=== PATIENT | female | born 1935 | race Caucasian/White ===

== ENCOUNTER 2017-05-23 10:43 | Inpatient (IN) | payer MEDICARE, OTHER ==
[2017-05-23] VITALS (33 sets, daily range): BP systolic 107–222; BP diastolic 52–109
[~2017-05-23] VITALS: Ht 157.5 cm; Wt 70.3 kg
[~2017-05-23 10:43] MED LIST: ASPIRIN; FENOFIBRATE67 MG PO; JANUVIA; METOPROLOL TART25 MG PO; NATEGLINIDE60 MG PO; PAROXETINE; PAXIL; SIMVASTATIN
[2017-05-23 12:25] LABS: BASOPHILS % 0.3 % (0.0-1.0); EOSINOPHILS % 0.3 % (0.0-6.0); HEMATOCRIT 29.3 % (34.2-44.1); HEMOGLOBIN 9.3 g/dL (12.0-16.0); LYMPHOCYTES # (AUTO) 1.1 (1.0-3.2); LYMPHOCYTES % 14.1 % (18.0-39.1); MEAN CORPUSCULAR HEMOGLOBIN 29.4 pg (28-32); MEAN CORPUSCULAR HGB CONC 31.7 g/dL (31-35); MEAN CORPUSCULAR VOLUME 92.7 fL (81-99); MONOCYTES # (AUTO) 0.6 (0.2-0.8); MONOCYTES % 7.6 % (4.4-11.3); NEUTROPHILS # (AUTO) 5.8 (2.1-6.9); PLATELET COUNT 190 x10e3/uL (140-360); RED BLOOD COUNT 3.16 x10e6/uL (3.6-5.1); RED CELL DISTRIBUTION WIDTH 15.7 % (11.7-14.4)
[2017-05-23 12:31] LABS: BILIRUBIN,URINE NEGATIVE (NEGATIVE); CLARITY,URINE CLOUDY (CLEAR); COLOR,URINE YELLOW (YELLOW); KETONES,URINE NEGATIVE (NEGATIVE); LEUKOCYTE ESTERASE ,URINE NEGATIVE (NEGATIVE); NITRITE,URINE NEGATIVE (NEGATIVE); PROTEIN,URINE DIPSTICK 3+ (NEGATIVE); URINE UROBILINOGEN 0.2 mg/dL (0.2 - 1)
[2017-05-23] MEDS ORDERED: ALBUTEROL SULF 0.083% NEB SOLN 3 ML NEB NEB STA (12:37)
[2017-05-23] MEDS ORDERED: IPRATROPIUM BROMIDE 0.02% 2.5 ML NEB NEB STA (12:37)
--- NOTE | 2017-05-23 12:43 | Diagnostic Imaging Report ---
Exam: Head CT without contrast History: Altered mental status Comparison studies: The previous head CTs of 08/08/2014 and are unavailable on the PACS for comparison at the time of dictation. Technique: Axial images were obtained from the skull base to the vertex. Coronal and sagittal images reconstructed from the axial data. Intravenous contrast: None Findings: Exam is somewhat limited by artifacts related to patient motion. In spite of these limitations: Scalp: No abnormalities. Bones: No fractures, blastic or lytic lesions. Brain sulci: Appropriate for age. Ventricles: Normal in size and configuration. No hydrocephalus. Extra-axial spaces: No masses, no fluid collection. Parenchyma: No mass, acute hemorrhage or acute cortical vascular insults. A few scattered ill-defined hypodensities in the supratentorial white matter are nonspecific but most compatible with chronic small vessel ischemic changes. Sellar/suprasellar region: No abnormalities. Craniocervical junction: Patent foramen magnum. No Chiari one malformation. Incidental findings: Atherosclerotic calcifications in the carotid siphons and intradural vertebral arteries. Bilateral lens replacements related to previous cataract surgery. IMPRESSION: Exam somewhat limited by artifacts. In spite of this limitation: 1. No acute intracranial abnormalities. 2. Mild supratentorial microvascular ischemic changes. Signed by: Dr. Harinder Lobo M.D. on 05/23/2017 12:39 PM
[2017-05-23 12:47] LABS: ALBUMIN 3.1 g/dL (3.5-5.0); ALBUMIN/GLOBULIN RATIO 0.9 (0.8-2.0); ANION GAP 15.7 mmol/L (8-16); CALCIUM 9.4 mg/dL (8.4-10.2); CREATININE, SERUM 4.19 mg/dL (0.57-1.11); POTASSIUM 4.7 mmol/L (3.5-5.1)
[2017-05-23 12:53] LABS: CREATINE KINASE MB 2.5 ng/mL (0.00-5.00); TROPONIN I 0.047 ng/mL (0-0.300)
[2017-05-23] MEDS ORDERED: FUROSEMIDE INJ 10 MG/ML 2 ML VIAL IV ONE (13:00)
--- NOTE | 2017-05-23 13:06 | Diagnostic Imaging Report ---
PROCEDURE: CHEST SINGLE (PORTABLE) COMPARISON: None. INDICATIONS: SHORTNESS OF BREATH FINDINGS: Lung volumes are low. No focal consolidation, pleural effusion, or pneumothorax. The cardiac silhouette is enlarged with prominence of the central pulmonary vasculature. No overt alveolar edema. No acute osseous abnormality. CONCLUSION: Cardiomegaly with pulmonary venous congestion, accentuated by low lung volumes. Dictated by: Harinder Irizarry M.D. on 05/23/2017 at 13:14 Electronically approved by: Harinder Irizarry M.D. on 05/23/2017 at 13:14
[2017-05-23] MEDS ORDERED: FUROSEMIDE INJ 10 MG/ML 4 ML VIAL IV ONE (13:15)
[2017-05-23] MEDS ORDERED: SODIUM CHLORIDE FLUSH 10 ML SYR INJ PRN (13:15)
[2017-05-23 13:27] LABS: ABG HCO3 25 mmol/L (23-28); ABG PCO2 60 mmHg (41-51); ABG PH 7.23 (7.31-7.41); ABG PO2 388 mmHg (80-105)
[2017-05-23 13:29] LABS: ABG HCO3 24 mmol/L (23-28); ABG PCO2 53 mmHg (41-51); ABG PH 7.26 (7.31-7.41); ABG PO2 155 mmHg (80-105)
[2017-05-23 13:38] LABS: EPITHELIAL CELLS,URINE FEW /LPF
[2017-05-23 13:40] LABS: RBC,URINE 0-5 /HPF (0-5); WBC,URINE (MAN) 0-5 /HPF (0-5)
[2017-05-23 13:41] LABS: AMORPHOUS SEDIMENT,URINE MODERATE (FEW)
[2017-05-23 13:52] LABS: INR 0.86; PROTHROMBIN TIME 12.2 seconds (11.9-14.5)
[2017-05-23 13:53] LABS: PARTIAL THROMBOPLASTIN TIME 27.2 seconds (23.8-35.5)
[2017-05-23] MEDS ORDERED: ROCURONIUM BROMIDE 1 ML ONE ×2 (14:32)
[2017-05-23] MEDS ORDERED: PROPOFOL IV EMULSION 10MG/ML 100 ML ONE (14:43)
[2017-05-23] MEDS: PROPOFOL IV EMULSION 10MG/ML 100 ML IV SCH ×2 (15:05→21:22)
--- NOTE | 2017-05-23 15:16 | Diagnostic Imaging Report ---
PROCEDURE: A single AP view of the chest. COMPARISON: Patients [facility], , CHEST SINGLE (PORTABLE), 05/23/2017, 12:41. INDICATIONS: INTUBATION FINDINGS: Lines/tubes: Endotracheal tube has been placed, with distal tip in satisfactory position approximately 3 cm proximal to the jennifer. Lungs: Mild bilateral pulmonary venous congestion. Pleura: Small left pleural effusion. There is no pneumothorax. Heart and mediastinum: The cardiac silhouette remains enlarged. Bones: No acute bony abnormality. IMPRESSION: 1. ET tube has been placed, in adequate position, otherwise no significant change. Deon Coleman M.D. Dictated by: Deon Coleman M.D. on 05/23/2017 at 15:24 Electronically approved by: Deon Coleman M.D. on 05/23/2017 at 15:24
[2017-05-23 15:40] LABS: AMPHETAMINES SCREEN,URINE NEGATIVE (NEGATIVE); BENZODIAZEPINES SCREEN,URINE NEGATIVE (NEGATIVE); PHENCYCLIDINE SCREEN,URINE NEGATIVE (NEGATIVE)
[2017-05-23 15:48] LABS: ACETAMINOPHEN < 3 ug/mL (10-30); SALICYLATE < 5.0 mg/dL (0-30)
[2017-05-23] MEDS ORDERED: ROCURONIUM BROMIDE 10 MG/ML 5ML VIAL IV ONE (16:15)
[2017-05-23] MEDS ORDERED: ETOMIDATE 2 MG/ML 10 ML INJ IV STA (16:15)
[2017-05-23 16:30] LABS: ABG HCO3 25 mmol/L (23-28); ABG PCO2 55 mmHg (41-51); ABG PH 7.26 (7.31-7.41); ABG PO2 127 mmHg (80-105)
[2017-05-23] MEDS ORDERED: PRANDIN1 MG (16:49)
[2017-05-23] MEDS ORDERED: ZOFRAN ODT4 MG (16:49)
[2017-05-23] MEDS ORDERED: FELODIPINE ER5 MG (16:49)
[2017-05-23] MEDS ORDERED: NORCO 5-325 TA1 EACH PO (16:49)
[2017-05-23] MEDS ORDERED: BUSPIRONE HCL5 MG PO (16:49)
[2017-05-23] MEDS ORDERED: GABAPENTIN100 MG (16:49)
[2017-05-23] MEDS ORDERED: METOPROLOL TART50 MG PO (16:49)
[2017-05-23] MEDS ORDERED: QUETIAPINE FUM100 MG PO (16:49)
[2017-05-23] MEDS ORDERED: PAROXETINE HCL20 MG PO (16:49)
[2017-05-23] MEDS ORDERED: CLONIDINE HCL0.1 MG PO (16:49)
[2017-05-23] MEDS ORDERED: FUROSEMIDE40 MG PO (16:49)
[2017-05-23] MEDS ORDERED: SIMVASTATIN20 MG PO (16:49)
[2017-05-23] MEDS ORDERED: HYDRALAZINE HCL10 MG PO (16:49)
[2017-05-23] MEDS ORDERED: VENLAFAXINE H37.5 M1 (16:49)
[2017-05-23] MEDS ORDERED: TIZANIDINE HCL4 M1 (16:49)
[2017-05-23] MEDS ORDERED: CALCITRIOL0.25 MCG PO (16:49)
[2017-05-23] MEDS ORDERED: PANTOPRAZOLE SO40 MG PO (16:49)
[2017-05-23] MEDS ORDERED: VITAMIN D1000 UNI1 PO (16:49)
[2017-05-23 17:22] LABS: ABG HCO3 20 mmol/L (23-28); ABG PCO2 28 mmHg (41-51); ABG PH 7.46 (7.31-7.41); ABG PO2 176 mmHg (80-105)
[2017-05-23] MEDS: HYDRALAZINE HCL 20 MG/ML VIAL IV PRN ×2 (17:56→22:54)
[2017-05-23] MEDS: CLONIDINE HCL 0.1 MG/24 HR 1 EA PATCH TOP SCH (18:15)
[2017-05-23] MEDS ORDERED: DEXTROSE 50% SYRINGE 50 ML IV PRN (18:30)
[2017-05-23] MEDS ORDERED: ETOMIDATE 2 MG/ML 10 ML INJ IV ONE (19:00)
[2017-05-23] MEDS ORDERED: INSULIN REGULAR, HUMAN 100 UNIT/1 ML 3ML VIAL SQ SCH (21:00)
[2017-05-23 21:01] LABS: CREATINE KINASE MB 1.6 ng/mL (0.00-5.00); TROPONIN I 0.062 ng/mL (0-0.300)
[2017-05-23] MEDS: FAMOTIDINE 20 MG/2 ML VIAL IV SCH (21:14)
[2017-05-23] MEDS: FUROSEMIDE INJ 10 MG/ML 4 ML VIAL IV SCH (21:15)
[2017-05-23] MEDS: HEPARIN SOD (PORCINE) 5,000 UNIT/ML VIAL SC SCH (21:22)
[2017-05-23] MEDS: INSULIN REGULAR, HUMAN 100 UNIT/1 ML 3ML VIAL SQ SCH (23:12)
[2017-05-24] VITALS (91 sets, daily range): BP systolic 87–181; BP diastolic 46–145
[2017-05-24] MEDS: PROPOFOL IV EMULSION 10MG/ML 100 ML IV SCH ×3 (02:08→20:00)
[2017-05-24] MEDS: INSULIN REGULAR, HUMAN 100 UNIT/1 ML 3ML VIAL SQ SCH (05:53)
[2017-05-24] MEDS: FUROSEMIDE INJ 10 MG/ML 4 ML VIAL IV SCH ×3 (05:53→21:01)
[2017-05-24 06:01] LABS: BASOPHILS % 0.3 % (0.0-1.0); EOSINOPHILS % 0.7 % (0.0-6.0); HEMATOCRIT 24.6 % (34.2-44.1); LYMPHOCYTES # (AUTO) 0.8 (1.0-3.2); MEAN CORPUSCULAR HEMOGLOBIN 28.8 pg (28-32); MEAN CORPUSCULAR HGB CONC 32.1 g/dL (31-35); MEAN CORPUSCULAR VOLUME 89.8 fL (81-99); MONOCYTES # (AUTO) 0.8 (0.2-0.8); MONOCYTES % 13.1 % (4.4-11.3); NEUTROPHILS # (AUTO) 4.1 (2.1-6.9); NEUTROPHILS % 71.6 % (38.7-80.0); PLATELET COUNT 147 x10e3/uL (140-360); RED BLOOD COUNT 2.74 x10e6/uL (3.6-5.1); RED CELL DISTRIBUTION WIDTH 15.7 % (11.7-14.4)
[2017-05-24 06:10] LABS: HEMOGLOBIN 7.9 g/dL (12.0-16.0)
[2017-05-24 06:22] LABS: ANION GAP 16.8 mmol/L (8-16); CALCIUM 8.9 mg/dL (8.4-10.2); CHOL/HDL RATIO 3.5 (3.0-3.6); CREATININE, SERUM 4.69 mg/dL (0.57-1.11); MAGNESIUM 1.4 MG/DL (1.3-2.1); POTASSIUM 3.8 mmol/L (3.5-5.1)
[2017-05-24 06:54] LABS: CREATINE KINASE MB 0.6 ng/mL (0.00-5.00); FREE T4 (FREE THYROXINE) 0.91 ng/dL (0.8-1.8); THYROID STIMULATING HORMONE 1.912 uIU/mL (0.350-4.940); TROPONIN I 0.059 ng/mL (0-0.300)
--- NOTE | 2017-05-24 07:05 | Diagnostic Imaging Report ---
EXAMINATION: CHEST SINGLE (PORTABLE) INDICATION: Dyspnea COMPARISON: None FINDINGS: TUBES and LINES: Endotracheal tube is visualized in good position LUNGS: Lungs are not well inflated. There are bibasilar atelectasis. There is mild prominence of the central pulmonary vasculature, consistent with pulmonary venous congestion. Confluent opacities in the right midlung and left lower lobe. PLEURA: Trace of left pleural effusion HEART AND MEDIASTINUM: Cardiac size is mildly enlarged. BONES AND SOFT TISSUES: No acute osseous lesion. Soft tissues are unremarkable. UPPER ABDOMEN: No free air under the diaphragm. IMPRESSION: 1. Findings are compatible with multifocal pneumonia and central vascular congestion. 2. Small left pleural effusion is suspected Signed by: Dr. Richard Ramirez M.D. on 05/24/2017 7:01 AM
[2017-05-24] MEDS ORDERED: DEXTROSE 5% 1000ML 1,000 ML IV SCH (07:15)
[2017-05-24] MEDS: FAMOTIDINE 20 MG/2 ML VIAL IV SCH ×2 (09:00→20:56)
[2017-05-24] MEDS ORDERED: DEXTROSE 50% SYRINGE 50 ML IV PRN (09:45)
[2017-05-24] MEDS ORDERED: HEPARIN SOD (PORCINE) 5,000 UNIT/ML VIAL IV NR (10:00)
[2017-05-24] MEDS ORDERED: FENTANYL CITRATE/PF 100MCG/2 ML INJ ONE (10:37)
[2017-05-24] MEDS ORDERED: MIDAZOLAM HCL 2 MG/2 ML VIAL ONE (10:37)
[2017-05-24] MEDS ORDERED: LIDOCAINE HCL 2% LOCAL 20 ML VIAL ONE (10:38)
[2017-05-24] MEDS ORDERED: SODIUM CHLORIDE 0.9% 500ML 1,000 ML ONE (10:38)
--- NOTE | 2017-05-24 11:29 | Consultation ---
DATE OF CONSULTATION: PULMONARY CONSULTATION ATTENDING PHYSICIAN: Dr. Saleh. An unfortunate 81-year-old woman admitted with respiratory failure. According to family, she had altered mental status, episodes of hallucinations, and difficulty speaking. She has a long history of hypertension and chronic kidney disease. Dialysis had been anticipated. According to family, she has not had atrial fibrillation in the past, was now diagnosed with atrial fibrillation, and followed at [facility]. The ER record is not available at this time. According to family, she has a history of malignant hypertension, hallucinations, and diabetes mellitus. MEDICATIONS: Her medications had included BuSpar, vitamin B, clonidine, felodipine, Lasix, Neurontin, Apresoline, Vicodin, metoprolol, Protonix, Paxil, Seroquel, Prandin, Zocor, tizanidine, and Effexor. PHYSICAL EXAMINATION GENERAL: She is a well-developed white female, looking somewhat older than her stated age. VITAL SIGNS: Temperature 100.8, pulse 91, respirations 16, and blood pressure 110/80. HEENT: Head normocephalic and atraumatic. Sallow complexion. She is intubated orally. LUNGS: Bilateral rhonchi. HEART: Regular rhythm. ABDOMEN: Nontender. EXTREMITIES: Nontender. IMPRESSION 1. Apparent gram-positive sepsis. 2. Diabetes. 3. Atrial fibrillation. 4. Renal failure, qyphc-on-byznkwx. PLAN: IV antibiotics. We will begin vancomycin. Dialysis was anticipated. IV heparin once dialysis has been started. Ventilator support. Consider cardiology opinion. Check echocardiogram. Thank you for this kind referral. Job#: [id number] STEPHEN
[2017-05-24] MEDS: INSULIN LISPRO 100 UNIT/1 ML 3ML VIAL SQ SCH ×3 (11:30→21:00)
--- NOTE | 2017-05-24 12:14 | History and Physical ---
PRIMARY CARE PROVIDER: In the [facility]. CHIEF COMPLAINT: Respiratory failure. HISTORY OF PRESENT ILLNESS: Ms. Quick is a 81-year-old lady who presented with shortness of breath, respiratory distress with bibasilar rales and some wheezing. Her initial blood gas showed pH 7.23, pCO2 of 60 and a pO2 of 388 on 100%. The patient was put on BiPAP without much improvement, and she was urgently intubated in the ER for progressive respiratory distress and decreased level of consciousness. After intubation, her pH was 7.46, pCO2 28, and pO2 176. REVIEW OF SYSTEMS: Unobtainable as the patient is intubated. PAST MEDICAL HISTORY: Significant for hypertension and some anxiety issues. Patient also has a history of type-2 diabetes. She also has chronic kidney disease, stage 5. Was being evaluated as an outpatient to have an AV fistula done. Has had mapping done by cherry sorter who has been following her. MEDICATIONS: Her regular medications include: 1. Plendil 5 mg daily. 2. Clonidine 0.1 mg as needed. 3. BuSpar 15 mg 3 times a day. 4. Calcitriol 0.25 mg daily. 5. Lasix 20 mg as needed for leg swelling. 6. Hydralazine 50 mg 3 times a day. 7. Hydrocodone as needed. 8. Metoprolol 100 mg twice a day. 9. Zofran as needed. 10. Protonix 40 mg daily. 11. Paxil 30 mg twice daily. 12. Seroquel 100 mg at bedtime. 13. Prandin 0.5 mg 3 times a day. 14. Simvastatin 20 mg at bedtime. 15. Venlafaxine 37.5 mg daily. 16. Zanaflex 4 mg as needed. ALLERGIES: SHE HAS A STATED ALLERGY TO IODINE CONTRAST. FAMILY HISTORY: Remarkable for hypertension and diabetes. SOCIAL HISTORY: The patient is . Indonesian is her primary language. She does not smoke, drink or use illegal drugs. She is generally independently functioning. PHYSICAL EXAMINATION PSYCHIATRIC: Unobtainable as the patient is intubated. She is in no acute distress. VITAL SIGNS: Blood pressure initially 177/61, subsequent 120/73. At that time of the initial exam 191/90. Pulse rate 58, which has been fairly consistent and regular with a lot of PVCs. Respiratory rate 18. On the ventilator, O2 sat 99%. Temperature 97.1. HEENT: Her head is atraumatic. Her eyes are anicteric. She is orally intubated. Has an orogastric tube in place as well. NECK: Supple, with no mass or thyromegaly. LYMPHATIC SYSTEM: She has no palpable cervical, axillary or inguinal adenopathy. CARDIOVASCULAR: Her heart has a regular rhythm with frequent irregular beats or PVCs without murmur. She has trace bipedal edema. RESPIRATORY: The lungs are clear with some bibasilar rales. She is currently being ventilated with symmetric expansion. GASTROINTESTINAL: Abdomen is soft without organomegaly, masses or tenderness. She has normal bowel sounds present. CUTANEOUS: Skin is warm and dry to touch with no rash or skin breakdown. MUSCULOSKELETAL: Her joints are in normal alignment without erythema or swelling. She has no calf tenderness. NEUROLOGIC: Exam is nonfocal. Although the patient is heavily sedated, she does withdraw on all extremities to pain. DIAGNOSTIC STUDIES: Chest x-ray shows cardiomegaly and pulmonary vascular congestion. A 2nd chest x-ray showed intubation with ET tube in good position. CT scan of the brain showed mild microvascular changes, nothing acute. Her UA was clear. UDS was negative. Her blood gases noted above. The most recent blood gas 7.46, CO2 28, O2 176 after being intubated. Lactic acid 13.2, which is normal. Troponin 0.047. BNP 2021.0. Her chemistry shows normal electrolytes, CO2 20, creatinine 4.19 and BUN 70 for a GFR of 10. Calcium 9.4. Glucose 160. Transaminases, bilirubin and alk phos are normal. CBC shows a white count 7.52 with 77% neutrophils, hemoglobin 9.3, hematocrit 29.3 with microcytic indices and platelet count 190,000. IMPRESSION AND PLAN 1. Acute respiratory failure. Patient was admitted to the ICU on ventilator. Pulmonary consult for ventilator management. 2. Mhyoy-sv-plunomp diastolic heart failure. The patient will get IV Lasix, and we will check an echocardiogram. 3. Chronic kidney disease, stage 5, with volume overload. Nephrology has been consulted, and the patient likely will need to initiate hemodialysis. 4. Hypertension. That is poorly controlled at present. Will apply a Catapres-TTS patch and continue IV hydralazine as needed. Will hold her p.o. meds at this time. 5. Type-2 diabetes. Will hold p.o. meds and give sliding-scale insulin as needed. 6. Prophylaxis: Will use subcutaneous heparin for DVT prophylaxis and IV Pepcid for GI prophylaxis. Job#: [id number]
[2017-05-24] MEDS: SODIUM BICARBONATE 8.4% 150 ML in DEXTROSE 5% 1000ML 1,000 ML IV SCH (12:20)
[2017-05-24] MEDS: HEPARIN SOD (PORCINE) 5,000 UNIT/ML VIAL SC SCH ×2 (12:45→21:05)
[2017-05-24] MEDS: IPRATROPIUM BROMIDE 0.02% 2.5 ML NEB NEB SCH ×2 (13:00→19:30)
--- NOTE | 2017-05-24 13:24 | Consultation ---
DATE OF CONSULTATION: May 24, 2017 CARDIOLOGY CONSULTATION REQUESTING PHYSICIAN: Dr. Saleh. REASON FOR CONSULTATION: Atrial fibrillation. HISTORY OF PRESENT ILLNESS: This is a 81-year-old woman with history of hypertension, chronic kidney disease, recently diagnosed atrial fibrillation, who was brought to the ER due to altered mental status, hallucinations, and difficulty with speech. No information is available as the patient is currently intubated and sedated. All history is obtained from the medical record. She was noted to develop atrial fibrillation after admission. Cardiology is consulted for management. REVIEW OF SYSTEMS: Unable to obtain secondary to intubation and sedation. PAST MEDICAL HISTORY 1. Hypertension. 2. Diabetes mellitus. 3. Chronic kidney disease. ALLERGIES: Please see EMR. MEDICATIONS: Please see medication list. SOCIAL HISTORY: Unable to obtain secondary to intubation and sedation. FAMILY HISTORY: Noncontributory. PHYSICAL EXAMINATION VITAL SIGNS: Temperature 100.8 degrees, pulse 69, respiratory rate 18, blood pressure 108/62, oxygen saturation 98% on mechanical ventilation. GENERAL: Well-developed, well-nourished, intubated and sedated. HEENT: Normocephalic, atraumatic. NECK: No carotid bruits. LUNGS: Coarse breath sounds bilaterally. No wheezes or crackles. CARDIOVASCULAR: Irregularly irregular, normal rate. No murmur. Normal S1, S2. ABDOMEN: Soft, nontender. EXTREMITIES: No edema. NEUROLOGIC: Unable to assess secondary to intubation and sedation. LABORATORY DATA: WBC 5.7, hemoglobin 7.9, hematocrit 24.6, platelets 147. Sodium 143, potassium 3.8, chloride 112, CO2 of 18, BUN 78, creatinine 4.69. BNP 833. Triglycerides 228, cholesterol 125, LDL 43, HDL 36. Blood cultures positive for gram-positive cocci in chains. IMPRESSION 1. Sepsis secondary to gram-positive cocci bacteremia. 2. Atrial fibrillation, rate controlled. 3. Buyan-jd-ghuvfmp renal failure. 4. Diabetes mellitus. 5. Hypertension. RECOMMENDATIONS: Agree with antibiotics. Dialysis per nephrology. Patient is currently rate controlled. P.r.n. metoprolol as needed for rate control. Patient does want anticoagulation; however, given her drop in H and H, hold off anticoagulation for now. Will check stool occult blood and monitor hemoglobin and hematocrit. Obtain echocardiogram. Thank you for this consult. We will continue to follow. Job#: [id number] PAT
[2017-05-24] MEDS ORDERED: MAGNESIUM SULFATE 2GM/50ML 50 ML IV ONE ×2 (15:00→21:08)
[2017-05-24] MEDS ORDERED: WATER STERILE 10 ML VIAL INJ PRN (15:00)
[2017-05-24] MEDS ORDERED: CEFTRIAXONE SOD 2 GM VIAL IV SCH (15:00)
[2017-05-24 15:22] LABS: ABG HCO3 21 mmol/L (23-28); ABG PCO2 36 mmHg (41-51); ABG PH 7.37 (7.31-7.41); ABG PO2 110 mmHg (80-105)
--- NOTE | 2017-05-24 15:55 | Consultation ---
DATE OF CONSULTATION: May 24, 2017 HISTORY OF PRESENT ILLNESS: This is a 81-year-old patient seen at our nephrology clinic. She sees Dr. Olson. Baseline serum creatinine averages between 2.5 to 3. Has underlying history of type 2 diabetes with end-organ damage and hypertension. Recent atrial fibrillation. She developed atrial fibrillation and rapid ventricular rate and subsequently developed respiratory distress. She is currently intubated, unresponsive. Family at bedside. She has been on multiple medications at home including hydralazine and hydrocodone. She is on Paxil, Seroquel, simvastatin, , Zanaflex, clonidine and Plendil. Currently her urine output has been extremely poor. Chest x-ray shows bilateral infiltrates with cardiomegaly. There is a fullness of the left hilum suggestive of possible lymph node. Had a brain CT done. Please see official report that shows no intracranial abnormalities. Now this x-ray interpretation is my interpretation. Please see official report for details. CURRENT MEDICATIONS: Sodium bicarbonate which I started earlier at 70 mL an hour. She received vancomycin one time dose. She is on Pepcid. She is a 40 mg Lasix IV q. 8. She is on hydralazine p.r.n., heparin 5000 subcu q.12. She is on metoprolol p.r.n. for tachycardia. She is on ipratropium, bromide, Atrovent nebulizers. ALLERGIES: SHE IS ALLERGIC TO ORAL AND IV CONTRAST. Laboratory test shows a white count of 7.5, hemoglobin 9.3. Initially hemoglobin was 9.3 and is down to 7.9 with a platelet count of 147,000 and white count of 5.73. Lab shows potassium 3.8, bicarbonate 18 with a BUN and creatinine 78 and 4.69 with a magnesium 1.4. BNP of 833.9. Sodium 143. Has a glucose of 111. Last hemoglobin A1c of 6.6. PHYSICAL EXAMINATION: GENERAL: The patient is intubated, sedated and unresponsive. VITALS: Blood pressure 104/64, pulse rate 85. Respiratory rate 20. Oxygen saturation 96%. HEAD AND NECK: Pupils reactive. LUNGS: Harsh vesicular breath sounds. Scattered rales bilaterally. HEART: S1 and S2 audible. ABDOMEN: Otherwise soft and nontender. LOWER EXTREMITY EXAMINATION: Shows no edema. IMPRESSION AND PLAN: Gdatv-qm-hsksfki kidney failure. Underlying ATN and had oligoanuria. Significant metabolic acidosis. IV bicarbonate started. Plan on placement of dialysis catheter and temporary dialysis for clearance and metabolic acidosis. Discussed with . All questions answered. Will apply knee-high ADÁN hoses. Discontinue existing Lasix order. Will get a stat kidney ultrasound. Attempt diuresis. We have already given her a dose of Lasix. Will place her on Lasix 60 IV q.8 h. Start empiric antibiotics for possible pneumonia. Please see orders. Job#: [id number]
[2017-05-24] MEDS ORDERED: MANNITOL 25% 12.5GM/50 ML VIAL IV PRN (17:45)
[2017-05-24] MEDS ORDERED: ALBUMIN HUMAN 12.5GM / 50ML IV PRN (17:45)
[2017-05-24] MEDS ORDERED: HEPARIN SOD (PORCINE) 1000 UNIT/ML SDV IV PRN (17:45)
[2017-05-24] MEDS ORDERED: SODIUM CHLORIDE 0.9% 250ML 500 ML IV PRN (17:45)
[2017-05-24] MEDS ORDERED: SODIUM CHLORIDE 0.9% 1000ML 2,000 ML IV PRN (17:45)
--- NOTE | 2017-05-24 19:31 | Diagnostic Imaging Report ---
EXAM: Renal Ultrasound INDICATION: \S\nikki \[id number] \S\[id number] COMPARISON: None TECHNIQUE: Transverse and longitudinal images of the kidneys and bladder were obtained. FINDINGS: Limited study. Patient was intubated and could not follow the breathing instructions. Right Kidney: Size: 12.5 cm Echogenicity: Normal Parenchymal thickness: Decreased Collecting system: No hydronephrosis Stones: None Cyst/Mass: 1.9 cm right inferior pole cyst. Left Kidney: Size: 12.6 cm Echogenicity: Normal Parenchymal thickness: Decreased Collecting system: No hydronephrosis Stones: None Cyst/Mass: None Bladder: Decompressed by Manuel catheter in place, limiting evaluation. IMPRESSION: Limited study as above. Bilateral renal cortical atrophy and hypertrophy of the renal sinus fat. Signed by: Dr. Kt Patel MD on 05/24/2017 7:27 PM
[2017-05-24] MEDS ORDERED: SODIUM CHLORIDE 0.9% 250ML 250 ML ONE (20:05)
[2017-05-24] MEDS: VANCOMYCIN 750MG/NS 150ML IVPB 150 ML IV SCH (20:45)
[2017-05-24] MEDS: PANTOPRAZOLE 40 MG 10ML VIAL IV SCH (20:55)
[2017-05-24] MEDS: HYDRALAZINE HCL 20 MG/ML VIAL IV PRN (20:59)
[2017-05-25] VITALS (100 sets, daily range): BP systolic 101–178; BP diastolic 49–111
[2017-05-25] MEDS: PROPOFOL IV EMULSION 10MG/ML 100 ML IV SCH ×6 (01:04→21:15)
[2017-05-25] MEDS ORDERED: DEXTROSE 5% 1000ML 1,000 ML IV ONE (01:32)
[2017-05-25] MEDS ORDERED: SODIUM BICARBONATE 8.4% SYRING 150 ML ONE (01:33)
[2017-05-25] MEDS: SODIUM BICARBONATE 8.4% 150 ML in DEXTROSE 5% 1000ML 1,000 ML IV SCH (02:14)
[2017-05-25] MEDS: IPRATROPIUM BROMIDE 0.02% 2.5 ML NEB NEB SCH ×4 (03:05→19:00)
[2017-05-25 05:37] LABS: BASOPHILS % 0.2 % (0.0-1.0); EOSINOPHILS # (AUTO) 0.1 (0.0-0.4); EOSINOPHILS % 1.1 % (0.0-6.0); LYMPHOCYTES # (AUTO) 0.9 (1.0-3.2); MEAN CORPUSCULAR HEMOGLOBIN 29.2 pg (28-32); MEAN CORPUSCULAR HGB CONC 32.5 g/dL (31-35); MEAN CORPUSCULAR VOLUME 90.1 fL (81-99); MONOCYTES # (AUTO) 0.7 (0.2-0.8); MONOCYTES % 12.9 % (4.4-11.3); NEUTROPHILS # (AUTO) 3.8 (2.1-6.9); NEUTROPHILS % 69.6 % (38.7-80.0); PLATELET COUNT 130 x10e3/uL (140-360); RED BLOOD COUNT 2.53 x10e6/uL (3.6-5.1); RED CELL DISTRIBUTION WIDTH 15.7 % (11.7-14.4)
[2017-05-25 05:44] LABS: HEMATOCRIT 22.8 % (34.2-44.1); HEMOGLOBIN 7.4 g/dL (12.0-16.0)
[2017-05-25] MEDS: INSULIN LISPRO 100 UNIT/1 ML 3ML VIAL SQ SCH ×4 (05:48→18:00)
[2017-05-25] MEDS: FUROSEMIDE INJ 10 MG/ML 4 ML VIAL IV SCH ×3 (05:58→21:15)
[2017-05-25 06:03] LABS: ALANINE AMINOTRANSFERASE 8 IU/L (0-55); ALBUMIN 2.1 g/dL (3.5-5.0); ALBUMIN/GLOBULIN RATIO 0.8 (0.8-2.0); ALKALINE PHOSPHATASE 46 IU/L (40-150); ANION GAP 14.2 mmol/L (8-16); BLOOD UREA NITROGEN 49 mg/dL (7-26); BUN/CREATININE RATIO 12 (6-25); CALCIUM 7.9 mg/dL (8.4-10.2); CARBON DIOXIDE 31 mmol/L (22-29); CHLORIDE 98 mmol/L (98-107); CREATININE, SERUM 4.02 mg/dL (0.57-1.11); EST GLOMERULAR FILTRATION RATE 11 ML/MIN (60-); GLUCOSE 149 mg/dL (74-118); POTASSIUM 3.2 mmol/L (3.5-5.1); SODIUM 140 mmol/L (136-145)
[2017-05-25] MEDS ORDERED: SODIUM CHLORIDE 0.9% 250ML 250 ML IV ONE (06:30)
--- NOTE | 2017-05-25 06:47 | Diagnostic Imaging Report ---
EXAMINATION: CHEST SINGLE (PORTABLE) INDICATION: Pneumonia, CHF COMPARISON: 05/24/2017 FINDINGS: TUBES and LINES: Interval placement of right IJ central line catheter. Endotracheal tube is in good position, stable. LUNGS: Lungs are not well inflated. There are bibasilar atelectasis. There is perihilar interstitial opacities, consistent with interstitial edema. PLEURA: Bilateral pleural effusion HEART AND MEDIASTINUM: Cardiac size is moderately enlarged. There are atherosclerotic calcifications within the aorta. BONES AND SOFT TISSUES: No acute osseous lesion. Soft tissues are unremarkable. UPPER ABDOMEN: No free air under the diaphragm. IMPRESSION: Findings are compatible with fluid overload/cardiac decompensation associated with bilateral pleural effusions. Signed by: Dr. Richard Ramirez M.D. on 05/25/2017 6:44 AM
[2017-05-25] MEDS ORDERED: POTASSIUM CHLORIDE 20MEQ/100ML 100 ML IV ONE (07:00)
[2017-05-25] MEDS: CEFTRIAXONE SOD 2 GM VIAL IV SCH ×2 (09:00→21:15)
[2017-05-25] MEDS: HEPARIN SOD (PORCINE) 5,000 UNIT/ML VIAL SC SCH ×2 (09:00→21:17)
[2017-05-25] MEDS: PANTOPRAZOLE 40 MG 10ML VIAL IV SCH (09:00)
[2017-05-25] MEDS: FAMOTIDINE 20 MG/2 ML VIAL IV SCH ×2 (09:00→21:15)
[2017-05-25] MEDS ORDERED: POTASSIUM CHLORIDE 10MEQ/100ML 100 ML ONE (09:35)
[2017-05-25] MEDS ORDERED: SODIUM CHLORIDE 0.9% 1000ML 1,000 ML ONE (10:41)
[2017-05-25] MEDS ORDERED: SODIUM CHLORIDE 0.9% 250ML 500 ML ONE (11:50)
--- NOTE | 2017-05-25 11:57 | Progress Note ---
DATE: May 25, 2017 at 10:30 a.m. SUBJECTIVE: Overnight no events. The patient received dialysis yesterday. REVIEW OF SYSTEMS: Unobtainable. OBJECTIVE VITAL SIGNS: Reviewed. T max is 100.0. GENERAL APPEARANCE: A tired-appearing woman resting in the bed. HEENT: ET tube is in place. The patient resists eye opening. CARDIOVASCULAR: Normal S1 and S2. LUNGS: Moderate breath sounds, reduced at bases. ABDOMEN: Soft and nontender. Nondistended. EXTREMITIES: There is no edema. NEUROLOGIC: She resists passive opening of her eyes. She moves her extremities. SKIN: Dry. PSYCHIATRIC: Unable to assess. LABS: Reviewed. MEDICATIONS: Reviewed. ASSESSMENT AND PLAN: A 81-year-old woman. 1. Acute respiratory failure. Ventilator support through pulmonary services. 2. Dbnns-oh-jdjasbf diastolic congestive heart failure. One liter planned to be removed by dialysis today. 3. End-stage renal disease. Started on dialysis yesterday. One liter planned to be removed today. Continue Lasix 60 IV q.8 h. 4. Diabetes mellitus type 2. Follow up hemoglobin A1c and lipid panel. Continue sliding scale insulin regimen. Hemoglobin A1c is 6.6. LDL is 43 and triglycerides 228. 5. Hypertension. Continue medication regimen. 6. Alpha hemolytic Streptococcus bacteremia in 2 out of 2 bottles. Continue IV ceftriaxone. 7. Sepsis with bacteremia and hypotension and fever. Will continue broad-spectrum antibiotics. We will reculture the blood now. 8. Bilateral pleural effusion secondary to congestive heart failure exacerbation. Diurese the patient. 9. Worsening normocytic anemia. Hemoglobin now is 7.4, initially 9.3. Will get a stool occult blood. Will need to give the patient blood transfusion during dialysis. 10. Continue heparin and Pepcid prophylactically. 11. I have discussed the case with family and at bedside. Critical care time more than 35 minutes. Job#: [id number]
--- NOTE | 2017-05-25 16:00 | Progress Note ---
DATE: May 25, 2017 CARDIOLOGY PROGRESS NOTE SUBJECTIVE: Intubated on vent support, undergoing dialysis. OBJECTIVE VITAL SIGNS: Temperature 100, heart rate 62, respiratory rate 13, blood pressure 127/55, O2 sat 100% on vent support. GENERAL: Intubated and sedated. LUNGS: Coarse breath sounds with bilateral rales. CARDIOVASCULAR: Irregularly irregular rate and rhythm. Normal S1 and S2. Systolic ejection murmur. ABDOMEN: Soft. EXTREMITIES: Edema trace bilateral lower extremities. CARDIOVASCULAR MEDICATIONS: Reviewed. On vancomycin and cefepime antibiotic coverage. Clonidine patch 0.1 mg per 24 hour dose. Furosemide 60 mg IV q.8 h. Heparin 5000 units subcu q.12 h. Metoprolol 5 mg IV q.6 h. p.r.n. STUDIES: White blood cells 5.4, hemoglobin 7.4, platelets 130,000. Sodium 140. Potassium 3.2. Chloride 98. Bicarbonate 31, BUN 49, creatinine 4.02. Glucose 121. Calcium 7.9. Normal transaminases. BNP 303. Total protein 4.7. Albumin 2.1. Blood cultures, Strept species alpha hemolytic. ASSESSMENT: 1. Sepsis secondary to gram-positive cocci bacteremia. 2. Atrial fibrillation, rate controlled. 3. Acute on chronic renal failure. 4. Diabetes mellitus. 5. Hypertension. 6. Preserved left ventricular systolic function with moderate left ventricular hypertrophy. 7. Adwng-jf-mlcbfmz chronic diastolic heart failure. PLAN: Continue on antibiotic coverage per primary service. Volume status per nephrology. P.r.n. metoprolol for rate control. Given anemia currently not candidate for anticoagulation. Monitor hemoglobin and hematocrit and consider supportive transfusion as needed. Follow up fecal occult blood test once available. Job#: [id number]
[2017-05-25] MEDS: ARTIFICIAL TEARS (OPTH) 15 ML BTL OU PRN (17:00)
[2017-05-25] MEDS: VANCOMYCIN 750MG/NS 150ML IVPB 150 ML IV SCH (18:30)
[2017-05-25] MEDS: HYDRALAZINE HCL 20 MG/ML VIAL IV PRN (21:15)
[2017-05-25] MEDS: METOPROLOL TARTRATE INJ 1 MG/ML VIAL IV PRN (22:16)
[2017-05-26] VITALS (80 sets, daily range): BP systolic 75–214; BP diastolic 42–105
[2017-05-26] MEDS: PROPOFOL IV EMULSION 10MG/ML 100 ML IV SCH ×3 (00:45→07:35)
[2017-05-26] MEDS: IPRATROPIUM BROMIDE 0.02% 2.5 ML NEB NEB SCH ×4 (01:00→19:20)
[2017-05-26] MEDS: FUROSEMIDE INJ 10 MG/ML 4 ML VIAL IV SCH ×3 (05:59→22:00)
[2017-05-26] MEDS: INSULIN LISPRO 100 UNIT/1 ML 3ML VIAL SQ SCH ×4 (06:07→18:00)
[2017-05-26 06:34] LABS: ALBUMIN/GLOBULIN RATIO 0.6 (0.8-2.0); ANION GAP 15.6 mmol/L (8-16); CALCIUM 8.7 mg/dL (8.4-10.2); CREATININE, SERUM 3.4 mg/dL (0.57-1.11); POTASSIUM 3.6 mmol/L (3.5-5.1)
[2017-05-26] MEDS: ARTIFICIAL TEARS (OPTH) 15 ML BTL OU PRN ×3 (09:00→21:00)
[2017-05-26] MEDS: HEPARIN SOD (PORCINE) 5,000 UNIT/ML VIAL SC SCH (09:00)
[2017-05-26] MEDS: FAMOTIDINE 20 MG/2 ML VIAL IV SCH ×2 (11:05→22:00)
[2017-05-26] MEDS: CEFTRIAXONE SOD 2 GM VIAL IV SCH ×2 (11:05→22:00)
[2017-05-26] MEDS: PANTOPRAZOLE 40 MG 10ML VIAL IV SCH (11:05)
[2017-05-26] MEDS: DEXMEDETOMIDINE HCL 200 MCG in SODIUM CHLORIDE 0.9% 50ML 48 ML IV PRN ×3 (12:30→21:00)
[2017-05-26] MEDS: FENTANYL CITRATE INJ 2,000 MCG in SODIUM CHLORIDE 0.9% 250ML 210 ML IV PRN (14:59)
[2017-05-27] VITALS (69 sets, daily range): BP systolic 97–199; BP diastolic 44–151
[2017-05-27] MEDS: INSULIN LISPRO 100 UNIT/1 ML 3ML VIAL SQ SCH ×4 (00:55→18:19)
--- NOTE | 2017-05-27 02:38 | Progress Note ---
DATE: May 26, 2017 TIME: 8:40 a.m. OVERNIGHT: No events. REVIEW OF SYSTEMS: Unobtainable. PHYSICAL EXAMINATION VITAL SIGNS: Have been reviewed. GENERAL: A tired-appearing woman resting in bed. HEENT: ET tube in place. CARDIOVASCULAR: Normal S1 and S2. LUNGS: Moderate breath sounds and reduced at bases. ABDOMEN: Soft, nontender and nondistended. EXTREMITIES: No edema. SKIN: Dry. PSYCHIATRIC: Unable to assess. NEUROLOGICAL: Moves extremities. LABS: Reviewed. MEDICATIONS: Reviewed. ASSESSMENT: A 81-year-old woman with: 1. Acute respiratory failure. 2. Potob-dk-pqnsxdr diastolic congestive heart failure. 3. End-stage renal disease, initiated on hemodialysis. 4. Diabetes mellitus, type 2: Hemoglobin A1c/LDL/triglycerides 6.6/43/228. 5. Hypertension. 6. Coagulase-negative staphylococcus and Streptococcus viridans bacteremia/sepsis. 7. Bilateral pleural effusion secondary to congestive heart failure exacerbation. 8. Worsening normocytic anemia. PLAN 1. Continue dialysis. 2. Continue IV ceftriaxone. 3. Repeat blood cultures have been done. Follow up results. 4. Continue Lasix 60 mg IV q.8 h. Patient's I's and O's not well documented. Will continue fluid removal by dialysis. 5. Check H and H this morning. Blood counts have been trending down. 6. Thrombocytopenia. Will re-evaluate this morning. 7. Patient also on IV vancomycin. 8. Continue heparin q.12 h. and PPI prophylactically. 9. I have discussed the case with the at bedside. Critical care time more than 35 minutes. Job#: [id number] PAVAN
[2017-05-27] MEDS: IPRATROPIUM BROMIDE 0.02% 2.5 ML NEB NEB SCH ×3 (02:55→20:21)
[2017-05-27] MEDS: FENTANYL CITRATE INJ 2,000 MCG in SODIUM CHLORIDE 0.9% 250ML 210 ML IV PRN (05:38)
[2017-05-27 05:44] LABS: BASOPHILS % 0.3 % (0.0-1.0); EOSINOPHILS # (AUTO) 0.2 (0.0-0.4); EOSINOPHILS % 2.3 % (0.0-6.0); HEMATOCRIT 30.9 % (34.2-44.1); HEMOGLOBIN 9.9 g/dL (12.0-16.0); LYMPHOCYTES # (AUTO) 0.8 (1.0-3.2); LYMPHOCYTES % 11.1 % (18.0-39.1); MEAN CORPUSCULAR HEMOGLOBIN 28.7 pg (28-32); MEAN CORPUSCULAR VOLUME 89.6 fL (81-99); MONOCYTES # (AUTO) 0.8 (0.2-0.8); MONOCYTES % 11.6 % (4.4-11.3); NEUTROPHILS # (AUTO) 5.1 (2.1-6.9); NEUTROPHILS % 74.1 % (38.7-80.0); PLATELET COUNT 134 x10e3/uL (140-360); RED BLOOD COUNT 3.45 x10e6/uL (3.6-5.1); RED CELL DISTRIBUTION WIDTH 16.1 % (11.7-14.4)
[2017-05-27] MEDS: FUROSEMIDE INJ 10 MG/ML 4 ML VIAL IV SCH ×3 (05:49→21:03)
[2017-05-27 06:14] LABS: ALANINE AMINOTRANSFERASE 14 IU/L (0-55); ALBUMIN/GLOBULIN RATIO 0.6 (0.8-2.0); ALKALINE PHOSPHATASE 61 IU/L (40-150); ANION GAP 15.8 mmol/L (8-16); BUN/CREATININE RATIO 11 (6-25); CARBON DIOXIDE 26 mmol/L (22-29); CHLORIDE 101 mmol/L (98-107); EST GLOMERULAR FILTRATION RATE 9 ML/MIN (60-); GLUCOSE 127 mg/dL (74-118); POTASSIUM 3.8 mmol/L (3.5-5.1); SODIUM 139 mmol/L (136-145)
[2017-05-27 06:18] LABS: BLOOD UREA NITROGEN 48 mg/dL (7-26)
[2017-05-27] MEDS ORDERED: MAGNESIUM SULFATE 2GM/50ML 50 ML IV ONE (08:00)
[2017-05-27] MEDS ORDERED: MANNITOL 25% 12.5GM/50 ML VIAL IV PRN (09:15)
[2017-05-27] MEDS ORDERED: SODIUM CHLORIDE 0.9% 1000ML 2,000 ML IV PRN (09:15)
[2017-05-27] MEDS ORDERED: HEPARIN SOD (PORCINE) 1000 UNIT/ML SDV IV PRN (09:15)
[2017-05-27] MEDS ORDERED: SODIUM CHLORIDE 0.9% 250ML 500 ML IV PRN (09:15)
[2017-05-27] MEDS: FAMOTIDINE 20 MG/2 ML VIAL IV SCH ×2 (09:49→21:03)
[2017-05-27] MEDS: CEFTRIAXONE SOD 2 GM VIAL IV SCH (09:49)
[2017-05-27] MEDS: PANTOPRAZOLE 40 MG 10ML VIAL IV SCH (09:49)
--- NOTE | 2017-05-27 13:00 | Diagnostic Imaging Report ---
Exam: Non tunneled triple-lumen temporary hemodialysis catheter placement. History: Patient with MARK ANTHONY in need of temporary hemodialysis and IV access. Comparison: None available Findings: Ultrasound was utilized for venous access and puncture of the right internal jugular vein with a 21-gauge needle after local anesthesia was obtained with 1% Xylocaine. A 0.018 " skinny wire was then placed through the needle and over which a micropuncture sheath advanced into the SVC. A 0.035 " Amplatz superstiff wire was then placed centrally under fluoroscopic guidance. Serial dilatation was accomplished. A 15 cm long 13 [place] triple-lumen Bard Trialysis catheter was then advanced over the wire. The line is okay for immediate use. Fluoroscopy time: 0.6 minutes Total dose: 26.8 cGycm2 Impression: Placement of a triple-lumen temporary HD catheter utilizing sonographic and fluoroscopic guidance. Signed by: Dr. Anthony Palacios DO on 05/24/2017 12:45 PM
--- NOTE | 2017-05-27 13:09 | Progress Note ---
DATE: May 26, 2017 CARDIOLOGY PROGRESS NOTE SUBJECTIVE: Intubated on vent support. Sedation holiday. Somewhat confused currently. OBJECTIVE VITAL SIGNS: Temperature 97.9, heart rate 90, respiratory rate 11, blood pressure 110/60, O2 sat 98% on vent support. GENERAL: Confused, intubated. CHEST: Coarse breath sounds. CARDIOVASCULAR: Regular rate and rhythm. Normal S1 and S2. ABDOMEN: Soft. EXTREMITIES: Trace edema. CARDIOVASCULAR MEDICATIONS 1. Furosemide 60 mg IV q.8 hours. 2. Metoprolol tartrate 5 mg q.6 hours p.r.n. 3. Clonidine patch. 4. Heparin hold. LABORATORY STUDIES: Studies for today pending other than creatinine of 2.4, potassium 3.6, glucose 172. ASSESSMENT 1. Sepsis secondary to gram-positive cocci bacteremia. 2. Atrial fibrillation, rate controlled. 3. Coocr-tg-hohshcv renal failure. 4. Diabetes mellitus. 5. Hypertension. 6. Preserved left ventricular systolic function with moderate left ventricular hypertrophy. 7. Gxhpl-zd-vtqmjxo diastolic heart failure. RECOMMENDATIONS 1. Continue antibiotics per primary service. Wean vent per pulmonary and critical care medicine. 2. Continue p.r.n. metoprolol for rate control. Currently not a candidate for anticoagulation given anemia. H and H to be monitored and transfusions as needed. Followup fecal occult blood test. Job#: [id number] JED
--- NOTE | 2017-05-27 13:53 | Progress Note ---
DATE: May 27, 2017 TIME: 07:59 a.m. OVERNIGHT: No change. Patient remains intubated on 50% FiO2. PHYSICAL EXAMINATION GENERAL: A tired-appearing woman, resting in bed. HEENT: ET tube in place. CARDIOVASCULAR: Normal S1, S2. LUNGS: Moderate breath sounds, reduced at bases. ABDOMEN: Soft, nontender, nondistended. EXTREMITIES: No edema. SKIN: Dry. PSYCHIATRIC: Unable to assess. NEUROLOGICAL: Moves extremities. LABS: Reviewed. MEDICATIONS: Reviewed. ASSESSMENT: A 81-year-old woman with: 1. Acute respiratory failure. 2. Ffdmg-en-ddhzsfx diastolic congestive heart failure. 3. End-stage renal disease, initiated on dialysis. 4. Diabetes mellitus, type 2: Hemoglobin A1c/LDL is 6.6/43. 5. Hypertension. 6. Coagulase-negative staphylococcus and Streptococcus viridans bacteremia/sepsis. 7. Bilateral pleural effusion secondary to congestive heart failure exacerbation. 8. Normocytic anemia. PLAN 1. Continue dialysis. 2. Continue IV ceftriaxone for bacteremia with staph and strep. 3. Continue Lasix and diuretics. 4. Patient also on IV vancomycin. 5. Hemoglobin has improved after blood transfusion. Hemoglobin now 9.9. We will continue to follow up and keep the patient on Pepcid 20 IV q.12. 6. Prophylaxis. Continue PPI and regimen. Critical care time more than 35 minutes. Job#: [id number] SAK
[2017-05-27] MEDS ORDERED: DEXAMETHASONE SOD PHOS 10 MG/1 ML VIAL IV STA (15:23)
[2017-05-27] MEDS ORDERED: EPINEPHRINE 2.25% INH NEBU SOL 0.5 ML VIAL INH STA (15:23)
[2017-05-27] MEDS ORDERED: EPINEPHRINE 2.25% INH NEBU SOL 0.5 ML VIAL ONE ×2 (15:27→15:41)
--- NOTE | 2017-05-27 15:34 | Diagnostic Imaging Report ---
PROCEDURE: A single AP view of the chest. COMPARISON: 05/25/17 INDICATIONS: EXTUBATED FINDINGS: Lines/tubes: Status post extubation. Stable right internal jugular catheter. Midline tube, extending inferiorly, which could represent nasogastric tube or it could be external to patient. Lungs: Limited by low lung volumes and body habitus. Central vascular congestion. Left lower lung field hazy opacification. Pleura: There is no significant pleural effusion or pneumothorax. Heart and mediastinum: Enlarged cardiac silhouette. Bones: No acute bony abnormality. IMPRESSION: Limited study due to body habitus and low lung volumes. Status post extubation. Enlarged cardiomediastinal silhouette and central vascular congestion, accentuated by low lung volumes and technique. Left lower lung field hazy opacification, could be artifactual or represent atelectasis/small effusion. Dictated by: Kt Patel M.D. on 05/27/2017 at 15:42 Electronically approved by: Kt Patel M.D. on 05/27/2017 at 15:42
[2017-05-27] MEDS ORDERED: HALOPERIDOL LACTATE 5 MG/ML VIAL ONE (15:38)
[2017-05-27] MEDS ORDERED: LEVALBUTEROL HCL SOLN NEBU 1.25 MG/3 ML NEB ONE (15:42)
--- NOTE | 2017-05-27 18:05 | Diagnostic Imaging Report ---
PROCEDURE: A single AP view of the chest. COMPARISON: Same day at 1504 hrs. INDICATIONS: POST INTUBATION FINDINGS: Lines/tubes: Status post intubation. The tip of endotracheal tube is either at the level of jennifer or proximal right main bronchus. Recommend retraction. Stable right internal jugular catheter and nasogastric tube. Lungs: Diffuse bilateral airspace opacities. Pleura: There is no pleural effusion or pneumothorax. Heart and mediastinum: Enlarged cardiomediastinal silhouette. Bones: No acute bony abnormality. Questionable subcutaneous emphysema the neck base and lateral chest alvarez. IMPRESSION: 1. Status post intubation. The tip of endotracheal tube is either at the level of jennifer or proximal right main bronchus. Recommend retraction. 2. Diffuse bilateral airspace opacities, representing edema and/or infiltrate. 3. Questionable neck base and bilateral chest wall soft tissue emphysema, new from prior exam. Dictated by: Kt Patel M.D. on 05/27/2017 at 18:14 Electronically approved by: Kt Patel M.D. on 05/27/2017 at 18:14
[2017-05-27 18:18] LABS: ABG PCO2 54 mmHg (41-51); ABG PH 7.36 (7.31-7.41); ABG PO2 83 mmHg (80-105)
[2017-05-27 18:19] LABS: ABG HCO3 30 mmol/L (23-28)
[2017-05-27] MEDS ORDERED: MIDAZOLAM HCL 2 MG/2 ML VIAL ONE (18:26)
[2017-05-27] MEDS ORDERED: ETOMIDATE 2 MG/ML 10 ML INJ IV ONE ×2 (18:26)
[2017-05-27] MEDS ORDERED: SUCCINYLCHOLINE 200 MG/10 ML SYR ONE ×2 (18:26)
[2017-05-27] MEDS: NOREPINEPHRINE BITARTRATE/ NS 250 ML IV SCH (19:00)
[2017-05-27] MEDS ORDERED: NOREPINEPHRINE BITARTRATE/ NS 250 ML IV SCH (19:00)
[2017-05-27] MEDS ORDERED: SODIUM CHLORIDE 0.9% 1000ML 1,000 ML IV SCH ×2 (19:00→20:00)
--- NOTE | 2017-05-27 19:37 | Progress Note ---
DATE: May 27, 2017 CARDIOLOGY PROGRESS NOTE SUBJECTIVE: The patient remains intubated and sedated. OBJECTIVE VITAL SIGNS: Temperature 98.4 degrees, pulse 51, respiratory rate 14, blood pressure 130/63, oxygen saturation 98% on mechanical ventilation. GENERAL: Intubated, sedated and in no acute distress. LUNGS: Coarse breath sounds bilaterally. No wheezes or crackles. CARDIOVASCULAR: Normal rate and regular rhythm. No murmurs. Normal S1 and S2. ABDOMEN: Soft. EXTREMITIES: Trace edema. CARDIAC MEDICATIONS: 1. Lasix 60 mg IV q.8 h. 2. Metoprolol tartrate 5 mg IV q.6 h. p.r.n. LABORATORY DATA: WBC 6.8, hemoglobin 9.9, hematocrit 30.9, platelets 134,000, sodium 139, potassium 3.8, chloride 101, CO2 of 26, BUN 48, creatinine 4.5, BNP 140. TELEMETRY: Normal sinus rhythm. IMPRESSION 1. Sepsis secondary to Streptococcus viridans and coag-negative Staphylococcus bacteremia. 2. Atrial fibrillation, now normal sinus rhythm. 3. Vyqjx-mr-dtimlvz renal failure. 4. Diabetes mellitus. 5. Hypertension. 6. Preserved LV systolic function with moderate LVH. 7. Gqrpp-my-dilkhvj diastolic heart failure. RECOMMENDATIONS: Antibiotics per primary service. Ventilator management per pulmonary. Continue current cardiac medications. She is currently not a candidate for anticoagulation given anemia. Monitor hemoglobin and hematocrit. Awaiting stool occult blood results. Can discuss anticoagulation once she has recovered from her acute illness if her hemoglobin and hematocrit remain stable without signs of bleeding. Thank you for this consult. We will continue to follow. Job#: [id number]
--- NOTE | 2017-05-27 20:13 | Diagnostic Imaging Report ---
Exam: Head CT without contrast History: Altered mental status post intubation Comparison studies: Head CT 08/08/2014 and 05/23/2017 Technique: Axial images were obtained from the skull base to the vertex. Coronal and sagittal images reconstructed from the axial data. Intravenous contrast: None Findings: Soft tissues: New subcutaneous emphysema within the retropharyngeal space, facial soft tissues and in the included upper cervical soft tissues. Bones: No fractures or aggressive-appearing blastic or lytic lesions. Brain sulci: Appropriate for age. Ventricles: Normal in size and configuration. No hydrocephalus. Extra-axial spaces: No masses, no fluid collection. Parenchyma: A few scattered hypodensities in the supratentorial white matter are nonspecific but most compatible with chronic small vessel ischemic changes. No mass, acute hemorrhage or acute or chronic cortical vascular insults. Sellar/suprasellar region: No abnormalities. Craniocervical junction: Patent foramen magnum. No Chiari one malformation. Additional findings: Partially partially imaged in nasogastric and endotracheal tubes. Nonspecific scattered secretions throughout the paranasal sinuses and bilateral middle ear mastoid effusions, possibly related to intubation. Incidental findings: Atherosclerotic calcifications in the carotid siphons and intradural vertebral arteries. Bilateral lens replacements related to previous cataract surgery. IMPRESSION: 1. No acute intracranial abnormalities. 2. Interval placement of partially imaged NG and ET tubes. 3. New nonspecific gas in the deep fascial and upper cervical soft tissues. Possible etiology includes gas tracking from the mediastinum and/or chest secondary to positive pressure ventilation . Cannot exclude esophageal or tracheal perforation on the basis of this exam. 4. New nonspecific fluid in the paranasal sinuses and middle ear/mastoid cavities may be related to intubation. 5. Mild chronic microvascular ischemic changes. Findings discussed with RAUL Hall at 8:07 PM on 06/06/2016. Signed by: Dr. Harinder Lobo M.D. on 05/27/2017 8:09 PM
[2017-05-27 20:30] LABS: BASOPHILS % 0.2 % (0.0-1.0); HEMATOCRIT 37.5 % (34.2-44.1); HEMOGLOBIN 11.5 g/dL (12.0-16.0); LYMPHOCYTES # (AUTO) 0.3 (1.0-3.2); LYMPHOCYTES % 6.4 % (18.0-39.1); MEAN CORPUSCULAR HEMOGLOBIN 28.7 pg (28-32); MEAN CORPUSCULAR HGB CONC 30.7 g/dL (31-35); MEAN CORPUSCULAR VOLUME 93.5 fL (81-99); MONOCYTES # (AUTO) 0.1 (0.2-0.8); MONOCYTES % 1.7 % (4.4-11.3); NEUTROPHILS # (AUTO) 3.7 (2.1-6.9); NEUTROPHILS % 91.5 % (38.7-80.0); PLATELET COUNT 149 x10e3/uL (140-360); RED BLOOD COUNT 4.01 x10e6/uL (3.6-5.1); RED CELL DISTRIBUTION WIDTH 15.9 % (11.7-14.4)
[2017-05-27 20:45] LABS: ANION GAP 18.1 mmol/L (8-16); CALCIUM 8.9 mg/dL (8.4-10.2); CREATININE, SERUM 3.12 mg/dL (0.57-1.11); POTASSIUM 4.1 mmol/L (3.5-5.1)
[2017-05-27] MEDS: DEXAMETHASONE SOD PHOS 10 MG/1 ML VIAL IV SCH (21:03)
[2017-05-27 21:18] LABS: LYMPHOCYTES % (MANUAL) 6 % (19-48); METAMYELOCYTES % (MANUAL) 2 % (0-0); MONOCYTES % (MANUAL) 14 % (3.4-9.0); NEUTROPHILS % (MANUAL) 77 % (40-74)
[2017-05-27 21:19] LABS: PLATELET ESTIMATE ADEQUATE; PLATELET MORPHOLOGY COMMENT NORMAL; RBC MORPHOLOGY COMMENT NORMAL
[2017-05-28] VITALS (23 sets, daily range): BP systolic 108–142; BP diastolic 43–63
[2017-05-28] MEDS ORDERED: PIPER-TAZ 3.375 GM 50 ML IV SCH
[2017-05-28] MEDS: PIPER-TAZ 3.375 GM 50 ML IV SCH ×2 (00:26→05:35)
[2017-05-28] MEDS: INSULIN LISPRO 100 UNIT/1 ML 3ML VIAL SQ SCH ×4 (00:27→18:00)
[2017-05-28] MEDS: IPRATROPIUM BROMIDE 0.02% 2.5 ML NEB NEB SCH ×4 (02:09→19:10)
[2017-05-28 04:53] LABS: BASOPHILS % 0.4 % (0.0-1.0); HEMATOCRIT 33.8 % (34.2-44.1); HEMOGLOBIN 10.5 g/dL (12.0-16.0); LYMPHOCYTES # (AUTO) 0.1 (1.0-3.2); MEAN CORPUSCULAR HEMOGLOBIN 28.9 pg (28-32); MEAN CORPUSCULAR HGB CONC 31.1 g/dL (31-35); MEAN CORPUSCULAR VOLUME 93.1 fL (81-99); MONOCYTES # (AUTO) 0.5 (0.2-0.8); MONOCYTES % 9.8 % (4.4-11.3); NEUTROPHILS # (AUTO) 4.8 (2.1-6.9); NEUTROPHILS % 86.7 % (38.7-80.0); PLATELET COUNT 134 x10e3/uL (140-360); RED BLOOD COUNT 3.63 x10e6/uL (3.6-5.1); RED CELL DISTRIBUTION WIDTH 15.9 % (11.7-14.4)
[2017-05-28 05:08] LABS: ANION GAP 19.4 mmol/L (8-16); CALCIUM 9.1 mg/dL (8.4-10.2); CREATININE, SERUM 3.5 mg/dL (0.57-1.11); POTASSIUM 4.4 mmol/L (3.5-5.1)
[2017-05-28] MEDS: FUROSEMIDE INJ 10 MG/ML 4 ML VIAL IV SCH (05:35)
[2017-05-28 06:24] LABS: ABG PH 7.21 (7.31-7.41)
[2017-05-28 06:25] LABS: ABG HCO3 26 mmol/L (23-28); ABG PCO2 65 mmHg (41-51); ABG PO2 63 mmHg (80-105)
[2017-05-28] MEDS ORDERED: LEVALBUTEROL HCL SOLN NEBU 1.25 MG/3 ML NEB ONE (07:04)
[2017-05-28] MEDS: LEVALBUTEROL HCL SOLN NEBU 1.25 MG/3 ML NEB INH SCH ×3 (07:35→19:10)
--- NOTE | 2017-05-28 07:36 | Progress Note ---
DATE: May 28, 2017 TIME: 05:59 a.m. OVERNIGHT: Patient was extubated and then developed stridor. Given racemic epinephrine and did not improve. Had to be reintubated. Had difficulty, multiple attempts. During that time, the patient was bagged and remained above 80% oxygenation. Finally successfully intubated. REVIEW OF SYSTEMS: Not obtainable. VITAL SIGNS: Reviewed. PHYSICAL EXAMINATION GENERAL: A tired-appearing woman, resting in bed. HEENT: ET tube in place. CARDIOVASCULAR: Normal S1, S2. LUNGS: Coarse breath sounds throughout. ABDOMEN: Soft. EXTREMITIES: No edema. SKIN: Dry. PSYCHIATRIC: Unable to assess. NEUROLOGIC: Moves extremities. LABS: Reviewed. MEDICATIONS: Reviewed. ASSESSMENT: A 81-year-old woman. 1. Acute respiratory failure/difficult airway. 2. Bmtlo-ma-vkhgnjt diastolic congestive heart failure. 3. End-stage renal disease, initiated on dialysis. 4. Diabetes mellitus, type 2. Hemoglobin A1c/LDL is 6.6/43. 5. Hypertension. 6. Coagulase-negative staphylococcus and Streptococcus viridans bacteremia/sepsis. 7. Bilateral pleural effusions secondary to congestive heart failure exacerbation. 8. Normocytic anemia. PLAN 1. Continue vent support. May need tracheostomy. 2. Continue IV antibiotics. Ceftriaxone has been changed to IV Zosyn. We will also continue IV vancomycin. 3. Continue diuretics. 4. Follow up cultures. 5. Follow up labs this morning. 6. Hemoglobin is 10.5 this morning. White blood cell count is normal. 7. Imaging showing gas tracking along the deep fascia/soft tissue emphysema. Continue broad-spectrum antibiotics. 8. Critical care time more than 35 minutes. Job#: [id number]
--- NOTE | 2017-05-28 07:37 | Diagnostic Imaging Report ---
Examination: Single AP view of the chest. COMPARISON: 05/27/2017 INDICATION: Intubated DISCUSSION: See impression IMPRESSION: 1. The patient is rotated to the left. When accounting for differences in patient positioning, endotracheal tube, nasogastric tube, and a right internal jugular hemodialysis catheter are unchanged in position. 2. Stable cardiac silhouette with interstitial pulmonary edema. Trace left pleural effusion is suspected. No airspace consolidations. Opacity projecting over the right lung apex is likely external to the patient. 3. Interval improvement in subcutaneous emphysema of the lower cervical regions and upper chest alvarez. Signed by: Dr. Harinder Irizarry M.D. on 05/28/2017 7:33 AM
[2017-05-28] MEDS: FAMOTIDINE 20 MG/2 ML VIAL IV SCH ×2 (09:49→20:32)
[2017-05-28] MEDS: PANTOPRAZOLE 40 MG 10ML VIAL IV SCH (09:49)
[2017-05-28] MEDS: DEXAMETHASONE SOD PHOS 10 MG/1 ML VIAL IV SCH ×2 (09:49→20:32)
--- NOTE | 2017-05-28 11:42 | Progress Note ---
DATE: May 28, 2017 CARDIOLOGY PROGRESS NOTE SUBJECTIVE: Patient was extubated yesterday afternoon. She subsequently developed severe respiratory distress, for which she received racemic epinephrine and Decadron without improvement. She had a very difficult re-intubation requiring multiple attempts. Post-intubation, she had an episode of bradycardia, but did not require any chest compressions. PHYSICAL EXAMINATION VITAL SIGNS: Temperature 99.2 degrees, pulse 87, respiratory rate 16, blood pressure 127/63, and oxygen saturation 98% on mechanical ventilation. GENERAL: Tired-appearing woman, intubated, not following commands, although staff indicates she was following commands earlier this morning with the other physicians. LUNGS: Coarse breath sounds bilaterally. No wheezes or crackles. CARDIOVASCULAR: Normal rate and regular rhythm. No murmur. Normal S1 and S2. ABDOMEN: Soft. EXTREMITIES: Trace edema. CARDIAC MEDICATIONS 1. Lasix 60 mg IV q.8 hour. 2. Metoprolol tartrate 5 mg IV q.6 hour p.r.n. LABORATORY DATA: WBC 5.5, hemoglobin 10.5, hematocrit 33.8, platelets 134. Sodium 142, potassium 4.4, chloride 102, CO2 of 25, BUN 27, and creatinine 3.5. TELEMETRY: Normal sinus rhythm. IMPRESSION 1. Sepsis secondary to Streptococcus viridans and coagulase-negative Staphylococcus bacteremia. 2. Atrial fibrillation, now in normal sinus rhythm. 3. Shwit-lz-sytlict renal failure. 4. Diabetes mellitus. 5. Hypertension. 6. Preserved left ventricular systolic function with moderate left ventricular hypertrophy. 7. Uknkw-ce-ifiznwc diastolic heart failure. RECOMMENDATIONS: Antibiotics per primary service. Ventilator management per pulmonary. Recommendation per pulmonary is for patient to proceed to tracheostomy given difficult re-intubation. Continue current cardiac medications. She is currently not a candidate for anticoagulation given her anemia. Monitor hemoglobin and hematocrit. Stool occult blood has been ordered, but not yet resulted. Anticoagulation can be discussed with the patient once she is recovered from her acute illness if her hemoglobin and hematocrit remain stable without signs of bleeding. Thank you for this consult. We will continue to follow. Job#: [id number] SAK
[2017-05-28] MEDS: PIPERACILLIN/TAZO 2.25 GM 50 ML IV SCH ×2 (14:00→21:37)
[2017-05-28] MEDS: NOREPINEPHRINE BITARTRATE/ NS 250 ML IV SCH (19:00)
[2017-05-28] MEDS: MIDAZOLAM HCL 25 MG in SODIUM CHLORIDE 0.9% 50ML 45 ML IV PRN (21:00)
[2017-05-29] VITALS (67 sets, daily range): BP systolic 91–181; BP diastolic 47–90
[2017-05-29] MEDS: MIDAZOLAM HCL 25 MG in SODIUM CHLORIDE 0.9% 50ML 45 ML IV PRN (02:32)
[2017-05-29] MEDS: IPRATROPIUM BROMIDE 0.02% 2.5 ML NEB NEB SCH ×4 (03:20→19:07)
[2017-05-29] MEDS: LEVALBUTEROL HCL SOLN NEBU 1.25 MG/3 ML NEB INH SCH ×4 (03:20→19:07)
[2017-05-29] MEDS: PIPERACILLIN/TAZO 2.25 GM 50 ML IV SCH ×3 (05:31→22:06)
[2017-05-29] MEDS: INSULIN LISPRO 100 UNIT/1 ML 3ML VIAL SQ SCH ×4 (06:16→18:00)
[2017-05-29 07:55] LABS: BASOPHILS # (AUTO) 0.1 (0.0-0.1); BASOPHILS % 0.8 % (0.0-1.0); HEMOGLOBIN 8.8 g/dL (12.0-16.0); LYMPHOCYTES # (AUTO) 0.4 (1.0-3.2); LYMPHOCYTES % 5.3 % (18.0-39.1); MEAN CORPUSCULAR HEMOGLOBIN 29.1 pg (28-32); MEAN CORPUSCULAR HGB CONC 31.4 g/dL (31-35); MEAN CORPUSCULAR VOLUME 92.7 fL (81-99); MONOCYTES # (AUTO) 0.4 (0.2-0.8); MONOCYTES % 5.4 % (4.4-11.3); NEUTROPHILS # (AUTO) 6.2 (2.1-6.9); NEUTROPHILS % 81.1 % (38.7-80.0); PLATELET COUNT 118 x10e3/uL (140-360); RED BLOOD COUNT 3.02 x10e6/uL (3.6-5.1); RED CELL DISTRIBUTION WIDTH 15.5 % (11.7-14.4)
[2017-05-29 08:12] LABS: ALBUMIN 1.8 g/dL (3.5-5.0); ALBUMIN/GLOBULIN RATIO 0.5 (0.8-2.0); ANION GAP 19.5 mmol/L (8-16); CALCIUM 9.7 mg/dL (8.4-10.2); CREATININE, SERUM 4.94 mg/dL (0.57-1.11); POTASSIUM 5.5 mmol/L (3.5-5.1)
[2017-05-29] MEDS: PANTOPRAZOLE 40 MG 10ML VIAL IV SCH (09:07)
[2017-05-29] MEDS: FAMOTIDINE 20 MG/2 ML VIAL IV SCH ×2 (09:07→21:19)
[2017-05-29] MEDS: DEXAMETHASONE SOD PHOS 10 MG/1 ML VIAL IV SCH (09:07)
[2017-05-29] MEDS: ALBUMIN HUMAN 12.5GM / 50ML IV PRN (09:18)
[2017-05-29] MEDS: FENTANYL CITRATE INJ 2,000 MCG in SODIUM CHLORIDE 0.9% 250ML 210 ML IV PRN (12:11)
[2017-05-29] MEDS: NOREPINEPHRINE BITARTRATE/ NS 250 ML IV SCH (19:00)
--- NOTE | 2017-05-29 20:58 | Progress Note ---
DATE: May 29, 2017 CARDIOLOGY PROGRESS NOTE SUBJECTIVE: The patient remains intubated and sedated. She is undergoing evaluation for tracheostomy. OBJECTIVE VITAL SIGNS: Temperature 96.8 degrees, pulse 62, respiratory rate 16, blood pressure 120/55, oxygen saturation 100% on mechanical ventilation. GENERAL: An elderly woman in no acute distress, intubated. LUNGS: Coarse breath sounds bilaterally. No wheezes or crackles. CARDIOVASCULAR: Normal rate and regular rhythm. No murmurs. Normal S1 and S2. ABDOMEN: Soft. EXTREMITIES: No edema. CARDIAC MEDICATIONS: Metoprolol tartrate 5 mg IV q.6 h. p.r.n. LABORATORY DATA: WBC 7.6, hemoglobin 8.8, hematocrit 28, platelets 118,000, sodium 139, potassium 5.5, chloride 101, CO2 of 24, BUN 53, creatinine 4.94. TELEMETRY: Normal sinus rhythm. IMPRESSION 1. Sepsis secondary to Streptococcus viridans and coag-negative Staphylococcus bacteremia. 2. Atrial fibrillation, now normal sinus rhythm. 3. Oucrm-ua-fytqold renal failure. 4. Diabetes mellitus. 5. Hypertension. 6. Preserved LV systolic function with moderate LVH. 7. Edumh-nw-majqmnb diastolic heart failure. RECOMMENDATIONS: Antibiotics per primary service. Ventilator management per pulmonary. Awaiting evaluation for tracheostomy given difficult reintubation previously. Continue current cardiac medications. She is currently not a candidate for anticoagulation for CVA prophylaxis given her anemia and downtrending hemoglobin and hematocrit. Thank you for this consult. We will continue to follow. Job#: [id number]
[2017-05-30] VITALS (75 sets, daily range): BP systolic 117–174; BP diastolic 54–78
--- NOTE | 2017-05-30 01:32 | Progress Note ---
DATE: May 29, 2017 TIME: 06:45 a.m. OVERNIGHT: No change. REVIEW OF SYSTEMS: Not obtainable. PHYSICAL EXAMINATION VITAL SIGNS: Reviewed. GENERAL: A tired-appearing woman, resting in bed. HEENT: ET tube in place. CARDIOVASCULAR: Normal S1, S2. LUNGS: Coarse breath sounds. No wheezing. ABDOMEN: Soft. EXTREMITIES: No edema. SKIN: Dry. PSYCHIATRIC: Unable to assess. NEUROLOGIC: Moves all extremities. LABS: Reviewed. MEDICATIONS: Reviewed. ASSESSMENT: A 81-year-old woman. 1. Acute respiratory failure/difficult airway. 2. Tifgv-el-mpnykou congestive heart failure. 3. End-stage renal disease, initiated on hemodialysis. 4. Diabetes mellitus type 2. Hemoglobin A1c/LDL is 6.6/43. 5. Hypertension . 6. Coagulase-negative staphylococcus and Streptococcus viridans bacteremia/sepsis. 7. Bilateral pleural effusions secondary to congestive heart failure exacerbation. 8. Normocytic anemia. PLAN 1. Continue vent support. 2. Continue IV antibiotics. 3. Follow up cultures. 4. Follow up labs this morning. 5. Hemoglobin has dropped to 8.8. Will keep a close eye and transfuse if needed. 6. Hyperkalemia will be treated by dialysis. 7. Continue glucose control. 8. CT scan of the brain negative for any acute findings. 9. Critical care time more than 35 minutes. Job#: [id number] Project 2020
[2017-05-30] MEDS: INSULIN LISPRO 100 UNIT/1 ML 3ML VIAL SQ SCH ×5 (01:42→23:32)
--- NOTE | 2017-05-30 01:47 | Consultation ---
DATE OF CONSULTATION: May 29, 2017 HISTORY OF PRESENT ILLNESS: I was kindly asked to see this 81-year-old woman for evaluation of tracheostomy tube placement. Patient has experienced respiratory failure. She was extubated and had difficulty breathing after the extubation and was difficult re-intubation. It is anticipated, she will continue to need ventilator support and subsequent pulmonary toilet. Her history of preset illness, past medical and past surgical history were reviewed in detail on the chart. PHYSICAL EXAMINATION: There is no abnormal neck anatomy noted. ASSESSMENT: Respiratory failure. PLAN: Tracheostomy. Thank you very much. Job#: [id number]
[2017-05-30] MEDS: LEVALBUTEROL HCL SOLN NEBU 1.25 MG/3 ML NEB INH SCH ×4 (02:50→19:08)
[2017-05-30] MEDS: IPRATROPIUM BROMIDE 0.02% 2.5 ML NEB NEB SCH ×4 (02:50→19:08)
[2017-05-30] MEDS: PIPERACILLIN/TAZO 2.25 GM 50 ML IV SCH ×3 (06:09→20:51)
[2017-05-30 06:27] LABS: ALBUMIN/GLOBULIN RATIO 0.6 (0.8-2.0); ANION GAP 18.4 mmol/L (8-16); CALCIUM 9.7 mg/dL (8.4-10.2); CREATININE, SERUM 3.23 mg/dL (0.57-1.11); POTASSIUM 4.4 mmol/L (3.5-5.1)
[2017-05-30] MEDS: HYDRALAZINE HCL 20 MG/ML VIAL IV PRN (08:05)
[2017-05-30] MEDS: DEXAMETHASONE SOD PHOS 10 MG/1 ML VIAL IV SCH (08:05)
[2017-05-30] MEDS: FAMOTIDINE 20 MG/2 ML VIAL IV SCH (08:05)
[2017-05-30] MEDS: PANTOPRAZOLE 40 MG 10ML VIAL IV SCH (08:06)
[2017-05-30] MEDS: FENTANYL CITRATE INJ 2,000 MCG in SODIUM CHLORIDE 0.9% 250ML 210 ML IV PRN (09:51)
[2017-05-30] MEDS ORDERED: METOCLOPRAMIDE HCL 10 MG TAB NG SCH (12:00)
--- NOTE | 2017-05-30 18:00 | Progress Note ---
DATE: May 30, 2017 CARDIOLOGY PROGRESS NOTE SUBJECTIVE: The patient remains intubated and sedated. She is planned for tracheostomy tomorrow. OBJECTIVE VITAL SIGNS: Temperature 97.9 degrees, pulse 59, respiratory rate 16, blood pressure 136/62, oxygen saturation 95% on mechanical ventilation. GENERAL: An elderly woman in no acute distress, intubated. LUNGS: Coarse breath sounds bilaterally. No wheezes or crackles. CARDIOVASCULAR: Normal rate and regular rhythm. No murmur. Normal S1 and S2. ABDOMEN: Soft. EXTREMITIES: No edema. CARDIAC MEDICATIONS: None scheduled. LABORATORY DATA: Sodium 140, potassium 4.4, chloride 101, CO2 of 25, BUN 43, creatinine 3.23. TELEMETRY: Sinus bradycardia. IMPRESSION 1. Sepsis secondary to Streptococcus viridans and coagulase-negative Staphylococcus bacteremia. 2. Atrial fibrillation, now in normal sinus rhythm. 3. Ykeym-eo-lldvgbs renal failure. 4. Diabetes mellitus. 5. Hypertension. 6. Preserved left ventricular systolic function with moderate left ventricular hypertrophy. 7. Queti-at-sjyzree diastolic heart failure. RECOMMENDATIONS: Antibiotics per primary service. Ventilator management per pulmonary. Plan for tracheostomy tomorrow given difficult reintubation previously. She is currently not a candidate for anticoagulation for CVA prophylaxis due to her anemia and down trending hemoglobin and hematocrit. Continue current cardiac medications otherwise. Thank you for this consult. We will continue to follow. Job#: [id number]
[2017-05-30] MEDS: METOCLOPRAMIDE HCL 10MG/10ML UDC NG SCH (18:32)
[2017-05-30] MEDS: CLONIDINE HCL 0.1 MG/24 HR 1 EA PATCH TOP SCH (18:32)
[2017-05-30] MEDS: NOREPINEPHRINE BITARTRATE/ NS 250 ML IV SCH (19:00)
[2017-05-30] MEDS: FAMOTIDINE 20 MG TAB NG SCH (20:51)
--- NOTE | 2017-05-30 23:30 | Consultation ---
DATE OF CONSULTATION: May 30, 2017 GI CONSULT NOTE REFERRING PHYSICIAN: Dr. Estiven Saleh. REASON FOR CONSULT: PEG placement. HISTORY OF PRESENTING ILLNESS: A 81-year-old lady who is currently intubated, sedated, on mechanical ventilation. She is also on vasopressors. She is having gram-negative sepsis. She also has a new-onset atrial fibrillation. She is not on anticoagulation. She is scheduled to have a tracheostomy tomorrow. GI is being consulted for PEG placement. REVIEW OF SYSTEMS: Unobtainable. PAST MEDICAL HISTORY: Hypertension, anxiety, and chronic kidney disease stage 5. PAST SURGICAL HISTORY: Not available in the chart. FAMILY HISTORY: Noncontributory. SOCIAL HISTORY: No smoking, alcohol, or any illicit drug use. ALLERGIES: IODINE, IODINATED CONTRAST. INPATIENT MEDICATIONS: List reviewed. PHYSICAL EXAMINATION VITAL SIGNS: Temperature 98.1, pulse 59 to 65, respirations 16, blood pressure 144/65, and oxygen saturation 96% on current ventilator setting. GENERAL: On respiratory support. HEENT: Moist mucous membranes. Anicteric sclerae. NG tube is in place. CVS: S1, S2 irregularly irregular. LUNGS: Bilaterally grossly clear with occasional scattered rales at both the bases. ABDOMEN: Obese, soft, nondistended, and nontender. No palpable mass. Small periumbilical hernia. EXTREMITIES: Warm. No leg edema. LAB: WBC 7.60, hemoglobin 8.8, hematocrit 28, MCV 92.7, and platelet count 118,000. Sodium 140, potassium 4.4, chloride 101, bicarb 25, BUN 43, creatinine 3.23, and glucose 167. LFTs normal. IMPRESSION: Respiratory failure from sepsis, currently intubated. Patient is not being able to be weaned off from the ventilator. Therefore, she is scheduled for tracheostomy tomorrow. Patient will most likely also need gastrostomy. PLAN: No contraindication for EGD/PEG. We will plan it on Saturday. In the interim, continue NG feeding. Hold NG feeding on Saturday midnight. I thank Dr. Saleh for allowing me to participate in the care of this patient. Job#: [id number] CF
[2017-05-31] VITALS (57 sets, daily range): BP systolic 100–173; BP diastolic 52–76
[2017-05-31] MEDS: LEVALBUTEROL HCL SOLN NEBU 1.25 MG/3 ML NEB INH SCH ×4 (02:55→20:30)
[2017-05-31] MEDS: IPRATROPIUM BROMIDE 0.02% 2.5 ML NEB NEB SCH ×4 (02:55→20:30)
[2017-05-31 04:56] LABS: BASOPHILS # (AUTO) 0.1 (0.0-0.1); BASOPHILS % 0.5 % (0.0-1.0); LYMPHOCYTES # (AUTO) 0.9 (1.0-3.2); LYMPHOCYTES % 5.4 % (18.0-39.1); MEAN CORPUSCULAR HEMOGLOBIN 28.7 pg (28-32); MEAN CORPUSCULAR HGB CONC 31.3 g/dL (31-35); MEAN CORPUSCULAR VOLUME 91.7 fL (81-99); MONOCYTES # (AUTO) 1.5 (0.2-0.8); MONOCYTES % 9.2 % (4.4-11.3); NEUTROPHILS # (AUTO) 13.6 (2.1-6.9); NEUTROPHILS % 81.1 % (38.7-80.0); PLATELET COUNT 180 x10e3/uL (140-360); RED BLOOD COUNT 3.49 x10e6/uL (3.6-5.1); RED CELL DISTRIBUTION WIDTH 14.7 % (11.7-14.4)
[2017-05-31 05:13] LABS: ANION GAP 21.9 mmol/L (8-16); CALCIUM 9.8 mg/dL (8.4-10.2); CREATININE, SERUM 4.72 mg/dL (0.57-1.11); POTASSIUM 4.9 mmol/L (3.5-5.1)
[2017-05-31] MEDS: PIPERACILLIN/TAZO 2.25 GM 50 ML IV SCH ×3 (05:57→22:08)
[2017-05-31] MEDS: METOCLOPRAMIDE HCL 10MG/10ML UDC NG SCH ×4 (05:57→18:00)
[2017-05-31] MEDS: INSULIN LISPRO 100 UNIT/1 ML 3ML VIAL SQ SCH ×3 (05:58→18:00)
[2017-05-31] MEDS: FENTANYL CITRATE INJ 2,000 MCG in SODIUM CHLORIDE 0.9% 250ML 210 ML IV PRN (06:13)
--- NOTE | 2017-05-31 06:37 | Diagnostic Imaging Report ---
EXAM: CHEST SINGLE (PORTABLE), AP 1 view DATE: 05/31/2017 5:00 AM Time stamp on exam: 0605 hours INDICATION: Intubated COMPARISON: AP view of the chest May 28, 2017 FINDINGS: LINES/TUBES: Stable position right internal jugular vein central line, endotracheal tube and nasal/orogastric tube. LUNGS: Slight improved aeration of the lungs with persistent interstitial edema and scattered opacities. PLEURA: No effusions or pneumothorax. HEART AND MEDIASTINUM: Slight decreased enlargement of the cardiomediastinal silhouette and pulmonary arteries. BONES AND SOFT TISSUES: No acute findings. IMPRESSION: Slight improved aeration of the lungs. Signed by: Dr. Lizy Montoya M.D. on 05/31/2017 6:33 AM
[2017-05-31] MEDS ORDERED: SODIUM CHLORIDE 0.9% 250ML 250 ML ONE (06:42)
[2017-05-31] MEDS ORDERED: LIDOCAINE 1% W/EPINEPHRINE 20 ML VIAL ONE (06:52)
[2017-05-31] MEDS: FAMOTIDINE 20 MG TAB NG SCH ×2 (10:25→22:08)
[2017-05-31] MEDS: PANTOPRAZOLE 40 MG 10ML VIAL IV SCH (10:25)
[2017-05-31] MEDS: DEXAMETHASONE SOD PHOS 10 MG/1 ML VIAL IV SCH (10:25)
--- NOTE | 2017-05-31 12:36 | Operative Report ---
DATE OF PROCEDURE: May 31, 2017 PREOPERATIVE DIAGNOSIS: Respiratory failure. POSTOPERATIVE DIAGNOSIS: Respiratory failure. PROCEDURE: Tracheostomy with #8 Shiley ROLLER PRINTER tracheostomy tube. ANESTHESIA: General. ESTIMATED BLOOD LOSS: Zero. COMPLICATIONS: None. OPERATIVE FINDINGS: Normal neck anatomy. OPERATIVE INDICATIONS: This 81-year-old woman presented with a history of respiratory failure necessitating prolonged ventilator support. She failed trial of extubation. The risks, benefits, and alternatives to surgical intervention were discussed in detail with the patient's family and they gave their informed consent to have this procedure performed. NARRATIVE REPORT: After first obtaining adequate general anesthesia through a previously placed endotracheal tube, the area of incision was infiltrated with 1% lidocaine with epinephrine 1:100,000, a total of 8 mL was used. The patient was then prepped and draped in the usual fashion. A 3 cm incision was then made 2 cm above the sternal notch and carried through the subcutaneous tissues with the Bovie sulfur burner. The strap muscles were identified and divided in the midline and reflected laterally in the Gelpi retractor. The thyroid isthmus was then transected using the Bovie sulfur burner and reflected laterally in the Gelpi retractor. Cricoid hook was inserted. An incision was then made between the second and third tracheal ring with a #15 blade. An inferiorly-based trapezoidal flap was then created using curved Delcid scissors. The endotracheal tube was partially withdrawn and a #8 Shiley ROLLER PRINTER tracheostomy tube easily inserted through the tracheostomy site. CO2 was confirmed the exhaled gases and the instruments were removed. The tracheostomy tube was sutured in place with 2-0 nylon. Trach ties were applied and the patient was in satisfactory condition at the termination of the procedure. Job#: [id number] SAK
[2017-05-31] MEDS ORDERED: CEFAZOLIN SOD 1 GM VIAL ONE (18:20)
[2017-05-31] MEDS ORDERED: PROPOFOL IV EMULSION 10 MG/ML 20 ML VIAL ONE (18:20)
[2017-05-31] MEDS ORDERED: FENTANYL CITRATE/PF 100MCG/2 ML INJ ONE (18:34)
[2017-05-31] MEDS: NOREPINEPHRINE BITARTRATE/ NS 250 ML IV SCH (19:00)
--- NOTE | 2017-05-31 19:21 | Progress Note ---
DATE: May 31, 2017 CARDIOLOGY PROGRESS NOTE SUBJECTIVE: The patient underwent tracheostomy this morning. She was seen after procedure and so was thus sedated from her surgery. She is planned for PEG tube on Saturday. OBJECTIVE VITAL SIGNS: Temperature 98.6 degrees, pulse 69, respiratory rate 16, blood pressure 144/62, oxygen saturation 98% on mechanical ventilation. GENERAL: An elderly woman in no acute distress, sedated, status post tracheostomy. LUNGS: Coarse breath sounds bilaterally. No wheezes or crackles. CARDIOVASCULAR: Normal rate and regular rhythm. No murmur. Normal S1 and S2. ABDOMEN: Soft. EXTREMITIES: No edema. CARDIAC MEDICATIONS: None scheduled. LABORATORY DATA: WBC 16.74, hemoglobin 10, hematocrit 32, platelets 180,000, sodium 139, potassium 4.9, chloride 100, CO2 of 22, BUN 80, creatinine 4.72. TELEMETRY: Normal sinus rhythm. IMPRESSION 1. Sepsis secondary to Streptococcus viridans and coagulase-negative Staphylococcus bacteremia. 2. Atrial fibrillation, now in normal sinus rhythm. 3. Ibrdt-gj-casbffe renal failure. 4. Diabetes mellitus. 5. Hypertension. 6. Preserved left ventricular systolic function with moderate left ventricular hypertrophy. 7. Avvpv-rb-obyegqw diastolic heart failure. RECOMMENDATIONS: Antibiotics per primary service. Ventilator management per pulmonary. She is status post tracheostomy and is planned for PEG tube placement on Saturday. She is currently not anticoagulated for CVA prophylaxis due to her anemia requiring blood transfusion. Order stool occult blood. Thank you for this consult. We will continue to follow. Job#: [id number]
[2017-05-31] MEDS: VANCOMYCIN 750MG/NS 150ML IVPB 150 ML IV SCH (19:54)
[2017-05-31] MEDS: HYDROMORPHONE 2MG/ML INJ IV PRN (22:21)
[2017-06-01] VITALS (48 sets, daily range): BP systolic 95–194; BP diastolic 44–83
[2017-06-01] MEDS: IPRATROPIUM BROMIDE 0.02% 2.5 ML NEB NEB SCH ×4 (01:00→20:20)
[2017-06-01] MEDS: LEVALBUTEROL HCL SOLN NEBU 1.25 MG/3 ML NEB INH SCH ×4 (01:00→20:20)
[2017-06-01] MEDS: HYDROMORPHONE 2MG/ML INJ IV PRN (01:30)
[2017-06-01] MEDS ORDERED: NOREPINEPHRINE BITARTRATE/ NS 250 ML IV PRN ×2 (01:30→19:15)
[2017-06-01] MEDS: METOCLOPRAMIDE HCL 10MG/10ML UDC NG SCH ×4 (01:35→17:44)
[2017-06-01] MEDS: INSULIN LISPRO 100 UNIT/1 ML 3ML VIAL SQ SCH ×4 (01:39→17:45)
[2017-06-01] MEDS: METOPROLOL TARTRATE INJ 1 MG/ML VIAL IV PRN (02:08)
[2017-06-01] MEDS: CLONIDINE HCL 0.1 MG/24 HR 1 EA PATCH TOP SCH (02:20)
[2017-06-01] MEDS ORDERED: FENTANYL CITRATE INJ 2,000 MCG in SODIUM CHLORIDE 0.9% 250ML 210 ML IV PRN (02:45)
[2017-06-01] MEDS: ACETAMINOPHEN 1000 MG/100 ML IV PRN ×2 (03:00→17:57)
[2017-06-01 05:21] LABS: BASOPHILS # (AUTO) 0.1 (0.0-0.1); BASOPHILS % 0.4 % (0.0-1.0); HEMATOCRIT 30.8 % (34.2-44.1); HEMOGLOBIN 9.7 g/dL (12.0-16.0); LYMPHOCYTES # (AUTO) 0.5 (1.0-3.2); LYMPHOCYTES % 4.5 % (18.0-39.1); MEAN CORPUSCULAR HEMOGLOBIN 28.8 pg (28-32); MEAN CORPUSCULAR HGB CONC 31.5 g/dL (31-35); MEAN CORPUSCULAR VOLUME 91.4 fL (81-99); MONOCYTES # (AUTO) 1.4 (0.2-0.8); MONOCYTES % 11.9 % (4.4-11.3); NEUTROPHILS # (AUTO) 9.3 (2.1-6.9); NEUTROPHILS % 78.6 % (38.7-80.0); PLATELET COUNT 180 x10e3/uL (140-360); RED BLOOD COUNT 3.37 x10e6/uL (3.6-5.1); RED CELL DISTRIBUTION WIDTH 14.8 % (11.7-14.4)
--- NOTE | 2017-06-01 05:37 | Diagnostic Imaging Report ---
EXAM: CHEST SINGLE (PORTABLE), AP 1 view DATE: 06/01/2017 3:46 AM Time stamp on exam: 0428 hours INDICATION: Respiratory distress COMPARISON: AP view of the chest May 31, 2017 FINDINGS: LINES/TUBES: Interval removal of endotracheal tube and placement of tracheostomy tube. Stable position right internal jugular vein central line and partially visualized nasal/orogastric tube. LUNGS: Stable pulmonary edema and bilateral perihilar and basilar atelectasis. PLEURA: Possible small layering pleural effusions bilaterally. HEART AND MEDIASTINUM: Stable appearance. BONES AND SOFT TISSUES: No acute findings. IMPRESSION: Interval removal of endotracheal tube and placement of tracheostomy tube, otherwise no interval change in appearance of the chest. Signed by: Dr. Lizy Montoya M.D. on 06/01/2017 5:34 AM
[2017-06-01] MEDS: PIPERACILLIN/TAZO 2.25 GM 50 ML IV SCH ×3 (05:42→22:10)
[2017-06-01 05:47] LABS: ALBUMIN 2.1 g/dL (3.5-5.0); ALBUMIN/GLOBULIN RATIO 0.6 (0.8-2.0); ANION GAP 20.4 mmol/L (8-16); CALCIUM 9.3 mg/dL (8.4-10.2); CREATININE, SERUM 3.24 mg/dL (0.57-1.11); MAGNESIUM 2.3 MG/DL (1.3-2.1); PHOSPHORUS 6.5 MG/DL (2.3-4.7); POTASSIUM 4.4 mmol/L (3.5-5.1)
[2017-06-01] MEDS: HYDRALAZINE HCL 25 MG TAB PO SCH ×3 (10:00→21:00)
[2017-06-01] MEDS: DEXAMETHASONE SOD PHOS 10 MG/1 ML VIAL IV SCH (10:00)
[2017-06-01] MEDS: METOPROLOL TARTRATE 50 MG TAB PO SCH ×2 (10:00→17:44)
[2017-06-01] MEDS: FAMOTIDINE 20 MG TAB NG SCH ×2 (10:00→22:09)
[2017-06-01] MEDS: PANTOPRAZOLE 40 MG 10ML VIAL IV SCH (10:00)
[2017-06-01 10:17] LABS: LYMPHOCYTES % (MANUAL) 2 % (19-48); MONOCYTES % (MANUAL) 6 % (3.4-9.0); NEUTROPHILS % (MANUAL) 90 % (40-74)
[2017-06-01 10:18] LABS: PLATELET ESTIMATE ADEQUATE; PLATELET MORPHOLOGY COMMENT NORMAL; RBC MORPHOLOGY COMMENT NORMAL
[2017-06-01] MEDS ORDERED: AMLODIPINE BESYLATE 5 MG TAB PO ONE (10:30)
[2017-06-01] MEDS ORDERED: DEXMEDETOMIDINE HCL 200 MCG in SODIUM CHLORIDE 0.9% 50ML 48 ML IV PRN (10:45)
[2017-06-01] MEDS ORDERED: LACTULOSE SYRUP 20 GM/30 ML UDC ONE (10:57)
--- NOTE | 2017-06-01 11:22 | Progress Note ---
DATE: June 01, 2017 CARDIOLOGY PROGRESS NOTE SUBJECTIVE: Events were reviewed with the nurse. The patient remains hypertensive. Tracheostomy was performed. PEG tube pending. OBJECTIVE VITAL SIGNS: Afebrile. Heart rate is 126. Blood pressure 190/92. CARDIOVASCULAR: Irregular rhythm. Systolic murmur. LUNGS: Occasional rhonchi and crackles bilaterally. LABS: Reviewed. TELEMETRY: Sinus rhythm. ASSESSMENT 1. Hypertension with hypertensive heart disease. 2. Kemdr-gr-wliolvd diastolic heart failure. 3. Atrial fibrillation. RECOMMENDATIONS: Ventilator management. Patient is cleared for PEG placement. At this point, she is on oral tube feeds, and we will initiate oral medications for better control of her hypertension and hypertensive heart disease. We will continue to follow closely. Job#: [id number]
[2017-06-01] MEDS: ISOSORBIDE DINITRATE 20 MG TAB PO SCH ×2 (17:43→21:00)
[2017-06-01] MEDS ORDERED: NOREPINEPHRINE BITARTRATE/ NS 250 ML ONE (18:49)
[2017-06-01] MEDS ORDERED: SODIUM CHLORIDE 0.9% 1000ML 1,000 ML IV ONE (19:15)
[2017-06-01] MEDS ORDERED: ALTEPLASE RECOMBINANT 2 MG/2 ML VIAL IV PRN (20:30)
[2017-06-01 20:48] LABS: BASOPHILS % 0.2 % (0.0-1.0); EOSINOPHILS % 0.1 % (0.0-6.0); HEMATOCRIT 31.3 % (34.2-44.1); HEMOGLOBIN 9.7 g/dL (12.0-16.0); LYMPHOCYTES # (AUTO) 0.5 (1.0-3.2); LYMPHOCYTES % 3.7 % (18.0-39.1); MEAN CORPUSCULAR HEMOGLOBIN 28.8 pg (28-32); MEAN CORPUSCULAR VOLUME 92.9 fL (81-99); MONOCYTES # (AUTO) 0.8 (0.2-0.8); MONOCYTES % 5.4 % (4.4-11.3); NEUTROPHILS # (AUTO) 12.1 (2.1-6.9); NEUTROPHILS % 86.9 % (38.7-80.0); PLATELET COUNT 182 x10e3/uL (140-360); RED BLOOD COUNT 3.37 x10e6/uL (3.6-5.1); RED CELL DISTRIBUTION WIDTH 14.6 % (11.7-14.4)
[2017-06-01 20:57] LABS: INR 1.13; PARTIAL THROMBOPLASTIN TIME 26.7 seconds (23.8-35.5); PROTHROMBIN TIME 15.1 seconds (11.9-14.5)
[2017-06-01 21:06] LABS: ALBUMIN 2.1 g/dL (3.5-5.0); ALBUMIN/GLOBULIN RATIO 0.6 (0.8-2.0); ANION GAP 20.3 mmol/L (8-16); CALCIUM 9.1 mg/dL (8.4-10.2); CREATININE, SERUM 4.45 mg/dL (0.57-1.11); POTASSIUM 4.3 mmol/L (3.5-5.1)
[2017-06-02] VITALS (56 sets, daily range): BP systolic 96–242; BP diastolic 47–123
[2017-06-02] MEDS: LEVALBUTEROL HCL SOLN NEBU 1.25 MG/3 ML NEB INH SCH ×4 (01:30→19:30)
[2017-06-02] MEDS: IPRATROPIUM BROMIDE 0.02% 2.5 ML NEB NEB SCH ×4 (01:30→19:30)
[2017-06-02] MEDS: METOCLOPRAMIDE HCL 10MG/10ML UDC NG SCH ×5 (02:54→20:41)
[2017-06-02] MEDS ORDERED: DIGOXIN INJ 0.25 MG/ML 2 ML AMP IV PRN (03:00)
[2017-06-02] MEDS ORDERED: DEXMEDETOMIDINE HCL 200 MCG in SODIUM CHLORIDE 0.9% 50ML 48 ML IV PRN (03:00)
[2017-06-02] MEDS: HYDROMORPHONE 2MG/ML INJ IV PRN ×3 (03:38→21:45)
[2017-06-02 05:06] LABS: BASOPHILS % 0.3 % (0.0-1.0); HEMATOCRIT 29.7 % (34.2-44.1); HEMOGLOBIN 9.3 g/dL (12.0-16.0); LYMPHOCYTES # (AUTO) 0.4 (1.0-3.2); LYMPHOCYTES % 4.5 % (18.0-39.1); MEAN CORPUSCULAR HEMOGLOBIN 29.1 pg (28-32); MEAN CORPUSCULAR HGB CONC 31.3 g/dL (31-35); MEAN CORPUSCULAR VOLUME 92.8 fL (81-99); MONOCYTES # (AUTO) 0.7 (0.2-0.8); MONOCYTES % 7.2 % (4.4-11.3); NEUTROPHILS # (AUTO) 8.1 (2.1-6.9); NEUTROPHILS % 83.4 % (38.7-80.0); PLATELET COUNT 159 x10e3/uL (140-360); RED CELL DISTRIBUTION WIDTH 14.6 % (11.7-14.4)
[2017-06-02 05:23] LABS: ANION GAP 19.8 mmol/L (8-16); CALCIUM 9.3 mg/dL (8.4-10.2); CREATININE, SERUM 4.86 mg/dL (0.57-1.11); MAGNESIUM 2.6 MG/DL (1.3-2.1); POTASSIUM 4.8 mmol/L (3.5-5.1)
[2017-06-02] MEDS: INSULIN LISPRO 100 UNIT/1 ML 3ML VIAL SQ SCH ×4 (07:07→18:39)
[2017-06-02] MEDS: PIPERACILLIN/TAZO 2.25 GM 50 ML IV SCH ×3 (07:08→20:40)
[2017-06-02] MEDS: HYDRALAZINE HCL 20 MG/ML VIAL IV PRN ×3 (08:06→18:00)
[2017-06-02] MEDS: AMLODIPINE BESYLATE 5 MG TAB PO SCH (08:35)
[2017-06-02] MEDS: ISOSORBIDE DINITRATE 20 MG TAB PO SCH ×3 (08:35→18:37)
[2017-06-02] MEDS: METOPROLOL TARTRATE 50 MG TAB PO SCH ×2 (08:35→17:51)
--- NOTE | 2017-06-02 09:33 | Diagnostic Imaging Report ---
EXAM: CHEST SINGLE (PORTABLE) DATE: 06/02/2017 8:15 AM INDICATION: Ventilation COMPARISON: 06/01/2017 FINDINGS: Tracheostomy appliance, NG tube, and right IJ catheter stable. Heart is prominent, accentuated by portable technique and low lung volumes. Mild scattered airspace opacities and superimposed opacity in the left lung base partially during left hemidiaphragm stable. IMPRESSION: Mild edema. Left basilar atelectasis versus pneumonia with small effusion suspected. Component of edema present. Stable lines and tubes. Signed by: Dr. Andre Lebron MD on 06/02/2017 9:29 AM
[2017-06-02] MEDS: FAMOTIDINE 20 MG TAB NG SCH ×2 (10:19→20:40)
[2017-06-02] MEDS: DEXAMETHASONE SOD PHOS 10 MG/1 ML VIAL IV SCH (10:19)
[2017-06-02] MEDS: PANTOPRAZOLE 40 MG 10ML VIAL IV SCH (10:19)
[2017-06-02] MEDS: HYDRALAZINE HCL 25 MG TAB PO SCH ×3 (10:20→20:40)
--- NOTE | 2017-06-02 11:54 | Progress Note ---
DATE: June 02, 2017 CARDIOLOGY PROGRESS NOTE SUBJECTIVE: Ms. Quick remains sedated with a tracheostomy. Care was discussed with her nurse as well as family. OBJECTIVE VITAL SIGNS: Afebrile. Heart rate 56. Blood pressure is 144/58. CARDIOVASCULAR: Irregular rhythm. Systolic murmur. LUNGS: Crackles and rhonchi bilaterally. ABDOMEN: Distended. MEDICATIONS: Reviewed. LABS: Hemoglobin is 9.3. Creatinine 4.86. Electrocardiogram telemetry shows atrial flutter. Chest x-ray done today shows left basilar atelectasis, effusion with pneumonia. ASSESSMENT 1. New onset atrial flutter. 2. Guusf-vr-aoidbau diastolic heart failure. RECOMMENDATIONS: The patient remains in atrial flutter. She has been in sinus rhythm prior. Will try intravenous amiodarone to help convert her to sinus rhythm. At this point, aggressive blood pressure control. If the patient remains in flutter, transesophageal echocardiogram with cardioversion may be required. This was discussed with the family. They are agreeable for the same. Job#: [id number]
[2017-06-02] MEDS ORDERED: AMIODARONE HCL 150MG 100 ML IV ONE (12:00)
[2017-06-02] MEDS ORDERED: AMIODARONE HCL 100 ML IV ONE (12:00)
[2017-06-02] MEDS ORDERED: AMIODARONE HCL 360MG 200 ML IV PRN (12:10)
[2017-06-02] MEDS ORDERED: AMIODARONE 900MG 500 ML IV PRN (12:10)
[2017-06-02 12:16] LABS: BAND NEUTROPHILS % (MANUAL) 6 %; LYMPHOCYTES % (MANUAL) 14 % (19-48); MONOCYTES % (MANUAL) 2 % (3.4-9.0); NEUTROPHILS % (MANUAL) 78 % (40-74); NUCLEATED RED BLOOD CELLS 1
[2017-06-02 12:17] LABS: PLATELET ESTIMATE ADEQUATE; PLATELET MORPHOLOGY COMMENT NORMAL; RBC MORPHOLOGY COMMENT NORMAL
--- NOTE | 2017-06-02 22:55 | Progress Note ---
DATE: June 02, 2017 SUBJECTIVE: Patient is incoherent, obtunded, cannot obtain any history from the patient. She has had a tracheostomy placed successfully. NG is in place. She is getting enteral feeding. REVIEW OF SYSTEMS: Unobtainable. MEDICATIONS: Reviewed as per JUL. She is on intravenous Zosyn as well as vancomycin along with other medications. PHYSICAL EXAMINATION VITAL SIGNS: Temperature 99.1, pulse 64, respirations 20, blood pressure 159/61, and oxygen saturation 100% on trach collar. GENERAL: Obtunded. HEENT: Moist mucous membranes. Anicteric sclerae. Tracheostomy site clean. No abnormal discharge. CVS: S1 and S2 regular. LUNGS: Bilaterally grossly clear. Patient has very poor inspiratory effort. ABDOMEN: Nondistended, nontender. No palpable mass or hernia. Positive bowel sounds. EXTREMITIES: Warm. No leg edema. LABS: WBC 9.74, hemoglobin 9.3, hematocrit 29.7, MCV 92.8, and platelet count 159,000. Sodium 135, potassium 4.8, chloride 98, bicarbonate 22, BUN 87, and creatinine 4.86. Chest x-ray showed a left basilar atelectasis versus pneumonia with a small effusion suspected. Component of edema present. PLAN: Hold the NG tube feeding past midnight. EGD and PEG tomorrow. Job#: [id number] CF
[2017-06-03] VITALS (74 sets, daily range): BP systolic 93–208; BP diastolic 39–161
[2017-06-03] MEDS: LEVALBUTEROL HCL SOLN NEBU 1.25 MG/3 ML NEB INH SCH ×4 (00:10→19:45)
[2017-06-03] MEDS: IPRATROPIUM BROMIDE 0.02% 2.5 ML NEB NEB SCH ×4 (00:10→19:45)
[2017-06-03] MEDS: INSULIN LISPRO 100 UNIT/1 ML 3ML VIAL SQ SCH ×4 (01:25→18:00)
[2017-06-03] MEDS: HYDROMORPHONE 2MG/ML INJ IV PRN ×2 (01:35→04:55)
[2017-06-03] MEDS: HYDRALAZINE HCL 20 MG/ML VIAL IV PRN ×3 (03:30→15:25)
[2017-06-03] MEDS: METOCLOPRAMIDE HCL 10MG/10ML UDC NG SCH ×3 (06:00→18:08)
[2017-06-03] MEDS: PIPERACILLIN/TAZO 2.25 GM 50 ML IV SCH ×3 (06:14→22:12)
[2017-06-03 06:16] LABS: INR 1.06; PROTHROMBIN TIME 14.3 seconds (11.9-14.5)
[2017-06-03 06:17] LABS: PARTIAL THROMBOPLASTIN TIME 27.5 seconds (23.8-35.5)
--- NOTE | 2017-06-03 06:21 | Diagnostic Imaging Report ---
EXAM: CHEST SINGLE (PORTABLE), AP 1 view DATE: 06/03/2017 5:00 AM Time stamp on exam: 0516 hours INDICATION: Intubated COMPARISON: AP view of the chest June 02, 2017 FINDINGS: LINES/TUBES: Stable position right internal jugular vein central line, tracheostomy and nasal/orogastric tube LUNGS: Stable bilateral interstitial and alveolar opacities. PLEURA: No effusions or pneumothorax. HEART AND MEDIASTINUM: Stable appearance BONES AND SOFT TISSUES: No acute findings. IMPRESSION: No interval change Signed by: Dr. Lizy Montoya M.D. on 06/03/2017 6:18 AM
[2017-06-03 06:23] LABS: BASOPHILS # (AUTO) 0.1 (0.0-0.1); BASOPHILS % 0.5 % (0.0-1.0); HEMATOCRIT 32.4 % (34.2-44.1); HEMOGLOBIN 10.3 g/dL (12.0-16.0); LYMPHOCYTES # (AUTO) 0.8 (1.0-3.2); LYMPHOCYTES % 6.6 % (18.0-39.1); MEAN CORPUSCULAR HEMOGLOBIN 28.9 pg (28-32); MEAN CORPUSCULAR HGB CONC 31.8 g/dL (31-35); MONOCYTES # (AUTO) 0.8 (0.2-0.8); MONOCYTES % 6.7 % (4.4-11.3); NEUTROPHILS # (AUTO) 9.4 (2.1-6.9); NEUTROPHILS % 77.9 % (38.7-80.0); PLATELET COUNT 213 x10e3/uL (140-360); RED BLOOD COUNT 3.56 x10e6/uL (3.6-5.1); RED CELL DISTRIBUTION WIDTH 14.2 % (11.7-14.4)
[2017-06-03 06:43] LABS: ANION GAP 24.4 mmol/L (8-16); CALCIUM 9.6 mg/dL (8.4-10.2); CREATININE, SERUM 6.12 mg/dL (0.57-1.11); POTASSIUM 4.4 mmol/L (3.5-5.1)
[2017-06-03 08:42] LABS: ANISOCYTOSIS SLIGHT; LYMPHOCYTES % (MANUAL) 7 % (19-48); MONOCYTES % (MANUAL) 7 % (3.4-9.0); NEUTROPHILS % (MANUAL) 86 % (40-74)
[2017-06-03 08:43] LABS: ELLIPTOCYTE, RBC SLIGHT; HYPOCHROMASIA SLIGHT; PLATELET ESTIMATE ADEQUATE; PLATELET MORPHOLOGY COMMENT NORMAL; RBC MORPHOLOGY COMMENT NORMAL
[2017-06-03] MEDS: ISOSORBIDE DINITRATE 20 MG TAB PO SCH ×3 (09:00→21:00)
[2017-06-03] MEDS: METOPROLOL TARTRATE 50 MG TAB PO SCH ×2 (09:00→18:08)
[2017-06-03] MEDS: AMLODIPINE BESYLATE 5 MG TAB PO SCH (09:00)
[2017-06-03] MEDS: HYDRALAZINE HCL 25 MG TAB PO SCH ×3 (09:00→21:00)
[2017-06-03] MEDS: ALBUMIN HUMAN 12.5GM / 50ML IV PRN (09:00)
[2017-06-03] MEDS: PANTOPRAZOLE 40 MG 10ML VIAL IV SCH (10:03)
[2017-06-03] MEDS: FAMOTIDINE 20 MG TAB NG SCH ×2 (10:03→22:11)
[2017-06-03] MEDS ORDERED: CEFAZOLIN SOD 1 GM/NS 50ML 50 ML IV ONE (14:00)
[2017-06-03] MEDS ORDERED: CEFAZOLIN SOD 2 GM/D5W 50ML 50 ML IV ONE (14:30)
[2017-06-03] MEDS ORDERED: CEFAZOLIN SOD 1 GM VIAL IV ONE (14:30)
--- NOTE | 2017-06-03 18:54 | Progress Note ---
DATE: June 03, 2017 CARDIOLOGY PROGRESS NOTE SUBJECTIVE: The patient is awake but does not respond. OBJECTIVE VITAL SIGNS: Temperature 97.6 degrees, pulse 83, respiratory rate 18, blood pressure 161/83, oxygen saturation 100% on mechanical ventilation. GENERAL: An elderly woman, in no acute distress. Awake, but not responsive. LUNGS: Coarse breath sounds bilaterally. No wheezes or crackles. CARDIOVASCULAR: Normal rate and regular rhythm. No murmur. Normal S1 and S2. ABDOMEN: Soft. EXTREMITIES: No edema. CARDIAC MEDICATIONS: 1. Metoprolol tartrate 50 mg p.o. b.i.d. 2. Isosorbide dinitrate 20 mg p.o. t.i.d. 3. Amlodipine 5 mg p.o. daily. LABORATORY DATA: WBC 12, hemoglobin 10.3, hematocrit 32.4, platelets 213,000, sodium 124, potassium 4.4, chloride 95, CO2 of 19, BUN 110, creatinine 6.12. IMAGING: Chest x-ray with no interval change. TELEMETRY: Atrial flutter/fibrillation, now normal sinus rhythm. IMPRESSION 1. Sepsis secondary to Streptococcus viridans and coagulase-negative Staphylococcus bacteremia. 2. Wmjox-bf-aurhojp renal failure. 3. Diabetes mellitus. 4. Hypertension. 5. Preserved left ventricular systolic function with moderate left ventricular hypertrophy. 6. Mtbsm-lq-qngvsbm diastolic heart failure. RECOMMENDATIONS: She has converted to normal sinus rhythm. Start p.o. amiodarone. The patient's blood pressure is quite labile. Continue current cardiac medications. The patient is planned for PEG tube placement today. Antibiotics per primary service. Ventilator management per pulmonary. The patient is not currently anticoagulated for CVA prophylaxis due to anemia requiring blood transfusion. Stool occult blood has not been sent. We will order again. Volume management per nephrology given dialysis. Job#: [id number]
[2017-06-03] MEDS: AMIODARONE HCL 900 MG in DEXTROSE 5 % 500ML BOTTLE 482 ML IV SCH ×2 (19:00→19:41)
[2017-06-03] MEDS ORDERED: MIDAZOLAM HCL 2 MG/2 ML VIAL ONE (19:17)
[2017-06-03] MEDS: LORAZEPAM INJ 2 MG/ML VIAL IV PRN (20:39)
[2017-06-03] MEDS: ARTIFICIAL TEARS (OPTH) 15 ML BTL OU PRN (23:14)
[2017-06-04] VITALS (59 sets, daily range): BP systolic 91–193; BP diastolic 32–119
[2017-06-04] MEDS: METOCLOPRAMIDE HCL 10MG/10ML UDC NG SCH ×5 (00:16→19:01)
[2017-06-04] MEDS: LEVALBUTEROL HCL SOLN NEBU 1.25 MG/3 ML NEB INH SCH ×4 (01:25→19:00)
[2017-06-04] MEDS: IPRATROPIUM BROMIDE 0.02% 2.5 ML NEB NEB SCH ×4 (01:25→19:00)
[2017-06-04] MEDS: LORAZEPAM INJ 2 MG/ML VIAL IV PRN (03:45)
[2017-06-04] MEDS: PIPERACILLIN/TAZO 2.25 GM 50 ML IV SCH ×3 (05:33→21:44)
[2017-06-04] MEDS: INSULIN LISPRO 100 UNIT/1 ML 3ML VIAL SQ SCH ×4 (05:34→19:01)
[2017-06-04] MEDS: HYDRALAZINE HCL 20 MG/ML VIAL IV PRN (05:46)
[2017-06-04 06:31] LABS: BASOPHILS % 0.2 % (0.0-1.0); EOSINOPHILS % 0.2 % (0.0-6.0); HEMATOCRIT 32.5 % (34.2-44.1); HEMOGLOBIN 10.3 g/dL (12.0-16.0); LYMPHOCYTES % 9.7 % (18.0-39.1); MEAN CORPUSCULAR HEMOGLOBIN 28.5 pg (28-32); MEAN CORPUSCULAR HGB CONC 31.7 g/dL (31-35); MONOCYTES # (AUTO) 0.9 (0.2-0.8); MONOCYTES % 9.3 % (4.4-11.3); NEUTROPHILS # (AUTO) 7.9 (2.1-6.9); NEUTROPHILS % 78.4 % (38.7-80.0); PLATELET COUNT 221 x10e3/uL (140-360); RED BLOOD COUNT 3.61 x10e6/uL (3.6-5.1); RED CELL DISTRIBUTION WIDTH 14.3 % (11.7-14.4)
[2017-06-04 06:50] LABS: ANION GAP 21.9 mmol/L (8-16); CALCIUM 9.5 mg/dL (8.4-10.2); CREATININE, SERUM 4.51 mg/dL (0.57-1.11); POTASSIUM 3.9 mmol/L (3.5-5.1)
[2017-06-04] MEDS ORDERED: LIDOCAINE HCL 2% LOCAL 20 ML VIAL ONE (07:42)
[2017-06-04] MEDS ORDERED: SODIUM CHLORIDE 0.9% 500ML 1,000 ML ONE (07:42)
[2017-06-04] MEDS ORDERED: HEPARIN SOD (PORCINE) 1000 UNIT/ML 30ML ONE (07:42)
[2017-06-04] MEDS ORDERED: FENTANYL CITRATE/PF 100MCG/2 ML INJ ONE (08:24)
[2017-06-04] MEDS ORDERED: MIDAZOLAM HCL 2 MG/2 ML VIAL ONE (08:25)
[2017-06-04] MEDS: PANTOPRAZOLE 40 MG 10ML VIAL IV SCH (10:25)
[2017-06-04] MEDS: AMIODARONE HCL 200 MG TAB PO SCH ×2 (10:25→19:01)
[2017-06-04] MEDS: FAMOTIDINE 20 MG TAB NG SCH ×2 (10:25→21:44)
[2017-06-04] MEDS: ISOSORBIDE DINITRATE 20 MG TAB PO SCH (10:25)
[2017-06-04] MEDS: HYDRALAZINE HCL 25 MG TAB PO SCH ×3 (10:25→21:44)
[2017-06-04] MEDS: METOPROLOL TARTRATE 50 MG TAB PO SCH ×2 (10:26→17:00)
[2017-06-04] MEDS: AMLODIPINE BESYLATE 5 MG TAB PO SCH (10:26)
--- NOTE | 2017-06-04 11:49 | Diagnostic Imaging Report ---
Tunneled Dialysis Catheter Placement June 04, 2017 Pre-Procedure Diagnosis: End-Stage Renal Disease Post-procedure Diagnosis:End-Stage Renal Disease Lead Simulation Modeling Engineer: Clarisse Grissom Baker Doughnut: None Sedation: None. Heart rate and oxygen saturation were monitored in real-time. Blood pressure was measured in 5 minute increments. 1% lidocaine was used for local anesthesia. Radiation Dose: 61.6 cGycm2 (Dose Area Product) Fluoroscopy time: 0.4 minutes Estimate blood loss: <5 mL Blood administered: None Complications: None Implants/Grafts: 16 Irish 19 cm cuffed tunneled dialysis catheter Specimen: None Procedure: Informed consent was obtained and the patient positioned supine in the fluoroscopy suite. A timeout was performed, followed by preliminary ultrasound of the right internal jugular vein (see findings below). The indwelling temporary right internal jugular dialysis catheter was removed, with hemostasis achieved with manual compression. The right neck and chest were prepped and draped in standard fashion. Using real-time ultrasound guidance a 18 gauge vascular needle was used to access the right internal jugular vein. An image was stored in the electronic medical record. A wire was advanced across the right atrium under fluoroscopy and the needle exchanged for a peel-away sheath. A skin incision was made inferior to the clavicle and the catheter tunneled to the access site. The catheter was then deployed through the peel-away sheath and positioned with the tip at the atriocaval junction/right atrium. At the end of the procedure the catheter was flushed, packed with heparin solution, secured to the skin and a sterile dressing applied. The patient tolerated the procedure well and without immediate complication. Findings: Patent right internal jugular vein as demonstrated by normal ultrasound compressibility. Impression: Successful placement of a tunneled right internal jugular vein dialysis catheter using ultrasound and fluoroscopic guidance. This report was generated with voice-recognition technology. Errors in induction machine setter can occur. Please interpret accordingly and contact a radiologist if there are any questions regarding the report. Signed by: Dr. Tom Grissom M.D. on 06/04/2017 11:46 AM
[2017-06-04] MEDS ORDERED: NITROGLYCERIN 2% OINT 1 GM PKT TOP ONE (12:00)
--- NOTE | 2017-06-04 18:10 | Progress Note ---
DATE: June 04, 2017 CARDIOLOGY PROGRESS NOTE SUBJECTIVE: The patient is not responsive. She underwent PEG tube insertion yesterday and tunnel dialysis catheter placement this morning. OBJECTIVE VITAL SIGNS: Temperature 99.3 degrees, pulse 70, respiratory rate 18, blood pressure 117/66, oxygen saturation 100% on mechanical ventilation. GENERAL: Unresponsive and in no acute distress. LUNGS: Coarse breath sounds bilaterally. No wheezes or crackles. CARDIOVASCULAR: Normal rate and regular rhythm. No murmur. Normal S1 and S2. ABDOMEN: Soft. EXTREMITIES: No edema. CARDIAC MEDICATIONS: 1. Metoprolol tartrate 50 mg p.o. b.i.d. 2. Amiodarone 200 mg p.o. b.i.d. 3. Amlodipine 5 mg p.o. daily. LABORATORY DATA: WBC 10.09, hemoglobin 10.3, hematocrit 32.5, platelets 221,000, sodium 138, potassium 3.9, chloride 98, CO2 of 22, BUN 54, creatinine 4.51, BNP 1330. TELEMETRY: Atrial flutter/fibrillation. IMPRESSION 1. Sepsis secondary to Streptococcus viridans and coagulase-negative Staphylococcus bacteremia. 2. Wrozk-bx-pubtwlb renal failure. 3. Paroxysmal atrial fibrillation. 4. Ugegg-tm-jxehrem diastolic heart failure. 5. Preserved left ventricular systolic function with moderate left ventricular hypertrophy. 6. Diabetes mellitus. 7. Hypertension. RECOMMENDATIONS: She is back in atrial fibrillation. She is hemodynamically stable. Continue p.o. amiodarone. Continue current cardiac medications otherwise. Antibiotics per primary service until later management per pulmonary. The patient is not currently anticoagulated for CVA prophylaxis due to anemia requiring blood transfusions. Stool occult blood has not resulted. We will follow up results. Volume management per nephrology given need for dialysis. Thank you for this consult. We will continue to follow. Job#: [id number]
[2017-06-04] MEDS: LORAZEPAM 0.5 MG TAB PO PRN (21:44)
[2017-06-05] VITALS (62 sets, daily range): BP systolic 82–223; BP diastolic 37–90
[2017-06-05] MEDS: LEVALBUTEROL HCL SOLN NEBU 1.25 MG/3 ML NEB INH SCH ×5 (00:10→18:50)
[2017-06-05] MEDS: METOCLOPRAMIDE HCL 10MG/10ML UDC NG SCH ×4 (00:20→18:03)
[2017-06-05] MEDS: INSULIN LISPRO 100 UNIT/1 ML 3ML VIAL SQ SCH ×4 (00:22→18:00)
[2017-06-05] MEDS: IPRATROPIUM BROMIDE 0.02% 2.5 ML NEB NEB SCH ×4 (01:00→18:50)
[2017-06-05] MEDS: PIPERACILLIN/TAZO 2.25 GM 50 ML IV SCH ×3 (05:51→20:31)
[2017-06-05 06:26] LABS: BASOPHILS % 0.2 % (0.0-1.0); EOSINOPHILS % 0.1 % (0.0-6.0); HEMATOCRIT 29.8 % (34.2-44.1); HEMOGLOBIN 9.6 g/dL (12.0-16.0); LYMPHOCYTES # (AUTO) 0.7 (1.0-3.2); LYMPHOCYTES % 6.4 % (18.0-39.1); MEAN CORPUSCULAR HEMOGLOBIN 28.7 pg (28-32); MEAN CORPUSCULAR HGB CONC 32.2 g/dL (31-35); MONOCYTES # (AUTO) 1.1 (0.2-0.8); MONOCYTES % 9.6 % (4.4-11.3); NEUTROPHILS # (AUTO) 9.5 (2.1-6.9); NEUTROPHILS % 82.1 % (38.7-80.0); PLATELET COUNT 211 x10e3/uL (140-360); RED BLOOD COUNT 3.35 x10e6/uL (3.6-5.1); RED CELL DISTRIBUTION WIDTH 14.1 % (11.7-14.4)
[2017-06-05 06:45] LABS: ALBUMIN 2.6 g/dL (3.5-5.0); ALBUMIN/GLOBULIN RATIO 0.7 (0.8-2.0); ANION GAP 21.5 mmol/L (8-16); CALCIUM 9.3 mg/dL (8.4-10.2); CREATININE, SERUM 5.83 mg/dL (0.57-1.11); POTASSIUM 3.5 mmol/L (3.5-5.1)
[2017-06-05] MEDS: HYDRALAZINE HCL 20 MG/ML VIAL IV PRN ×3 (06:48→20:54)
[2017-06-05] MEDS: PANTOPRAZOLE 40 MG 10ML VIAL IV SCH (08:33)
[2017-06-05] MEDS: AMIODARONE HCL 200 MG TAB PO SCH ×2 (08:33→18:03)
[2017-06-05] MEDS: FAMOTIDINE 20 MG TAB NG SCH ×2 (08:33→20:31)
[2017-06-05] MEDS: HYDRALAZINE HCL 25 MG TAB PO SCH ×3 (08:33→20:31)
[2017-06-05] MEDS: AMLODIPINE BESYLATE 5 MG TAB PO SCH (08:34)
[2017-06-05] MEDS: LORAZEPAM 0.5 MG TAB PO PRN ×2 (08:34→21:08)
[2017-06-05] MEDS: METOPROLOL TARTRATE 50 MG TAB PO SCH ×2 (08:34→18:03)
[2017-06-05 10:15] LABS: % IRON SATURATION 13 % (15-50); IRON 31 ug/dL (50-170); TOTAL IRON BINDING CAPACITY 237 ug/dL (261-478); TRANSFERRIN 169 mg/dL (180-382)
[2017-06-05] MEDS: ACETAMINOPHEN/CODEINE ELIX 120-12 MG/5 ML UDC NG PRN ×2 (10:45→20:33)
[2017-06-05] MEDS: IRON SUCROSE 100 MG in SODIUM CHLORIDE 0.9% 100 ML 100 ML IV SCH (12:00)
[2017-06-05] MEDS ORDERED: ACETAMINOPHEN 325 MG TAB PO PRN (13:30)
--- NOTE | 2017-06-05 14:57 | Progress Note ---
DATE: June 05, 2017 CARDIOLOGY PROGRESS NOTE SUBJECTIVE: Patient is awake. She does not respond. However, family indicates that she was nodding and shaking her head appropriately yesterday. She is on hemodialysis. OBJECTIVE VITAL SIGNS: Temperature 101.1 degrees, pulse 74, respiratory rate 22, blood pressure 143/54, oxygen saturation 100% on mechanical ventilation. GENERAL: Chronically ill-appearing woman in no acute distress. LUNGS: Coarse breath sounds bilaterally. No wheezes or crackles. CARDIOVASCULAR: Normal rate, regular rhythm. No murmur. Normal S1 and S2. ABDOMEN: Soft. EXTREMITIES: No edema. CARDIAC MEDICATIONS 1. Amlodipine 5 mg p.o. daily. 2. Metoprolol tartrate 50 mg p.o. b.i.d. 3. Amiodarone 200 mg p.o. b.i.d. 4. Hydralazine 50 mg p.o. t.i.d. LABS: WBC 11.59, hemoglobin 9.6, hematocrit 29.8, platelets 211. Sodium 131, potassium 3.5, chloride 93, CO2 20, BUN 76, creatinine 5.8, magnesium 2.3. BNP 950. TELEMETRY: Normal sinus rhythm. IMPRESSION 1. Sepsis secondary to Streptococcus viridans and coagulase-negative staphylococcus bacteremia. 2. Muads-xb-uflesye renal failure. 3. Paroxysmal atrial fibrillation. 4. Ucfes-li-kflcfcw diastolic heart failure. 5. Preserved left ventricular systolic function with moderate left ventricular hypertrophy. 6. Diabetes mellitus. 7. Hypertension. RECOMMENDATIONS: Continue current cardiac medications. Antibiotics per primary service. Ventilator management per Pulmonary. The patient is not currently anticoagulated due to anemia requiring blood transfusions. We are awaiting stool occult blood. Volume management per Nephrology given need for dialysis. Thank you for this consult. We will continue to follow. Job#: [id number] EV
[2017-06-05] MEDS ORDERED: TRAMADOL HCL 50 MG TAB PO PRN (22:15)
[2017-06-05] MEDS: HYDROCODONE/APAP 10MG-325MG TAB PO PRN (22:21)
[2017-06-06] VITALS (51 sets, daily range): BP systolic 96–221; BP diastolic 49–102
[2017-06-06] MEDS: IPRATROPIUM BROMIDE 0.02% 2.5 ML NEB NEB SCH ×4 (00:10→19:00)
[2017-06-06] MEDS: LEVALBUTEROL HCL SOLN NEBU 1.25 MG/3 ML NEB INH SCH ×4 (00:10→19:00)
[2017-06-06] MEDS: INSULIN LISPRO 100 UNIT/1 ML 3ML VIAL SQ SCH ×5 (00:20→23:22)
[2017-06-06] MEDS: METOCLOPRAMIDE HCL 10MG/10ML UDC NG SCH ×5 (00:22→23:11)
[2017-06-06] MEDS: HYDRALAZINE HCL 20 MG/ML VIAL IV PRN ×3 (00:58→16:45)
[2017-06-06] MEDS: LORAZEPAM 0.5 MG TAB PO PRN ×2 (01:30→08:12)
[2017-06-06] MEDS: ACETAMINOPHEN/CODEINE ELIX 120-12 MG/5 ML UDC NG PRN (01:30)
[2017-06-06] MEDS: HYDROCODONE/APAP 10MG-325MG TAB PO PRN ×2 (03:22→20:10)
[2017-06-06 05:06] LABS: BASOPHILS % 0.2 % (0.0-1.0); EOSINOPHILS % 0.2 % (0.0-6.0); HEMATOCRIT 30.1 % (34.2-44.1); HEMOGLOBIN 9.6 g/dL (12.0-16.0); LYMPHOCYTES # (AUTO) 0.7 (1.0-3.2); LYMPHOCYTES % 7.3 % (18.0-39.1); MEAN CORPUSCULAR HEMOGLOBIN 28.8 pg (28-32); MEAN CORPUSCULAR HGB CONC 31.9 g/dL (31-35); MEAN CORPUSCULAR VOLUME 90.4 fL (81-99); MONOCYTES # (AUTO) 1.1 (0.2-0.8); MONOCYTES % 10.6 % (4.4-11.3); NEUTROPHILS # (AUTO) 8.2 (2.1-6.9); NEUTROPHILS % 80.5 % (38.7-80.0); PLATELET COUNT 212 x10e3/uL (140-360); RED BLOOD COUNT 3.33 x10e6/uL (3.6-5.1); RED CELL DISTRIBUTION WIDTH 14.3 % (11.7-14.4)
[2017-06-06 05:20] LABS: ANION GAP 17.4 mmol/L (8-16); CALCIUM 9.2 mg/dL (8.4-10.2); CREATININE, SERUM 4.02 mg/dL (0.57-1.11); POTASSIUM 3.4 mmol/L (3.5-5.1)
[2017-06-06] MEDS: PIPERACILLIN/TAZO 2.25 GM 50 ML IV SCH ×3 (05:39→21:51)
[2017-06-06] MEDS: FAMOTIDINE 20 MG TAB NG SCH ×2 (08:43→21:51)
[2017-06-06] MEDS: PANTOPRAZOLE 40 MG 10ML VIAL IV SCH (08:43)
[2017-06-06] MEDS: HYDRALAZINE HCL 25 MG TAB PO SCH ×3 (09:16→21:51)
[2017-06-06] MEDS: METOPROLOL TARTRATE 50 MG TAB PO SCH ×2 (09:16→17:53)
[2017-06-06] MEDS: AMIODARONE HCL 200 MG TAB PO SCH ×2 (09:16→17:53)
[2017-06-06] MEDS: AMLODIPINE BESYLATE 5 MG TAB PO SCH (09:16)
[2017-06-06 09:58] LABS: ABG HCO3 24 mmol/L (23-28); ABG PCO2 33 mmHg (41-51); ABG PH 7.46 (7.31-7.41); ABG PO2 67 mmHg (80-105)
[2017-06-06] MEDS: ARTIFICIAL TEARS (OPTH) 15 ML BTL OU PRN (10:03)
--- NOTE | 2017-06-06 12:35 | Progress Note ---
DATE: June 06, 2017 CARDIOLOGY PROGRESS NOTE SUBJECTIVE: Patient is awake but does not respond. However, family and staff report the patient was responding appropriately earlier this morning. OBJECTIVE VITAL SIGNS: Temperature 97.6 degrees, pulse 75, respiratory rate 18, blood pressure 189/82, oxygen saturation 96% on trach collar. GENERAL: Awake and not responsive. LUNGS: Coarse breath sounds bilaterally. No wheezes or crackles. CARDIOVASCULAR: Normal rate, regular rhythm. No murmur. Normal S1 and S2. ABDOMEN: Soft. EXTREMITIES: No edema. CARDIAC MEDICATIONS 1. Amiodarone 200 mg p.o. b.i.d. 2. Metoprolol tartrate 50 mg p.o. b.i.d. 3. Amlodipine 10 mg p.o. daily. LABS: WBC 10.16, hemoglobin 9.6, hematocrit 30.1, platelets 212. Sodium 137, potassium 3.4, chloride 99, CO2 24, BUN 40, creatinine 4.02. TELEMETRY: Normal sinus rhythm. IMPRESSION 1. Sepsis secondary to Streptococcus viridans and coagulase-negative staphylococcus bacteremia. 2. Ensxi-rw-thflouy renal failure. 3. Paroxysmal atrial fibrillation. 4. Jvycw-zu-dhmzrav diastolic heart failure. 5. Preserved left ventricular systolic function with moderate left ventricular hypertrophy. 6. Diabetes mellitus. 7. Hypertension. RECOMMENDATIONS: Continue current cardiac medications. Antibiotics per primary service. Tracheostomy management per pulmonary. The patient is not currently anticoagulated due to anemia requiring blood transfusions. We are awaiting stool occult blood. Volume management per nephrology given need for dialysis. Thank you for this consult. We will continue to follow. Job#: [id number]
[2017-06-06] MEDS: IRON SUCROSE 100 MG in SODIUM CHLORIDE 0.9% 100 ML 100 ML IV SCH (12:52)
[2017-06-07] VITALS (64 sets, daily range): BP systolic 109–231; BP diastolic 45–103
[2017-06-07] MEDS: HYDROCODONE/APAP 10MG-325MG TAB PO PRN ×5 (00:10→23:42)
[2017-06-07] MEDS: LEVALBUTEROL HCL SOLN NEBU 1.25 MG/3 ML NEB INH SCH ×4 (00:15→19:39)
[2017-06-07] MEDS: IPRATROPIUM BROMIDE 0.02% 2.5 ML NEB NEB SCH ×4 (00:15→19:39)
[2017-06-07] MEDS: ACETAMINOPHEN/CODEINE ELIX 120-12 MG/5 ML UDC NG PRN (03:25)
[2017-06-07] MEDS: LORAZEPAM 0.5 MG TAB PO PRN (03:25)
[2017-06-07] MEDS: HYDRALAZINE HCL 20 MG/ML VIAL IV PRN (04:30)
[2017-06-07 05:02] LABS: BASOPHILS % 0.1 % (0.0-1.0); EOSINOPHILS # (AUTO) 0.1 (0.0-0.4); EOSINOPHILS % 0.4 % (0.0-6.0); HEMATOCRIT 32.7 % (34.2-44.1); HEMOGLOBIN 10.3 g/dL (12.0-16.0); LYMPHOCYTES # (AUTO) 0.6 (1.0-3.2); LYMPHOCYTES % 4.9 % (18.0-39.1); MEAN CORPUSCULAR HEMOGLOBIN 28.5 pg (28-32); MEAN CORPUSCULAR HGB CONC 31.5 g/dL (31-35); MEAN CORPUSCULAR VOLUME 90.3 fL (81-99); MONOCYTES # (AUTO) 1.1 (0.2-0.8); MONOCYTES % 10.2 % (4.4-11.3); NEUTROPHILS # (AUTO) 9.3 (2.1-6.9); NEUTROPHILS % 83.2 % (38.7-80.0); PLATELET COUNT 231 x10e3/uL (140-360); RED BLOOD COUNT 3.62 x10e6/uL (3.6-5.1); RED CELL DISTRIBUTION WIDTH 13.9 % (11.7-14.4)
[2017-06-07 05:22] LABS: ANION GAP 21.3 mmol/L (8-16); CALCIUM 9.8 mg/dL (8.4-10.2); CREATININE, SERUM 5.54 mg/dL (0.57-1.11); POTASSIUM 3.3 mmol/L (3.5-5.1)
[2017-06-07] MEDS: PIPERACILLIN/TAZO 2.25 GM 50 ML IV SCH (05:29)
[2017-06-07] MEDS: METOCLOPRAMIDE HCL 10MG/10ML UDC NG SCH ×4 (05:29→23:42)
[2017-06-07] MEDS: INSULIN LISPRO 100 UNIT/1 ML 3ML VIAL SQ SCH ×3 (05:51→18:21)
[2017-06-07] MEDS: HYDRALAZINE HCL 25 MG TAB PO SCH ×3 (06:15→21:26)
[2017-06-07] MEDS: AMLODIPINE BESYLATE 5 MG TAB PO SCH (06:16)
[2017-06-07] MEDS: METOPROLOL TARTRATE 50 MG TAB PO SCH ×2 (06:16→17:00)
[2017-06-07] MEDS: FAMOTIDINE 20 MG TAB NG SCH ×2 (08:18→21:26)
[2017-06-07] MEDS: PANTOPRAZOLE 40 MG 10ML VIAL IV SCH (08:18)
[2017-06-07] MEDS: AMIODARONE HCL 200 MG TAB PO SCH ×2 (08:18→18:14)
[2017-06-07] MEDS ORDERED: HEPARIN SOD (PORCINE) 1000 UNIT/ML SDV ONE (08:59)
--- NOTE | 2017-06-07 09:50 | Progress Note ---
DATE: June 07, 2017 TIME: 9 a.m. OVERNIGHT: No events. Patient remains on trach vent support. PHYSICAL EXAMINATION GENERAL: A tired-appearing woman, resting in bed. HEENT: Tracheostomy in place. CARDIOVASCULAR: Normal S1, S2. LUNGS: Moderate breath sounds. ABDOMEN: Soft. PEG in place. EXTREMITIES: No edema. SKIN: Dry. PSYCHIATRIC: Unable to assess. NEUROLOGIC: Opens eyes to name and follows simple commands. LABS: Reviewed. MEDICATIONS: Reviewed. ASSESSMENT: A 81-year-old woman. 1. Acute respiratory failure/difficult airway. 2. Hpsav-mg-iddubhj congestive heart failure. 3. End-stage renal disease on hemodialysis. 4. Diabetes mellitus, type 2. Hemoglobin A1c/LDL is 6.6/43. 5. Hypertension. 6. Coagulase-negative staphylococcus and Streptococcus viridans bacteremia and sepsis. 7. Bilateral pleural effusions secondary to congestive heart failure exacerbation. 8. Normocytic anemia. PLAN 1. Continue vent support by trach. 2. Continue tube feedings by PEG. 3. Continue physical therapy. 4. Mild leukocytosis today. Will follow. 5. Anemia, stable. Today, hemoglobin is 10.3. 6. Manuel management. Will defer to nephrology. 7. Glucose is somewhat elevated at 191 and 231. Will titrate medications as appropriate. Hemoglobin A1c was 6.6. 8. Discharge planning to LTAC facility pending. I have discussed the case with the at bedside. Job#: [id number]
[2017-06-07] MEDS: IRON SUCROSE 100 MG in SODIUM CHLORIDE 0.9% 100 ML 100 ML IV SCH (13:19)
--- NOTE | 2017-06-07 15:22 | Progress Note ---
DATE: June 07, 2017 CARDIOLOGY PROGRESS NOTE SUBJECTIVE: Patient is awake. She is responding appropriately to questions. She denies chest pain or shortness of breath. OBJECTIVE VITAL SIGNS: Temperature 96.2 degrees, pulse 50, respiratory rate 20, blood pressure 148/65, oxygen saturation 100% on mechanical ventilation. GENERAL: Awake. Responds appropriately to questions. On mechanical ventilator through tracheostomy. Receiving hemodialysis. LUNGS: Coarse breath sounds bilaterally. No wheezes or crackles. CARDIOVASCULAR: Normal rate, bradycardic. No murmur. Normal S1 and S2. ABDOMEN: Soft. EXTREMITIES: No edema. CARDIAC MEDICATIONS 1. Amiodarone 200 mg p.o. b.i.d. 2. Amlodipine 10 mg p.o. daily. 3. Metoprolol tartrate 50 mg p.o. b.i.d. LABS: WBC 11.2, hemoglobin 10.3, hematocrit 32.7, platelets 231. Sodium 137, potassium 3.3, chloride 97, CO2 22, BUN 58, creatinine 5.54. TELEMETRY: Normal sinus rhythm. IMPRESSION 1. Sepsis secondary to Streptococcus viridans and coagulase-negative staphylococcus bacteremia. 2. Rrnun-gx-ehurqiw renal failure. 3. Paroxysmal atrial fibrillation. 4. Tpuml-vk-lnnzfbx diastolic heart failure. 5. Preserved left ventricular systolic function with moderate left ventricular hypertrophy. 6. Diabetes mellitus. 7. Hypertension. RECOMMENDATIONS: Continue current cardiac medications. Antibiotics per primary service. Ventilator management per pulmonary. The patient is not currently anticoagulated due to anemia requiring blood transfusions. Await stool occult blood. Volume management per nephrology given need for dialysis. Decrease amiodarone and metoprolol given bradycardia. Thank you for this consult. We will continue to follow. Job#: [id number]
--- NOTE | 2017-06-07 15:28 | Diagnostic Imaging Report ---
PROCEDURE: A single AP view of the chest. COMPARISON: Patients [facility], DX, CHEST SINGLE (PORTABLE), 06/03/2017, 5:16. INDICATIONS: TRACH PLACEMENT FINDINGS: Lines/tubes: Stable tracheostomy tube in place. Interval removal of a previously visualized enteric tube and central right IJ line. Interval placement of right IJ dialysis catheter. Lungs: Lungs are well-inflated. Interval improvement in previously visualized perihilar interstitial edema and central venous congestion. No consolidation. Pleura: There is no pleural effusion or pneumothorax. Heart and mediastinum: Cardiac silhouette is normal. Bones: No acute bony abnormality. IMPRESSION: 1. interval improvement in previously visualized fluid overload. 2. Tracheostomy tube in place. Interval removal of previously visualized enteric tube and right IJ line. Interval placement of right IJ dialysis catheter. Emmanuel Dawson M.D. Dictated by: Emmanuel Dawson M.D. on 06/07/2017 at 15:36 Electronically approved by: Emmanuel Dawson M.D. on 06/07/2017 at 15:36
[2017-06-07] MEDS: NYSTATIN SUSPENSION 5 ML UDC PO SCH ×2 (18:19→23:42)
[2017-06-08] VITALS (76 sets, daily range): BP systolic 107–184; BP diastolic 46–84
[2017-06-08] MEDS: INSULIN LISPRO 100 UNIT/1 ML 3ML VIAL SQ SCH ×4 (00:07→17:55)
[2017-06-08] MEDS: IPRATROPIUM BROMIDE 0.02% 2.5 ML NEB NEB SCH ×4 (02:38→19:10)
[2017-06-08] MEDS: LEVALBUTEROL HCL SOLN NEBU 1.25 MG/3 ML NEB INH SCH ×4 (02:38→19:10)
[2017-06-08] MEDS: NYSTATIN SUSPENSION 5 ML UDC PO SCH ×3 (05:54→17:55)
[2017-06-08] MEDS: LORAZEPAM 0.5 MG TAB PO PRN ×2 (05:54→21:01)
[2017-06-08] MEDS: METOCLOPRAMIDE HCL 10MG/10ML UDC NG SCH ×3 (05:54→17:55)
[2017-06-08] MEDS: FAMOTIDINE 20 MG TAB NG SCH ×2 (08:43→21:01)
[2017-06-08] MEDS: PANTOPRAZOLE 40 MG 10ML VIAL IV SCH (08:43)
[2017-06-08] MEDS: METOPROLOL TARTRATE 50 MG TAB PO SCH ×2 (08:43→17:55)
[2017-06-08] MEDS: HYDRALAZINE HCL 25 MG TAB PO SCH ×3 (08:43→21:01)
[2017-06-08] MEDS: AMIODARONE HCL 200 MG TAB PO SCH ×2 (08:43→17:54)
[2017-06-08] MEDS: AMLODIPINE BESYLATE 5 MG TAB PO SCH (08:44)
[2017-06-08] MEDS: HYDROCODONE/APAP 10MG-325MG TAB PO PRN ×2 (09:38→21:02)
[2017-06-08] MEDS ORDERED: ASPIRIN 325 MG TAB PO ONE (10:30)
--- NOTE | 2017-06-08 14:18 | Progress Note ---
DATE: June 08, 2017 CARDIOLOGY PROGRESS NOTE SUBJECTIVE: Ms. Quick is responsive to verbal commands. Blood pressure is better controlled. Afebrile. OBJECTIVE VITAL SIGNS: Heart rate is 71. Blood pressure 161/64. O2 sats 100% on mechanical ventilation. CARDIOVASCULAR: Regular rhythm. Systolic murmur. S4 gallop. LUNGS: Fine crackles bilaterally both lung bases. ABDOMEN: Distended. DIAGNOSTIC DATA: Telemetry shows sinus rhythm. CARDIAC MEDICATIONS: Reviewed. ASSESSMENT 1. Atrial fibrillation, currently in sinus rhythm. 2. Sepsis secondary to Streptococcus viridans and coagulase-negative staphylococcal bacteremia. 3. Twtuv-gy-fqiqith diastolic heart failure. RECOMMENDATIONS: Continue current IV antibiotics. The patient has recovered from her PEG tube and tracheostomy. She is pending transfer to long-term acute care. At this point, transesophageal echocardiogram is indicated to evaluate for endocarditis given her susceptibilities of organisms and bacteremia. I discussed this with the . He is agreeable for the same. We will try and schedule this prior to her transfer to long-term acute care. She will require monitored anesthesia care for this procedure. Job#: [id number] MICHELINE
[2017-06-08] MEDS: INSULIN DETEMIR 100 UNIT/ML PEN SQ SCH (17:56)
[2017-06-09] VITALS (82 sets, daily range): BP systolic 96–187; BP diastolic 47–103
[2017-06-09] MEDS: METOCLOPRAMIDE HCL 10MG/10ML UDC NG SCH ×4 (00:13→17:38)
[2017-06-09] MEDS: NYSTATIN SUSPENSION 5 ML UDC PO SCH ×4 (00:13→17:38)
[2017-06-09] MEDS: INSULIN LISPRO 100 UNIT/1 ML 3ML VIAL SQ SCH ×4 (00:14→17:43)
[2017-06-09] MEDS: LEVALBUTEROL HCL SOLN NEBU 1.25 MG/3 ML NEB INH SCH ×4 (02:55→18:40)
[2017-06-09] MEDS: IPRATROPIUM BROMIDE 0.02% 2.5 ML NEB NEB SCH ×4 (02:55→18:40)
[2017-06-09 05:23] LABS: BASOPHILS % 0.2 % (0.0-1.0); EOSINOPHILS # (AUTO) 0.1 (0.0-0.4); HEMATOCRIT 30.7 % (34.2-44.1); HEMOGLOBIN 9.8 g/dL (12.0-16.0); LYMPHOCYTES # (AUTO) 0.7 (1.0-3.2); LYMPHOCYTES % 5.4 % (18.0-39.1); MEAN CORPUSCULAR HEMOGLOBIN 29.1 pg (28-32); MEAN CORPUSCULAR HGB CONC 31.9 g/dL (31-35); MEAN CORPUSCULAR VOLUME 91.1 fL (81-99); MONOCYTES # (AUTO) 1.4 (0.2-0.8); MONOCYTES % 11.1 % (4.4-11.3); NEUTROPHILS # (AUTO) 10.1 (2.1-6.9); NEUTROPHILS % 81.4 % (38.7-80.0); PLATELET COUNT 243 x10e3/uL (140-360); RED BLOOD COUNT 3.37 x10e6/uL (3.6-5.1); RED CELL DISTRIBUTION WIDTH 14.4 % (11.7-14.4)
[2017-06-09 05:40] LABS: ANION GAP 17.1 mmol/L (8-16); CALCIUM 9.5 mg/dL (8.4-10.2); CREATININE, SERUM 5.09 mg/dL (0.57-1.11); POTASSIUM 3.1 mmol/L (3.5-5.1)
[2017-06-09] MEDS: ACETAMINOPHEN/CODEINE ELIX 120-12 MG/5 ML UDC NG PRN ×3 (07:40→21:15)
--- NOTE | 2017-06-09 07:41 | Diagnostic Imaging Report ---
EXAMINATION: CHEST SINGLE (PORTABLE) INDICATION: \S\sob \S\[id number] \S\0600 COMPARISON: 06/07/2017 FINDINGS: AP view TUBES and LINES: Unchanged right internal jugular dialysis catheter and tracheostomy tube. LUNGS: Low lung volumes Central peribronchovascular thickening/cuffing and mild interstitial edema. PLEURA: No significant pleural effusion or pneumothorax. HEART AND MEDIASTINUM: Enlarged cardiac silhouette. BONES AND SOFT TISSUES: No acute osseous lesion. Soft tissues are unremarkable. UPPER ABDOMEN: No free air under the diaphragm. IMPRESSION: No significant interval change in central peribronchovascular thickening/cuffing and mild interstitial edema. Underlying infiltrate cannot be excluded. Signed by: Dr. Kt Patel MD on 06/09/2017 7:38 AM
[2017-06-09] MEDS: AMIODARONE HCL 200 MG TAB PO SCH (08:00)
[2017-06-09] MEDS: METOPROLOL TARTRATE 50 MG TAB PO SCH ×2 (08:00→17:00)
[2017-06-09] MEDS: AMLODIPINE BESYLATE 5 MG TAB PO SCH (08:00)
[2017-06-09] MEDS: ASPIRIN 81 MG CHEW TAB PO SCH (08:00)
[2017-06-09] MEDS: HYDRALAZINE HCL 25 MG TAB PO SCH ×3 (08:00→21:14)
[2017-06-09] MEDS: PANTOPRAZOLE 40 MG 10ML VIAL IV SCH (08:18)
[2017-06-09] MEDS: FAMOTIDINE 20 MG TAB NG SCH ×2 (08:18→21:14)
[2017-06-09] MEDS: LORAZEPAM 0.5 MG TAB PO PRN ×2 (08:20→21:15)
[2017-06-09] MEDS: INSULIN DETEMIR 100 UNIT/ML PEN SQ SCH ×2 (08:22→17:42)
[2017-06-09] MEDS: ARTIFICIAL TEARS (OPTH) 15 ML BTL OU PRN (09:00)
[2017-06-09] MEDS ORDERED: POTASSIUM CHLORIDE 20MEQ/15ML UDC NG ONE (10:00)
--- NOTE | 2017-06-09 13:28 | Progress Note ---
DATE: June 09, 2017 CARDIOLOGY PROGRESS NOTE: SUBJECTIVE: Ms. Quick is much more responsive. OBJECTIVE VITAL SIGNS: Afebrile. Heart rate 51. Blood pressure 148/64. O2 sat is 100%. CARDIOVASCULAR: Regular rhythm. Systolic murmur. S4 gallop. LUNGS: Fine crackles bilaterally. Hemoglobin is 9.8. Creatinine is 5.1. Telemetry shows sinus bradycardia. CARDIOVASCULAR MEDICATIONS: Are reviewed. ASSESSMENT: 1. Atrial fibrillation, currently in sinus rhythm. 2. Sepsis secondary to coagulase-negative staphylococcal bacteremia and Streptococcus viridans. PLAN: Transesophageal echocardiogram with monitored anesthesia care in the morning. I will reduce her amiodarone to 200 mg a day due to relative bradycardia. Job#: [id number] EV
[2017-06-09] MEDS ORDERED: PROPOFOL IV EMULSION 10 MG/ML 20 ML VIAL ONE (19:20)
[2017-06-09] MEDS ORDERED: LIDOCAINE HCL 2% LOCAL INJ 5 ML SDV VIAL INJ ONE (19:20)
[2017-06-10] VITALS (12 sets, daily range): BP systolic 116–156; BP diastolic 50–77
[2017-06-10] MEDS: IPRATROPIUM BROMIDE 0.02% 2.5 ML NEB NEB SCH ×3 (02:45→14:18)
[2017-06-10] MEDS: LEVALBUTEROL HCL SOLN NEBU 1.25 MG/3 ML NEB INH SCH ×3 (02:45→14:18)
[2017-06-10] MEDS: NYSTATIN SUSPENSION 5 ML UDC PO SCH ×3 (05:32→14:36)
[2017-06-10] MEDS: METOCLOPRAMIDE HCL 10MG/10ML UDC NG SCH ×3 (05:32→11:38)
[2017-06-10] MEDS: INSULIN LISPRO 100 UNIT/1 ML 3ML VIAL SQ SCH ×3 (06:01→12:00)
[2017-06-10] MEDS ORDERED: SODIUM CHLORIDE 0.9% 500ML 500 ML ONE (07:33)
[2017-06-10] MEDS ORDERED: BENZOCAINE 20% SPR 60 ML CAN ONE (07:43)
[2017-06-10] MEDS ORDERED: HEPARIN SOD (PORCINE) 1000 UNIT/ML SDV ONE (07:53)
[2017-06-10] MEDS ORDERED: SODIUM CHLORIDE 0.9% 1000ML 2,000 ML IV PRN (08:45)
[2017-06-10] MEDS ORDERED: MANNITOL 25% 12.5GM/50 ML VIAL IV PRN (08:45)
[2017-06-10] MEDS ORDERED: SODIUM CHLORIDE 0.9% 250ML 500 ML IV PRN (08:45)
[2017-06-10] MEDS ORDERED: ALBUMIN HUMAN 12.5GM / 50ML IV PRN (08:45)
[2017-06-10] MEDS ORDERED: HEPARIN SOD (PORCINE) 1000 UNIT/ML SDV IV PRN (08:45)
[2017-06-10] MEDS: INSULIN DETEMIR 100 UNIT/ML PEN SQ SCH (08:59)
[2017-06-10] MEDS ORDERED: AMIODARONE HCL 200 MG TAB PO SCH (09:00)
[2017-06-10] MEDS: PANTOPRAZOLE 40 MG 10ML VIAL IV SCH (09:17)
[2017-06-10] MEDS: FAMOTIDINE 20 MG TAB NG SCH (09:17)
[2017-06-10] MEDS: ASPIRIN 81 MG CHEW TAB PO SCH (09:17)
--- NOTE | 2017-06-10 09:28 | Progress Note ---
DATE: June 10, 2017 CARDIOLOGY PROGRESS NOTE SUBJECTIVE: Ms. Quick is much more awake and responsive. Transesophageal echocardiogram demonstrates no evidence of valvular vegetations and no evidence of intracardiac thrombus. PHYSICAL EXAMINATION VITALS: Afebrile, heart rate 70, blood pressure 139/61, and O2 sat is 95% on trach collar. CARDIOVASCULAR: Regular rhythm. S4 gallop. Systolic murmur. LUNGS: Occasional crackles bilaterally. MEDICATIONS: Reviewed. Telemetry shows sinus rhythm/sinus bradycardia. ASSESSMENT 1. Atrial fibrillation, currently in sinus rhythm. 2. Sepsis without evidence of endocarditis. RECOMMENDATIONS: Ms. Quick is stable from the cardiac standpoint for transfer to long-term acute care. Will continue to follow her. Current cardiac medications are appropriate. This was discussed with her . Job#: [id number] PAVAN
[2017-06-10] MEDS: HYDRALAZINE HCL 25 MG TAB PO SCH ×2 (09:35→14:52)
[2017-06-10] MEDS: AMLODIPINE BESYLATE 5 MG TAB PO SCH (09:36)
[2017-06-10] MEDS: METOPROLOL TARTRATE 50 MG TAB PO SCH (09:36)
--- NOTE | 2017-06-10 12:21 | Progress Note ---
DATE: June 10, 2017 NEPHROLOGY PROGRESS NOTE Seen on dialysis, tolerating procedure. BP has come down, so we cut back on fluid removal. PHYSICAL EXAMINATION GENERAL: No distress. VITALS: Temperature 97.3. Pulse 69. Blood pressure 156/76, coming down to 95/57. HEENT: Atraumatic. NECK: Tracheostomy. CHEST: Occasional upper airway sounds. EXTREMITIES: Trace edema. ASSESSMENT: Acute kidney injury on chronic kidney disease, stage 4. So far, no recovery, possibly end-stage renal disease. PLAN: Hemodialysis today, 3-1/2-hour run at F160 filter, blood flow rate 350 mL per minute, dialysate flow at 700 mL per minute, 3-K bath. Original plan was to remove 3 to 4 L. Will follow along. Job#: [id number]
[2017-06-10] MEDS: LORAZEPAM 0.5 MG TAB PO PRN (13:52)
[2017-06-10] MEDS: HYDROCODONE/APAP 10MG-325MG TAB PO PRN (14:48)
== END 2017-06-10 16:00 | DRG 4 ==
LOC: ER 10:43 → ICU 15:33
PROVIDERS: ADMIT Internal Medicine; ATTEND Internal Medicine
PROC: 5A1955Z Respiratory Ventilation, Greater than 96 Consecutive Hours (ICD-10-PCS; principal; 2017-05-23)
PROC: 0BH17EZ Insertion of Endotracheal Airway into Trachea, Via Natural or Artificial Opening (ICD-10-PCS; 2017-05-23)
PROC: 5A1D70Z Performance of Urinary Filtration, Intermittent, Less than 6 Hours Per Day (ICD-10-PCS; 2017-05-24)
PROC: 30233N1 Transfusion of Nonautologous Red Blood Cells into Peripheral Vein, Percutaneous Approach (ICD-10-PCS; 2017-05-25)
PROC: 02HV33Z Insertion of Infusion Device into Superior Vena Cava, Percutaneous Approach (ICD-10-PCS; 2017-05-27)
PROC: B5181ZA Fluoroscopy of Superior Vena Cava using Low Osmolar Contrast, Guidance (ICD-10-PCS; 2017-05-27)
PROC: 0B110F4 Bypass Trachea to Cutaneous with Tracheostomy Device, Open Approach (ICD-10-PCS; 2017-05-31)
PROC: 0DH68UZ Insertion of Feeding Device into Stomach, Via Natural or Artificial Opening Endoscopic (ICD-10-PCS; 2017-06-03)
PROC: 02HV33Z Insertion of Infusion Device into Superior Vena Cava, Percutaneous Approach (ICD-10-PCS; 2017-06-04)
PROC: B548ZZA Ultrasonography of Superior Vena Cava, Guidance (ICD-10-PCS; 2017-06-04)
DX: A40.8 Other streptococcal sepsis (principal); N17.0 Acute kidney failure with tubular necrosis; R65.20 Severe sepsis without septic shock; J69.0 Pneumonitis due to inhalation of food and vomit; G93.40 Encephalopathy, unspecified; I13.2 Hypertensive heart and chronic kidney disease with heart failure and with stage 5 chronic kidney disease, or end stage renal disease; J96.20 Acute and chronic respiratory failure, unspecified whether with hypoxia or hypercapnia; R13.10 Dysphagia, unspecified; J96.00 Acute respiratory failure, unspecified whether with hypoxia or hypercapnia; I50.33 Acute on chronic diastolic (congestive) heart failure; N18.6 End stage renal disease; E87.2 Acidosis; I48.92 Unspecified atrial flutter; E11.22 Type 2 diabetes mellitus with diabetic chronic kidney disease; E11.65 Type 2 diabetes mellitus with hyperglycemia; Z99.2 Dependence on renal dialysis; K29.70 Gastritis, unspecified, without bleeding; I48.0 Paroxysmal atrial fibrillation; D63.1 Anemia in chronic kidney disease
CPT/HCPCS: 31500; 36415; 36430; 36556; 36565; 36600; 70450; 71010; 74470; 76770; 77001; 80048; 80053; 80061; 80202; 80307; 80329; 81001; 82550; 82553; 82805; 82948; 83036; 83540; 83605; 83735; 83880; 84100; 84439; 84443; 84466; 84484; 85025; 85610; 85730; 86704; 86706; 86850; 86900; 86920; 87040; 87070; 87071; 87086; 87205; 87340; 87350; 87400; 87493; 90962; 93005; 93306; 93312; 93320; 93325; 94003; 94640; 94660; 94760; 96360; 96361; 96365; 96366; 96372; 99285; C1750; C1751; C1769; J0360; J0690; J0696; J1100; J1160; J1630; J1644; J1756; J1940; J2001; J2060; J2150; J2250; J2543; J2997; J3480; J7030; J7040; J7050; J7070; P9016

== ENCOUNTER 2017-07-26 19:05 | Inpatient (IN) | payer MEDICARE ==
[~2017-07-26] VITALS: Ht 157.5 cm; Wt 79.4 kg
[~2017-07-26 19:05] MED LIST changes: +BUSPIRONE HCL5 MG PO; +CALCITRIOL0.25 MCG PO; +CLONIDINE HCL0.1 MG PO; +FELODIPINE ER5 MG; +FUROSEMIDE40 MG PO; +GABAPENTIN100 MG; +HYDRALAZINE HCL10 MG PO; +METOPROLOL TART50 MG PO; +NORCO 5-325 TA1 EACH PO; +PANTOPRAZOLE SO40 MG PO; +PAROXETINE HCL20 MG PO; +PRANDIN1 MG; +QUETIAPINE FUM100 MG PO; +SIMVASTATIN20 MG PO; +TIZANIDINE HCL4 M1; +VENLAFAXINE H37.5 M1; +VITAMIN D1000 UNI1 PO; +ZOFRAN ODT4 MG
--- OUTSIDE RECORDS SUMMARY | 2017-07-26 19:08 | XMS REPORT ---
Author Author Admin, [facility] Address [address] [address] Phone Allergies, Adverse Reactions, Alerts Allergy Name Reaction Description Start Date Severity Status Provider IODINE Breaks out Severe Active Darnell Pablo MD Conditions or Problems Problem Name Problem Code Onset Date Status Entry Date Provider Comment Standard Description Annotate Sleep apnea, chronic 780.57 Active Darnell Pablo MD Unspecified sleep apnea Obesity 278.00 Active Darnell Pablo MD Obesity, unspecified Screening for hyperlipidemia V77.91 Active Darnell Pablo MD Screening for lipoid disorders Generalized anxiety disorder 300.02 Active Darnell Pablo MD Generalized anxiety disorder Insomnia, chronic 307.42 Active Darnell Pablo MD Persistent disorder of initiating or maintaining sleep Major depression, recurrent, 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 Active Darnell Pablo MD Major depressive disorder, recurrent episode, in partial or unspecified remission Diabetes mellitus, type II 250.00 Active Maryse BURNS Diabetes mellitus without mention of complication, type II or unspecified type, not stated as uncontrolled Kidney disease, chronic, stage IV 585.4 Active Maryse BURNS Chronic kidney disease, Stage IV (severe) Major depression, recurrent, severe 296.33 Inactive Darnell Pablo MD Major depressive disorder, recurrent episode, severe degree , without mention of psychotic behavior Depression / anxiety ICD-300.4 Inactive Darnell Pablo MD Depression / anxiety 300.4 Resolved Darnell Pablo MD Dysthymic disorder Medication List Medication Instructions Start Date Stop Date Generic Name NDC Status Provider Patient Instruction EFFEXOR XR 37.5 MG ORAL CAPSULE EXTENDED RELEASE 24 HOUR 1 cap By Mouth take at bedtime for depression VENLAFAXINE HCL 31329021184 Active Darnell Pablo MD Active BUSPIRONE HCL 15 MG ORAL TABLET 1 tab By Mouth Three Times a Day for anxiety, depression BUSPIRONE HCL 32717361965 Active Darnell Pablo MD Active PAXIL 30 MG ORAL TABLET 1 tab By Mouth Twice a Day PAROXETINE HCL 99951342118 Active Darnell Pablo MD Active SEROQUEL 100 MG ORAL TABLET 1 tab By Mouth take at bedtime for insomnia, mood QUETIAPINE FUMARATE 16489711541 Active Darnell Pablo MD Active ALPRAZOLAM 0.25 MG ORAL TABLET Take 1 tablet at night ALPRAZOLAM 0.25 MG ORAL TABLET 370552 ALPRAZOLAM Inactive ALPRAZOLAM 0.25 MG ORAL TABLET Take 1 tablet at night ALPRAZOLAM 57106760517 No Longer Active Darnell Pablo MD Active Vital Signs Date Name Value Unit Range Description height E&M 63.00 [in_us] Bdy height weight E&M 185.59 [lb_av] Weight Measured blood pressure, diastolic 69 mm[Hg] BP schuler blood pressure, systolic 167 mm[Hg] BP sys height E&M 63 [in_us] Bdy height pulse rate E&M 69 /min Heart rate weight E&M 203.80 [lb_av] Weight Measured blood pressure, diastolic 73 mm[Hg] BP schuler blood pressure, systolic 127 mm[Hg] BP sys height E&M 63 [in_us] Bdy height pulse rate E&M 54 /min Heart rate weight E&M 195.60 [lb_av] Weight Measured blood pressure, diastolic 74 mm[Hg] BP schuler blood pressure, systolic 129 mm[Hg] BP sys height E&M 63 [in_us] Bdy height pulse rate E&M 58 /min Heart rate weight E&M 187.40 [lb_av] Weight Measured blood pressure, diastolic 78 mm[Hg] BP schuler blood pressure, systolic 134 mm[Hg] BP sys height E&M 63 [in_us] Bdy height pulse rate E&M 52 /min Heart rate weight E&M 188.50 [lb_av] Weight Measured Diagnostic Results Date Name Value Unit Range Description Lab Report: CBC With Differential/Platelet, Comp. Metabolic Panel (14), ... - Hematology basophils as percent of blood leukocytes 0 % Lab Report: CBC With Differential/Platelet, Comp. Metabolic Panel (14), ... - Chemistry calcium, serum 9.3 mg/dL 8.7-10.3 Lab Report: CBC With Differential/Platelet, Comp. Metabolic Panel (14), ... - Hematology lymphocyte count, blood, automated 1.5 X10E3/UL 10*3/mm3 0.7- 3.1 Lab Report: CBC With Differential/Platelet, Comp. Metabolic Panel (14), ... - Chemistry urea nitrogen, blood 53 mg/dL 8-27 Lab Report: CBC With Differential/Platelet, Comp. Metabolic Panel (14), ... - Hematology monocyte count, blood, automated 0.4 X10E3/UL 10*3/uL 0.1-0.9 Lab Report: CBC With Differential/Platelet, Comp. Metabolic Panel (14), ... - Chemistry urea nitrogen/creatinine ratio, serum 22 11-26 immature granulocytes, percentage of total cells, blood 0 % Lab Report: CBC With Differential/Platelet, Comp. Metabolic Panel (14), ... - Genetics/fertility eGFR if 22 mL/min/1.73m2 >59 Lab Report: CBC With Differential/Platelet, Comp. Metabolic Panel (14), ... - Chemistry creatinine, serum 2.40 mg/dL 0.57-1.00 Lab Report: CBC With Differential/Platelet, Comp. Metabolic Panel (14), ... - Hematology mean corpuscular volume, RBC 92 fL 79-97 Lab Report: CBC With Differential/Platelet, Comp. Metabolic Panel (14), ... - Chemistry chloride, serum 106 mmol/L 97-108 Lab Report: CBC With Differential/Platelet, Comp. Metabolic Panel (14), ... - Hematology lymphocytes as percent of blood leukocytes 31 % Lab Report: CBC With Differential/Platelet, Comp. Metabolic Panel (14), ... - Chemistry triglyceride, serum, fasting 138 mg/dL 0-149 Lab Report: CBC With Differential/Platelet, Comp. Metabolic Panel (14), ... - Hematology erythrocyte (RBC) count 3.43 X10E6/UL 10*6/mm3 3.77-5.28 Lab Report: CBC With Differential/Platelet, Comp. Metabolic Panel (14), ... - Chemistry Estimated Glomerular Filtration Rate (calc) 19 mL/min/1.73m2 > 59 Lab Report: CBC With Differential/Platelet, Comp. Metabolic Panel (14), ... - Hematology platelet count 184 X10E3/UL 10*3/mm3 584-555 8793/08/22 red blood cell distribution width 14.1 % 12.3-15.4 Lab Report: CBC With Differential/Platelet, Comp. Metabolic Panel (14), ... - Chemistry carbon dioxide, venous blood 28 mmol/L 18-29 protein, total, serum 5.7 g/dL 6.0-8.5 HDL cholesterol, serum 54 mg/dL >39 sodium, serum 147 mmol/L 134-144 Lab Report: CBC With Differential/Platelet, Comp. Metabolic Panel (14), ... - Hematology eosinophils as percent of blood leukocytes 3 % Lab Report: CBC With Differential/Platelet, Comp. Metabolic Panel (14), ... - Chemistry albumin/globulin ratio, serum 2.0 1.1-2.5 alkaline phosphatase, serum 35 U/L 39-117 Absolute Neutrophils 2.7 X10E3/UL 10*3/uL 1.4-7.0 Lab Report: CBC With Differential/Platelet, Comp. Metabolic Panel (14), ... - Hematology basophil count, absolute 0.0 x10E3/uL 0.0-0.2 Lab Report: CBC With Differential/Platelet, Comp. Metabolic Panel (14), ... - Chemistry alanine aminotransferase (SGPT), serum 18 U/L 0-32 Lab Report: CBC With Differential/Platelet, Comp. Metabolic Panel (14), ... - Hematology Eosinophil Absolute Count 0.1 X10E3/UL 10*3/uL 0.0-0.4 Lab Report: CBC With Differential/Platelet, Comp. Metabolic Panel (14), ... - Chemistry LDL cholesterol, serum 69 mg/dL 0-99 Lab Report: CBC With Differential/Platelet, Comp. Metabolic Panel (14), ... - Hematology monocytes as percent of blood leukocytes 9 % mean corpuscular hemoglobin, RBC 30.6 pg 26.6-33.0 Lab Report: CBC With Differential/Platelet, Comp. Metabolic Panel (14), ... - Chemistry cholesterol, serum 151 mg/dL 100-199 Lab Report: CBC With Differential/Platelet, Comp. Metabolic Panel (14), ... - Hematology mean corpuscular hemoglobin concentration, RBC 33.1 G/DL % 31.5- 35.7 Lab Report: CBC With Differential/Platelet, Comp. Metabolic Panel (14), ... - Chemistry bilirubin, serum, total 0.4 mg/dL 0.0-1.2 Lab Report: CBC With Differential/Platelet, Comp. Metabolic Panel (14), ... - Hematology hemoglobin, blood 10.5 g/dL 11.1-15.9 neutrophils as percent of blood leukocytes 57 % leukocyte count, blood 4.8 X10E3/UL 10*3/mm3 3.4-10.8 hematocrit, blood 31.7 % 34.0-46.6 Lab Report: CBC With Differential/Platelet, Comp. Metabolic Panel (14), ... - Chemistry potassium, serum 4.0 mmol/L 3.5-5.2 blood glucose, random 143 mg/dL 65-99 globulin, serum 1.9 1.5-4.5 aspartate aminotransferase (SGOT), serum 22 U/L 0-40 albumin, serum 3.8 g/dL 3.5-4.8 very low density lipoproteins 28 mg/dL 5-40 Encounters Date Encounter Provider Code Facility 15:52:26 MAIL WEIGHER Est Patient Detailed - 66813 Darnell Pablo MD CPT- 93595 [facility] 13:17:21 CDT Est Patient Exp Problem - 73200 Darnell Pablo MD CPT -01314 [facility] 12:36:24 CDT Est Patient Exp Problem - 11233 Darnell Pablo MD CPT -14907 [facility] 10:15:54 CDT Est Patient Detailed - 89468 Darnell Pablo MD CPT- 07788 [facility] 15:51:09 CDT Est Patient Exp Problem - 24217 Darnell Pablo MD CPT -72866 [facility] 10:59:14 MAIL WEIGHER Est Patient Exp Problem - 73642 Darnell Pablo MD CPT -07887 [facility] 16:57:19 CDT Est Patient Exp Problem - 88408 Darnell Pablo MD CPT -95189 [facility] 13:48:31 CDT Est Patient Exp Problem - 55137 Darnell Pablo MD CPT -16759 [facility] 15:40:52 CDT Est Patient Exp Problem - 98331 Darnell Pablo MD CPT -54144 [facility] 08:40:11 MAIL WEIGHER Est Patient Problem Focus - 13202 Darnell Pablo MD CPT-13761 [facility] 13:46:21 MAIL WEIGHER Est Patient Problem Focus - 87596 Darnell Pablo MD CPT-87801 [facility] 15:02:45 MAIL WEIGHER Est Patient Problem Focus - 82436 Darnell Pablo MD CPT-50337 [facility] Procedures Code Procedure Name Date Entry Date Standard Description CPT-16879 Psychotherapy 45 (38-52*) min - 27108 (with patient and/or family member) 14:32:57 MAIL WEIGHER CPT-56184 Diagnostic evaluation (no medical) - 17987 23:03:56 MAIL WEIGHER
--- OUTSIDE RECORDS SUMMARY | 2017-07-26 19:08 | XMS REPORT ---
Author Author [facility] Address Unknown Phone Unavailable Care Team Providers Care Geophysics Scientist Name Role Phone REJI ORTIZ Unavailable Unavailable Problems This patient has no known problems. Allergies, Adverse Reactions, Alerts This patient has no known allergies or adverse reactions. Medications This patient has no known medications. Results Test Description Test Time Test Comments Text Results Atomic Results Result Comments CHEST SINGLE (PORTABLE) [place] [address] Patient Name: DIANA NAVARRO MR #: [id number] : 1935 Age/Sex: 81/F Req #: [id number] Adm Physician: REJI ORTIZ MD Ordered by: JING GRIMES Report #: [id number] Location: ICU [facility] Procedure: [id number] DX/CHEST SINGLE (PORTABLE) Exam Date: 06/09/17 Exam Time: 0600 REPORT STATUS: Signed EXAMINATION: CHEST SINGLE (PORTABLE) INDICATION: COMPARISON: 06/07/2017 FINDINGS: AP view TUBES and LINES: Unchanged right internal jugular dialysis catheter and tracheostomy tube. LUNGS: Low lung volumes Central peribronchovascular thickening/ cuffing and mild interstitial edema. PLEURA: No significant pleural effusion or pneumothorax. HEART AND MEDIASTINUM: Enlarged cardiac silhouette. BONES AND SOFT TISSUES: No acute osseous lesion. Soft tissues are unremarkable. UPPER ABDOMEN: No free air under the diaphragm. IMPRESSION: No significant interval change in central peribronchovascular thickening/cuffing and mild interstitial edema. Underlying infiltrate cannot be excluded. Signed by: Dr. Kt Gonzales MD on 06/09/2017 7:38 AM Dictated By: KT GONZALES MD 7 Transcribed By: BRICE on 06/09/17737 COPY TO: JING GRIMES CHEST SINGLE (PORTABLE) [place] [address] Patient Name: DIANA NAVARRO MR #: [id number] : 1935 Age/Sex: 81/F Req #: [id number] Adm Physician: REJI ORTIZ MD Ordered by: VALERIA JAMES MD Report #: [id number] Location: ICU Room[facility]Bed: [facility] ___ Procedure: [id number] DX/CHEST SINGLE (PORTABLE) Exam Date: 06/07/17 Exam Time: 1320 REPORT STATUS: Signed PROCEDURE: A single AP view of the chest. COMPARISON: [facility], DX, CHEST SINGLE (PORTABLE), 06/03/2017, 5:16. INDICATIONS: TRACH PLACEMENT FINDINGS: Lines/tubes: Stable tracheostomy tube in place. Interval removal of a previously visualized enteric tube and central right IJ line. Interval placement of right IJ dialysis catheter. Lungs: Lungs are well-inflated. Interval improvement in previously visualized perihilar interstitial edema and central venous congestion. No consolidation. Pleura: There is no pleural effusion or pneumothorax. Heart and mediastinum: Cardiac silhouette is normal. Bones: No acute bony abnormality. IMPRESSION: 1. interval improvement in previously visualized fluid overload. 2. Tracheostomy tube in place. Interval removal of previously visualized enteric tube and right IJ line. Interval placement of right IJ dialysis catheter. Emmanuel Holman M.D. Dictated by: Emmanuel Holman M.D. on 06/07/2017 at 15:36 Electronically approved by: Emmanuel Holman M.D. on 06/07/2017 at 15 :36 Dictated By: EMMANUEL HOLMAN MD 35 Transcribed By: VALENTINA on 06/07/171535 COPY TO: VALERIA JAMES MD IR CONSULT [place] [address] Patient Name: DIANA NAVARRO MR #: [id number] : 1935 Age/Sex: 81/F Req #: [id number] Adm Physician: REJI ORTIZ MD Ordered by: SHANTANU CASTILLO, GWENDOLYN CASTILLO Report #: [id number] Location: ICU Room/Bed: [facility] Procedure: [id number] DX/IR CONSULT Exam Date: Exam Time: REPORT STATUS: Signed Tunneled Dialysis Catheter Placement June 04, 2017 Pre-Procedure Diagnosis: End-Stage Renal Disease Post- procedure Diagnosis:End-Stage Renal Disease Test Inspection Engineer: Clarisse Grissom Sales Engagement Executive: None Sedation: None. Heart rate and oxygen saturation were monitored in real-time. Blood pressure was measured in 5 minute increments. 1 % lidocaine was used for local anesthesia. Radiation Dose: 61.6 cGycm2 ( Dose Area Product) Fluoroscopy time: 0.4 minutes Estimate blood loss: <5 mL Blood administered: None Complications: None Implants/Grafts: 16 Macedonian 19 cm cuffed tunneled dialysis catheter Specimen: None Procedure: Informed consent was obtained and the patient positioned supine in the fluoroscopy suite. A timeout was performed, followed by preliminary ultrasound of the right internal jugular vein (see findings below). The indwelling temporary right internal jugular dialysis catheter was removed, with hemostasis achieved with manual compression. The right neck and chest were prepped and draped in standard fashion. Using real-time ultrasound guidance a 18 gauge vascular needle was used to access the right internal jugular vein. An image was stored in the electronic medical record. A wire was advanced across the right atrium under fluoroscopy and the needle exchanged for a peel-away sheath. A skin incision was made inferior to the clavicle and the catheter tunneled to the access site. The catheter was then deployed through the peel- away sheath and positioned with the tip at the atriocaval junction/right atrium. At the end of the procedure the catheter was flushed, packed with heparin solution, secured to the skin and a sterile dressing applied. The patient tolerated the procedure well and without immediate complication. Findings: Patent right internal jugular vein as demonstrated by normal ultrasound compressibility. Impression: Successful placement of a tunneled right internal jugular vein dialysis catheter using ultrasound and fluoroscopic guidance. This report was generated with voice- recognition technology. Errors in automobile body repairer can occur. Please interpret accordingly and contact a radiologist if there are any questions regarding the report. Signed by: Dr. Omar Grissom M.D. on 06/04/2017 11:46 AM Dictated By: OMAR GRISSOM MD 1146 Transcribed By: BRICE on 06/04/17 1146 COPY TO: GWENDOLYN FOURNIER SPECIAL PROCEDURE IN COLLECTIONS ASSOCIATE [place] [address] Patient Name: DIANA NAVARRO MR #: [id number] : 1935 Age/Sex: 81/F Req #: [id number] Adm Physician: REJI ORTIZ MD Ordered by: GWENDOLYN FOURNIER MD, MD Report #: [id number] Location: ICU Room[facility]Bed: [facility] Procedure: [id number] IR/SPECIAL PROCEDURE IN COLLECTIONS ASSOCIATE Exam Date: Exam Time: REPORT STATUS: Signed Tunneled Dialysis Catheter Placement June 04, 2017 Pre-Procedure Diagnosis: End-Stage Renal Disease Post-procedure Diagnosis:End-Stage Renal Disease Test Inspection Engineer: Clarisse Grissom Sales Engagement Executive: None Sedation: None. Heart rate and oxygen saturation were monitored in real-time. Blood pressure was measured in 5 minute increments. 1% lidocaine was used for local anesthesia. Radiation Dose: 61.6 cGycm2 (Dose Area Product) Fluoroscopy time: 0.4 minutes Estimate blood loss: <5 mL Blood administered: None Complications : None Implants/Grafts: 16 Macedonian 19 cm cuffed tunneled dialysis catheter Specimen: None Procedure: Informed consent was obtained and the patient positioned supine in the fluoroscopy suite. A timeout was performed, followed by preliminary ultrasound of the right internal jugular vein (see findings below). The indwelling temporary right internal jugular dialysis catheter was removed, with hemostasis achieved with manual compression. The right neck and chest were prepped and draped in standard fashion. Using real-time ultrasound guidance a 18 gauge vascular needle was used to access the right internal jugular vein. An image was stored in the electronic medical record. A wire was advanced across the right atrium under fluoroscopy and the needle exchanged for a peel-away sheath. A skin incision was made inferior to the clavicle and the catheter tunneled to the access site. The catheter was then deployed through the peel-away sheath and positioned with the tip at the atriocaval junction/right atrium. At the end of the procedure the catheter was flushed, packed with heparin solution, secured to the skin and a sterile dressing applied. The patient tolerated the procedure well and without immediate complication. Findings: Patent right internal jugular vein as demonstrated by normal ultrasound compressibility. Impression: Successful placement of a tunneled right internal jugular vein dialysis catheter using ultrasound and fluoroscopic guidance. This report was generated with voice-recognition technology. Errors in automobile body repairer can occur. Please interpret accordingly and contact a radiologist if there are any questions regarding the report. Signed by: Dr. Omar Grissom M.D. on 06/04/2017 11:46 AM Dictated By: OMAR GRISSOM MD 45 Transcribed By: BRICE on 06/04/171145 COPY TO: GWENDOLYN FOURNIER CHEST SINGLE (PORTABLE) [place] [address] Patient Name: DIANA NAVARRO MR #: [id number] : 1935 Age/Sex: 81/F Req #: [id number] Adm Physician: REJI ORTIZ MD Ordered by: REJI ORTIZ MD Report #: [id number] Location: ICU Room/Bed: [facility] _ Procedure: [id number] DX/CHEST SINGLE (PORTABLE) Exam Date : 06/03/17 Exam Time: 0450 REPORT STATUS: Signed EXAM: CHEST SINGLE (PORTABLE), AP 1 view DATE: 06/03/2017 5:00 AM Time stamp on exam: 0516 hours INDICATION: Intubated COMPARISON: AP view of the chest June 02, 2017 FINDINGS: LINES/TUBES: Stable position right internal jugular vein central line, tracheostomy and nasal/orogastric tube LUNGS: Stable bilateral interstitial and alveolar opacities. PLEURA: No effusions or pneumothorax. HEART AND MEDIASTINUM: Stable appearance BONES AND SOFT TISSUES: No acute findings. IMPRESSION: No interval change Signed by: Dr. Lea Montoya M.D. on 06/03/2017 6:18 AM Dictated By: LEA MONTOYA MD 7 Transcribed By: BRICE on 06/03/17617 COPY TO: REJI ORTIZ MD CHEST SINGLE (PORTABLE) [facility] [address] [place] [address] Patient Name: DIANA NAVARRO MR #: [id number] : 1935 Age/Sex: 81/F Req #: [id number] Adm Physician: REJI ORTIZ MD Ordered by: ALEKSANDRA ORDONEZ MD Report #: [id number] Location: ICU Room/Bed: [place] [address] Procedure: [id number] DX/CHEST SINGLE (PORTABLE) Exam Date: Exam Time: REPORT STATUS: Signed EXAM: CHEST SINGLE (PORTABLE) DATE: 06/02/2017 8:15 AM INDICATION: Ventilation COMPARISON: 06/01/2017 FINDINGS: Tracheostomy appliance, NG tube, and right IJ catheter stable. Heart is prominent, accentuated by portable technique and low lung volumes. Mild scattered airspace opacities and superimposed opacity in the left lung base partially during left hemidiaphragm stable. IMPRESSION: Mild edema. Left basilar atelectasis versus pneumonia with small effusion suspected. Component of edema present. Stable lines and tubes. Signed by: Dr. Linnea Lebron MD on 06/02/2017 9:29 AM Dictated By: LINNEA LEBRON MD 8 Transcribed By: BRICE on 928 COPY TO: ALEKSANDRA ORDONEZ MD CHEST SINGLE (PORTABLE) [facility] [address] [place] [address] Patient Name: DIANA NAVARRO MR #: [id number] : 1935 Age/Sex: 81/F Req #: [id number] Adm Physician: REJI ORTIZ MD Ordered by: ALEKSANDRA ORDONEZ MD Report #: [id number] Location: ICU Room/Bed: ICU 194-1 Procedure: [id number] DX/CHEST SINGLE (PORTABLE) Exam Date: 06/01/17 Exam Time: 0445 REPORT STATUS: Signed EXAM: CHEST SINGLE (PORTABLE), AP 1 view DATE: 06/01/2017 3:46 AM Time stamp on exam: 0428 hours INDICATION: Respiratory distress COMPARISON: AP view of the chest May 31, 2017 FINDINGS: LINES/TUBES: Interval removal of endotracheal tube and placement of tracheostomy tube. Stable position right internal jugular vein central line and partially visualized nasal/orogastric tube. LUNGS: Stable pulmonary edema and bilateral perihilar and basilar atelectasis. PLEURA: Possible small layering pleural effusions bilaterally. HEART AND MEDIASTINUM: Stable appearance. BONES AND SOFT TISSUES: No acute findings. IMPRESSION: Interval removal of endotracheal tube and placement of tracheostomy tube, otherwise no interval change in appearance of the chest. Signed by: Dr. Lea Montoya M.D. on 06/01/2017 5:34 AM Dictated By: LEA MONTOYA MD Transcribed By: BRICE on 06/01/1734 COPY TO: ALEKSANDRA ORDONEZ MD CHEST SINGLE (PORTABLE) [place] [address] Patient Name: DIANA NAVARRO MR #: [id number] : 1935 Age/Sex: 81/F Req #: [id number] Adm Physician: REJI ORTIZ MD Ordered by: VALERIA JAMES MD Report #: [id number] Location: ICU Room/Bed: ICU 194-1 ___ Procedure: [id number] DX/CHEST SINGLE (PORTABLE) Exam Date: 05/31/17 Exam Time: 0550 REPORT STATUS: Signed EXAM: CHEST SINGLE (PORTABLE), AP 1 view DATE: 05/31/2017 5:00 AM Time stamp on exam: 0605 hours INDICATION: Intubated COMPARISON: AP view of the chest May 28, 2017 FINDINGS: LINES/TUBES: Stable position right internal jugular vein central line, endotracheal tube and nasal/orogastric tube. LUNGS: Slight improved aeration of the lungs with persistent interstitial edema and scattered opacities. PLEURA: No effusions or pneumothorax. HEART AND MEDIASTINUM: Slight decreased enlargement of the cardiomediastinal silhouette and pulmonary arteries. BONES AND SOFT TISSUES: No acute findings. IMPRESSION: Slight improved aeration of the lungs. Signed by: Dr. Lea Montoya M.D. on 05/31/2017 6:33 AM Dictated By: LEA MONTOYA MD 2 Transcribed By: BRICE on 05/31/17632 COPY TO: VALERIA JAMES MD CHEST SINGLE (PORTABLE) [place] [address] Patient Name: DIANA NAVARRO MR #: [id number] : 1935 Age/Sex: 81/F Req #: [id number] Adm Physician: REJI ORTIZ MD Ordered by: VALERIA JAMES MD Report #: [id number] Location: ICU Room/Bed: ICU 194-1 ___ Procedure: DX/CHEST SINGLE (PORTABLE) Exam Date: 05/28/17 Exam Time: 0615 REPORT STATUS: Signed Examination: Single AP view of the chest. COMPARISON: 05/27/2017 INDICATION: Intubated DISCUSSION: See impression IMPRESSION : 1. The patient is rotated to the left. When accounting for differences in patient positioning, endotracheal tube, nasogastric tube, and a right internal jugular hemodialysis catheter are unchanged in position. 2. Stable cardiac silhouette with interstitial pulmonary edema. Trace left pleural effusion is suspected. No airspace consolidations. Opacity projecting over the right lung apex is likely external to the patient. 3. Interval improvement in subcutaneous emphysema of the lower cervical regions and upper chest alvarez. Signed by: Dr. Valeria Irizarry M.D. on 05/28/2017 7: 33 AM Dictated By: VALERIA IRIZARRY MD Transcribed By: BRICE on 05/28/17732 COPY TO: VALERIA JAMES MD CT BRAIN WO [place] [address] Patient Name: DIANA NAVARRO MR #: [id number] : 1935 Age/Sex: 81/F Req #: [id number] Adm Physician: REJI ORTIZ MD Ordered by: ALEKSANDRA ORDONEZ MD Report #: [id number] Location: ICU Room/Bed: ICU 194-1 Procedure: [id number] CT/CT BRAIN WO Exam Date: 05/27/17 Exam Time: 1930 REPORT STATUS: Signed Exam: Head CT without contrast History: Altered mental status post intubation Comparison studies : Head CT 08/08/2014 and 05/23/2017 Technique: Axial images were obtained from the skull base to the vertex. Coronal and sagittal images reconstructed from the axial data. Intravenous contrast: None Findings: Soft tissues: New subcutaneous emphysema within the retropharyngeal space, facial soft tissues and in the included upper cervical soft tissues. Bones: No fractures or aggressive-appearing blastic or lytic lesions. Brain sulci: Appropriate for age. Ventricles: Normal in size and configuration. No hydrocephalus. Extra-axial spaces: No masses, no fluid collection. Parenchyma: A few scattered hypodensities in the supratentorial white matter are nonspecific but most compatible with chronic small vessel ischemic changes. No mass, acute hemorrhage or acute or chronic cortical vascular insults. Sellar/suprasellar region: No abnormalities. Craniocervical junction: Patent foramen magnum. No Chiari one malformation. Additional findings: Partially partially imaged in nasogastric and endotracheal tubes. Nonspecific scattered secretions throughout the paranasal sinuses and bilateral middle ear mastoid effusions, possibly related to intubation. Incidental findings: Atherosclerotic calcifications in the carotid siphons and intradural vertebral arteries. Bilateral lens replacements related to previous cataract surgery. IMPRESSION: 1. No acute intracranial abnormalities. 2. Interval placement of partially imaged NG and ET tubes. 3. New nonspecific gas in the deep fascial and upper cervical soft tissues. Possible etiology includes gas tracking from the mediastinum and/or chest secondary to positive pressure ventilation . Cannot exclude esophageal or tracheal perforation on the basis of this exam. 4. New nonspecific fluid in the paranasal sinuses and middle ear/mastoid cavities may be related to intubation. 5. Mild chronic microvascular ischemic changes. Findings discussed with RAUL Hall at 8:07 PM on 06/06/2016. Signed by: Dr. Valeria Guzman M.D. on 05/27/2017 8:09 PM Dictated By: VALERIA GUZMAN MD 08 Transcribed By: BRICE on 05/27/172008 COPY TO: ALEKSANDRA ORDONEZ MD CHEST [facility] (PORTABLE) [address], [place] [address] Patient Name: DIANA NAVARRO MR #: [id number] : 1935 Age/Sex: 81/F Req #: [id number] Adm Physician: REJI ORTIZ MD Ordered by: ALEKSANDRA ORDONEZ MD Report #: [id number] Location: ICU [facility]Bed: [facility] Procedure: [id number] DX/CHEST SINGLE (PORTABLE) Exam Date: 05/27/17 Exam Time: 1744 REPORT STATUS: Signed PROCEDURE: A single AP view of the chest. COMPARISON: Same day at 1504 hrs. INDICATIONS: POST INTUBATION FINDINGS: Lines/tubes: Status post intubation. The tip of endotracheal tube is either at the level of jennifer or proximal right main bronchus. Recommend retraction. Stable right internal jugular catheter and nasogastric tube. Lungs: Diffuse bilateral airspace opacities. Pleura: There is no pleural effusion or pneumothorax. Heart and mediastinum: Enlarged cardiomediastinal silhouette. Bones: No acute bony abnormality. Questionable subcutaneous emphysema the neck base and lateral chest alvarez. IMPRESSION: 1. Status post intubation. The tip of endotracheal tube is either at the level of jennifer or proximal right main bronchus. Recommend retraction. 2. Diffuse bilateral airspace opacities, representing edema and /or infiltrate. 3. Questionable neck base and bilateral chest wall soft tissue emphysema, new from prior exam. Dictated by: Kt Gonzales M.D. on 05/27/2017 at 18:14 Electronically approved by: Kt Gonzales M.D. on 05/27/2017 at 18:14 Dictated By: KT GONZALES MD 13 Transcribed By: VALENTINA on 05/27/171813 COPY TO: ALEKSANDRA ORDONEZ MD CHEST SINGLE (PORTABLE) [facility] [address] [place] [address] Patient Name: DIANA NAVARRO MR #: [id number] : 1935 Age/Sex: 81/F Req #: [id number] Adm Physician: REJI ORTIZ MD Ordered by: ALEKSANDRA ORDONEZ MD Report #: [id number] Location: ICU Room[facility]Bed: [facility] Procedure: [id number] DX/CHEST SINGLE (PORTABLE) Exam Date: 05/27/17 Exam Time: 1455 REPORT STATUS: Signed PROCEDURE: A single AP view of the chest. COMPARISON: 05/25/17 INDICATIONS: EXTUBATED FINDINGS: Lines/tubes: Status post extubation. Stable right internal jugular catheter. Midline tube, extending inferiorly, which could represent nasogastric tube or it could be external to patient. Lungs: Limited by low lung volumes and body habitus. Central vascular congestion. Left lower lung field hazy opacification. Pleura: There is no significant pleural effusion or pneumothorax. Heart and mediastinum: Enlarged cardiac silhouette. Bones: No acute bony abnormality. IMPRESSION: Limited study due to body habitus and low lung volumes. Status post extubation. Enlarged cardiomediastinal silhouette and central vascular congestion, accentuated by low lung volumes and technique. Left lower lung field hazy opacification, could be artifactual or represent atelectasis/small effusion. Dictated by: Kt Gonzales M.D. on 05/27/2017 at 15:42 Electronically approved by: Kt Gonzales M.D. on 05/27/2017 at 15:42 Dictated By: KT GONZALES MD 154 Transcribed By: VALENTINA on 05/27/17 154 COPY TO: ALEKSANDRA ORDONEZ MD CHEST SINGLE (PORTABLE) [place] [address] Patient Name: DIANA NAVARRO MR #: [id number] : 1935 Age/Sex: 81/F Req #: [id number] Adm Physician: REJI ORTIZ MD Ordered by: REJI ORTIZ MD Report #: [id number] Location: ICU Room/Bed: [facility] _ Procedure: [id number] DX/CHEST SINGLE (PORTABLE) Exam Date : Exam Time: REPORT STATUS: Signed EXAMINATION: CHEST SINGLE (PORTABLE) INDICATION: Pneumonia, CHF COMPARISON: 05/24/2017 FINDINGS: TUBES and LINES: Interval placement of right IJ central line catheter. Endotracheal tube is in good position, stable. LUNGS: Lungs are not well inflated. There are bibasilar atelectasis. There is perihilar interstitial opacities, consistent with interstitial edema. PLEURA: Bilateral pleural effusion HEART AND MEDIASTINUM: Cardiac size is moderately enlarged. There are atherosclerotic calcifications within the aorta. BONES AND SOFT TISSUES: No acute osseous lesion. Soft tissues are unremarkable. UPPER ABDOMEN: No free air under the diaphragm. IMPRESSION: Findings are compatible with fluid overload/cardiac decompensation associated with bilateral pleural effusions. Signed by: Dr. Richard Ramirez M.D. on 2017 6:44 AM Dictated By: RICHARD ROOT MD Transcribed By: BRICE on 44 COPY TO: REJI ORTIZ MD SPECIAL PROCEDURE IN COLLECTIONS ASSOCIATE [place] [address] Patient Name: DIANA NAVARRO MR #: [id number] : 1935 Age/Sex: 81/F Req #: [id number] Adm Physician: REJI ORTIZ MD Ordered by: GWENDOLYN FOURNIER MD, MD Report #: [id number] Location: ICU Room/Bed: [facility] Procedure: [id number] IR/SPECIAL PROCEDURE IN COLLECTIONS ASSOCIATE Exam Date: Exam Time: REPORT STATUS: Signed Exam: Non tunneled triple-lumen temporary hemodialysis catheter placement. History: Patient with MARK ANTHONY in need of temporary hemodialysis and IV access. Comparison: None available Findings: Ultrasound was utilized for venous access and puncture of the right internal jugular vein with a 21- gauge needle after local anesthesia was obtained with 1% Xylocaine. A 0.018 " skinny wire was then placed through the needle and over which a micropuncture sheath advanced into the SVC. A 0.035 " Amplatz superstiff wire was then placed centrally under fluoroscopic guidance. Serial dilatation was accomplished. A 15 cm long 13 Macedonian triple-lumen Bard Trialysis catheter was then advanced over the wire. The line is okay for immediate use. Fluoroscopy time: 0.6 minutes Total dose: 26.8 cGycm2 Impression: Placement of a triple-lumen temporary HD catheter utilizing sonographic and fluoroscopic guidance. Signed by: Dr. Anthony Mckeon DO on 05/24/2017 12:45 PM Dictated By: ANTHONY MCKEON DO 1257 Transcribed By: BRICE on 05/27/17 1257 COPY TO: GWENDOLYN FOURNIER CHEST SINGLE (PORTABLE) [facility] [address] [place] [address] Patient Name: DIANA NAVARRO MR #: [id number] : 1935 Age/Sex: 81/F Req #: [id number] Adm Physician: REJI ORTIZ MD Ordered by: SHELLEY REYES MD Report #: [id number] Location: ICU Room/Bed: [facility] _ Procedure: [id number] DX/CHEST SINGLE (PORTABLE) Exam Date : 05/24/17 Exam Time: 0620 REPORT STATUS: Signed EXAMINATION: CHEST SINGLE (PORTABLE) INDICATION: Dyspnea COMPARISON: None FINDINGS: TUBES and LINES: Endotracheal tube is visualized in good position LUNGS: Lungs are not well inflated. There are bibasilar atelectasis. There is mild prominence of the central pulmonary vasculature, consistent with pulmonary venous congestion. Confluent opacities in the right midlung and left lower lobe. PLEURA: Trace of left pleural effusion HEART AND MEDIASTINUM: Cardiac size is mildly enlarged. BONES AND SOFT TISSUES: No acute osseous lesion. Soft tissues are unremarkable. UPPER ABDOMEN: No free air under the diaphragm. IMPRESSION: 1. Findings are compatible with multifocal pneumonia and central vascular congestion. 2. Small left pleural effusion is suspected Signed by: Dr. Richard Ramirez M.D. on 2017 7:01 AM Dictated By: RICHARD ROOT MD 0 Transcribed By: BRICE on 07 COPY TO: SHELLEY REYES MD RENAL RETROPERITONEAL COMP [facility] [address] [place], [place] [id number] Patient Name: DIANA NAVARRO MR #: [id number] : 1935 Age/Sex: 81/F Req #: [id number] Adm Physician: REJI ORTIZ MD Ordered by: GWENDOLYN FOURNIER MD, MD Report #: [id number] Location: ICU [facility]Bed[facility] Procedure: [id number] US/US RENAL RETROPERITONEAL COMP Exam Date: 05/24/17 Exam Time: 1848 REPORT STATUS: Signed EXAM: Renal Ultrasound INDICATION: COMPARISON: None TECHNIQUE: Transverse and longitudinal images of the kidneys and bladder were obtained. FINDINGS: Limited study. Patient was intubated and could not follow the breathing instructions. Right Kidney: Size: 12.5 cm Echogenicity: Normal Parenchymal thickness: Decreased Collecting system: No hydronephrosis Stones: None Cyst/Mass: 1.9 cm right inferior pole cyst. Left Kidney: Size: 12.6 cm Echogenicity: Normal Parenchymal thickness: Decreased Collecting system: No hydronephrosis Stones : None Cyst/Mass: None Bladder: Decompressed by Manuel catheter in place, limiting evaluation. IMPRESSION: Limited study as above. Bilateral renal cortical atrophy and hypertrophy of the renal sinus fat. Signed by: Dr. Kt Gonzales MD on 05/24/2017 7:27 PM Dictated By: KT GONZALES MD 26 Transcribed By: BRICE on 05/24/171926 COPY TO: GWENDOLYN FOURNIER [facility] (PORTABLE) [place] [address] Patient Name: DIANA NAVAROR MR #: [id number] : 1935 Age/Sex: 81/F Req #: [id number] Adm Physician: Ordered by: SHELLEY REYES MD Report #: [id number] Location: ER Room/Bed: Procedure: [id number] DX/CHEST SINGLE (PORTABLE) Exam Date: Exam Time: REPORT STATUS: Signed PROCEDURE: A single AP view of the chest. COMPARISON: [facility], DX, CHEST SINGLE ( PORTABLE), 05/23/2017, 12:41. INDICATIONS: INTUBATION FINDINGS: Lines/tubes: Endotracheal tube has been placed, with distal tip in satisfactory position approximately 3 cm proximal to the jennifer. Lungs : Mild bilateral pulmonary venous congestion. Pleura: Small left pleural effusion. There is no pneumothorax. Heart and mediastinum: The cardiac silhouette remains enlarged. Bones: No acute bony abnormality. IMPRESSION: 1. ET tube has been placed, in adequate position, otherwise no significant change. Deon Pepe M.D. Dictated by : Deon Pepe M.D. on 05/23/2017 at 15:24 Electronically approved by: Deon Pepe M.D. on 05/23/2017 at 15:24 Dictated By: REMY PEPE MD, MD 1524 Transcribed By: VALENTINA on 05/23/17 1524 COPY TO: SHELLEY REYES MD CT BRAIN WO [place] [address] Patient Name: DIANA NAVARRO MR #: [id number] : 1935 Age/Sex: 81/F Req #: [id number] Adm Physician: Ordered by: SHELLEY REYES MD Report #: [id number] Location: Room/Bed: Procedure: [id number] CT/CT BRAIN WO Exam Date: 05/23/17 Exam Time: 1200 REPORT STATUS: Signed Exam: Head CT without contrast History: Altered mental status Comparison studies: The previous head CTs of 08/08/2014 and are unavailable on the PACS for comparison at the time of dictation. Technique: Axial images were obtained from the skull base to the vertex. Coronal and sagittal images reconstructed from the axial data. Intravenous contrast: None Findings: Exam is somewhat limited by artifacts related to patient motion. In spite of these limitations: Scalp: No abnormalities. Bones: No fractures, blastic or lytic lesions. Brain sulci: Appropriate for age. Ventricles: Normal in size and configuration. No hydrocephalus. Extra-axial spaces: No masses, no fluid collection. Parenchyma: No mass, acute hemorrhage or acute cortical vascular insults. A few scattered ill-defined hypodensities in the supratentorial white matter are nonspecific but most compatible with chronic small vessel ischemic changes. Sellar/suprasellar region: No abnormalities. Craniocervical junction: Patent foramen magnum. No Chiari one malformation. Incidental findings: Atherosclerotic calcifications in the carotid siphons and intradural vertebral arteries. Bilateral lens replacements related to previous cataract surgery. IMPRESSION: Exam somewhat limited by artifacts. In spite of this limitation: 1. No acute intracranial abnormalities. 2. Mild supratentorial microvascular ischemic changes. Signed by: Dr. Valeria Guzman M.D. on 05/23/2017 12:39 PM Dictated By: VALERIA GUZMAN MD 1239 Transcribed By: BRICE on 05/23/17 1239 COPY TO: SHELLEY REYES MD [facility] (PORTABLE) [place] [address] Patient Name: DIANA NAVARRO MR #: [id number] : 1935 Age/Sex: 81/F Req #: [id number] Adm Physician: Ordered by: SHELLEY REYES MD Report #: [id number] Location: ER Room/Bed: Procedure: [id number] DX/CHEST SINGLE (PORTABLE) Exam Date: 05/23/17 Exam Time: 1230 REPORT STATUS: Signed PROCEDURE: CHEST SINGLE (PORTABLE) COMPARISON: None. INDICATIONS: SHORTNESS OF BREATH FINDINGS: Lung volumes are low. No focal consolidation, pleural effusion, or pneumothorax. The cardiac silhouette is enlarged with prominence of the central pulmonary vasculature. No overt alveolar edema. No acute osseous abnormality. CONCLUSION: Cardiomegaly with pulmonary venous congestion, accentuated by low lung volumes. Dictated by: Valeria Irizarry M.D. on 05/23/2017 at 13:14 Electronically approved by: Valeria Irizarry M.D. on 05/23/2017 at 13:14 Dictated By : VALERIA IRIZARRY MD 1314 Transcribed By: VALENTINA on 05/23/17 1314 COPY TO: SHELLEY REYES MD
[2017-07-26 20:45] LABS: BASOPHILS # (AUTO) 0.1 (0.0-0.1); BASOPHILS % 0.3 % (0.0-1.0); EOSINOPHILS # (AUTO) 0.2 (0.0-0.4); EOSINOPHILS % 1.1 % (0.0-6.0); HEMATOCRIT 24.2 % (34.2-44.1); LYMPHOCYTES % 12.7 % (18.0-39.1); MEAN CORPUSCULAR HEMOGLOBIN 28.6 pg (28-32); MEAN CORPUSCULAR VOLUME 92.4 fL (81-99); MONOCYTES # (AUTO) 1.3 (0.2-0.8); MONOCYTES % 8.5 % (4.4-11.3); NEUTROPHILS # (AUTO) 12.1 (2.1-6.9); PLATELET COUNT 228 x10e3/uL (140-360); RED BLOOD COUNT 2.62 x10e6/uL (3.6-5.1); RED CELL DISTRIBUTION WIDTH 16.8 % (11.7-14.4)
[2017-07-26 20:47] LABS: HEMOGLOBIN 7.5 g/dL (12.0-16.0)
--- NOTE | 2017-07-26 20:56 | Diagnostic Imaging Report ---
EXAMINATION: CHEST SINGLE (PORTABLE) INDICATION: \S\sob \S\[id number] \S\2005 \S\Y COMPARISON: Chest radiograph on 06/09/2017 FINDINGS: AP view TUBES and LINES: Right hemodialysis catheter remain unchanged. Interval removal of the tracheostomy tube. LUNGS: Lungs are well inflated. Bibasilar atelectasis, unchanged. Bilateral interstitial edema, unchanged. PLEURA: No pleural effusion or pneumothorax. HEART AND MEDIASTINUM: Stable mild enlargement of the cardiac silhouette.. BONES AND SOFT TISSUES: No acute osseous lesion. Soft tissues are unremarkable. UPPER ABDOMEN: No free air under the diaphragm. IMPRESSION: Stable cardiomegaly with associated bilateral interstitial edema. Signed by: Dr. Zeynep Finch M.D. on 07/26/2017 8:52 PM
[2017-07-26 21:06] LABS: ALBUMIN 2.5 g/dL (3.5-5.0); ALBUMIN/GLOBULIN RATIO 0.7 (0.8-2.0); ANION GAP 17.1 mmol/L (8-16); CALCIUM 8.9 mg/dL (8.4-10.2); CREATININE, SERUM 4.87 mg/dL (0.57-1.11); POTASSIUM 3.1 mmol/L (3.5-5.1)
[2017-07-26] MEDS ORDERED: DEXTROSE 50% SYRINGE 50 ML IV STA (21:19)
[2017-07-26 21:26] LABS: BILIRUBIN,URINE 2+ (NEGATIVE); COLOR,URINE YELLOW (YELLOW); KETONES,URINE NEGATIVE (NEGATIVE); LEUKOCYTE ESTERASE ,URINE 1+ (NEGATIVE); NITRITE,URINE NEGATIVE (NEGATIVE); URINE UROBILINOGEN 0.2 mg/dL (0.2 - 1)
[2017-07-26 21:28] LABS: CLARITY,URINE SL CLOUDY (CLEAR); PROTEIN,URINE DIPSTICK 1+ (NEGATIVE)
[2017-07-26 21:37] LABS: BACTERIA,URINE FEW /HPF
[2017-07-26 21:38] LABS: EPITHELIAL CELLS,URINE MANY /LPF
--- NOTE | 2017-07-26 22:02 | Diagnostic Imaging Report ---
EXAM: CT Abdomen and Pelvis WITHOUT contrast INDICATION: Abdominal pain, diarrhea COMPARISON: None. TECHNIQUE: Abdomen and pelvis were scanned utilizing a multidetector helical scanner from the lung base to the pubic symphysis without administration of IV contrast. Absence of intravenous contrast decreases sensitivity for detection of focal lesions and vascular pathology. Coronal and sagittal reformations were obtained. Routine protocol was performed. IV CONTRAST: None. ORAL CONTRAST: None RADIATION DOSE: Total DLP: 816.11 mGy*cm Estimated effective dose: (DLP x 0.015 x size factor) mSv COMPLICATIONS: None FINDINGS: LINES and TUBES: Partially visualized catheter within the right atrium. LOWER THORAX: There is bibasilar atelectasis. There is moderate enlargement of the heart. HEPATOBILIARY: No focal hepatic lesions. No biliary ductal dilation. GALLBLADDER: No radio-opaque stones or sludge. No wall thickening. SPLEEN: No splenomegaly. PANCREAS: No focal masses or ductal dilatation. ADRENALS: No adrenal nodules KIDNEYS/URETERS: Diffuse parenchymal atrophy of the kidneys compatible with chronic medical renal disease No cystic or solid mass lesions. No stones. GI TRACT: Long segment all circumferential thickening of the sigmoid colon with evidence of multiple diverticula within calcifications and fat stranding in the left lower quadrant. Appendix is normal. PELVIC ORGANS/BLADDER: The uterus is absent. Bilateral ovaries are unremarkable. LYMPH NODES: No lymphadenopathy. VESSELS: There is moderate atherosclerotic disease in the aorta and major arterial branches. PERITONEUM / RETROPERITONEUM: No free air or fluid. BONES: There are degenerative changes in the lumbar spine. SOFT TISSUES: Unremarkable. IMPRESSION: 1. Findings are consistent with sigmoid colon diverticulitis without perforation or pericolic abscess. 2. Cardiomegaly without decompensation. 3. Diffuse hepatic steatosis. 4. Chronic medical renal disease. Signed by: Dr. Richard Ramirez M.D. on 07/26/2017 9:59 PM
[2017-07-26] MEDS ORDERED: ONDANSETRON HCL INJ 2 MG/ML VIAL IV PRN (22:45)
[2017-07-26] MEDS ORDERED: LEVOFLOXACIN 500MG/D5W 100ML IV SCH (22:45)
[2017-07-26] MEDS ORDERED: SODIUM CHLORIDE 0.9% 250ML 250 ML IV ONE (22:45)
[2017-07-26] MEDS ORDERED: SODIUM CHLORIDE FLUSH 10 ML SYR INJ PRN (22:45)
[2017-07-26] MEDS ORDERED: DEXTROSE 50% SYRINGE 50 ML IV PRN (22:45)
--- OUTSIDE RECORDS SUMMARY | 2017-07-26 22:52 | XMS REPORT ---
Author Author Admin, [facility] Address [address] [address] Phone Allergies, Adverse Reactions, Alerts Allergy Name [...] take at bedtime for depression VENLAFAXINE HCL 09285369197 Active Darnell Pablo MD Active BUSPIRONE HCL 15 MG ORAL TABLET 1 tab By Mouth Three Times a Day for anxiety, depression BUSPIRONE HCL 76686488302 Active Darnell Pablo MD Active PAXIL 30 MG ORAL TABLET 1 tab By Mouth Twice a Day PAROXETINE HCL 20558644921 Active Darnell Pablo MD Active SEROQUEL 100 MG ORAL TABLET 1 tab By Mouth take at bedtime for insomnia, mood QUETIAPINE FUMARATE 47715607272 Active Darnell Pablo MD Active ALPRAZOLAM 0.25 MG ORAL TABLET Take 1 tablet at night ALPRAZOLAM 0.25 MG ORAL TABLET 462733 ALPRAZOLAM Inactive ALPRAZOLAM 0.25 MG ORAL TABLET Take 1 tablet at night ALPRAZOLAM 66976667522 No Longer Active Darnell Pablo MD Active [...] - Hematology platelet count 184 X10E3/UL 10*3/mm3 454-574 1090/08/22 red blood cell distribution width 14.1 % [...] Encounters Date Encounter Provider Code Facility 15:52:26 [employer] Est Patient Detailed - 29122 Darnell Pablo MD CPT- 69292 [facility] 13:17:21 CDT Est Patient Exp Problem - 23105 Darnell Pablo MD CPT -94918 [facility] 12:36:24 CDT Est Patient Exp Problem - 14697 Darnell Pablo MD CPT -69834 [facility] 10:15:54 CDT Est Patient Detailed - 35570 Darnell Pablo MD CPT- 55912 [facility] 15:51:09 CDT Est Patient Exp Problem - 06488 Darnell Pablo MD CPT -57437 [facility] 10:59:14 [employer] Est Patient Exp Problem - 17266 Darnell Pablo MD CPT -23646 [facility] 16:57:19 CDT Est Patient Exp Problem - 59040 Darnell Pablo MD CPT -99351 [facility] 13:48:31 CDT Est Patient Exp Problem - 48858 Darnell Pablo MD CPT -95746 [facility] 15:40:52 CDT Est Patient Exp Problem - 43720 Darnell Pablo MD CPT -42875 [facility] 08:40:11 [employer] Est Patient Problem Focus - 56117 Darnell Pablo MD CPT-97097 [facility] 13:46:21 [employer] Est Patient Problem Focus - 66230 Darnell Pablo MD CPT-34566 [facility] 15:02:45 [employer] Est Patient Problem Focus - 83264 Darnell Pablo MD CPT-16357 [facility] Procedures Code Procedure Name Date Entry Date Standard Description CPT-30646 Psychotherapy 45 (38-52*) min - 00652 (with patient and/or family member) 14:32:57 [employer] CPT-39956 Diagnostic evaluation (no medical) - 43192 23:03:56 [employer]
[2017-07-26] MEDS: METRONIDAZOLE 500MG/NS 100ML IV SCH (23:31)
[2017-07-27] VITALS (8 sets, daily range): BP systolic 111–157; BP diastolic 49–72
[2017-07-27] MEDS: METRONIDAZOLE 500MG/NS 100ML IV SCH ×4 (00:43→22:12)
[2017-07-27] MEDS ORDERED: SODIUM CHLORIDE 0.9% 250ML 250 ML ONE (00:52)
[2017-07-27] MEDS ORDERED: INSULIN REGULAR, HUMAN 100 UNIT/1 ML 3ML VIAL SQ SCH (07:30)
[2017-07-27 07:57] LABS: BASOPHILS % 0.3 % (0.0-1.0); EOSINOPHILS # (AUTO) 0.2 (0.0-0.4); EOSINOPHILS % 1.2 % (0.0-6.0); HEMATOCRIT 25.2 % (34.2-44.1); LYMPHOCYTES # (AUTO) 1.8 (1.0-3.2); LYMPHOCYTES % 13.5 % (18.0-39.1); MEAN CORPUSCULAR HEMOGLOBIN 28.3 pg (28-32); MEAN CORPUSCULAR HGB CONC 30.6 g/dL (31-35); MEAN CORPUSCULAR VOLUME 92.6 fL (81-99); MONOCYTES # (AUTO) 1.2 (0.2-0.8); MONOCYTES % 8.8 % (4.4-11.3); NEUTROPHILS % 75.5 % (38.7-80.0); PLATELET COUNT 214 x10e3/uL (140-360); RED BLOOD COUNT 2.72 x10e6/uL (3.6-5.1); RED CELL DISTRIBUTION WIDTH 16.6 % (11.7-14.4)
[2017-07-27] MEDS ORDERED: HYDRALAZINE HCL 20 MG/ML VIAL IV PRN (08:00)
[2017-07-27 08:14] LABS: HEMOGLOBIN 7.7 g/dL (12.0-16.0)
[2017-07-27 08:17] LABS: ALANINE AMINOTRANSFERASE 10 IU/L (0-55); ALBUMIN 2.3 g/dL (3.5-5.0); ALBUMIN/GLOBULIN RATIO 0.7 (0.8-2.0); ALKALINE PHOSPHATASE 83 IU/L (40-150); BLOOD UREA NITROGEN 37 mg/dL (7-26); BUN/CREATININE RATIO 7 (6-25); CALCIUM 8.8 mg/dL (8.4-10.2); CARBON DIOXIDE 22 mmol/L (22-29); CHLORIDE 101 mmol/L (98-107); CREATININE, SERUM 5.12 mg/dL (0.57-1.11); EST GLOMERULAR FILTRATION RATE 8 ML/MIN (60-); GLUCOSE 65 mg/dL (74-118); SODIUM 137 mmol/L (136-145)
[2017-07-27] MEDS ORDERED: POTASSIUM CHLORIDE 20 MEQ TAB CR PO ONE (08:30)
[2017-07-27 08:51] LABS: % IRON SATURATION 17 % (15-50); IRON 25 ug/dL (50-170); TOTAL IRON BINDING CAPACITY 150 ug/dL (261-478); TRANSFERRIN 107 mg/dL (180-382)
[2017-07-27] MEDS: INSULIN LISPRO 100 UNIT/1 ML 3ML VIAL SQ SCH ×3 (10:48→20:03)
--- NOTE | 2017-07-27 11:40 | Consultation ---
DATE OF CONSULTATION: July 27, 2017 REQUESTING PHYSICIAN: Rafael Valdes MD REASON FOR CONSULTATION: ESRD. Thank you for letting us participate in Ms. Quick's care. She is an 82-year-old female with CKD, stage 4, that recently progressed after worsening kidney function from pneumonia and respiratory failure. She was recovering at [place]. She came with worsening diarrhea and abdominal discomfort. Last dialysis was on Saturday. It was not getting better, hence transferred here for higher level of care. Chest x-ray is showing some fluid overload. Abdominal scan shows diverticulitis without any perforation. Hemoglobin is down to 7.7. She denies any dyspnea. Remains frail and weak. Tracheostomy from recent illness is out. PAST HISTORY 1. Type-2 diabetes with end-organ damage. 2. Hypertension. 3. History of fluid overload. 4. Recent pneumonia. 5. Respiratory failure. 6. Deconditioning. HOME MEDICATIONS: Please see list. FAMILY HISTORY: Diabetes. REVIEW OF SYSTEMS CONSTITUTIONAL: Feels weak. GI: Diarrhea plus, abdominal discomfort plus. CARDIAC: No angina or syncope. RESPIRATORY: Denies cough or hemoptysis. NEUROLOGIC: Generalized weakness. REST OF REVIEW: Negative. PHYSICAL EXAMINATION GENERAL: Lying in bed in no distress. VITALS: Temperature 96.4, pulse 68, blood pressure 132/72. CHEST: Clear. Diminished breath sounds. EXTREMITIES: Trace edema. ABDOMEN: No definite peritoneal signs. Minimal tenderness in the left lower quadrant. Chest x-ray: Fluid overload. Hemoglobin 7.7. K is 3.0. Creatinine is 5.1 and BUN 37. ASSESSMENT 1. End-stage renal disease. 2. Hypokalemia. 3. Fluid overload. 4. Likely diverticulitis. PLAN: Transfuse PRBCs today. Hemodialysis today. Plan a 4-hour run, 4-potassium bath, 2 to 3 L fluid removal. Will follow along. ARAVIND GREEN MD Job#: [id number]
[2017-07-27] MEDS: VANCOMYCIN 250MG/5ML ORAL SOLN PO SCH ×2 (12:00→18:00)
[2017-07-27] MEDS ORDERED: SODIUM CHLORIDE 0.9% 250ML 250 ML IV ONE (12:00)
[2017-07-27] MEDS ORDERED: HEPARIN SOD (PORCINE) 1000 UNIT/ML SDV IV PRN (16:15)
[2017-07-27] MEDS ORDERED: SODIUM CHLORIDE 0.9% 250ML 500 ML IV PRN (16:15)
[2017-07-27] MEDS ORDERED: SODIUM BICARBONATE 8.4% SYRING 100 ML ONE (16:20)
[2017-07-27] MEDS ORDERED: SODIUM CHLORIDE 0.9% 1000ML 2,000 ML ONE (16:21)
[2017-07-27] MEDS ORDERED: SODIUM CHLORIDE 0.9% 500ML 500 ML ONE (16:21)
[2017-07-27] MEDS: ALPRAZOLAM 0.25 MG TAB PO PRN ×2 (16:59→23:13)
[2017-07-27] MEDS ORDERED: LEVOFLOXACIN 500MG/D5W 100ML IV SCH (22:00)
[2017-07-27] MEDS ORDERED: LEVOFLOXACIN 750MG/D5W 150ML 150 ML IV SCH (22:00)
[2017-07-28] VITALS (7 sets, daily range): BP systolic 120–161; BP diastolic 56–70
[2017-07-28] MEDS: VANCOMYCIN 250MG/5ML ORAL SOLN PO SCH ×6 (03:25→23:02)
[2017-07-28] MEDS: METRONIDAZOLE 500MG/NS 100ML IV SCH (05:45)
[2017-07-28] MEDS: INSULIN LISPRO 100 UNIT/1 ML 3ML VIAL SQ SCH ×4 (07:30→21:41)
[2017-07-28 07:41] LABS: BASOPHILS % 0.4 % (0.0-1.0); EOSINOPHILS # (AUTO) 0.1 (0.0-0.4); EOSINOPHILS % 1.5 % (0.0-6.0); HEMATOCRIT 28.9 % (34.2-44.1); HEMOGLOBIN 9.2 g/dL (12.0-16.0); LYMPHOCYTES # (AUTO) 1.1 (1.0-3.2); LYMPHOCYTES % 13.7 % (18.0-39.1); MEAN CORPUSCULAR HEMOGLOBIN 28.3 pg (28-32); MEAN CORPUSCULAR HGB CONC 31.8 g/dL (31-35); MEAN CORPUSCULAR VOLUME 88.9 fL (81-99); MONOCYTES # (AUTO) 0.8 (0.2-0.8); MONOCYTES % 9.6 % (4.4-11.3); NEUTROPHILS % 74.1 % (38.7-80.0); PLATELET COUNT 186 x10e3/uL (140-360); RED BLOOD COUNT 3.25 x10e6/uL (3.6-5.1); RED CELL DISTRIBUTION WIDTH 16.9 % (11.7-14.4)
[2017-07-28 08:04] LABS: CHOL/HDL RATIO 4.1 (3.0-3.6)
[2017-07-28 08:24] LABS: ANION GAP 16.2 mmol/L (8-16); CALCIUM 8.3 mg/dL (8.4-10.2); CREATININE, SERUM 2.6 mg/dL (0.57-1.11); POTASSIUM 3.2 mmol/L (3.5-5.1)
[2017-07-28] MEDS: NIFEDIPINE CR 30 MG TAB PO SCH (13:15)
[2017-07-28] MEDS ORDERED: POTASSIUM CHLORIDE 20 MEQ TAB CR PO ONE (14:00)
[2017-07-28] MEDS: BENZONATATE 100 MG CAP PO SCH ×2 (14:48→21:36)
[2017-07-28] MEDS ORDERED: ZOLPIDEM TARTRATE 5 MG TAB PO SCH (21:00)
[2017-07-28] MEDS: ALPRAZOLAM 0.25 MG TAB PO PRN (22:00)
[2017-07-29 00:21] VITALS: BP 170/64
[2017-07-29 04:10] VITALS: BP 142/59
[2017-07-29 05:01] VITALS: BP 142/59
[2017-07-29] MEDS: VANCOMYCIN 250MG/5ML ORAL SOLN PO SCH ×3 (05:50→16:46)
[2017-07-29] MEDS: ALPRAZOLAM 0.25 MG TAB PO PRN ×2 (05:57→16:55)
[2017-07-29] MEDS: INSULIN LISPRO 100 UNIT/1 ML 3ML VIAL SQ SCH ×3 (07:30→16:46)
[2017-07-29 08:10] VITALS: BP 138/55
[2017-07-29] MEDS: NIFEDIPINE CR 30 MG TAB PO SCH (08:25)
[2017-07-29] MEDS: BENZONATATE 100 MG CAP PO SCH ×2 (08:25→13:30)
[2017-07-29 12:31] VITALS: BP 142/78
[2017-07-29 16:00] VITALS: BP 136/62
[2017-07-29] MEDS ORDERED: ASPIR-LOW81 MG PO (16:07)
[2017-07-29] MEDS ORDERED: XANAX0.25 MG PO (16:08)
[2017-07-29] MEDS ORDERED: PROCARDIA XL30 MG PO (16:08)
[2017-07-29] MEDS ORDERED: AMBIEN5 MG PO (16:09)
[2017-07-29] MEDS ORDERED: VANCOMYCIN HCL500 MG PO (16:10)
--- NOTE | 2017-07-29 16:16 | Discharge Summary ---
PRIMARY CARE DOCTOR: Dr. Richi Nelson FINAL DIAGNOSIS: Acute Clostridium difficile colitis. SECONDARY DIAGNOSES 1. Uncontrolled hypertension, better. 2. Chronic blood loss anemia, status post 1 unit of blood. 3. End-stage renal disease. 4. Anxiety. 5. Pulmonary edema, resolved after dialysis. CONSULTANTS: Dr. Porter, nephrology. PROCEDURES/STUDIES PERFORMED: Computerized tomography of the abdomen and pelvis. HISTORY: Per [facility] HOSPITAL COURSE: The patient was admitted. Initially, CT showed acute diverticulitis. However, given her complex history of prolonged hospitalization both here at [facility] and subsequently [facility] along with the fact that she was on Protonix, I was highly suspicious of C. diff colitis. Therefore, empirically she was started on p.o. vancomycin along with IV Levaquin and IV Flagyl. Subsequently, C. diff toxin came back positive. Her Levaquin and Flagyl were discontinued. The patient improved dramatically. She has been no abdominal pain at this time. Diarrhea has pretty much resolved. Her WBC is normal now. As far as her uncontrolled hypertension, the patient was on multiple blood pressure medicines previously. I have consolidated to just on nifedipine. As an outpatient, we can still titrate that up if necessary. The patient did require a unit of blood for a hemoglobin of 7.5. With dialysis, her pulmonary edema got better, and her breathing was much better. The patient does have chronic anxiety. For now, I will send her home on low dose Xanax. The patient does need to follow up with psychiatry if possible. Ambien was also prescribed for insomnia. Looking back at her record when she was very sick a couple of months ago at [facility] in the ICU, the patient had paroxysmal atrial fibrillation very briefly. Given the fact that has not been the case, I went ahead and stopped her amiodarone. She is currently in sinus. For her deconditioning, she improved with physical therapy here. The patient will also go home and continue on her physical therapy. The patient was seen and examined today. It took 40 minutes total to discharge this patient. ABDULAZIZ PARK M.D. Job#: [id number] [place] cc: RICHI NELSON MD
[2017-07-29] MEDS ORDERED: NIFEDIPINE CR 30 MG TAB PO SCH (17:00)
[2017-07-30] MEDS ORDERED: ASPIRIN 325 MG TAB PO SCH (09:00)
[2017-07-30] MEDS ORDERED: ASPIRIN 81 MG CHEW TAB PO SCH (09:00)
== END 2017-07-29 18:45 | disposition home or self-care (01) | DRG 682 ==
LOC: ER 19:05 → ERHOLD 22:50 → MED/SURG2 23:34
PROVIDERS: ADMIT Internal Medicine; ATTEND Internal Medicine
PROC: 5A1D70Z Performance of Urinary Filtration, Intermittent, Less than 6 Hours Per Day (ICD-10-PCS; principal; 2017-07-27)
PROC: 30243P1 Transfusion of Nonautologous Frozen Red Cells into Central Vein, Percutaneous Approach (ICD-10-PCS; 2017-07-27)
DX: I12.0 Hypertensive chronic kidney disease with stage 5 chronic kidney disease or end stage renal disease (principal); N18.6 End stage renal disease; E11.22 Type 2 diabetes mellitus with diabetic chronic kidney disease; E11.65 Type 2 diabetes mellitus with hyperglycemia; K57.92 Diverticulitis of intestine, part unspecified, without perforation or abscess without bleeding; E87.6 Hypokalemia; D50.0 Iron deficiency anemia secondary to blood loss (chronic); F41.9 Anxiety disorder, unspecified; E78.5 Hyperlipidemia, unspecified; M10.9 Gout, unspecified; Z99.2 Dependence on renal dialysis; G47.00 Insomnia, unspecified
CPT/HCPCS: 36415; 36430; 71045; 74176; 80048; 80053; 80061; 81001; 82150; 82550; 82553; 82948; 83036; 83540; 83690; 83735; 84100; 84466; 84484; 85025; 86704; 86706; 86850; 86900; 86920; 87340; 87493; 93005; 99284; J0360; J1644; J1956; J7030; J7040; J7050; J7799; P9016

== ENCOUNTER 2017-09-15 14:31 | Inpatient (IN) | payer MEDICARE ==
[~2017-09-15] VITALS: Ht 160 cm; Wt 77.1 kg
[~2017-09-15 14:31] MED LIST changes: +AMBIEN5 MG PO; +ASPIR-LOW81 MG PO; +PROCARDIA XL30 MG PO; +VANCOMYCIN HCL500 MG PO; +XANAX0.25 MG PO
--- OUTSIDE RECORDS SUMMARY | 2017-09-15 14:34 | XMS REPORT | Clinical Summary ---
Author Author RADHA [facility] Address Unknown Phone Unavailable Care Team Providers Care Medical Records Coordinator Name Role Phone PCP Unavailable Allergies Not on File Current Medications Not on file Active Problems Not on file Encounters Date Type Specialty Care Team Description 05/15/2017 Outside Orders Radiology Dru Olson MD Chronic kidney disease, stage V (HCC) (Primary Dx) after 09/14/2016 Social History Tobacco Use Types Packs/Day Years Used Date Never Assessed Sex Assigned at Date Recorded Not on file Last Filed Vital Signs Not on file Plan of Treatment Not on file Results * PERIPHERAL VASCULAR REPORT - SCAN (05/16/2017 6:50 PM) * Vein mapping arm/arms (05/16/2017 3:03 PM) Component Value Ref Range Ejection Fraction Specimen Performing Laboratory [facility]ART[facility] MKCKESSON CPACS Impressions Right Impression 1. There is no deep venous obstruction in the jugular, subclavian, axillary, brachial, radial or ulnar veins. 2. There is no superficial venous obstruction in the cephalic or basilic veins. 3. The subclavian, axillary, brachial, radial and ulnar arteries are patent with normal triphasic Doppler waveforms throughout. Left Impression 1. There is no deep venous obstruction in the jugular, subclavian, axillary, brachial, radial or ulnar veins. 2. There is no superficial venous obstruction in the cephalic or basilic veins. 3. The subclavian, axillary, brachial, radial and ulnar arteries are patent with normal triphasic Doppler waveforms throughout. Conclusions Summary Arterial duplex imaging, venous duplex imaging and compression of both upper extremities was performed. All arteries and veins were adequately visualized. The arteries were patent with normal triphasic Doppler waveforms bilaterally. The venous systems were patent and compressible with no evidence of thrombus bilaterally. Superficial venous measurements are documented below. Signature Velocities are measured in cm/s ; Diameters are measured in cm Cephalic Mapping Right Left + + + + + + +---- + !Location ! !AP Diam !Trans Diam! !AP Diam !Trans Diam ! + + + + + + +---- + !Cephalic at Prox UA ! ! !0.19 ! ! !0.13 ! + + + + + + +---- + !Cephalic at Mid UA ! ! ! 0.17! ! !0.13 ! + + + + + + +---- + !Cephalic at Dist UA ! ! !0.17 ! ! !0.1 ! + + + + + + +---- + !Cephalic at Prox LA ! ! !0.17 ! ! !0.9 ! + + + + + + +---- + !Cephalic at Mid LA ! ! ! 0.11! ! !0.9 ! + + + + + + +---- + !Cephalic at Dist LA ! ! !0.12 ! ! !0.9 ! + + + + + + +---- + Basilic Mapping Right Left + + + + + + +---- + !Location ! !AP Diam !Trans Diam! !AP Diam !Trans Diam ! + + + + + + +---- + !Basilic at Prox UA ! ! ! 0.52! ! !0.37 ! + + + + + + +---- + !Basilic at Mid UA ! ! ! 0.49! ! !0.28 ! + + + + + + +---- + !Basilic at Dist UA ! ! ! 0.36! ! !0.22 ! + + + + + + +---- + !Basilic at Prox LA ! ! ! 0.14! ! !0.22 ! + + + + + + +---- + !Basilic at Mid LA ! ! ! 0.13! ! !0.14 ! + + + + + + +---- + !Basilic at Dist LA ! ! ! 0.09! ! !0.14 ! + + + + + + +---- + Narrative [facility] - Upper Extremities Vein Mapping Demographics Patient NameMACHELLE QUICK Date of Study 05/16/2017 ERIKA Age 81 Visit [id number] Gender Female Date of 1935 Number Referring Whitney Samuelswhitney StoneRoom Number Physician Blog Writer Caroline Kemp InterpretingFlorin Morgan RN, Rick CASTILLO, RPVI Procedure Type of Study: Veins: Upper Extremity Vein Mapping, VEIN MAPPING ARM/ARMS. Indications for Study:Chronic kidney disease . Patient Status:Routine. Study Location:Vascular Lab. Technical Quality:Adequate visualization. Risk Factors History of Disease + +----+--------+ !Diagnosis !Date!Comments! + +----+--------+ !History/Risk Factors: !!CKD ! + +----+--------+ Procedure Note Interface, External Ris In - 05/16/2017 6:16 PM PEOPLESOFT CONSULTANT [facility] - Upper Extremities Vein Mapping Demographics Patient Name MACHELLE QUICK Date of Study 05/16/2017 ERIKA Age 81 Visit Number [id number] Gender Female Date of 1935 Number Referring Whitney Stone Room Number Physician Blog Writer Caroline Kemp Interpreting Florin Morgan RN, RVT Physician , RPVI Procedure Type of Study: Veins: Upper Extremity Vein Mapping, VEIN MAPPING ARM/ARMS. Indications for Study:Chronic kidney disease . Patient Status:Routine. Study Location:Vascular Lab. Technical Quality:Adequate visualization. Risk Factors History of Disease + +----+--------+ !Diagnosis !Date!Comments! + +----+--------+ !History/Risk Factors: ! !CKD ! + +----+--------+ Impressions Right Impression 1. There is no deep venous obstruction in the jugular, subclavian, axillary, brachial, radial or ulnar veins. 2. There is no superficial venous obstruction in the cephalic or basilic veins. 3. The subclavian, axillary, brachial, radial and ulnar arteries are patent with normal triphasic Doppler waveforms throughout. Left Impression 1. There is no deep venous obstruction in the jugular, subclavian, axillary, brachial, radial or ulnar veins. 2. There is no superficial venous obstruction in the cephalic or basilic veins. 3. The subclavian, axillary, brachial, radial and ulnar arteries are patent with normal triphasic Doppler waveforms throughout. Conclusions Summary Arterial duplex imaging, venous duplex imaging and compression of both upper extremities was performed. All arteries and veins were adequately visualized. The arteries were patent with normal triphasic Doppler waveforms bilaterally. The venous systems were patent and compressible with no evidence of thrombus bilaterally. Superficial venous measurements are documented below. Signature Velocities are measured in cm/s ; Diameters are measured in cm Cephalic Mapping Right Left + + + + + + +---- + !Location ! !AP Diam !Trans Diam ! !AP Diam ! Trans Diam ! + + + + + + +---- + !Cephalic at Prox UA ! ! !0.19 ! ! ! 0.13 ! + + + + + + +---- + !Cephalic at Mid UA ! ! !0.17 ! ! ! 0.13 ! + + + + + + +---- + !Cephalic at Dist UA ! ! !0.17 ! ! ! 0.1 ! + + + + + + +---- + !Cephalic at Prox LA ! ! !0.17 ! ! ! 0.9 ! + + + + + + +---- + !Cephalic at Mid LA ! ! !0.11 ! ! ! 0.9 ! + + + + + + +---- + !Cephalic at Dist LA ! ! !0.12 ! ! ! 0.9 ! + + + + + + +---- + Basilic Mapping Right Left + + + + + + +---- + !Location ! !AP Diam !Trans Diam ! !AP Diam ! Trans Diam ! + + + + + + +---- + !Basilic at Prox UA ! ! !0.52 ! ! ! 0.37 ! + + + + + + +---- + !Basilic at Mid UA ! ! !0.49 ! ! ! 0.28 ! + + + + + + +---- + !Basilic at Dist UA ! ! !0.36 ! ! ! 0.22 ! + + + + + + +---- + !Basilic at Prox LA ! ! !0.14 ! ! ! 0.22 ! + + + + + + +---- + !Basilic at Mid LA ! ! !0.13 ! ! ! 0.14 ! + + + + + + +---- + !Basilic at Dist LA ! ! !0.09 ! ! ! 0.14 ! + + + + + + +---- + after 09/14/2016
--- OUTSIDE RECORDS SUMMARY | 2017-09-15 14:34 | XMS REPORT | Continuity of Care Document ---
Author Author [facility] Organization [facility] Address [address] [place] [address] Phone Unavailable Care Team Providers Care Drilling Machine Operator Name Role Phone NONSTAFF PCP Unavailable Insurance Providers Guarantor Machelle Navarro Address [address] [place] [address] Email [email or web address] Payer [employer] Medicare Advantage Policy Number [id number] Subscriber's Name AbdelrahmanTabMachelle Relationship 18 Self / Same As Patient Group Number [id number] Group Name RETIRED Effective Date 16 Advance Directives Directive Response Recorded Date/Time Does the patient have an advance directive? No 07/27/17 12:28am If yes, is advance directive on file with [facility]? No 07/27/17 12:28am If not on file with [facility] will patient provide a copy? Yes 07/27/17 12:28am Do you have a Directive to Physician? No 07/26/17 10:49pm Do you have a Medical Power of Rope Coiling Machine Operator? No 07/26/17 10:49pm Do you have an out of hospital Do Not Resuscitate Order? No 07/26/17 10:49pm Do you have any special needs we should be aware of? No 07/26/17 10:49pm Do you have a support person here with you today? Yes 07/26/17 10:49pm Did patient receive Notice of Privacy Practices? Yes 07/26/17 10:49pm Did patient receive patient rights and responsibilities? Yes 07/26/17 10:49pm Problems Medical Problem Onset Date Status Altered mental status Unknown Anemia Unknown Diarrhea Unknown Diverticulitis Unknown ESRD (end stage renal disease) on dialysis Unknown Headache Unknown Acute Hypercarbia Unknown Hypertensive urgency Unknown Acute Pulmonary edema Unknown Pulmonary edema Unknown Renal failure Unknown Medications Current Home Medications Medication Dose Units Route Directions Days Qty Instructions Start Date Alprazolam (Xanax) 0.25 Mg Tablet 0.25 Mg Oral Every 6 Hours as needed for Anxiety Aspirin (Aspir-Low) 81 Mg Tablet.dr 81 Mg Oral Daily Nifedipine (Procardia Xl) 30 Mg Tab.er.24 30 Mg Oral Twice A Day 30 Tab Vancomycin Hcl 500 Mg Vial 125 Mg Oral Four Times Daily Zolpidem Tartrate (Ambien) 5 Mg Tablet 5 Mg Oral Bedtime as needed for Insomnia 30 Tab Past Home Medications Medication Directions Ordered Status Aspirin , Discontinued Buspirone Hcl 5 Mg Tablet, 15 Mg Oral Three Times A Day for Anxiety Discontinued Calcitriol 0.25 Mcg Capsule, 0.25 Mg Oral Daily Discontinued Cholecalciferol (Vitamin D3) (Vitamin D) 1,000 Unit Tablet, 1000 Unit Oral Daily Discontinued Clonidine Hcl 0.1 Mg Tablet, 1 Tab Oral As Needed for High Blood Pressure Discontinued Felodipine (Felodipine Er) 5 Mg Tab.er.24h, Discontinued Fenofibrate,Micronized (Fenofibrate) 67 Mg Capsule, Unknown Dose Oral Daily Discontinued Furosemide 40 Mg Tablet, 20 Mg Oral As Needed Discontinued Gabapentin 100 Mg Capsule, Discontinued Hydralazine Hcl 10 Mg Tablet, 50 Mg Oral Three Times A Day Discontinued Hydrocodone Bit/Acetaminophen ([place] 5-325 Tablet) 1 Each Tablet, 1 Each Oral As Needed Discontinued Januvia , Discontinued Metoprolol Tartrate 50 Mg Tablet, 100 Mg Oral Twice A Day Discontinued Metoprolol Tartrate 25 Mg Tablet, 25 Mg Oral Twice A Day Discontinued Nateglinide 60 Mg Tablet, Unknown Dose Oral Three Times A Day Discontinued Ondansetron (Zofran Odt) 4 Mg Tab.rapdis, 4 Mg Every 6 Hours Discontinued Pantoprazole Sodium (Protonix) 40 Mg Tablet.dr, 40 Mg Oral Discontinued Paroxetine , Discontinued Paroxetine Hcl 20 Mg Tablet, 30 Mg Oral Twice A Day Discontinued Paxil , Discontinued Quetiapine Fumarate 100 Mg Tablet, 100 Mg Oral Bedtime Discontinued Repaglinide (Prandin) 1 Mg Tab, 0.5 Mg Three Times A Day Discontinued Simvastatin 20 Mg Tablet, 20 Mg Oral Today At 9:00PM Discontinued Simvastatin , Discontinued Tizanidine Hcl 4 Mg Capsule, Discontinued Venlafaxine Hcl (Venlafaxine Hcl Er) 37.5 Mg Cap.er.24h, 37.5 Bedtime Discontinued Social History Social History Problem Response Recorded Date/Time Onset Date Status Hx Psychiatric Problems Y - HALLUCINATIONS 07/27/2017 12:28am Not Applicable Not Applicable Hx Eating Disorder No 07/27/2017 12:28am Not Applicable Not Applicable Hx Substance Use Disorder No 07/27/2017 12:28am Not Applicable Not Applicable Hx Depression Yes 07/27/2017 12:28am Not Applicable Not Applicable Hx Alcohol Use No 07/27/2017 12:28am Not Applicable Not Applicable Hx Substance Use Treatment No 07/27/2017 12:28am Not Applicable Not Applicable Hx Physical Abuse No 07/27/2017 12:28am Not Applicable Not Applicable Smoking Status Start Date Stop Date Unknown if ever smoked Hospital Discharge Instructions No hospital discharge instruction information available. Plan of Care Discharge Date 07/29/17 6:45pm Disposition HOME, SELF-CARE Instructions/Education Provided Anemia Clostridium Difficile Prescriptions See Medication Section Additional Instructions/Education Continue with home health. Hemodialysis [id number] Functional Status Query Response Date Recorded FUNCTIONAL STATUS ` July 27, 2017 11:00am Assistive Devices Standard Walker July 27, 2017 12:14am Ambulation Ability Maximum Assistance July 27, 2017 12:14am Toileting Ability Minimum Assistance July 29, 2017 5:24pm Allergies, Adverse Reactions, Alerts Allergen Type Severity Reaction Status Last Updated Iodinated Contrast- Oral and IV Dye Allergy Mild WELTS Active 05/23/17 Immunizations No immunization information available. Vital Signs Acute Vital Signs Vital Response Date/Time Temperature (Fahrenheit) 97.3 degrees F (97.6 - 99.5) 07/29/2017 4:00pm Pulse Pulse Rate (adult) 73 bpm (60 - 90) 07/29/2017 4:00pm Respiratory Rate 20 bpm (12 - 24) 07/29/2017 4:00pm Blood Pressure 136/62 mm Hg 07/29/2017 4:00pm Height 5 ft 2 in 07/27/2017 12:28am Weight 175 lb 07/27/2017 12:28am Body Mass Index 32.0 kg/m^2 07/27/2017 12:28am Results Laboratory Results Test Name Result Units Flags Reference Collection Date/Time Result Date/ Time Comments Differential Total Cells Counted 100 06/03/2017 5:00am 06/03/2017 8 :43am Neutrophils % (Manual) 86 % H 40-74 06/03/2017 5:00am 06/03/2017 8:43am Band Neutrophils % 6 % 06/02/2017 4:45am 06/02/2017 12:17pm Lymphocytes % (Manual) 7 % L 19-48 06/03/2017 5:00am 06/03/2017 8:43am Monocytes % (Manual) 7 % 3.4-9.0 06/03/2017 5:00am 06/03/2017 8:43am Metamyelocytes % 2 % H 0-0 05/27/2017 8:25pm 05/27/2017 9:19pm Reactive Lymphocytes 2 06/01/2017 4:30am 06/01/2017 10:18am Nucleated Red Blood Cells 1 06/02/2017 4:45am 06/02/2017 12:17pm Platelet Estimate ADEQUATE 06/03/2017 5:00am 06/03/2017 8:43am Platelet Morphology Comment NORMAL 06/03/2017 5:00am 06/03/2017 8: 43am Hypochromasia SLIGHT 06/03/2017 5:00am 06/03/2017 8:43am Anisocytosis SLIGHT 06/03/2017 5:00am 06/03/2017 8:43am Elliptocytes SLIGHT 06/03/2017 5:00am 06/03/2017 8:43am Red Cell Morphology Comment NORMAL 06/03/2017 5:00am 06/03/2017 8: 43am Prothrombin Time 14.3 seconds 11.9-14.5 06/03/2017 5:00am 06/03/2017 6: 19am Prothromb Time International Ratio 1.06 06/03/2017 5:00am 2017 6:19am Oral Anticoagulant Therapy INR Values: 1. Low Intensity Therapy 1.5 - 2.0 2. Moderate Intensity Therapy 2.0 - 3.0 3. High Intensity Therapy(1) 2.5 - 3.5 4. High Intensity Therapy(2) 3.0 - 4.0 5. Panic Value INR > 5.0 Activated Partial Thromboplast Time 27.5 seconds 23.8-35.5 06/03/2017 5: 00am 06/03/2017 6:19am Urine Opiates Screen NEGATIVE NEGATIVE 05/23/2017 11:30am 05/23/2017 3:40pm ALL TESTS PERFORMED MANUALLY ON SIGNIFY ER TEST Urine Barbiturates Screen NEGATIVE NEGATIVE 05/23/2017 11:30am 2017 3:40pm Urine Phencyclidine Screen NEGATIVE NEGATIVE 05/23/2017 11:30am 05/23 3:40pm Urine Amphetamines Screen NEGATIVE NEGATIVE 05/23/2017 11:30am 2017 3:40pm Urine Benzodiazepines Screen NEGATIVE NEGATIVE 05/23/2017 11:30am 08/2017 3:40pm Urine Cocaine Screen NEGATIVE NEGATIVE 05/23/2017 11:30am 05/23/2017 3:40pm Urine Cannabinoids Screen NEGATIVE NEGATIVE 05/23/2017 11:30am 2017 3:40pm THESE RESULTS ARE FOR MEDICAL TREATMENT ONLY *THIS REPORT CONTAINS UNCONFIRMED SCREENING RESULTS* POSITIVE RESULTS WILL BE CONFIRMED BY REFERENCE LAB UPON REQUEST CUT-OFF DRUG CLASS CONCENTRATION ng/mL Amphetamines 1000 Methamphetamines 1000 Cocaine 300 Opiate 300 Phencyclidine 25 Cannabinoid 50 Barbiturates 300 Benzodiazepine 300 Methadone 300 Urine Amorphous Sediment MODERATE H FEW 05/23/2017 11:30am 05/23/2017 1:41pm Urine Hyaline Casts 2-5 H 0-1 05/23/2017 11:30am 05/23/2017 1:41pm Influenza Virus Types A,B Antigen NEGATIVE NEGATIVE 05/23/2017 11: 35pm 05/24/2017 12:17am Lactic Acid Level 15.1 MG/DL 4.5-19.8 06/01/2017 8:10pm 06/01/2017 9: 10pm B-Type Natriuretic Peptide 950.5 pg/mL H 0-100 06/05/2017 5:45am 2017 6:52am Acetaminophen Level < 3 ug/mL L 10-30 05/23/2017 11:30am 05/23/2017 3: 48pm Free Thyroxine 0.91 ng/dL 0.8-1.8 05/24/2017 5:20am 05/24/2017 7:01am Thyroid Stimulating Hormone (TSH) 1.912 uIU/mL 0.350-4.940 05/24/2017 5: 20am 05/24/2017 7:01am Salicylates Level < 5.0 mg/dL 0-30 05/23/2017 11:30am 05/23/2017 3: 48pm Random Vancomycin Level 10.8 ug/mL 05/31/2017 8:00pm 05/31/2017 8: 26pm Arterial Blood pH 7.46 H 7.31-7.41 06/06/2017 8:50am 06/06/2017 9: 58am Arterial Blood Partial Pressure CO2 33 mmHg L 41-51 06/06/2017 8:50am 9:58am Arterial Blood Partial Pressure O2 67 mmHg L 80-105 06/06/2017 8:50am 9:58am Arterial Blood HCO3 24 mmol/L 23-28 06/06/2017 8:50am 06/06/2017 9: 58am Arterial Blood Base Excess 0.0 mmol/L -2 - 3 06/06/2017 8:50am 2017 9:58am Arterial Blood Oxygen Saturation 94.0 % L 95-98 06/06/2017 8:50am 2017 9:58am Hepatitis B Surface Antibody, Quant 5.3 mIU/mL L Immunity>9.9 05/27/2017 9:13am 05/28/2017 9:36am Status of Immunity Anti-HBs Level Inconsistent with Immunity 0.0 - 9.9 Consistent with Immunity >9.9 Hepatitis Be Antigen Negative Negative 05/27/2017 9:13am 05/28/2017 2 :37pm Performed at: [facility] [id number] Boat Engine Mechanic: Vadim Diego MD, Phone: [phone] Hepatitis B Core Total Antibody Negative Negative 05/27/2017 9:13am 05/28/2017 9:36am Performed at: [facility] [address] [id number] Boat Engine Mechanic: Vadim Diego MD, Phone: [phone] Hepatitis A IgM Antibody Negative 05/27/2017 9:13am 06/03/2017 10: 26am Hepatitis B Surface Antigen Negative 05/27/2017 9:am 06/03/2017 10:26am Hepatitis B Core IgM Antibody Negative 05/27/2017 9:13am 2017 10:26am Hepatitis C Antibody <0.1 05/27/2017 9:am 06/03/2017 10:26am Reference Range: 0.0 - 0.9 s/co ratio Negative: < 0.8 Indeterminate: 0.8 - 0.9 Positive: > 0.9 The CDC recommends that a positive HCV antibody result be followed up with a HCV Nucleic Acid Amplification test ([id number]). [facility] [address] [id number] Dir: Vadim Diego MD For inquiries, the physician may contact Branch: [phone] Lab: [phone] White Blood Count 8.05 x10e3/uL 4.8-10.8 07/28/2017 7:07/28/2017 7 :47am Red Blood Count 3.25 x10e6/uL L 3.6-5.1 07/28/2017 7:07/28/2017 7: 47am Hemoglobin 9.2 g/dL L 12.0-16.0 07/28/2017 7:07/28/2017 7:47am Hematocrit 28.9 % L 34.2-44.1 07/28/2017 7:07/28/2017 7:47am Mean Corpuscular Volume 88.9 fL # 81-99 07/28/2017 7:07/28/2017 7: 47am Mean Corpuscular Hemoglobin 28.3 pg 28-32 07/28/2017 7:07/28/2017 7:47am Mean Corpuscular Hemoglobin Concent 31.8 g/dL 31-35 07/28/2017 7:07/28/2017 7:47am Red Cell Distribution Width 16.9 % H 11.7-14.4 07/28/2017 7:2017 7:47am Platelet Count 186 x10e3/uL 140-360 07/28/2017 7:07/28/2017 7: 47am Neutrophils (%) (Auto) 74.1 % 38.7-80.0 07/28/2017 7:07/28/2017 7: 47am Lymphocytes (%) (Auto) 13.7 % L 18.0-39.1 07/28/2017 7:07/28/2017 7 :47am Monocytes (%) (Auto) 9.6 % 4.4-11.3 07/28/2017 7:07/28/2017 7: 47am Eosinophils (%) (Auto) 1.5 % 0.0-6.0 07/28/2017 7:07/28/2017 7: 47am Basophils (%) (Auto) 0.4 % 0.0-1.0 07/28/2017 7:07/28/2017 7:47am IM GRANULOCYTES % 0.7 % 0.0-1.0 07/28/2017 7:07/28/2017 7:47am Neutrophils # (Auto) 6.0 2.1-6.9 07/28/2017 7:07/28/2017 7:47am Lymphocytes # (Auto) 1.1 1.0-3.2 07/28/2017 7:07/28/2017 7:47am Monocytes # (Auto) 0.8 0.2-0.8 07/28/2017 7:07/28/2017 7:47am Eosinophils # (Auto) 0.1 0.0-0.4 07/28/2017 7:07/28/2017 7:47am Basophils # (Auto) 0.0 0.0-0.1 07/28/2017 7:07/28/2017 7:47am Absolute Immature Granulocyte (auto 0.06 x10e3/uL 0-0.1 07/28/2017 7: 07/28/2017 7:47am Urine Color YELLOW YELLOW 07/26/2017 9:15pm 07/26/2017 9:29pm Urine Clarity SL CLOUDY CLEAR 07/26/2017 9:15pm 07/26/2017 9:29pm Urine Specific [place] 1.020 1.010-1.025 07/26/2017 9:15pm 2017 9:29pm Urine pH 5 5 - 7 07/26/2017 9:15pm 07/26/2017 9:29pm Urine Leukocyte Esterase 1+ H NEGATIVE 07/26/2017 9:15pm 07/26/2017 9: 29pm Urine Nitrite NEGATIVE NEGATIVE 07/26/2017 9:15pm 07/26/2017 9:29pm Urine Protein 1+ H NEGATIVE 07/26/2017 9:15pm 07/26/2017 9:29pm Urine Glucose (UA) NEGATIVE NEGATIVE 07/26/2017 9:15pm 07/26/2017 9: 29pm Urine Ketones NEGATIVE NEGATIVE 07/26/2017 9:15pm 07/26/2017 9:29pm Urine Urobilinogen 0.2 mg/dL 0.2 - 1 07/26/2017 9:15pm 07/26/2017 9: 29pm Urine Bilirubin 2+ H NEGATIVE 07/26/2017 9:15pm 07/26/2017 9:29pm Urine Blood 1+ H NEGATIVE 07/26/2017 9:15pm 07/26/2017 9:29pm Urine WBC 6-10 /HPF H 0-5 07/26/2017 9:15pm 07/26/2017 9:38pm Urine RBC 6-10 /HPF H 0-5 07/26/2017 9:15pm 07/26/2017 9:38pm Urine Bacteria FEW /HPF NONE 07/26/2017 9:15pm 07/26/2017 9:38pm Urine Epithelial Cells MANY /LPF NONE 07/26/2017 9:15pm 07/26/2017 9: 38pm Sodium Level 137 mmol/L 136-145 07/28/2017 7:27am 07/28/2017 8:26am Potassium Level 3.2 mmol/L L 3.5-5.1 07/28/2017 7:27am 07/28/2017 8: 26am Chloride Level 100 mmol/L 98-107 07/28/2017 7:27am 07/28/2017 8:26am Carbon Dioxide Level 24 mmol/L 22-29 07/28/2017 7:27am 07/28/2017 8: 26am Anion Gap 16.2 mmol/L H 8-16 07/28/2017 7:07/28/2017 8:26am Blood Urea Nitrogen 14 mg/dL 7-07/28/2017 7:07/28/2017 8:26am Creatinine 2.60 mg/dL H 0.57-1.11 07/28/2017 7:07/28/2017 8:26am BUN/Creatinine Ratio 5 L 6-25 07/28/2017 7:07/28/2017 8:26am Estimat Glomerular Filtration Rate 18 ML/MIN L 60- 07/28/2017 7:03/2018 8:26am Ranges were taken from the National Kidney Disease Education Program and the National Kidney Foundation literature. Reference ranges: 60 or greater: Normal 16-59 (for 3 consecutive months): Chronic kidney disease 15 or less: Kidney failure Glucose Level 84 mg/dL 74-118 07/28/2017 7:07/28/2017 8:26am Calcium Level 8.3 mg/dL L 8.4-10.2 07/28/2017 7:07/28/2017 8:26am Bedside Glucose 167 mg/dL H 70-120 07/29/2017 3:33pm 07/29/2017 3:58pm Meter ID: [id number] Hemoglobin A1c Percent 5.5 % 4.0-7.0 07/28/2017 7:07/28/2017 8: 22am Phosphorus Level 2.7 MG/DL 2.3-4.7 07/28/2017 7:07/28/2017 8:26am Magnesium Level 1.5 MG/DL 1.3-2.1 07/28/2017 7:07/28/2017 8:00am Iron Level 25 ug/dL L 50-170 07/27/2017 7:07/27/2017 8:52am Total Iron Binding Capacity 150 ug/dL L 261-478 07/27/2017 7:2017 8:52am Percent Iron Saturation 17 % 15-50 07/27/2017 7:07/27/2017 8:52am Transferrin 107 mg/dL L 180-382 07/27/2017 7:07/27/2017 8:52am Total Bilirubin < 0.3 mg/dL 0.2-1.2 07/27/2017 7:07/27/2017 8: 27am Aspartate Amino Transf (AST/SGOT) 9 IU/L 5-34 07/27/2017 7:2017 8:27am Alanine Aminotransferase (ALT/SGPT) 10 IU/L 0-55 07/27/2017 7:02/2018 8:27am Total Protein 5.6 g/dL L 6.5-8.1 07/27/2017 7:07/27/2017 8:27am Albumin 2.3 g/dL L 3.5-5.0 07/27/2017 7:07/27/2017 8:27am Globulin 3.3 g/dL 2.3-3.5 07/27/2017 7:07/27/2017 8:27am Albumin/Globulin Ratio 0.7 L 0.8-2.0 07/27/2017 7:07/27/2017 8: 27am Alkaline Phosphatase 83 IU/L 40-150 07/27/2017 7:07/27/2017 8: 27am Triglycerides Level 143 MG/DL 0-149 07/28/2017 7:07/28/2017 8: 14am Cholesterol Level 132 MD/DL 0-199 07/28/2017 7:07/28/2017 8:14am Less than 200 mg/dL Low Risk 201 - 239 mg/dL Borderline Risk 240 mg/dl and greater High Risk LDL Cholesterol 71 MG/DL 60-130 07/28/2017 7:07/28/2017 8:14am HDL Cholesterol 32 MG/DL L 40-60 07/28/2017 7:07/28/2017 8:14am Cholesterol/HDL Ratio 4.1 H 3.0-3.6 07/28/2017 7:07/28/2017 8: 14am Creatine Kinase 24 IU/L L 29-168 07/26/2017 8:20pm 07/26/2017 9:11pm Creatine Kinase MB 2.00 ng/mL 0-5.0 07/26/2017 8:20pm 07/26/2017 9: 18pm Troponin I 0.037 ng/mL 0-0.300 07/26/2017 8:20pm 07/26/2017 9:18pm Amylase Level 32 U/L 25-125 07/26/2017 8:20pm 07/26/2017 9:11pm Lipase 26 U/L 8-78 07/26/2017 8:20pm 07/26/2017 9:11pm Clostridium Difficile Toxin A & B POSITIVE H NEGATIVE 07/27/2017 4: 00pm 07/28/2017 10:35am Results called to KAROL HERNANDEZ at 1034 on 07/28/17 by Victoria Mejia. RB OK. Results called to REGINO VALENCIA in infection control at 1034 on 07/28/17 by Victoria Mejia. Testing on stool aspirate specimens is outside natural resource technician claims since specimen type not validated on this assay. Microbiology Results Procedure Source Organism/Result Collection Date/Time Result Date/Time Result Status Blood Culture Blood STAPHYLOCOCCUS SP COAG NEG 05/23/2017 11:30am 2017 7:05am Final STREPTOCOCCUS VIRIDANS 05/23/2017 11:30am 05/29/2017 7:05am Final Blood Culture Blood NO GROWTH AFTER 5 DAYS, FINAL REPORT 05/25/2017 7:30pm 05/30/2017 7:58pm Final Procedures Procedure Status Date Provider(s) RESPIRATORY VENTILATION, GREATER THAN 96 CONSECUTIVE HOURS Completed SHELLEY REYES MD INSERTION OF ENDOTRACHEAL AIRWAY INTO TRACHEA, VIA OPENING Completed SHELLEY REYES MD PERFORMANCE OF URINARY FILTRATION, <6 HRS/DAY Completed 05/24/17 GWENDOLYN FOURNIER BYPASS TRACHEA TO CUTANEOUS WITH TRACH DEV, OPEN APPROACH Completed 05/31/17 NANCY HOFF INSERTION OF FEEDING DEVICE INTO STOMACH, ENDO Completed 06/03/17 EDER IRVING MD TRANSFUSE NONAUT RED BLOOD CELLS IN PERIPH VEIN, PERC Completed 05/25/17 SAMPSON DAMIAN NP INSERTION OF INFUSION DEV INTO SUP VENA CAVA, PERC APPROACH Completed SUMMER MCKEON DO FLUOROSCOPY OF SUP VENA CAVA USING L OSM CONTRAST, GUIDANCE Completed SUMMER MCKEON DO INSERTION OF INFUSION DEV INTO SUP VENA CAVA, PERC APPROACH Completed OMAR BENITEZ MD ULTRASONOGRAPHY OF SUPERIOR VENA CAVA, GUIDANCE Completed 06/04/17 OMAR BENITEZ MD Computed tomography of brain without radiopaque contrast Active 05/23/17 SHELLEY REYES MD Ultrasound, renal Active 05/24/17 GWENDOLYN FOURNIER Computed tomography of brain without radiopaque contrast Active 05/27/[address] of abdomen and pelvis without contrast Active 07/26/17 ABO GRANT MD Encounters Encounter Location Arrival/Admit Date Discharge/Depart Date Attending Provider Discharged Inpatient [facility] 07/26/17 10:50pm 6:45pm ABDULAZIZ PARK MD Discharged Inpatient [facility] 05/23/17 3:33pm 06/10/17 4:00pm REJI ORTIZ MD
--- OUTSIDE RECORDS SUMMARY | 2017-09-15 14:34 | XMS REPORT ---
Author Author Admin, [place] Organization [facility] Address Unknown Phone Unavailable Allergies, Adverse Reactions, Alerts Allergy Name Reaction [...] Generic Name NDC Status Provider Patient Instruction CLONAZEPAM TABLET 1 m/2 Twice a Day CLONAZEPAM TABS 53706610498 Active Darnell Pablo MD Active PAXIL 30 MG ORAL TABLET 1 tab By Mouth Twice a Day PAROXETINE HCL 45412624472 Active Darnell Pablo MD Active SEROQUEL 100 MG ORAL TABLET 1 tab By Mouth take at bedtime for insomnia, mood QUETIAPINE FUMARATE 90844134181 Active Darnell Pablo MD Active EFFEXOR XR 37.5 MG ORAL CAPSULE EXTENDED RELEASE 24 HOUR 1 cap By Mouth take at bedtime for depression EFFEXOR XR 37.5 MG ORAL CAPSULE EXTENDED RELEASE 24 HOUR VENLAFAXINE HCL Inactive ALPRAZOLAM 0.25 MG ORAL TABLET Take 1 tablet at night ALPRAZOLAM 0.25 MG ORAL TABLET 332852 ALPRAZOLAM Inactive BUSPIRONE HCL 15 MG ORAL TABLET 1 tab By Mouth Three Times a Day for anxiety, depression BUSPIRONE HCL 15 MG ORAL TABLET 451044 BUSPIRONE HCL Inactive EFFEXOR XR 37.5 MG ORAL CAPSULE EXTENDED RELEASE 24 HOUR 1 cap By Mouth take at bedtime for depression VENLAFAXINE HCL 75659738978 No Longer Active Darnell Pablo MD Active ALPRAZOLAM 0.25 MG ORAL TABLET Take 1 tablet at night ALPRAZOLAM 83962046409 No Longer Active Darnell Pablo MD Active BUSPIRONE HCL 15 MG ORAL TABLET 1 tab By Mouth Three Times a Day for anxiety, depression BUSPIRONE HCL 33408566480 No Longer Active Darnell Pablo MD Active Vital Signs Date Name Value Unit Range Description blood pressure, diastolic 73 mm[Hg] BP schuler blood pressure, systolic 126 mm[Hg] BP sys height E&M 63 [in_us] Bdy height pulse rate E&M 60 /min Heart rate weight E&M 168.80 [lb_av] Weight Measured blood pressure, diastolic 72 mm[Hg] BP schuler blood pressure, systolic 131 mm[Hg] BP sys height E&M 63 [in_us] Bdy height pulse rate E&M 80 /min Heart rate weight E&M 168 [lb_av] Weight Measured height E&M 63.00 [in_us] Bdy height weight [...] rate weight E&M 187.40 [lb_av] Weight Measured Diagnostic Results Date Name [...] ... - Chemistry urea nitrogen/creatinine ratio, serum 10 04- immature granulocytes, percentage of total cells, blood [...] - Hematology platelet count 184 X10E3/UL 10*3/mm3 318-820 2759/08/22 red blood cell distribution width 14.1 % [...] 5-40 Encounters Date Encounter Provider Code Facility 12:54:54 CDT Est Patient Exp Problem - 86276 Darnell Pablo MD CPT -59958 [facility] 11:47:18 CDT Est Patient Detailed - 79770 Darnell Pablo MD CPT- 66092 [facility] 15:52:26 MANAGER FIRE Est Patient Detailed - 09728 Darnell Pablo MD CPT- 08958 [facility] 13:17:21 CDT Est Patient Exp Problem - 25799 Darnell Pablo MD CPT -30170 [facility] 12:36:24 CDT Est Patient Exp Problem - 17651 Darnell Pablo MD CPT -15308 [facility] 10:15:54 CDT Est Patient Detailed - 13455 Darnell Pablo MD CPT- 85517 [facility] 15:51:09 CDT Est Patient Exp Problem - 84175 Darnell Pablo MD CPT -16787 [facility] 10:59:14 MANAGER FIRE Est Patient Exp Problem - 45537 Darnell Pablo MD CPT -30566 [facility] 16:57:19 CDT Est Patient Exp Problem - 19973 Darnell Pablo MD CPT -33658 [facility] 13:48:31 CDT Est Patient Exp Problem - 82776 Darnell Pablo MD CPT -37696 [facility] 15:40:52 CDT Est Patient Exp Problem - 69439 Darnell Pablo MD CPT -83383 [facility] 08:40:11 MANAGER FIRE Est Patient Problem Focus - 98298 Darnell Pablo MD CPT-87290 [facility] 13:46:21 MANAGER FIRE Est Patient Problem Focus - 92654 Darnell Pablo MD CPT-53646 [facility] 15:02:45 MANAGER FIRE Est Patient Problem Focus - 29491 Darnell Pablo MD CPT-79541 [facility] Procedures Code Procedure Name Date Entry Date Standard Description CPT-63917 Psychotherapy 45 (38-52*) min - 54547 (with patient and/or family member) 14:32:57 MANAGER FIRE CPT-27484 Diagnostic evaluation (no medical) - 21212 23:03:56 MANAGER FIRE
[2017-09-15] MEDS ORDERED: PANTOPRAZOLE 40 MG 10ML VIAL IV STA (14:54)
[2017-09-15] MEDS ORDERED: ONDANSETRON HCL 4 MG ORAL DISINTEGRATING TAB PO ONE (15:00)
[2017-09-15] MEDS ORDERED: LORAZEPAM INJ 2 MG/ML VIAL IV ONE (15:30)
[2017-09-15 15:32] LABS: BASOPHILS % 0.5 % (0.0-1.0); EOSINOPHILS # (AUTO) 0.2 (0.0-0.4); EOSINOPHILS % 3.8 % (0.0-6.0); HEMATOCRIT 29.5 % (34.2-44.1); HEMOGLOBIN 9.6 g/dL (12.0-16.0); LYMPHOCYTES % 32.3 % (18.0-39.1); MEAN CORPUSCULAR HEMOGLOBIN 28.7 pg (28-32); MEAN CORPUSCULAR HGB CONC 32.5 g/dL (31-35); MEAN CORPUSCULAR VOLUME 88.3 fL (81-99); NEUTROPHILS # (AUTO) 2.9 (2.1-6.9); NEUTROPHILS % 47.1 % (38.7-80.0); PLATELET COUNT 182 x10e3/uL (140-360); RED BLOOD COUNT 3.34 x10e6/uL (3.6-5.1); RED CELL DISTRIBUTION WIDTH 14.7 % (11.7-14.4)
[2017-09-15 15:37] LABS: INR 1.17
[2017-09-15 15:40] LABS: OCCULT BLOOD STOOL POSITIVE (NEGATIVE)
[2017-09-15 15:52] LABS: ALBUMIN 2.7 g/dL (3.5-5.0); ALBUMIN/GLOBULIN RATIO 0.8 (0.8-2.0); CALCIUM 9.7 mg/dL (8.4-10.2); CREATININE, SERUM 3.44 mg/dL (0.57-1.11); MAGNESIUM 1.6 MG/DL (1.3-2.1)
[2017-09-15 15:58] LABS: CREATINE KINASE MB 0.7 ng/mL (0-5.0)
--- NOTE | 2017-09-15 16:15 | Diagnostic Imaging Report ---
EXAMINATION: Chest, CHEST SINGLE (PORTABLE) INDICATION: Chest pain COMPARISON: Chest portable 07/26/2017 FINDINGS: LINES: Right internal jugular tunneled central venous catheter with tip projecting over the expected region of the right atrium. Heart: Normal cardiac silhouette. Vascular: The pulmonary vasculature is within normal limits. Atherosclerotic calcifications of the aortic arch. Mediastinum: No mediastinal, hilar, or axillary mass or lymphadenopathy. Lungs: No parenchymal mass. No focal consolidation. Bibasilar atelectasis. Pleura: No pleural effusion. No pneumothorax. Bones: No acute osseous abnormality. Degenerative changes of the thoracic spine. Soft tissues: Normal. Impression: No acute radiographic abnormality. Signed by: Dr. Alex Alonso M.D. on 09/15/2017 4:12 PM
[2017-09-15] MEDS ORDERED: ONDANSETRON HCL 4 MG ORAL DISINTEGRATING TAB PO PRN (17:30)
[2017-09-15] MEDS ORDERED: ZOLPIDEM TARTRATE 5 MG TAB PO PRN (17:30)
--- NOTE | 2017-09-15 17:56 | Diagnostic Imaging Report ---
EXAM: CT Abdomen and Pelvis WITHOUT contrast INDICATION: Abdominal pain COMPARISON: CT abdomen and pelvis 07/26/2017 TECHNIQUE: Abdomen and pelvis were scanned utilizing a multidetector helical scanner from the lung base to the pubic symphysis. Coronal and sagittal reformations were obtained. The lack of intravenous contrast limits the evaluation of the solid organs, vasculature, and possible lymphadenopathy. Protocol: General survey without contrast IV CONTRAST: No intravenous contrast was administered as per physician request. ORAL CONTRAST: Oral contrast was administered. COMPLICATIONS: None. RADIATION DOSE: Total Exam DLP: 647.1 mGy*cm. CTDIvol has been reviewed. It is below the limits set by the Radiation Protocol Committee (RPC). FINDINGS: LINES: None. Lower thorax: No parenchymal abnormality. No pneumothorax. No pleural effusion. Bibasilar atelectasis. Liver: No focal mass. No hepatomegaly. Normal parenchyma. Gallbladder: No gallstones. No gallbladder distention. Biliary tree: No intrahepatic duct dilation. No extrahepatic duct dilation. Spleen: No splenomegaly. No focal mass. Pancreas: No focal mass. Normal pancreatic duct. No peripancreatic inflammatory changes. Kidneys: No obstructing calculi. No hydronephrosis. Simple cyst is present in the inferior pole of the right kidney. No perinephric soft tissue inflammatory changes. The kidneys are atrophic bilaterally. Adrenal glands: No adrenal nodules.. Bladder: Normal urinary bladder. Pelvic organs: Hysterectomy. Right ovarian cyst. No left ovary is visualized. GI: Circumferential bowel wall thickening is present in the cecum, series 2 image 51 and series 301 image 50. Minimal adjacent soft tissue inflammatory changes are present. Numerous diverticuli are present in the descending and sigmoid colon, with adjacent soft tissue inflammatory changes and bowel wall thickening, series 2 image 70. No focal drainable fluid collection. No perforation. No air-fluid levels. The stomach and small bowel are normal. Normal appendix. A moderate amount of retained feces limits intraluminal evaluation of the colon. Peritoneum/retroperitoneum: No pneumoperitoneum. No ascites. No drainable fluid collection. Lymph nodes: No lymphadenopathy. . Vessels: No focal abnormality. Aortoiliac atherosclerotic calcifications. Limited evaluation. Bones: No focal abnormality. Degenerative changes of the lumbar spine. Soft tissues: No focal abnormality. IMPRESSION: Acute diverticulitis of the distal descending and sigmoid colon, without evidence of perforation, obstruction, or drainable fluid collection. Circumferential bowel wall thickening of the cecum may represent a colitis of infectious or inflammatory etiology. Signed by: Dr. Alex Alonso M.D. on 09/15/2017 5:53 PM
[2017-09-15] MEDS ORDERED: POTASSIUM CHLORIDE 20 MEQ TAB CR PO ONE (18:00)
[2017-09-15] MEDS: VANCOMYCIN 250MG/5ML ORAL SOLN PO SCH (18:07)
[2017-09-15] MEDS: HEPARIN SOD (PORCINE) 5,000 UNIT/ML VIAL SC SCH (18:07)
[2017-09-15] MEDS ORDERED: MORPHINE SULFATE 2 MG/ML SYR IV PRN (18:30)
--- OUTSIDE RECORDS SUMMARY | 2017-09-15 18:41 | XMS REPORT | Clinical Summary ---
Author Author RADHA [facility] Address Unknown Phone Unavailable Care Team Providers Care Artist Consultant Name Role Phone PCP Unavailable Allergies Not [...] Ref Range Ejection Fraction Specimen Performing Laboratory [facility]ART[facility] MKCKESSON CPACS Impressions Right Impression [...] of Study 05/16/2017 ERIKA Age 81 Visit [id number] Gender Female Date of 1935 Number Referring Whitney Samuelswhitney StoneRoom Number Physician Coconut Boiler Caroline Kemp InterpretingFlorin Morgan RN, Rick CASTILLO, RPVI Procedure Type of Study: Veins: Upper Extremity Vein Mapping, VEIN MAPPING ARM/ARMS. Indications for Study:Chronic kidney disease . Patient Status:Routine. Study Location:Vascular Lab. Technical Quality:Adequate visualization. Risk Factors History of Disease + +----+--------+ !Diagnosis !Date!Comments! + +----+--------+ !History/Risk Factors: !!CKD ! + +----+--------+ Procedure Note Interface, External Ris In - 05/16/2017 6:16 PM ARCHIVAL STUDIES PROFESSOR [facility] - Upper Extremities Vein Mapping Demographics Patient Name MACHELLE QUICK Date of Study 05/16/2017 ERIKA Age 81 Visit Number [id number] Gender Female Date of 1935 Number Referring Whitney Stone Room Number Physician Coconut Boiler Caroline Kemp Interpreting Florin Morgan RN, RVT [...]
--- OUTSIDE RECORDS SUMMARY | 2017-09-15 18:41 | XMS REPORT ---
Author Author Admin, [employer] Organization [facility] Address Unknown Phone Unavailable Allergies, Adverse Reactions, [...] 1 m/2 Twice a Day CLONAZEPAM TABS 75094104001 Active Darnell Pablo MD Active PAXIL 30 MG ORAL TABLET 1 tab By Mouth Twice a Day PAROXETINE HCL 37723566742 Active Darnell Pablo MD Active SEROQUEL 100 MG ORAL TABLET 1 tab By Mouth take at bedtime for insomnia, mood QUETIAPINE FUMARATE 95402160593 Active Darnell Pablo MD Active EFFEXOR XR 37.5 MG ORAL CAPSULE EXTENDED RELEASE 24 HOUR 1 cap By Mouth take at bedtime for depression EFFEXOR XR 37.5 MG ORAL CAPSULE EXTENDED RELEASE 24 HOUR VENLAFAXINE HCL Inactive ALPRAZOLAM 0.25 MG ORAL TABLET Take 1 tablet at night ALPRAZOLAM 0.25 MG ORAL TABLET 260711 ALPRAZOLAM Inactive BUSPIRONE HCL 15 MG ORAL TABLET 1 tab By Mouth Three Times a Day for anxiety, depression BUSPIRONE HCL 15 MG ORAL TABLET 858216 BUSPIRONE HCL Inactive EFFEXOR XR 37.5 MG ORAL CAPSULE EXTENDED RELEASE 24 HOUR 1 cap By Mouth take at bedtime for depression VENLAFAXINE HCL 97388454398 No Longer Active Darnell Pablo MD Active ALPRAZOLAM 0.25 MG ORAL TABLET Take 1 tablet at night ALPRAZOLAM 65002204876 No Longer Active Darnell Pablo MD Active BUSPIRONE HCL 15 MG ORAL TABLET 1 tab By Mouth Three Times a Day for anxiety, depression BUSPIRONE HCL 70815338776 No Longer Active Darnell Pablo MD Active [...] - Hematology platelet count 184 X10E3/UL 10*3/mm3 392-313 3082/08/22 red blood cell distribution width 14.1 % [...] 12:54:54 CDT Est Patient Exp Problem - 56436 Darnell Pablo MD CPT -68287 [facility] 11:47:18 CDT Est Patient Detailed - 99987 Darnell Pablo MD CPT- 32545 [facility] 15:52:26 RECEPTIONIST NURSE Est Patient Detailed - 03506 Darnell Pablo MD CPT- 25384 [facility] 13:17:21 CDT Est Patient Exp Problem - 96384 Darnell Pablo MD CPT -06934 [facility] 12:36:24 CDT Est Patient Exp Problem - 50483 Darnell Pablo MD CPT -85602 [facility] 10:15:54 CDT Est Patient Detailed - 33411 Darnell Pablo MD CPT- 47369 [facility] 15:51:09 CDT Est Patient Exp Problem - 19440 Darnell Pablo MD CPT -15376 [facility] 10:59:14 RECEPTIONIST NURSE Est Patient Exp Problem - 96137 Darnell Pablo MD CPT -73901 [facility] 16:57:19 CDT Est Patient Exp Problem - 62397 Darnell Pablo MD CPT -68801 [facility] 13:48:31 CDT Est Patient Exp Problem - 57888 Darnell Pablo MD CPT -68302 [facility] 15:40:52 CDT Est Patient Exp Problem - 62236 Darnell Pablo MD CPT -16321 [facility] 08:40:11 RECEPTIONIST NURSE Est Patient Problem Focus - 63993 Darnell Pablo MD CPT-88686 [facility] 13:46:21 RECEPTIONIST NURSE Est Patient Problem Focus - 19788 Darnell Pablo MD CPT-97775 [facility] 15:02:45 RECEPTIONIST NURSE Est Patient Problem Focus - 62980 Darnell Pablo MD CPT-63071 [facility] Procedures Code Procedure Name Date Entry Date Standard Description CPT-61875 Psychotherapy 45 (38-52*) min - 82335 (with patient and/or family member) 14:32:57 RECEPTIONIST NURSE CPT-26938 Diagnostic evaluation (no medical) - 58615 23:03:56 RECEPTIONIST NURSE
[2017-09-15] MEDS ORDERED: LEVOFLOXACIN 500MG/D5W 100ML 100 ML IV ONE (19:00)
[2017-09-15] MEDS: METRONIDAZOLE 500MG/NS 100ML 100 ML IV SCH ×2 (19:15→23:38)
[2017-09-15] MEDS ORDERED: ALPRAZOLAM 0.25 MG TAB PO STA (20:49)
[2017-09-15] MEDS: INSULIN LISPRO 100 UNIT/1 ML 3ML VIAL SQ SCH (21:00)
[2017-09-15] MEDS ORDERED: CLONAZEPAM0.5 MG PO (21:38)
[2017-09-15] MEDS ORDERED: METOPROLOL TART25 MG PO (21:38)
[2017-09-15] MEDS ORDERED: REVATIO20 MG PO (21:38)
[2017-09-15] MEDS ORDERED: QUETIAPINE FUM100 MG PO (21:38)
[2017-09-15] MEDS ORDERED: PAROXETINE HCL20 MG PO (21:38)
[2017-09-15 22:40] VITALS: BP 171/73
[2017-09-15] MEDS ORDERED: SODIUM CHLORIDE 0.9% 250ML 250 ML ONE (23:30)
[2017-09-15] MEDS: ACETAMINOPHEN 325 MG TAB PO PRN (23:39)
[2017-09-15 23:50] VITALS: BP 147/67
[2017-09-16] VITALS (8 sets, daily range): BP systolic 140–182; BP diastolic 67–83
[2017-09-16] MEDS: VANCOMYCIN 250MG/5ML ORAL SOLN PO SCH ×4 (00:20→17:34)
[2017-09-16] MEDS: HYDRALAZINE HCL 20 MG/ML VIAL IV PRN ×2 (05:20→16:32)
[2017-09-16] MEDS: METRONIDAZOLE 500MG/NS 100ML 100 ML IV SCH (05:20)
[2017-09-16 06:26] LABS: BASOPHILS % 0.4 % (0.0-1.0); EOSINOPHILS # (AUTO) 0.2 (0.0-0.4); EOSINOPHILS % 3.8 % (0.0-6.0); HEMATOCRIT 27.6 % (34.2-44.1); HEMOGLOBIN 8.8 g/dL (12.0-16.0); LYMPHOCYTES # (AUTO) 1.6 (1.0-3.2); LYMPHOCYTES % 31.2 % (18.0-39.1); MEAN CORPUSCULAR HEMOGLOBIN 28.9 pg (28-32); MEAN CORPUSCULAR HGB CONC 31.9 g/dL (31-35); MEAN CORPUSCULAR VOLUME 90.8 fL (81-99); MONOCYTES # (AUTO) 0.9 (0.2-0.8); MONOCYTES % 17.9 % (4.4-11.3); NEUTROPHILS # (AUTO) 2.4 (2.1-6.9); NEUTROPHILS % 46.3 % (38.7-80.0); PLATELET COUNT 145 x10e3/uL (140-360); RED BLOOD COUNT 3.04 x10e6/uL (3.6-5.1); RED CELL DISTRIBUTION WIDTH 14.6 % (11.7-14.4)
[2017-09-16 06:50] LABS: ANION GAP 12.3 mmol/L (8-16); CALCIUM 9.2 mg/dL (8.4-10.2); CREATININE, SERUM 4.11 mg/dL (0.57-1.11); MAGNESIUM 1.6 MG/DL (1.3-2.1); POTASSIUM 3.3 mmol/L (3.5-5.1)
[2017-09-16] MEDS: INSULIN LISPRO 100 UNIT/1 ML 3ML VIAL SQ SCH ×4 (07:30→20:49)
[2017-09-16] MEDS: HEPARIN SOD (PORCINE) 5,000 UNIT/ML VIAL SC SCH ×2 (08:31→20:51)
[2017-09-16 08:57] LABS: C DIFFICILE TOXIN A&B AMP PROB **POSITIVE** (NEGATIVE)
[2017-09-16 09:09] LABS: BILIRUBIN,URINE NEGATIVE (NEGATIVE); CLARITY,URINE SL CLOUDY (CLEAR); COLOR,URINE YELLOW (YELLOW); KETONES,URINE NEGATIVE (NEGATIVE); LEUKOCYTE ESTERASE ,URINE NEGATIVE (NEGATIVE); NITRITE,URINE NEGATIVE (NEGATIVE); PROTEIN,URINE DIPSTICK 2+ (NEGATIVE); URINE UROBILINOGEN 0.2 mg/dL (0.2 - 1)
[2017-09-16] MEDS ORDERED: POTASSIUM CHLORIDE 20 MEQ TAB CR PO ONE (12:00)
[2017-09-16] MEDS: NIFEDIPINE CR 30 MG TAB PO SCH (12:25)
[2017-09-16 14:11] LABS: EPITHELIAL CELLS,URINE MODERATE /LPF; RBC,URINE 0-5 /HPF (0-5)
[2017-09-16] MEDS: ACETAMINOPHEN 325 MG TAB PO PRN (16:30)
[2017-09-16] MEDS: ALPRAZOLAM 0.25 MG TAB PO PRN (16:30)
[2017-09-17] VITALS (8 sets, daily range): BP systolic 117–149; BP diastolic 58–75
[2017-09-17] MEDS: VANCOMYCIN 250MG/5ML ORAL SOLN PO SCH ×4 (00:10→18:00)
[2017-09-17 06:33] LABS: ANION GAP 14.2 mmol/L (8-16); CALCIUM 9.7 mg/dL (8.4-10.2); CREATININE, SERUM 4.9 mg/dL (0.57-1.11); POTASSIUM 3.2 mmol/L (3.5-5.1)
[2017-09-17] MEDS: INSULIN LISPRO 100 UNIT/1 ML 3ML VIAL SQ SCH ×4 (07:30→20:11)
[2017-09-17] MEDS: HEPARIN SOD (PORCINE) 5,000 UNIT/ML VIAL SC SCH ×2 (08:22→20:30)
[2017-09-17] MEDS: ALPRAZOLAM 0.25 MG TAB PO PRN ×2 (08:22→19:40)
[2017-09-17] MEDS: NIFEDIPINE CR 30 MG TAB PO SCH (08:22)
[2017-09-17] MEDS: ACETAMINOPHEN 325 MG TAB PO PRN (08:22)
[2017-09-17] MEDS: EPOETIN ALFA 10000 UNIT/ML VIAL SC SCH (08:22)
[2017-09-17] MEDS ORDERED: POTASSIUM CHLORIDE 20 MEQ TAB CR PO STA (09:38)
[2017-09-17] MEDS ORDERED: HEPARIN SOD (PORCINE) 1000 UNIT/ML SDV IV PRN (10:45)
[2017-09-17] MEDS ORDERED: SODIUM CHLORIDE 0.9% 1000ML 2,000 ML IV PRN (10:45)
[2017-09-17] MEDS ORDERED: LOPERAMIDE HCL 2 MG CAP PO ONE (11:15)
[2017-09-17] MEDS ORDERED: PHENYLEPH/SHARK OIL/MO/PETROL 30 GM OINT RC PRN (11:15)
[2017-09-17] MEDS ORDERED: BISMUTH SUBSALICYLATE 262 MG TAB PO PRN (12:15)
--- NOTE | 2017-09-17 14:54 | Consultation ---
DATE OF CONSULTATION: REASON FOR CONSULTATION: C. diff colitis, 3rd recurrence. HISTORY OF PRESENT ILLNESS: This is an 82-year-old white female whose chief complaint is abdominal pain, fever, chills, and diarrhea. This is an 82-year-old who is a patient of [facility]. The patient has been having C. diff. This is the 3rd recurrence. Apparently the last time she was here, she was discharged home with oral vancomycin. She finished 2 weeks, then extended as per the recommendation for C. diff treatment. The first time she took oral vancomycin for 14 days. The 2nd time was 14 days plus the extended tapering time. Apparently, she was followed by outpatient GI at [facility]. The patient is coming back 1 week after she stopped the vancomycin with diarrhea, abdominal pain, not feeling well, feeling feverish. Patient was admitted, and infectious disease was consulted. The patient is currently lying in bed comfortably, but she is in pain. 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 PAST SURGICAL HISTORY: IV access for dialysis. ALLERGIES: IODINE. SOCIAL HISTORY: There is no smoking, drug abuse or alcohol abuse. FAMILY HISTORY: Hypertension. MEDICATIONS: She is on Plendil, clonidine, BuSpar, calcitriol, Lasix, hydralazine, hydrocodone, metoprolol, Zofran Paxil, Seroquel, simvastatin. REVIEW OF SYSTEMS HEENT: There is no headache, visual changes or hearing changes. GI: There is nausea. There is abdominal pain. She is having diarrhea. : There is no history of frequency. There is no rash. LAB DATA: Reviewed. Her C. diff was positive. Urine shows enterococcus. Her white count is 6.13 and hemoglobin 9.6. PHYSICAL EXAMINATION GENERAL: She is currently alert and oriented, does not seem to be in acute distress. VITALS: Stable, currently afebrile. HEENT: She is normocephalic. Not icteric. NECK: Supple. CHEST: Clear. HEART: S1, S2. No murmur. ABDOMEN: Soft. Bowel sounds are present. No tenderness. EXTREMITIES: No edema. IMPRESSION: Recurrent Clostridium difficile colitis. We will put her on vancomycin 250 mg p.o. q.6 h, Questran 1 pack p.o. b.i.d. 1 hour away from vancomycin, metronidazole 500 mg IV q.8. Pepto-Bismol to be used 1 q.8 h. p.r.n. diarrhea. Fluid to be managed by renal. Will follow in the morning. She is going on an extended period of time on oral vancomycin. Discussed with the attending. Discussed with the patient. Will follow. Job#: [id number]
[2017-09-17] MEDS: CHOLESTYRAMINE 4 GM PACKET PO SCH (16:33)
[2017-09-18] VITALS: BP 135/64
[2017-09-18] MEDS: VANCOMYCIN 250MG/5ML ORAL SOLN PO SCH ×4 (00:05→17:18)
[2017-09-18 05:20] VITALS: BP 176/74
[2017-09-18] MEDS: HYDRALAZINE HCL 20 MG/ML VIAL IV PRN (06:01)
[2017-09-18 06:44] LABS: ANION GAP 13.7 mmol/L (8-16); CALCIUM 9.3 mg/dL (8.4-10.2); CREATININE, SERUM 3.08 mg/dL (0.57-1.11); MAGNESIUM 1.6 MG/DL (1.3-2.1); POTASSIUM 3.7 mmol/L (3.5-5.1)
[2017-09-18] MEDS: INSULIN LISPRO 100 UNIT/1 ML 3ML VIAL SQ SCH ×4 (07:30→20:19)
[2017-09-18 08:00] VITALS: BP 170/72
[2017-09-18] MEDS: NIFEDIPINE CR 30 MG TAB PO SCH (08:28)
[2017-09-18] MEDS: CHOLESTYRAMINE 4 GM PACKET PO SCH ×2 (08:28→17:18)
[2017-09-18] MEDS: HEPARIN SOD (PORCINE) 5,000 UNIT/ML VIAL SC SCH ×2 (08:29→20:07)
[2017-09-18 12:00] VITALS: BP 158/71
[2017-09-18] MEDS: LINEZOLID 600 MG TAB PO SCH ×2 (12:11→21:00)
[2017-09-18 16:00] VITALS: BP 147/65
[2017-09-18 20:00] VITALS: BP 153/65
[2017-09-18] MEDS: ALPRAZOLAM 0.25 MG TAB PO PRN (20:00)
[2017-09-18] MEDS ORDERED: LORAZEPAM INJ 2 MG/ML VIAL IV ONE (22:00)
[2017-09-19] VITALS: BP 178/79
[2017-09-19 04:00] VITALS: BP 178/79
[2017-09-19] MEDS: VANCOMYCIN 250MG/5ML ORAL SOLN PO SCH ×4 (06:00→17:35)
[2017-09-19] MEDS: INSULIN LISPRO 100 UNIT/1 ML 3ML VIAL SQ SCH ×3 (07:30→16:30)
[2017-09-19 08:00] VITALS: BP_SYST 134; BP_SYST 181; BP_DIAS 63; BP_DIAS 76
[2017-09-19] MEDS: LINEZOLID 600 MG TAB PO SCH (09:06)
[2017-09-19] MEDS: EPOETIN ALFA 10000 UNIT/ML VIAL SC SCH (09:06)
[2017-09-19] MEDS: HEPARIN SOD (PORCINE) 5,000 UNIT/ML VIAL SC SCH (09:06)
[2017-09-19] MEDS: NIFEDIPINE CR 30 MG TAB PO SCH (09:06)
[2017-09-19] MEDS: CHOLESTYRAMINE 4 GM PACKET PO SCH ×2 (09:06→17:35)
[2017-09-19] MEDS: CLONAZEPAM 0.5 MG TAB PO SCH ×2 (10:15→17:40)
[2017-09-19 12:00] VITALS: BP 182/80
[2017-09-19 16:00] VITALS: BP 171/79
--- NOTE | 2017-09-19 16:08 | Discharge Summary ---
PRIMARY CARE PHYSICIAN: Dr. Richi Nelson. FINAL DIAGNOSIS: Recurrent Clostridium difficile colitis. SECONDARY DIAGNOSES 1. End-stage renal disease due to diabetes. 2. Anxiety. 3. Uncontrolled hypertension, better. CONSULTANTS: Dr. Porter, nephrology and Dr. Madden, infectious disease. HISTORY: Per H\T\P. PROCEDURES/STUDIES: CT of the abdomen and pelvis. HOSPITAL COURSE: I have spoken to her primary care physician. This is actually her third episode of C. diff. colitis. She was only off vancomycin for about 10 days. The patient responded to p.o. vancomycin, although slower. The patient at one time had dysuria. 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 After discussing with Dr. Madden, the decision was to put her on a 3-day course of Zyvox. Her dysuria has resolved. The patient will be going home today on one more day of Zyvox. The patient will be on p.o. vancomycin indefinitely. The patient will follow up with Dr. Madden in 2 weeks. I believe her primary care physician is also having her to follow up with GI at [facility]. The patient will also go home on Questran for 2 weeks. The patient was seen and examined today. It took 32 minutes in total to discharge this patient. CONDITION ON DISCHARGE: Improved. DISCHARGE MEDICATIONS: Please see medication reconciliation form. ABDULAZIZ PARK M.D. Job#: [id number] cc:RICHI NELSON MD
[2017-09-19] MEDS ORDERED: VANCOMYCIN HCL1 GM PO (18:23)
[2017-09-19] MEDS ORDERED: ZYVOX600 MG PO (18:24)
[2017-09-19] MEDS ORDERED: QUESTRAN PACKET4 GM PO (18:24)
== END 2017-09-19 20:21 | disposition home or self-care (01) | DRG 371 ==
LOC: ER 14:31 → ERHOLD 18:38 → MED/SURG 21:02 → MED/SURG2 22:50
PROVIDERS: ADMIT Internal Medicine; ATTEND Internal Medicine
PROC: 5A1D70Z Performance of Urinary Filtration, Intermittent, Less than 6 Hours Per Day (ICD-10-PCS; principal; 2017-09-17)
DX: A04.71 Enterocolitis due to Clostridium difficile, recurrent (principal); N18.6 End stage renal disease; I12.0 Hypertensive chronic kidney disease with stage 5 chronic kidney disease or end stage renal disease; K57.32 Diverticulitis of large intestine without perforation or abscess without bleeding; E11.22 Type 2 diabetes mellitus with diabetic chronic kidney disease; B95.2 Enterococcus as the cause of diseases classified elsewhere; E78.5 Hyperlipidemia, unspecified; Z99.2 Dependence on renal dialysis; E87.6 Hypokalemia; F41.9 Anxiety disorder, unspecified; D64.9 Anemia, unspecified; Z16.21 Resistance to vancomycin
CPT/HCPCS: 36415; 71045; 74176; 80048; 80053; 81001; 82270; 82550; 82553; 82948; 83735; 84484; 85025; 85610; 85730; 86704; 86706; 87040; 87086; 87186; 87340; 87493; 93005; 99285; J0360; J1644; J1956; J2060; J7030; J7050; Q4081

== ENCOUNTER 2018-05-15 08:55 | Inpatient (IN) | payer MEDICARE ==
[~2018-05-15] VITALS: Ht 160 cm; Wt 90.9 kg
[~2018-05-15 08:55] MED LIST changes: +CLONAZEPAM0.5 MG PO; +QUESTRAN PACKET4 GM PO; +REVATIO20 MG PO; +VANCOMYCIN HCL1 GM PO; +ZYVOX600 MG PO
--- OUTSIDE RECORDS SUMMARY | 2018-05-15 08:58 | XMS REPORT | Clinical Summary ---
Author Author RADHA [facility] Address Unknown Phone Unavailable Care Team Providers Care Welt Beater Name Role Phone Pcp, No PCP Unavailable Allergies Comments Active Allergy Reactions Severity Noted Date "IV dye used in CT scan." Iodine Hives High 03/29/2008 Medications End Date Status Medication Sig Dispensed Refills Start Date Active cholestyramine (QUESTRAN) 2 (two) times 0 4 gram PwPk packet daily. Active metoprolol (LOPRESSOR) 25 Take 25 mg by 0 MG tablet mouth 2 (two) times daily. Active QUEtiapine (SEROQUEL) 100 Take 100 mg 0 MG tablet by mouth nightly . Active QUEtiapine (SEROQUEL) 25 1 tab By 0 11/06/201 MG tablet Mouth Every 8 Morning and qnoon for mood Active clonazePAM (KLONOPIN) 1 0.5 mg 2 0 09/13/201 MG tablet (two) times 8 daily. Active PARoxetine (PAXIL) 30 MG 1 tab By 0 tablet Mouth Every 6 Morning and 1/2 at night Active NIFEdipine (ADALAT CC) 30 Take 30 mg by 0 MG 24 hr tablet mouth daily. 8 Active sevelamer (RENAGEL) 800 Take 2 0 MG tablet tablets by mouth 3 (three) times daily. Active cholecalciferol, vitamin Take 2,000 0 D3, 2,000 unit Tab Units by 7 mouth every 14 (fourteen) days. Active vancomycin (VANCOCIN) 125 3 (three) 0 05/04/201 MG capsule times a week. 8 Active aspirin 81 MG EC tablet Take 81 mg by 0 mouth daily. Active Problems Not on file Encounters Care Team Description Date Type Specialty Lee Ann Mcdonough MD 11/28/2017 Office Visit Cardiology Lee Ann Mcdonough MD 11/14/2017 Outside Orders Cardiology Dru Olson MD Chronic kidney disease, stage V (HCC) 05/16/2017 Hospital Radiology Encounter Dru Olson MD Chronic kidney disease, stage V (HCC) (Primary Dx) 05/15/2017 Outside Orders Radiology after 05/14/2017 Family History Medical History Relation Name Comments Diabetes Father Relation Name Status Comments Father Mother Social History Date Tobacco Use Types Packs/Day Years Used Never Smoker Smokeless Tobacco: Never Used Alcohol Use Drinks/Week oz/Week Comments No Sex Assigned at Date Recorded Not on file Industry Job Start Date Occupation Not on file Not on file Not on file Travel End Travel History Travel Start No recent travel history available. Last Filed Vital Signs Time Taken Vital Sign Reading 11/28/2017 7:46 AM CDT Blood Pressure 129/71 11/28/2017 7:46 AM CDT Pulse 61 11/28/2017 7:46 AM CDT Temperature 36.3 C (97.3 F) 11/28/2017 7:46 AM CDT Respiratory Rate 18 11/28/2017 7:46 AM CDT Oxygen Saturation 95% - Inhaled Oxygen - Concentration 11/28/2017 7:46 AM CDT Weight 82.1 kg (181 lb) 11/28/2017 7:46 AM CDT Height 160 cm (5' 3") 11/28/2017 7:46 AM CDT Body Mass Index 32.06 Plan of Treatment Not on file Procedures Comments Procedure Name Priority Date/Time Associated Diagnosis PERIPHERAL VASCULAR 05/16/2017 REPORT - SCAN 6:50 PM MASTER AUTOMOTIVE TECHNICIAN VEIN MAPPING ARM/ARMS Routine 05/16/2017 Chronic kidney disease, 3:03 PM MASTER AUTOMOTIVE TECHNICIAN stage V (HCC) after 05/14/2017 Results * PERIPHERAL VASCULAR REPORT - SCAN (05/16/2017 6:50 PM MASTER AUTOMOTIVE TECHNICIAN) Narrative Performed At * Vein mapping arm/arms (05/16/2017 3:03 PM MASTER AUTOMOTIVE TECHNICIAN) Ejection Fraction [facility] CPACS Impressions Performed At Right Impression [facility] 1. There is no deep venous obstruction in the jugular, subclavian, axillary, MKCKESSON CPACS brachial, radial or ulnar veins. 2. There [...] Left + + + + + + + + !Location ! !AP Diam!Trans Diam! !AP Diam!Trans Diam! + + + + + + + + !Cephalic at Prox UA ! ! !0.19! ! !0.13! + + + + + + + + !Cephalic at Mid UA ! ! !0.17! ! !0.13! + + + + + + + + !Cephalic at Dist UA ! ! !0.17! ! !0.1 ! + + + + + + + + !Cephalic at Prox LA ! ! !0.17! ! !0.9 ! + + + + + + + + !Cephalic at Mid LA ! ! !0.11! ! !0.9 ! + + + + + + + + !Cephalic at Dist LA ! ! !0.12! ! !0.9 ! + + + + + + + + Basilic Mapping Right Left + + + + + + + + !Location ! !AP Diam!Trans Diam! !AP Diam!Trans Diam! + + + + + + + + !Basilic at Prox UA ! ! !0.52! ! !0.37! + + + + + + + + !Basilic at Mid UA ! ! !0.49! ! !0.28! + + + + + + + + !Basilic at Dist UA ! ! !0.36! ! !0.22! + + + + + + + + !Basilic at Prox LA ! ! !0.14! ! !0.22! + + + + + + + + !Basilic at Mid LA ! ! !0.13! ! !0.14! + + + + + + + + !Basilic at Dist LA ! ! !0.09! ! !0.14! + + + + + + + + Narrative Performed At PV LAB - Upper Extremities Vein Mapping [facility] Demographics [facility] Patient NameMACHELLE QUICK Date of Study 05/16/2017 JAMIE Age 81 Visit [id number] GenderFemale Date of 1935 Number Referring Whitney StoneRoom Number Physician Priest Caroline Kemp [facility]. Jorge Morgan RN, Rick CASTILLO, [facility] Procedure Type of Study: Veins: Upper Extremity Vein Mapping, VEIN MAPPING ARM/ARMS. Indications for Study:Chronic kidney disease . Patient Status:Routine. Study Location:Vascular Lab. Technical Quality:Adequate visualization. Risk Factors History of Disease + +----+--------+ !Diagnosis !Date!Comments! + +----+--------+ !History/Risk Factors: !!CKD ! + +----+--------+ Procedure Note Interface, External Ris In - 05/16/2017 6:16 PM MASTER AUTOMOTIVE TECHNICIAN PV [facility] - Upper Extremities Vein Mapping Demographics Patient Name MACHELLE QUICK Date of Study 05/16/2017 JAMIE Age 81 Visit Number [id number] Gender Female Date of 1935 Number Referring Whitney Stone Room Number Physician Priest Caroline Kemp Interpreting Florin Morgan RN, RVT Physician MD, RPVI Procedure Type of Study: Veins: Upper [...] Left + + + + + + + + !Location ! !AP Diam !Trans Diam ! !AP Diam !Trans Diam ! + + + + + + + + !Cephalic at Prox UA ! ! !0.19 ! ! !0.13 ! + + + + + + + + !Cephalic at Mid UA ! ! !0.17 ! ! !0.13 ! + + + + + + + + !Cephalic at Dist UA ! ! !0.17 ! ! !0.1 ! + + + + + + + + !Cephalic at Prox LA ! ! !0.17 ! ! !0.9 ! + + + + + + + + !Cephalic at Mid LA ! ! !0.11 ! ! !0.9 ! + + + + + + + + !Cephalic at Dist LA ! ! !0.12 ! ! !0.9 ! + + + + + + + + Basilic Mapping Right Left + + + + + + + + !Location ! !AP Diam !Trans Diam ! !AP Diam !Trans Diam ! + + + + + + + + !Basilic at Prox UA ! ! !0.52 ! ! !0.37 ! + + + + + + + + !Basilic at Mid UA ! ! !0.49 ! ! !0.28 ! + + + + + + + + !Basilic at Dist UA ! ! !0.36 ! ! !0.22 ! + + + + + + + + !Basilic at Prox LA ! ! !0.14 ! ! !0.22 ! + + + + + + + + !Basilic at Mid LA ! ! !0.13 ! ! !0.14 ! + + + + + + + + !Basilic at Dist LA ! ! !0.09 ! ! !0.14 ! + + + + + + + + Performing Organization Address City/State/Zipcode Phone Number [facility] after 05/14/2017 Insurance Payer Benefit Subscriber ID Type Phone Address Plan / Group [facility] [place] xxxxxxxxxxx MEDICARE ADV
--- OUTSIDE RECORDS SUMMARY | 2018-05-15 08:58 | XMS REPORT ---
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 Depression / anxiety ICD-300.4 Inactive Darnell Pablo MD Depression / anxiety 300.4 Resolved Darnell Pablo MD Dysthymic disorder Medication List Medication Instructions Start Date Stop Date Generic Name NDC Status Provider Patient Instruction QUETIAPINE FUMARATE 100MG TABS TAKE ONE TABLET BY MOUTH AT BEDTIME FOR INSOMNIA/MOOD QUETIAPINE FUMARATE 08307819777 Active Darnell Pablo MD Active QUETIAPINE FUMARATE 25MG TABS TAKE ONE TABLET BY MOUTH EVERY MORNING AND A NOON FOR MOOD QUETIAPINE FUMARATE 13849105051 Active Darnell Pablo MD Active PAROXETINE HCL 30MG TABS TAKE 1 TABLET BY MOUTH EVERY MORNING AND 1/2 AT NIGHT PAROXETINE HCL 93409833059 Active Darnell Pablo MD Active CLONAZEPAM TABLET 1 m/2 Twice a Day CLONAZEPAM TABS 97937566984 Active Darnell Pablo MD Active EFFEXOR XR 37.5 MG ORAL CAPSULE EXTENDED RELEASE 24 HOUR 1 cap By Mouth take at bedtime for depression EFFEXOR XR 37.5 MG ORAL CAPSULE EXTENDED RELEASE 24 HOUR VENLAFAXINE HCL Inactive ALPRAZOLAM 0.25 MG ORAL TABLET Take 1 tablet at night ALPRAZOLAM 0.25 MG ORAL TABLET 850481 ALPRAZOLAM Inactive BUSPIRONE HCL 15 MG ORAL TABLET 1 tab By Mouth Three Times a Day for anxiety, depression BUSPIRONE HCL 15 MG ORAL TABLET 069433 BUSPIRONE HCL Inactive EFFEXOR XR 37.5 MG ORAL CAPSULE EXTENDED RELEASE 24 HOUR 1 cap By Mouth take at bedtime for depression VENLAFAXINE HCL 41774268322 No Longer Active Darnell Pablo MD Active ALPRAZOLAM 0.25 MG ORAL TABLET Take 1 tablet at night ALPRAZOLAM 74258137068 No Longer Active Darnell Pablo MD Active BUSPIRONE HCL 15 MG ORAL TABLET 1 tab By Mouth Three Times a Day for anxiety, depression BUSPIRONE HCL 36238572107 No Longer Active Darnell Pablo MD Active Vital Signs Date Name Value Unit Range Description blood pressure, diastolic 81 mm[Hg] BP schuler blood pressure, systolic 144 mm[Hg] BP sys height E&M 63 [in_us] Bdy height pulse rate E&M 67 /min Heart rate weight E&M 186 [lb_av] Weight Measured blood pressure, diastolic 58 mm[Hg] BP schuler blood pressure, systolic 96 mm[Hg] BP sys height E&M 63 [in_us] Bdy height pulse rate E&M 73 /min Heart rate weight E&M 178.80 [lb_av] Weight Measured blood pressure, diastolic 84 mm[Hg] BP schuler blood pressure, systolic 130 mm[Hg] BP sys height E&M 63 [in_us] Bdy height pulse rate E&M 61 /min Heart rate weight E&M 174.13 [lb_av] Weight Measured blood pressure, diastolic 66 mm[Hg] BP schuler blood pressure, systolic 128 mm[Hg] BP sys height E&M 63 [in_us] Bdy height pulse rate E&M 67 /min Heart rate weight E&M 170.20 [lb_av] Weight Measured blood pressure, diastolic 77 mm[Hg] BP schuler blood pressure, systolic 130 mm[Hg] BP sys height E&M 63 [in_us] Bdy height pulse rate E&M 73 /min Heart rate weight E&M 164.13 [lb_av] Weight Measured blood pressure, diastolic 73 [...] height weight E&M 185.59 [lb_av] Weight Measured Diagnostic Results Date Name Value Unit Range Description Lab Report: CBC With Differential/Platelet, Comp. Metabolic Panel (14), ... - Hematology hematocrit, blood 31.7 % 34.0-46.6 Lab Report: CBC With Differential/Platelet, Comp. Metabolic Panel (14), ... - Chemistry sodium, serum 147 mmol/L 134-144 Lab Report: CBC With Differential/Platelet, Comp. Metabolic Panel (14), ... - Hematology neutrophils as percent of blood leukocytes 57 % basophils as percent of blood leukocytes 0 % Lab Report: CBC With Differential/Platelet, Comp. Metabolic Panel (14), ... - Chemistry very low density lipoproteins 28 mg/dL 5-40 carbon dioxide, venous blood 28 mmol/L 18-29 chloride, serum 106 mmol/L 97-108 triglyceride, serum, fasting 138 mg/dL 0-149 calcium, serum 9.3 mg/dL 8.7-10.3 urea nitrogen, blood 53 mg/dL 8-27 alanine aminotransferase (SGPT), serum 18 U/L 0-32 Lab Report: CBC With Differential/Platelet, Comp. Metabolic Panel (14), ... - Hematology mean corpuscular hemoglobin, RBC 30.6 pg 26.6-33.0 mean corpuscular hemoglobin concentration, RBC 33.1 G/DL % 31.5-35.7 Lab Report: CBC With Differential/Platelet, Comp. Metabolic Panel (14), ... - Chemistry protein, total, serum 5.7 g/dL 6.0-8.5 alkaline phosphatase, serum 35 U/L 39-117 Lab Report: CBC With Differential/Platelet, Comp. Metabolic Panel (14), ... - Hematology erythrocyte (RBC) count 3.43 X10E6/UL 10*6/mm3 3.77-5.28 hemoglobin, blood 10.5 g/dL 11.1-15.9 Lab Report: CBC With Differential/Platelet, Comp. Metabolic Panel (14), ... - Chemistry Absolute Neutrophils 2.7 X10E3/UL 10*3/uL 1.4-7.0 LDL cholesterol, serum 69 mg/dL 0-99 urea nitrogen/creatinine ratio, serum 22 11-26 Lab Report: CBC With Differential/Platelet, Comp. Metabolic Panel (14), ... - Hematology lymphocytes as percent of blood leukocytes 31 % mean corpuscular volume, RBC 92 fL 79-97 Lab Report: CBC With Differential/Platelet, Comp. Metabolic Panel (14), ... - Chemistry HDL cholesterol, serum 54 mg/dL >39 Lab Report: CBC With Differential/Platelet, Comp. Metabolic Panel (14), ... - Genetics/fertility eGFR if 22 mL/min/1.73m2 >59 Lab Report: CBC With Differential/Platelet, Comp. Metabolic Panel (14), ... - Hematology basophil count, absolute 0.0 x10E3/uL 0.0-0.2 monocytes as percent of blood leukocytes 9 % Lab Report: CBC With Differential/Platelet, Comp. Metabolic Panel (14), ... - Chemistry globulin, serum 1.9 1.5-4.5 albumin/globulin ratio, serum 2.0 1.1-2.5 Estimated Glomerular Filtration Rate (calc) 19 mL/min/1.73m2 >59 creatinine, serum 2.40 mg/dL 0.57-1.00 cholesterol, serum 151 mg/dL [phone]/08/22 bilirubin, serum, total 0.4 mg/dL 0.0-1.2 Lab Report: CBC With Differential/Platelet, Comp. Metabolic Panel (14), ... - Hematology Eosinophil Absolute Count 0.1 X10E3/UL 10*3/uL 0.0-0.4 eosinophils as percent of blood leukocytes 3 % Lab Report: CBC With Differential/Platelet, Comp. Metabolic Panel (14), ... - Chemistry blood glucose, random 143 mg/dL 65-99 aspartate aminotransferase (SGOT), serum 22 U/L 0-40 Lab Report: CBC With Differential/Platelet, Comp. Metabolic Panel (14), ... - Hematology red blood cell distribution width 14.1 % 12.3-15.4 leukocyte count, blood 4.8 X10E3/UL 10*3/mm3 3.4-10.8 Lab Report: CBC With Differential/Platelet, Comp. Metabolic Panel (14), ... - Chemistry potassium, serum 4.0 mmol/L 3.5-5.2 Lab Report: CBC With Differential/Platelet, Comp. Metabolic Panel (14), ... - Hematology monocyte count, blood, automated 0.4 X10E3/UL 10*3/uL 0.1-0.9 Lab Report: CBC With Differential/Platelet, Comp. Metabolic Panel (14), ... - Chemistry albumin, serum 3.8 g/dL 3.5-4.8 immature granulocytes, percentage of total cells, blood 0 % Lab Report: CBC With Differential/Platelet, Comp. Metabolic Panel (14), ... - Hematology platelet count 184 X10E3/UL 10*3/mm3 836-399 3117/08/22 lymphocyte count, blood, automated 1.5 X10E3/UL 10*3/mm3 0.7-3.1 Encounters Date Encounter Provider Code Facility 10:47:13 CDT Est Patient Exp Problem - 82004 Darnell Pablo MD CPT-88626 [facility] 07:58:58 CDT Est Patient Exp Problem - 13841 Darnell Pablo MD CPT-57742 [facility] 12:48:20 CDT Est Patient Exp Problem - 35787 Darnell Pablo MD CPT-90616 [facility] 10:41:05 CDT Est Patient Exp Problem - 58845 Darnell Pablo MD CPT-23628 [facility] 14:47:35 CDT Est Patient Exp Problem - 26877 Darnell Pablo MD CPT-25299 [facility] 12:54:54 CDT Est Patient Exp Problem - 75881 Darnell Pablo MD CPT-62125 [facility] 11:47:18 CDT Est Patient Detailed - 36392 Darnell Pablo MD CPT-79555 [facility] 15:52:26 WOOD CABINETMAK[employer] Est Patient Detailed - 52297 Darnell Pablo MD CPT-69371 [facility] 13:17:21 CDT Est Patient Exp Problem - 65754 Darnell Pablo MD CPT-01455 [facility] 12:36:24 CDT Est Patient Exp Problem - 09672 Darnell Pablo MD CPT-92569 [facility] 10:15:54 CDT Est Patient Detailed - 52710 Darnell Pablo MD CPT-75200 [facility] 15:51:09 CDT Est Patient Exp Problem - 66312 Darnell Pablo MD CPT-77820 [facility] 10:59:14 WOOD CABINET[employer]KER Est Patient Exp Problem - 72554 Darnell Pablo MD CPT-45098 [facility] 16:57:19 CDT Est Patient Exp Problem - 24534 Darnell Pablo MD CPT-98034 [facility] 13:48:31 CDT Est Patient Exp Problem - 54563 Darnell Pablo MD CPT-68253 [facility] 15:40:52 CDT Est Patient Exp Problem - 92730 Darnell Pablo MD CPT-70625 [facility] 08:40:11 WOOD CABINETMAKER Est Patient Problem Focus - 52471 Darnell Pablo MD CPT-35147 [facility] 13:46:21 WOOD CABINETMAKER Est Patient Problem Focus - 15382 Darnell Pablo MD CPT-13960 [facility] 15:02:45 WOOD CABINETMAKER Est Patient Problem Focus - 22603 Darnell Pablo MD CPT-04750 [facility] Procedures Code Procedure Name Date Entry Date Standard Description CPT-03176 Psychotherapy 45 (38-52*) min - 86491 (with patient and/or family member) 14:32:57 WOOD CABINET[employer]KER CPT-83050 Diagnostic evaluation (no medical) - 18595 23:03:56 WOOD CABINETMAKER
--- NOTE | 2018-05-15 09:23 | NUR ---
Dr. Pierce at bedside.
[2018-05-15] MEDS ORDERED: SODIUM CHLORIDE 0.9% 500ML 500 ML IV ONE (09:30)
[2018-05-15] MEDS ORDERED: CEFEPIME HCL 2 GM VIAL IV SCH (09:30)
[2018-05-15] MEDS ORDERED: VANCOMYCIN 1GM/NS 250 ML 250 ML IV ONE (09:30)
--- NOTE | 2018-05-15 10:08 | NUR ---
X-Ray at bedside.
--- NOTE | 2018-05-15 10:13 | NUR ---
X-Ray leaves bedside.
[2018-05-15 10:52] LABS: BASOPHILS % 0.3 % (0.0-1.0); EOSINOPHILS # (AUTO) 0.1 (0.0-0.4); EOSINOPHILS % 0.9 % (0.0-6.0); HEMATOCRIT 31.1 % (34.2-44.1); HEMOGLOBIN 9.9 g/dL (12.0-16.0); LYMPHOCYTES # (AUTO) 1.1 (1.0-3.2); LYMPHOCYTES % 10.9 % (18.0-39.1); MEAN CORPUSCULAR HEMOGLOBIN 31.1 pg (28-32); MEAN CORPUSCULAR HGB CONC 31.8 g/dL (31-35); MEAN CORPUSCULAR VOLUME 97.8 fL (81-99); MONOCYTES % 9.6 % (4.4-11.3); NEUTROPHILS # (AUTO) 7.9 (2.1-6.9); NEUTROPHILS % 77.7 % (38.7-80.0); PLATELET COUNT 168 x10e3/uL (140-360); RED BLOOD COUNT 3.18 x10e6/uL (3.6-5.1); RED CELL DISTRIBUTION WIDTH 15.3 % (11.7-14.4)
[2018-05-15 10:57] LABS: INR 1.14; PARTIAL THROMBOPLASTIN TIME 29.2 seconds (23.8-35.5); PROTHROMBIN TIME 15.6 seconds (11.9-14.5)
[2018-05-15 11:16] LABS: ALBUMIN 2.1 g/dL (3.5-5.0); ALBUMIN/GLOBULIN RATIO 0.8 (0.8-2.0); ANION GAP 14.9 mmol/L (8-16); CALCIUM 7.1 mg/dL (8.4-10.2); CREATININE, SERUM 5.62 mg/dL (0.57-1.11); MAGNESIUM 1.6 MG/DL (1.3-2.1); POTASSIUM 3.9 mmol/L (3.5-5.1)
[2018-05-15 11:26] LABS: CREATINE KINASE MB 0.9 ng/mL (0-5.0)
[2018-05-15 11:28] LABS: B-TYPE NATRIURETIC PEPTIDE2 453.2 pg/mL (0-100)
--- NOTE | 2018-05-15 11:40 | Diagnostic Imaging Report ---
PROCEDURE: CHEST SINGLE (PORTABLE) COMPARISON: Patients [facility], DX, CHEST SINGLE (PORTABLE), 07/26/2017, 20:03. INDICATIONS: SHORTNESS OF BREATH FOR ONE WEEK FINDINGS: LUNGS: Worsening interstitial pulmonary edema. PLEURA: No effusions or pneumothorax. HEART & MEDIASTINUM: The heart is enlarged. Tunneled right IJ hemodialysis catheter are again noted. BONES & SOFT TISSUES: No acute findings. CONCLUSION: Cardiomegaly with worsening interstitial pulmonary edema. Anthony Palacios D.O. Dictated by: Anthony Palacios D.O. on 05/15/2018 at 11:51 Electronically approved by: Anthony Palacios D.O. on 05/15/2018 at 11:51
[2018-05-15] MEDS ORDERED: AZITHROMYCIN 500MG/NS 250 ML 250 ML IV SCH (13:00)
[2018-05-15] MEDS ORDERED: CEFEPIME HCL 2 GM VIAL ONE (13:11)
[2018-05-15] MEDS: CEFEPIME 2 GM/NS 0.9% 100 ML 100 ML IV SCH ×2 (13:13→13:15)
--- NOTE | 2018-05-15 13:40 | NUR ---
[facility] called, report given to dispatcher for Dr. Porter. Dr. Porter gives order for emergency dialysis.
[2018-05-15] MEDS ORDERED: ALBUTEROL SULF 0.083% NEB SOLN 3 ML NEB NEB STA (13:55)
[2018-05-15] MEDS ORDERED: SODIUM CHLORIDE FLUSH 10 ML SYR INJ PRN (14:00)
[2018-05-15] MEDS ORDERED: ONDANSETRON HCL INJ 2 MG/ML VIAL IV PRN (14:00)
[2018-05-15] MEDS ORDERED: IPRATROPIUM BROMIDE 0.02% 2.5 ML NEB NEB ONE (14:00)
[2018-05-15] MEDS ORDERED: METHYLPREDNISOLONE SOD SUCC 125 MG/2ML VIAL IV NR (14:00)
--- NOTE | 2018-05-15 14:05 | NUR ---
Resp called to inform them of breathing treatment ordered.
[2018-05-15] MEDS ORDERED: ASPIRIN 81 MG CHEW TAB PO ONE (14:30)
--- OUTSIDE RECORDS SUMMARY | 2018-05-15 14:30 | XMS REPORT | Clinical Summary ---
Author Author RADHA [facility] Address Unknown Phone Unavailable Care Team Providers Care Information Technology Account Manager Name Role Phone Pcp, No PCP Unavailable [...] VASCULAR 05/16/2017 REPORT - SCAN 6:50 PM BPM DEVELOPER VEIN MAPPING ARM/ARMS Routine 05/16/2017 Chronic kidney disease, 3:03 PM BPM DEVELOPER stage V (HCC) after 05/14/2017 Results * PERIPHERAL VASCULAR REPORT - SCAN (05/16/2017 6:50 PM BPM DEVELOPER) Narrative Performed At * Vein mapping arm/arms (05/16/2017 3:03 PM BPM DEVELOPER) Ejection Fraction [facility] [...] PV LAB - Upper Extremities Vein Mapping [facility] Demographics [facility] Patient NameMACHELLE QUICK Date of Study 05/16/2017 JAMIE Age 81 Visit [id number] GenderFemale Date of 1935 Number Referring Whitney StoneRoom Number Physician Catalyst Impregnator Caroline Kemp [facility]. Jorge Morgan RN, Rick CASTILLO, [facility] Procedure Type of Study: Veins: Upper Extremity Vein Mapping, VEIN MAPPING ARM/ARMS. Indications for Study:Chronic kidney disease . Patient Status:Routine. Study Location:Vascular Lab. Technical Quality:Adequate visualization. Risk Factors History of Disease + +----+--------+ !Diagnosis !Date!Comments! + +----+--------+ !History/Risk Factors: !!CKD ! + +----+--------+ Procedure Note Interface, External Ris In - 05/16/2017 6:16 PM BPM DEVELOPER PV LAB - Upper Extremities Vein Mapping Demographics Patient Name MACHELLE QUICK Date of Study 05/16/2017 JAMIE Age 81 Visit Number [id number] Gender Female Date of 1935 Number Referring Whitnye Stone Room Number Physician Catalyst Impregnator Caroline Kemp Interpreting Florin Morgan RN, RVT [...] Organization Address City/State/Zipcode Phone Number [facility] after 05/14/2017 Insurance Payer Benefit Subscriber ID Type Phone Address Plan / Group [facility] xxxxxxxxxxx MEDICARE ADV
--- NOTE | 2018-05-15 15:00 | NUR ---
Rico gan in [facility] - 05/15/18 at 1514 by GERONIMO Pt report called to Mariam MAX
--- NOTE | 2018-05-15 15:07 | NUR ---
Pt report called to Jordin CARTER.
[2018-05-15] MEDS ORDERED: METRONIDAZOLE 500MG/NS 100ML 100 ML IV ONE ×2 (15:45→18:00)
--- NOTE | 2018-05-15 16:03 | NUR ---
Received patient and alert and responsive, admitted for bronchitis, dyspnea started 7 days ago and still ongoing, worsened with exertion and currently on O2 3L NC, SOB on exertions, denies any chest pains, history of DM and ACHS, on tele at this time, IV in place, on Renal diet, call light within reach and will monitor.
[2018-05-15] MEDS ORDERED: SODIUM CHLORIDE 0.9% 1000ML 2,000 ML ONE (16:09)
--- NOTE | 2018-05-15 16:17 | NUR ---
Urine obtained and sent to lab for urinalysis. Dialysis nurse in at this time and starting dialysis, SUNNY, on O2 3L NC
[2018-05-15 16:18] VITALS: BP 122/59
[2018-05-15 16:20] VITALS: BP 122/59
[2018-05-15 16:40] LABS: CLARITY,URINE CLOUDY (CLEAR); COLOR,URINE YELLOW (YELLOW); LEUKOCYTE ESTERASE ,URINE 1+ (NEGATIVE); NITRITE,URINE NEGATIVE (NEGATIVE)
[2018-05-15 16:41] LABS: BILIRUBIN,URINE NEGATIVE (NEGATIVE); KETONES,URINE NEGATIVE (NEGATIVE); PROTEIN,URINE DIPSTICK 1+ (NEGATIVE); URINE UROBILINOGEN 0.2 mg/dL (0.2 - 1)
[2018-05-15 17:11] LABS: BACTERIA,URINE MANY /HPF; EPITHELIAL CELLS,URINE MODERATE /LPF; WBC,URINE (MAN) >50 /HPF (0-5)
[2018-05-15] MEDS: LACTOBACILLUS ACIDOPHILUS CAPSULE PO SCH (17:33)
[2018-05-15] MEDS: INSULIN LISPRO 100 UNIT/1 ML 3ML VIAL SQ SCH ×2 (17:33→21:00)
[2018-05-15] MEDS: BENZONATATE 100 MG CAP PO SCH (17:33)
[2018-05-15] MEDS ORDERED: SODIUM CHLORIDE 0.9% 250ML 500 ML IV PRN (17:45)
[2018-05-15] MEDS ORDERED: MANNITOL 25% 12.5GM/50 ML VIAL IV PRN (17:45)
[2018-05-15] MEDS ORDERED: SODIUM CHLORIDE 0.9% 1000ML 2,000 ML IV PRN (17:45)
[2018-05-15] MEDS ORDERED: ALBUMIN 25% 12.5GM 0.25 GM/ML BTL IV PRN (17:45)
[2018-05-15] MEDS ORDERED: HEPARIN SOD (PORCINE) 1000 UNIT/ML SDV IV PRN (17:45)
[2018-05-15 17:58] LABS: CREATINE KINASE MB 1.6 ng/mL (0-5.0)
--- NOTE | 2018-05-15 19:25 | NUR ---
REPORT RECEIVED FROM OFF GOING NURSE, PT ALERT AND ORIENTED, RESTING IN BED RECEIVING DIALYSIS, AT BEDSIDE, DENIES NEEDS, CALL LIGHT IN REACH, INSTRUCTED TO CALL WITH NEEDS
--- NOTE | 2018-05-15 19:28 | NUR ---
NOt able to administer Flagyl because patient stil having dialysis, notified on coming nurse to run after dialysis.
[2018-05-15] MEDS: ALBUTEROL/IPRATROPIUM 3 ML NEB NEB SCH ×2 (19:47→23:08)
[2018-05-15 20:00] VITALS: BP 115/57
[2018-05-15] MEDS: HEPARIN SOD (PORCINE) 5,000 UNIT/ML VIAL SC SCH (21:00)
[2018-05-16] VITALS (8 sets, daily range): BP systolic 111–154; BP diastolic 57–72
[2018-05-16] MEDS: ALBUTEROL/IPRATROPIUM 3 ML NEB NEB SCH ×6 (03:30→19:30)
[2018-05-16] MEDS: BENZONATATE 100 MG CAP PO SCH ×2 (03:50→16:57)
--- NOTE | 2018-05-16 05:19 | NUR ---
PT RESTING IN BED ALERT AND ORIENTED, NO DISTRESS NOTED, DENIES NEEDS, AT BEDSIDE, HOB ELEVATED, CALL LIGHT IN REACH, INSTRUCTED TO CALL WITH NEEDS
[2018-05-16 05:56] LABS: BASOPHILS % 0.1 % (0.0-1.0); HEMATOCRIT 32.4 % (34.2-44.1); HEMOGLOBIN 10.1 g/dL (12.0-16.0); LYMPHOCYTES # (AUTO) 0.4 (1.0-3.2); LYMPHOCYTES % 4.6 % (18.0-39.1); MEAN CORPUSCULAR HEMOGLOBIN 30.3 pg (28-32); MEAN CORPUSCULAR HGB CONC 31.2 g/dL (31-35); MEAN CORPUSCULAR VOLUME 97.3 fL (81-99); MONOCYTES # (AUTO) 0.6 (0.2-0.8); MONOCYTES % 6.3 % (4.4-11.3); NEUTROPHILS # (AUTO) 7.9 (2.1-6.9); NEUTROPHILS % 88.5 % (38.7-80.0); PLATELET COUNT 195 x10e3/uL (140-360); RED BLOOD COUNT 3.33 x10e6/uL (3.6-5.1); RED CELL DISTRIBUTION WIDTH 15.3 % (11.7-14.4)
[2018-05-16 06:34] LABS: ANION GAP 21.5 mmol/L (8-16); CALCIUM 9.3 mg/dL (8.4-10.2); CREATININE, SERUM 5.16 mg/dL (0.57-1.11); POTASSIUM 4.5 mmol/L (3.5-5.1)
--- NOTE | 2018-05-16 06:37 | Diagnostic Imaging Report ---
EXAM: CHEST SINGLE (PORTABLE), AP 1 view INDICATION: Shortness of breath COMPARISON: AP view of the chest May 15, 2018 FINDINGS: LINES/TUBES: Stable position right internal jugular vein tunneled hemodialysis catheter. LUNGS: Slight improvement in pulmonary edema. Persistent perihilar and bibasilar atelectasis. PLEURA: No effusions or pneumothorax. HEART AND MEDIASTINUM: Stable appearance BONES AND SOFT TISSUES: No acute findings. IMPRESSION: Slight interval improvement in pulmonary edema. Signed by: Dr. Lizy Montoya M.D. on 05/16/2018 6:34 AM
--- NOTE | 2018-05-16 07:00 | NUR ---
SHIFT REPORT RECEIVED FROM NIGHT RN. PT DENIES NEEDS AT THIS TIME.
[2018-05-16] MEDS: LACTOBACILLUS ACIDOPHILUS CAPSULE PO SCH ×2 (08:36→16:57)
[2018-05-16] MEDS: INSULIN LISPRO 100 UNIT/1 ML 3ML VIAL SQ SCH ×4 (08:47→22:06)
[2018-05-16] MEDS: HEPARIN SOD (PORCINE) 5,000 UNIT/ML VIAL SC SCH (08:47)
[2018-05-16] MEDS ORDERED: CEFEPIME HCL 1 GM VIAL IV SCH (14:00)
[2018-05-16] MEDS: INSULIN DETEMIR 100 UNIT/ML PEN SQ SCH (14:05)
[2018-05-16] MEDS: PAROXETINE HCL 20 MG TAB PO SCH (14:13)
[2018-05-16] MEDS: CLONAZEPAM 0.5 MG TAB PO SCH (14:13)
[2018-05-16] MEDS: METRONIDAZOLE 500MG/NS 100ML 100 ML IV SCH ×2 (14:30→23:06)
[2018-05-16] MEDS: CEFEPIME 1GM/NS 0.9% 50 ML 50 ML IV SCH (14:31)
--- NOTE | 2018-05-16 15:19 | NUR ---
Nutrition Screen Note RD Recommendation for Physician: -Rec adding ADA to renal diet as medically appropriate Plan of Care: RD following, monitoring for tolerance and adequacy Nutrition reason for involvement: Nutrition risk trigger MST Primary Diagnose(s): bronchitis PMH: DM, ESRD on HD Ht: 63in Wt: 196.25lb BMI: 34.8kg/m2 IBW: 115lb RD Assessment: (05/16) Chart reviewed. Labs and meds reviewed. 82 yo obese F, who is admitted for bronchitis. Visited pt in the room. Pt reports good appetite with 100% recorded PO intake. has been bringing foods from outside to feed pt. No GI complains noted. LBM 05/16, normal per pt. Pt denies any chewing or swallowing difficulty. No recent weight loss noted. Will continue to monitor and follow. Current Diet: renal diet Malnutrition Evaluation (05/16/18) The patient does not meet criteria for a specified degree of malnutrition at this time. Will re-evaluate at follow-up as appropriate. Diet Education Needs Assessment: Diet education not indicated; pt is followed by RD at [facility]. Nutrition Care Level: low Signed: Kate Mejias, MS, RD, LD
--- NOTE | 2018-05-16 16:05 | NUR ---
Visit made by the Spiritual Care Department Pastoral Visitor, Brielle Fulton. Pt unavailable at this time. Pt's physician at bedside. FAHAD TAYLOR Mold Mechanic Spiritual Care Department O: [phone] Pager: [phone] ([phone] number calling from)
[2018-05-16] MEDS: ACETAMINOPHEN/CODEINE 300MG - 30MG TAB PO PRN (16:32)
--- NOTE | 2018-05-16 20:20 | NUR ---
ADMIT MD AWARE OF ST, NEW ORDERS RECEIVED AND IMPLEMENTED.
[2018-05-16] MEDS ORDERED: CLONAZEPAM 0.5 MG TAB PO ONE (20:30)
[2018-05-16] MEDS: HYDROCODONE/CHLORPHENIRAMINE 5 ML LIQCR PO PRN (20:30)
[2018-05-16] MEDS: METHYLPREDNISOLONE SOD SUCC 40 MG/ML VIAL IV SCH (22:05)
[2018-05-16] MEDS: QUETIAPINE FUMARATE 100 MG TAB PO SCH (22:05)
--- NOTE | 2018-05-16 22:11 | Consultation ---
DATE OF CONSULTATION: May 15, 2018 LOCATION: Emergency room. REASON FOR CONSULT: Management of kidney failure. HISTORY OF PRESENT ILLNESS: Ms. Carty is known to me. She is an 82-year-old female, who presents with cough for the last 3 days. She is unable to sleep she says, also shortness of breath. Cough is productive. She cronin not know the color. She denies fever, chills or chest pains. Labs show white count 10.4, hemoglobin 9.9 with a potassium level of 3.9. She is scheduled for dialysis on a Saturday, Saturday, and Saturday basis. ALLERGIES: IODINE CONTRAST. SOCIAL HISTORY: Patient is . is very supportive, by bedside. PAST MEDICAL HISTORY: History of end-stage renal disease, diverticulosis, history of VRE, urine colonization, history of end-stage renal disease, type 2 diabetes with end-organ damage. HOME MEDICATIONS: Not reconciled yet. SOCIAL HISTORY: Does not smoke or drink. PHYSICAL EXAMINATION GENERAL: Awake, alert, coughing. VITAL SIGNS: Blood pressure of 131/59, pulse rate 99, afebrile, respiratory rate 22. HEAD AND NECK: Cornea clear. Mucosa moist. Neck veins slightly distended. LUNGS: Bilateral end-expiratory rhonchi. HEART: S1, S2 audible. ABDOMEN: Obese, soft, nontender. LOWER EXTREMITIES: No edema. IMPRESSION 1. Possible pneumonia. 2. Congestive heart failure. 3. Fluid overload. 4. End-stage renal disease, plan on urgent hemodialysis. PLAN: We will give her 1 dose of Solu-Medrol, albuterol and Atrovent nebulizers, empiric antibiotics. Arrange for dialysis. Fluid restriction. Renal diet. Job#: [id number] RTY
[2018-05-16] MEDS: IPRATROPIUM BROMIDE 0.02% 2.5 ML NEB NEB SCH (23:59)
[2018-05-17] VITALS (7 sets, daily range): BP systolic 114–156; BP diastolic 56–75
[2018-05-17] MEDS: PAROXETINE HCL 20 MG TAB PO SCH ×2 (01:56→14:29)
[2018-05-17] MEDS: CLONAZEPAM 0.5 MG TAB PO SCH ×2 (01:56→14:29)
[2018-05-17] MEDS: ACETAMINOPHEN/CODEINE 300MG - 30MG TAB PO PRN (01:58)
[2018-05-17 05:22] LABS: BASOPHILS % 0.1 % (0.0-1.0); HEMATOCRIT 31.9 % (34.2-44.1); LYMPHOCYTES # (AUTO) 0.3 (1.0-3.2); LYMPHOCYTES % 3.8 % (18.0-39.1); MEAN CORPUSCULAR HEMOGLOBIN 30.4 pg (28-32); MEAN CORPUSCULAR HGB CONC 31.3 g/dL (31-35); MONOCYTES # (AUTO) 0.3 (0.2-0.8); MONOCYTES % 3.9 % (4.4-11.3); NEUTROPHILS # (AUTO) 7.8 (2.1-6.9); NEUTROPHILS % 91.5 % (38.7-80.0); PLATELET COUNT 222 x10e3/uL (140-360); RED BLOOD COUNT 3.29 x10e6/uL (3.6-5.1); RED CELL DISTRIBUTION WIDTH 15.5 % (11.7-14.4)
[2018-05-17 05:48] LABS: ANION GAP 21.2 mmol/L (8-16); CALCIUM 9.8 mg/dL (8.4-10.2); CREATININE, SERUM 4.25 mg/dL (0.57-1.11); POTASSIUM 5.2 mmol/L (3.5-5.1)
[2018-05-17] MEDS: METRONIDAZOLE 500MG/NS 100ML 100 ML IV SCH ×3 (06:02→21:50)
--- NOTE | 2018-05-17 06:02 | NUR ---
blood glucose critical per lab. bedside accucheck 398, will administer insulin per sliding scale and monitor patient. patient received first dose of Solu-Medrol last night.
[2018-05-17] MEDS: INSULIN LISPRO 100 UNIT/1 ML 3ML VIAL SQ SCH ×4 (06:25→21:50)
--- NOTE | 2018-05-17 06:39 | Diagnostic Imaging Report ---
EXAM: CHEST SINGLE (PORTABLE), AP 1 view INDICATION: Bronchitis, shortness of breath COMPARISON: AP view the chest May 08, 2018 FINDINGS: LINES/TUBES: Stable right internal jugular vein tunneled hemodialysis catheter. LUNGS: Bibasilar subsegmental atelectasis and vascular congestion/mild edema. PLEURA: No effusions or pneumothorax. HEART AND MEDIASTINUM: Stable appearance. BONES AND SOFT TISSUES: No acute findings. IMPRESSION: No interval change. Signed by: Dr. Lizy Montoya M.D. on 05/17/2018 6:36 AM
--- NOTE | 2018-05-17 07:00 | NUR ---
SHIFT REPORT RECEIVED FROM NIGHT RN. PT DENIES NEEDS AT THIS TIME.
[2018-05-17] MEDS: IPRATROPIUM BROMIDE 0.02% 2.5 ML NEB NEB SCH ×3 (07:48→20:10)
[2018-05-17] MEDS: METHYLPREDNISOLONE SOD SUCC 40 MG/ML VIAL IV SCH ×2 (09:26→21:50)
[2018-05-17] MEDS: CEFEPIME 1GM/NS 0.9% 50 ML 50 ML IV SCH (09:26)
[2018-05-17] MEDS: LACTOBACILLUS ACIDOPHILUS CAPSULE PO SCH ×2 (09:26→16:40)
[2018-05-17] MEDS: INSULIN DETEMIR 100 UNIT/ML PEN SQ SCH ×2 (09:27→21:50)
[2018-05-17] MEDS: HYDROCODONE/CHLORPHENIRAMINE 5 ML LIQCR PO PRN ×2 (09:37→21:50)
--- NOTE | 2018-05-17 10:42 | Progress Note ---
DATE: May 17, 2018 SUBJECTIVE: Remains dyspneic, feels better. Sitting up. OBJECTIVE GENERAL: Lying in bed with some dyspnea. VITAL SIGNS: Temperature is 97.7, pulse 94, and blood pressure 114/57. CHEST: Scattered crackles. EXTREMITIES: With edema. . LABS: Hemoglobin is 10. K is 5.2. Glucose is 414. BUN and creatinine 34 and 0.25. ASSESSMENT: Mild hyperkalemia, fluid overload, type 2 diabetes causing end-stage renal disease. PLAN: Hemodialysis greater than 3 hour run, 2 potassium baths titer, remove another 3 liters of fluid, blood flow rate 350 mL/min, dialysis flow rate 700 mL/min. We will follow along. Job#: [id number] MARISABEL
--- NOTE | 2018-05-17 15:00 | NUR ---
PT RECEIVING DIALYSIS AT THIS TIME.
--- NOTE | 2018-05-17 19:14 | NUR ---
Received patient resting in bed. Dialysis ended, 3L removed. patient in stable condition. Non productive cough noted, but improving. No needs at this time. Patient eating dinner with at bedside. will continue to monitor the patient closely. bed locked and in lowest position, call light within easy. encouraged to call for help, patient verbalized understanding.
[2018-05-17] MEDS: QUETIAPINE FUMARATE 100 MG TAB PO SCH (21:50)
[2018-05-18] VITALS (8 sets, daily range): BP systolic 120–163; BP diastolic 68–81
[2018-05-18] MEDS: IPRATROPIUM BROMIDE 0.02% 2.5 ML NEB NEB SCH ×4 (01:30→20:30)
[2018-05-18] MEDS: PAROXETINE HCL 20 MG TAB PO SCH ×2 (01:51→14:12)
[2018-05-18] MEDS: CLONAZEPAM 0.5 MG TAB PO SCH ×2 (01:51→14:12)
[2018-05-18] MEDS: METRONIDAZOLE 500MG/NS 100ML 100 ML IV SCH ×3 (06:30→22:30)
--- NOTE | 2018-05-18 06:42 | Diagnostic Imaging Report ---
EXAM: CHEST SINGLE (PORTABLE), AP 1 view INDICATION: Bronchitis, shortness of breath COMPARISON: AP view the chest May 17, 2018 FINDINGS: LINES/TUBES: Stable right internal jugular vein tunneled hemodialysis catheter. LUNGS: Bibasilar subsegmental atelectasis and vascular congestion/edema. PLEURA: No effusions or pneumothorax. HEART AND MEDIASTINUM: Normal size and contour. BONES AND SOFT TISSUES: No acute findings. IMPRESSION: Stable appearance of the chest. Signed by: Dr. Lizy Montoya M.D. on 05/18/2018 6:39 AM
[2018-05-18 06:48] LABS: BASOPHILS % 0.1 % (0.0-1.0); HEMATOCRIT 32.8 % (34.2-44.1); HEMOGLOBIN 10.1 g/dL (12.0-16.0); LYMPHOCYTES # (AUTO) 0.7 (1.0-3.2); LYMPHOCYTES % 8.8 % (18.0-39.1); MEAN CORPUSCULAR HEMOGLOBIN 30.2 pg (28-32); MEAN CORPUSCULAR HGB CONC 30.8 g/dL (31-35); MEAN CORPUSCULAR VOLUME 98.2 fL (81-99); MONOCYTES # (AUTO) 0.5 (0.2-0.8); MONOCYTES % 5.5 % (4.4-11.3); NEUTROPHILS % 84.3 % (38.7-80.0); PLATELET COUNT 227 x10e3/uL (140-360); RED BLOOD COUNT 3.34 x10e6/uL (3.6-5.1); RED CELL DISTRIBUTION WIDTH 15.4 % (11.7-14.4)
--- NOTE | 2018-05-18 07:00 | NUR ---
SHIFT REPORT RECEIVED FROM NIGHT RN. PT DENIES NEEDS AT THIS TIME.
[2018-05-18 07:43] LABS: ANION GAP 20.4 mmol/L (8-16); CALCIUM 10.1 mg/dL (8.4-10.2); CREATININE, SERUM 4.15 mg/dL (0.57-1.11); POTASSIUM 4.4 mmol/L (3.5-5.1)
[2018-05-18] MEDS: INSULIN LISPRO 100 UNIT/1 ML 3ML VIAL SQ SCH ×4 (09:02→21:18)
[2018-05-18] MEDS: CEFEPIME 1GM/NS 0.9% 50 ML 50 ML IV SCH (09:14)
[2018-05-18] MEDS: METHYLPREDNISOLONE SOD SUCC 40 MG/ML VIAL IV SCH (09:14)
[2018-05-18] MEDS: LACTOBACILLUS ACIDOPHILUS CAPSULE PO SCH ×2 (09:14→17:18)
[2018-05-18] MEDS: INSULIN DETEMIR 100 UNIT/ML PEN SQ SCH ×2 (09:25→21:18)
[2018-05-18] MEDS ORDERED: CALCIUM ACETAT667 M1 (13:30)
[2018-05-18] MEDS ORDERED: ASPIR 8181 MG (13:30)
[2018-05-18] MEDS: HYDROCODONE/CHLORPHENIRAMINE 5 ML LIQCR PO PRN (13:42)
[2018-05-18] MEDS: NIFEDIPINE CR 30 MG TAB PO SCH (14:12)
--- NOTE | 2018-05-18 19:12 | NUR ---
received patient aaox3 in bed, at bedside. updated on plan of care, verbalized understanding. patient in stable condition, no needs at this time. bed locked and in lowest position, call light within easy reach.
[2018-05-18] MEDS: QUETIAPINE FUMARATE 100 MG TAB PO SCH (22:30)
[2018-05-19] VITALS (7 sets, daily range): BP systolic 110–142; BP diastolic 53–68
[2018-05-19] MEDS: IPRATROPIUM BROMIDE 0.02% 2.5 ML NEB NEB SCH ×4 (02:00→19:20)
[2018-05-19] MEDS: CLONAZEPAM 0.5 MG TAB PO SCH ×2 (02:31→16:46)
[2018-05-19] MEDS: PAROXETINE HCL 20 MG TAB PO SCH ×2 (02:31→16:46)
[2018-05-19] MEDS: HYDROCODONE/CHLORPHENIRAMINE 5 ML LIQCR PO PRN ×2 (04:30→16:53)
[2018-05-19 05:50] LABS: BASOPHILS % 0.2 % (0.0-1.0); EOSINOPHILS % 0.2 % (0.0-6.0); HEMATOCRIT 30.9 % (34.2-44.1); HEMOGLOBIN 9.7 g/dL (12.0-16.0); LYMPHOCYTES # (AUTO) 1.5 (1.0-3.2); LYMPHOCYTES % 16.7 % (18.0-39.1); MEAN CORPUSCULAR HEMOGLOBIN 30.4 pg (28-32); MEAN CORPUSCULAR HGB CONC 31.4 g/dL (31-35); MEAN CORPUSCULAR VOLUME 96.9 fL (81-99); MONOCYTES # (AUTO) 0.6 (0.2-0.8); MONOCYTES % 7.3 % (4.4-11.3); NEUTROPHILS # (AUTO) 6.4 (2.1-6.9); NEUTROPHILS % 72.6 % (38.7-80.0); PLATELET COUNT 208 x10e3/uL (140-360); RED BLOOD COUNT 3.19 x10e6/uL (3.6-5.1)
[2018-05-19] MEDS: METRONIDAZOLE 500MG/NS 100ML 100 ML IV SCH ×3 (06:01→21:55)
[2018-05-19 06:07] LABS: ANION GAP 23.1 mmol/L (8-16); CALCIUM 9.4 mg/dL (8.4-10.2); CREATININE, SERUM 5.99 mg/dL (0.57-1.11); POTASSIUM 4.1 mmol/L (3.5-5.1)
--- NOTE | 2018-05-19 06:33 | Diagnostic Imaging Report ---
EXAM: CHEST SINGLE (PORTABLE), AP 1 view INDICATION: Edema COMPARISON: AP view of the chest May 18, 2018 FINDINGS: LINES/TUBES: Stable right internal jugular vein tunneled hemodialysis catheter. LUNGS: Bibasilar atelectasis and vascular congestion. PLEURA: No effusions or pneumothorax. HEART AND MEDIASTINUM: Stable BONES AND SOFT TISSUES: No acute findings. IMPRESSION: Stable appearance of the chest. Signed by: Dr. Lizy Montoya M.D. on 05/19/2018 6:29 AM
--- NOTE | 2018-05-19 07:00 | NUR ---
SHIFT REPORT RECEIVED FROM NIGHT RN. PT DENIES NEEDS AT THIS TIME.
[2018-05-19 08:03] LABS: ANISOCYTOSIS SLIGHT; LYMPHOCYTES % (MANUAL) 17 % (19-48); MONOCYTES % (MANUAL) 7 % (3.4-9.0); MYELOCYTES % (MANUAL) 1 % (0-0); NEUTROPHILS % (MANUAL) 75 % (40-74); PLATELET ESTIMATE ADEQUATE; PLATELET MORPHOLOGY COMMENT NORMAL; RBC MORPHOLOGY COMMENT NORMAL
[2018-05-19] MEDS: LACTOBACILLUS ACIDOPHILUS CAPSULE PO SCH ×2 (08:48→16:46)
[2018-05-19] MEDS: CEFEPIME 1GM/NS 0.9% 50 ML 50 ML IV SCH (08:48)
[2018-05-19] MEDS: NIFEDIPINE CR 30 MG TAB PO SCH (08:49)
[2018-05-19] MEDS: INSULIN DETEMIR 100 UNIT/ML PEN SQ SCH ×2 (08:50→21:55)
[2018-05-19] MEDS: INSULIN LISPRO 100 UNIT/1 ML 3ML VIAL SQ SCH ×4 (08:50→21:55)
[2018-05-19] MEDS ORDERED: METHYLPREDNISOLONE SOD SUCC 40 MG/ML VIAL IV SCH (09:00)
--- NOTE | 2018-05-19 16:30 | NUR ---
IMM SIGNED AND ON CHART COPY LEFT WITH PATIENT GAVE CARD FOR QUESTIONS AND OR CONCERNS.
[2018-05-19] MEDS: QUETIAPINE FUMARATE 100 MG TAB PO SCH (21:55)
[2018-05-20] VITALS (8 sets, daily range): BP systolic 108–142; BP diastolic 55–66
[2018-05-20] MEDS: IPRATROPIUM BROMIDE 0.02% 2.5 ML NEB NEB SCH ×5 (01:05→19:02)
[2018-05-20] MEDS: CLONAZEPAM 0.5 MG TAB PO SCH ×3 (02:33→20:15)
[2018-05-20] MEDS: PAROXETINE HCL 20 MG TAB PO SCH ×3 (02:33→20:15)
[2018-05-20] MEDS: HYDROCODONE/CHLORPHENIRAMINE 5 ML LIQCR PO PRN (04:30)
[2018-05-20 05:41] LABS: BASOPHILS # (AUTO) 0.1 (0.0-0.1); BASOPHILS % 0.5 % (0.0-1.0); EOSINOPHILS # (AUTO) 0.1 (0.0-0.4); EOSINOPHILS % 1.1 % (0.0-6.0); HEMATOCRIT 33.7 % (34.2-44.1); HEMOGLOBIN 10.6 g/dL (12.0-16.0); LYMPHOCYTES # (AUTO) 1.9 (1.0-3.2); LYMPHOCYTES % 19.6 % (18.0-39.1); MEAN CORPUSCULAR HEMOGLOBIN 30.7 pg (28-32); MEAN CORPUSCULAR HGB CONC 31.5 g/dL (31-35); MEAN CORPUSCULAR VOLUME 97.7 fL (81-99); MONOCYTES % 10.1 % (4.4-11.3); NEUTROPHILS # (AUTO) 6.3 (2.1-6.9); NEUTROPHILS % 65.1 % (38.7-80.0); PLATELET COUNT 227 x10e3/uL (140-360); RED BLOOD COUNT 3.45 x10e6/uL (3.6-5.1); RED CELL DISTRIBUTION WIDTH 15.4 % (11.7-14.4)
[2018-05-20] MEDS: METRONIDAZOLE 500MG/NS 100ML 100 ML IV SCH (06:00)
[2018-05-20 06:08] LABS: ANION GAP 21.5 mmol/L (8-16); CALCIUM 9.8 mg/dL (8.4-10.2); CREATININE, SERUM 5.61 mg/dL (0.57-1.11); POTASSIUM 4.5 mmol/L (3.5-5.1)
--- NOTE | 2018-05-20 06:15 | NUR ---
DIALYSIS AT BEDSIDE FOR DIALYSIS TRANSFUSION
--- NOTE | 2018-05-20 06:48 | Diagnostic Imaging Report ---
EXAM: CHEST SINGLE (PORTABLE), AP 1 view INDICATION: Edema. COMPARISON: AP view of the chest 05/19/2018 FINDINGS: LINES/TUBES: Stable right internal jugular vein tunneled hemodialysis catheter. LUNGS: Bibasilar atelectasis and vascular congestion. Increased right basilar platelike atelectasis. PLEURA: No effusions or pneumothorax. HEART AND MEDIASTINUM: Stable BONES AND SOFT TISSUES: No acute findings. IMPRESSION: Increased right basilar platelike atelectasis. Signed by: DR. Regis Marcum MD on 05/20/2018 6:45 AM
[2018-05-20] MEDS: INSULIN LISPRO 100 UNIT/1 ML 3ML VIAL SQ SCH ×4 (07:30→20:15)
[2018-05-20 07:48] LABS: BAND NEUTROPHILS % (MANUAL) 3 %; LYMPHOCYTES % (MANUAL) 18 % (19-48); MONOCYTES % (MANUAL) 9 % (3.4-9.0); NEUTROPHILS % (MANUAL) 70 % (40-74); PLATELET ESTIMATE ADEQUATE; PLATELET MORPHOLOGY COMMENT NORMAL; RBC MORPHOLOGY COMMENT NORMAL
[2018-05-20] MEDS: INSULIN DETEMIR 100 UNIT/ML PEN SQ SCH ×2 (09:00→20:15)
--- NOTE | 2018-05-20 09:26 | NUR ---
Patient alert and oriented x3, Was started on dialysis this morning and tolerating well, had breakfast and denies any major pains at this time, will monitor as call light within reach.
--- NOTE | 2018-05-20 10:51 | NUR ---
Patient completed hemodialysis at this time and extracted 2L, VSS and no distress
[2018-05-20] MEDS: LACTOBACILLUS ACIDOPHILUS CAPSULE PO SCH ×2 (10:52→17:34)
[2018-05-20] MEDS: NIFEDIPINE CR 30 MG TAB PO SCH (10:53)
[2018-05-20] MEDS: CEFEPIME 1GM/NS 0.9% 50 ML 50 ML IV SCH (11:02)
--- NOTE | 2018-05-20 11:02 | NUR ---
Patient's meds administered at this time just after completion of dialysis
--- NOTE | 2018-05-20 11:43 | NUR ---
Patient OOB to bathroom and assisted with ambulation, experienced SOB and desats on RA to 85%, was placed on O2 2L NC and went back up to 95% and patient feels better, will monitor.
--- NOTE | 2018-05-20 14:04 | Diagnostic Imaging Report ---
EXAM: CHEST 2 VIEWS COMPARISON: Chest radiograph 05/20/2018 at 529 AM. FINDINGS: LINES/TUBES: Right internal jugular vein tunneled hemodialysis catheter tip in the proximal right atrium. LUNGS: Improved bibasilar atelectatic changes. Linear subsegmental atelectasis in the right midlung zone. No evidence of lobar consolidation or pulmonary edema. PLEURA: No effusions or pneumothorax. HEART AND MEDIASTINUM: Stable cardiomediastinal silhouette. BONES AND SOFT TISSUES: No acute osseous abnormality. IMPRESSION: No evidence of pulmonary edema. Improved bibasilar atelectasis. Signed by: Dr. Andrew Jernigan MD on 05/20/2018 2:00 PM
[2018-05-20] MEDS: ACETAMINOPHEN/CODEINE 300MG - 30MG TAB PO PRN (14:12)
[2018-05-20] MEDS ORDERED: SEROQUEL25 MG PO ×2 (14:18)
--- NOTE | 2018-05-20 15:41 | NUR ---
Patient's brought in updated med list and reviewed with MD and orders in place to updated home meds for in hospital schedule to be consistent with home schedule per as patient was presenting with a lot of panic and anxiety, has settled down at this time and will monitor
--- NOTE | 2018-05-20 18:58 | NUR ---
WALKING ROUNDS PERFORMED, RECEIVED PT LAYING SEMI FOWLERS IN BED, AAOX3, RR EVEN AND NON-LABORED, O2 BY NC AT 2L. NO S/SX OF DISTRESS NOTED. LEFT PT LAYING SEMI FOWLERS IN BED, BED IN LOW LOCKED POSITION, SIDE RAILS UPX2, CALL LIGHT AND PHONE WITHIN REACH FAMILY AT BEDSIDE.
[2018-05-20] MEDS: QUETIAPINE FUMARATE 100 MG TAB PO SCH (22:53)
[2018-05-21] VITALS (9 sets, daily range): BP systolic 109–166; BP diastolic 56–69
[2018-05-21] MEDS: QUETIAPINE FUMARATE 25 MG TAB PO SCH ×2 (05:15→12:16)
[2018-05-21] MEDS: IPRATROPIUM BROMIDE 0.02% 2.5 ML NEB NEB SCH ×3 (07:00→19:20)
--- NOTE | 2018-05-21 07:37 | NUR ---
Received patient this morning, alert and in bed sleeping but responsive, call light within reach, no apparent distress at this time, will monitor.
[2018-05-21] MEDS: PAROXETINE HCL 20 MG TAB PO SCH ×2 (08:02→21:00)
[2018-05-21] MEDS: LACTOBACILLUS ACIDOPHILUS CAPSULE PO SCH ×2 (08:02→16:43)
[2018-05-21] MEDS: CLONAZEPAM 0.5 MG TAB PO SCH ×2 (08:02→21:10)
[2018-05-21] MEDS: NIFEDIPINE CR 30 MG TAB PO SCH (08:03)
[2018-05-21] MEDS: HYDROCODONE/CHLORPHENIRAMINE 5 ML LIQCR PO PRN ×2 (08:26→21:40)
[2018-05-21] MEDS: INSULIN DETEMIR 100 UNIT/ML PEN SQ SCH ×2 (08:29→21:20)
[2018-05-21] MEDS: INSULIN LISPRO 100 UNIT/1 ML 3ML VIAL SQ SCH ×4 (08:29→21:20)
--- NOTE | 2018-05-21 08:48 | NUR ---
Tolerated PO meds and still with persistent cough r/t bronchitis but somewhat improved, medicated appropriately, starting dialysis at this time and will monitor
[2018-05-21] MEDS ORDERED: QUETIAPINE FUMARATE 25 MG TAB PO SCH (09:00)
--- NOTE | 2018-05-21 12:47 | NUR ---
O2 Evaluation completed and patient desats to 69% RA, placed back on oxygen, cord splicer consulted and notified
--- NOTE | 2018-05-21 16:00 | NUR ---
Patient picked up for VQ scan at this time, dialysis nurse checked with mortuary beautician and dialysis will be completed tomorrow morning.
--- NOTE | 2018-05-21 17:04 | Consultation ---
DATE OF CONSULTATION: May 21, 2018 PULMONARY MEDICINE CONSULTATION REASON FOR REFERRAL: Hypoxemia. HISTORY: Mrs. Quick is a pleasant 82-year-old female with hypoxemia. The patient had saturation of 94% on room air at rest. After exerting, she had 69% saturation on exertion on room air. The patient has concomitant shortness of breath symptoms. She was hospitalized on May 16, 2018, with pulmonary edema and hypoxemia. The patient had 11 L of output with dialysis since. Her x-ray originally came in with edema pattern, but has resolved to be mostly clear, except with slightly small lung volumes noted. Despite this, she continues to have these symptoms. I am consulted. No history of chronic primary pulmonary disease. The patient started CPAP [address] Spears who was managing the sleep component. The patient not on home oxygen previously. The patient has been on dialysis since May 2017. Baseline exercise tolerance she is able to walk 1 or 2 room distance with a walker at times. She does not go places except for dialysis 3 times. She does have allergies, but no asthma. No history of significant bio-fuel exposures. In May 2017, echo with 65% to 70% LVEF and 31 RVSP. PAST MEDICAL HISTORY: ESRD, hypertension, diabetes, anemia, dyslipidemia, history of C. difficile colitis. MEDICATIONS: List reviewed per electronic medical record. ALLERGIES: IODINATED CONTRAST REPORTED. SOCIAL HISTORY: No smoking. No drinking. No drugs. The patient was born in [place], [place], and left at age 23. 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 FAMILY HISTORY: Noncontributory to this. REVIEW OF SYSTEMS GENERAL: No weight loss unintentional. OPHTHALMOLOGIC: No double vision. ENT: No mouth ulcers. IMMUNOLOGIC: There is no known connective tissue disease. ENDOCRINE: No thyroid disease. PULMONARY: No asthma. No hemoptysis. CARDIAC: No OH. ABDOMEN: No constipation. : No blood in the urine. NEUROLOGIC: No seizures. PSYCHIATRIC: No depression. PHYSICAL EXAMINATION VITALS: Afebrile. Vital signs noted per electronic record. GENERAL: No acute distress. Alert and calm. HEENT: Normocephalic and atraumatic. NECK: Supple. Throat midline. LUNGS: Bilateral air entry is decreased. Mostly clear. Rare rales. CARDIOVASCULAR: S1 and S2. No murmurs, rubs or gallops. ABDOMEN: Soft, obese and nontender. EXTREMITIES: No clubbing. No cyanosis. There is trace edema. INTEGUMENT: No rash. No purpura. LABS: Include BNP of 453. LFTs mostly unremarkable with albumin being 2.1 and total protein 4.7. BUN of 60, creatinine 5.6. IMPRESSION AND PLAN 1. Significant symptomatic hypoxemia. 2. Obstructive sleep apnea. 3. Fluid overload, much better. 4. Obesity, possible thoracic restriction. 5. Allergies. 6. Mild increased skin turgor. 7. Poor functional endurance, debility. 8. End-stage renal disease. 9. Hypertension. 10. Diabetes. 11. Reported anxiety. The patient recommended for ultrasound of the legs and V/Q scanning. Of note, she does have this iodinated contrast allergy that may or may not have to work through in the future. The patient should get repeat thyroid testing. TIKI and rheumatoid factor testing also indicated. The patient needs full pulmonary function test after discharge. She should continue her and CPAP machine as much as possible. Home oxygen will be ordered. Of note, differential for this includes pulmonary hypertension, shunting throughout the body, early interstitial lung disease, restrictive lung disorder, such as obesity hypoventilation syndrome. The patient's BMI is increased, but does not seem too excessive. I would like to thank Dr. Valdes for allowing me to participate in the care of Mrs. Quick. Please do not hesitate to call me if I can help in any way. Thank you for this consult. Job#: [id number] MS
--- NOTE | 2018-05-21 18:32 | NUR ---
Patient returned from VQ scan, remains on O2 2L NC, no resp distress, pains well managed, lorraine light within reach, by bedside, will monitor.
--- NOTE | 2018-05-21 18:43 | Diagnostic Imaging Report ---
Ventilation/perfusion lung scan Clinical Information:82 F with SOB, bronchitis, CHF and ESRD Comparison: Chest radiograph Discussion: Xenon-133 gas 19.8 mCi was administered via inhalation. Dynamic images of the lungs in the posterior projection were obtained through single breath, equilibrium, and washout phases. Distribution of tracer activity is very irregular throughout the lungs. There are no segmental ventilatory defects. Washout of tracer is diffusely delayed with diffuse air trapping. Perfusion images of the lungs were obtained in multiple projections following intravenous administration of approximately 3.6 mCi of Tc-99m MAA. Distribution of tracer is very irregular throughout the lungs. There are no segmental perfusion defects of any size. The perfusion images are well-matched to the ventilation images. The cardiomediastinal silhouette is mildly enlarged.. Impression: Scan findings represent a LOW probability for acute pulmonary embolic disease based on the PIOPED II criteria. Scan evidence of diffuse parenchymal and obstructive lung disease. Mildly enlarged cardiac silhouette. Signed by: Dr. Muriel Che M.D. on 05/21/2018 6:40 PM
--- NOTE | 2018-05-21 19:20 | NUR ---
REPORT TAKEN FROM MORNING RN.AAOX3.NO RESP.DISTRESS.NO PAIN VOICED.PHONE AND CALL LIGHT WITHIN REACH.INSTRUCTED TO CALL FOR ASSISTANCE NEEDED.
[2018-05-21] MEDS: QUETIAPINE FUMARATE 100 MG TAB PO SCH (21:10)
[2018-05-22] VITALS (8 sets, daily range): BP systolic 99–149; BP diastolic 51–73
[2018-05-22] MEDS: QUETIAPINE FUMARATE 25 MG TAB PO SCH ×2 (05:42→12:59)
[2018-05-22 06:29] LABS: ALBUMIN 2.8 g/dL (3.5-5.0); ALBUMIN/GLOBULIN RATIO 0.9 (0.8-2.0); CALCIUM 9.3 mg/dL (8.4-10.2); CREATININE, SERUM 7.6 mg/dL (0.57-1.11)
--- NOTE | 2018-05-22 06:50 | NUR ---
REPORT GIVEN TO THE ONCOMING RN WALKING ROUNDS DONE .STABLE CONDITION.
[2018-05-22] MEDS: IPRATROPIUM BROMIDE 0.02% 2.5 ML NEB NEB SCH ×4 (07:00→23:53)
--- NOTE | 2018-05-22 07:30 | NUR ---
HD STARTED AT THIS TIME HOLDING ORAL MEDS UNTIL HD TREATMENT IS COMPLETE PER HD NURSE .
[2018-05-22] MEDS: INSULIN LISPRO 100 UNIT/1 ML 3ML VIAL SQ SCH ×4 (08:52→21:46)
[2018-05-22] MEDS: INSULIN DETEMIR 100 UNIT/ML PEN SQ SCH ×2 (08:53→21:46)
[2018-05-22] MEDS: LACTOBACILLUS ACIDOPHILUS CAPSULE PO SCH ×2 (09:00→17:38)
[2018-05-22] MEDS ORDERED: ACETAMINOPHEN/CODEINE 300MG - 30MG TAB PO PRN (12:15)
--- NOTE | 2018-05-22 12:56 | Progress Note ---
DATE: NO DICTATION, LENGTH 3 SECONDS. Job#: [id number] MH
[2018-05-22] MEDS: PAROXETINE HCL 20 MG TAB PO SCH ×2 (12:59→21:44)
[2018-05-22] MEDS: NIFEDIPINE CR 30 MG TAB PO SCH (12:59)
[2018-05-22] MEDS: CLONAZEPAM 0.5 MG TAB PO SCH ×2 (12:59→21:44)
--- NOTE | 2018-05-22 13:15 | Progress Note ---
DATE: May 22, 2018 PULMONARY MEDICINE PROGRESS NOTE SUBJECTIVE: Ms. Quick was seen and examined at bedside. CT scan was low probability for acute PE, but there are some sizeable ventilation and perfusion defects that are noted, although they seem matched. The patient continues with ultrasound of legs without any high events of DVT. The patient is having dialysis today. REVIEW OF SYSTEMS: No headache. No rash. OBJECTIVE VITALS: Afebrile. Vital signs noted per electronic record. GENERAL: No acute distress. Alert and calm. HEENT: Normocephalic and atraumatic. NECK: Supple. Throat midline. LUNGS: Bilateral air entry is with decreased air entry, limited. CARDIOVASCULAR: S1 and S2. No murmurs, rubs or gallops. ABDOMEN: Soft, nontender. EXTREMITIES: No clubbing. No cyanosis. There is only trace leg edema. INTEGUMENT: No rash. No purpura. LABS: 5.0 potassium, 68 BUN, 7.6 creatinine, 9.6 white count, 34 hematocrit. TSH is 1.5. IMPRESSION AND PLAN 1. Hypoxemia, especially exertional. 2. Obstructive sleep apnea on home positive airway pressure. 3. Fluid overload, much better. 4. Obesity, possible thoracic restriction. 5. Allergies. 6. End-stage renal disease. 7. Hypertension. 8. Diabetes. 9. Anxiety. After reviewing the V/Q scan with the patient, I do recommend computed tomography optimally with contrast. The patient, however, prefers to go without contrast first. Continue mobilizing her. If no life-threatening possibilities are found, we may be able to allow the patient to be discharged and continue followup as an outpatient. Job#: [id number]
--- NOTE | 2018-05-22 13:16 | NUR ---
CASE MANAGEMENT INITIAL ASSESSMENT Radar Engineer to bedside to discuss plan of care with patient/family. CM/SW role and care transitions discussed. Anticipated discharge plan discussed along with duration of care. CM/SW discussed patients right to make decisions in care. CM/SW work hours given. Patient lives: WITH Admit/Transfer: ER POA/Emergency contact: FAVIO NAVARRO [phone] Current/Previous Home Health: NONE PCP/Follow-up Care: DR MANUEL GARNER Current/Previous DME: ROLLATOR, CPAP, NEBULIZER AND GLUCOMETER Other Services: NONE Employment Status: RETIRED Areas of Concerns: NONE Referral Needs: HOME 02 Education Needs: NONE IMM/WOOD given and signed (if applicable): IMM ON ADMIT AND 1/3 Goal for discharge:HOME WITH OXYGEN CM/SW left business card at the bedside with contact information. Name and number was also written on the patients whiteboard. Patient verbalized understanding of discussion. CM will follow-up with ongoing discharge and transition of care needs.
--- NOTE | 2018-05-22 13:21 | NUR ---
ORDERS FOR HOME 02 SATS ON RA WITH EXERTION 69% CHOICE LETTER SIGNED FOR [employer] COPY OF CHOICE LETTER TO PT IMM SIGNED AND ON CHART COPY TO PT CLINICALS FAXED TO [employer] AT [phone] CONFIRMATION REC'D PLAN DC IN 1-2 DAYS
--- NOTE | 2018-05-22 13:45 | NUR ---
Nutrition Screen Note RD Recommendation for Physician: - Rec adding ADA to renal diet as medically appropriate Plan of Care: RD following, monitoring for tolerance and adequacy Nutrition reason for involvement: Follow up Primary Diagnose(s): 1. Hypoxemia, especially exertional. 2. Obstructive sleep apnea on home positive airway pressure. 3. Fluid overload, much better. PMH: DM, ESRD on HD Ht: 63in Wt: 196.25lb 05/16, 190.37lb 05/22 BMI: 34.8kg/m2 IBW: 115lb RD Assessment: 05/22 Chart reviewed. Pt is getting HD today. Visited pt in the room. Pt reports good appetite with 100% recorded PO intake. No GI complains noted. LBM 05/21 , normal per pt. Pt denies any chewing or swallowing difficulty. Will continue to monitor and follow. (05/16) Chart reviewed. Labs and meds reviewed. 82 yo obese F, who is admitted for bronchitis. Visited pt in the room. Pt reports good appetite with 100% recorded PO intake. has been bringing foods from outside to feed pt. No GI complains noted. LBM 05/16, normal per pt. Pt denies any chewing or swallowing difficulty. No recent weight loss noted. Will continue to monitor and follow. Current Diet: renal diet Malnutrition Evaluation (05/16/18) The patient does not meet criteria for a specified degree of malnutrition at this time. Will re-evaluate at follow-up as appropriate. Diet Education Needs Assessment: Diet education not indicated; pt is followed by RD at [facility]. Nutrition Care Level: low Signed: Kate Mejias, , RD, LD
--- NOTE | 2018-05-22 15:14 | NUR ---
JUAN MANUEL REC'D PHONE CALL FROM [email or web address] WHO STATES THEY ARE NOT IN NETWORK CHOICE LETTER SIGNED FOR MEDICAL [employer]US [employer] [phone] FAXED CLINICAL TO [phone] CONFIRMATION REC'D SPOKE WITH AMY
--- NOTE | 2018-05-22 16:36 | Diagnostic Imaging Report ---
EXAM: CT Chest WITHOUT contrast Date/Time: 05/22/2018 12:10 PM INDICATION: Hypoxemia, poor perfusion, poor ventilation COMPARISON: Chest radiograph 05/20/2018. TECHNIQUE: Chest was scanned utilizing a multidetector helical scanner from the lung apex through the level of the adrenal glands without administration of IV contrast. Coronal and sagittal reformations were obtained. Routine protocol was performed. IV CONTRAST: 100 mL of Omnipaque 300 RADIATION DOSE: Total DLP: 451.9 mGy*cm COMPLICATIONS: None FINDINGS: LINES/ TUBES: Right IJ central venous catheter terminates in the proximal right atrium. LUNGS AND AIRWAYS: The central airways are patent. No evidence of lobar consolidation or pulmonary edema. There is linear subsegmental atelectasis in the bilateral lower lobes and lingula. There are patchy nodular opacities in the dependent right upper lobe on series 3, image 47, in the middle lobe on image 52, and left lower lobe on image 38. There is a groundglass nodule in the right middle lobe measuring up to 4 mm on image 58. Scattered 2 mm nodules, for example in the right upper lobe on image 19. PLEURA: The pleural spaces are clear. HEART AND MEDIASTINUM: The thyroid gland is normal. No mediastinal, hilar or axillary lymphadenopathy. There is mild cardiomegaly. No pericardial effusion. There are extensive atherosclerotic calcifications of the thoracic aorta and branch vessels. Scattered coronary at this chronic calcifications. There is enlargement of the main pulmonary artery, which measures up to 3.2 cm, suggestive of pulmonary arterial hypertension. Small hiatal hernia. UPPER ABDOMEN: Limited non-contrast views of the upper abdomen show no abnormality within the partially visualized liver, spleen, and adrenal glands. Distended stomach. BONES/SOFT TISSUES: No acute bony abnormality. Degenerative changes of the visualized spine. IMPRESSION: No evidence of lobar pneumonia or pulmonary edema. Patchy predominately dependent nodular opacities likely represent small foci of aspiration. Bilateral nodular opacities measuring up to 4 mm are likely infectious or inflammatory. In the absence of smoking history or other risk factor for malignancy, no follow-up CT is suggested. Cardiomegaly. Enlargement of the main pulmonary artery suggestive of pulmonary arterial hypertension. Distended stomach and small hiatal hernia. Signed by: Dr. Andrew Jernigan MD on 05/22/2018 4:32 PM
[2018-05-22] MEDS ORDERED: HYDROCODONE/CHLORPHENIRAMINE 5 ML LIQCR PO PRN (20:15)
[2018-05-22] MEDS: QUETIAPINE FUMARATE 100 MG TAB PO SCH (22:00)
--- NOTE | 2018-05-23 00:10 | NUR ---
Assessment done.aaox3.ambulates.no pain voiced.no resp.distress.bed locked and in lowest position.phone and call light within reach.instructed to call for assistance as needed.
[2018-05-23 04:46] VITALS: BP 136/60
[2018-05-23] MEDS: QUETIAPINE FUMARATE 25 MG TAB PO SCH (05:31)
--- NOTE | 2018-05-23 06:50 | NUR ---
REPORT GIVEN TO THE ONCOMING RN .WALKING ROUNDS DONE.STABLE CONDITION.
[2018-05-23] MEDS: IPRATROPIUM BROMIDE 0.02% 2.5 ML NEB NEB SCH (07:00)
[2018-05-23 08:00] VITALS: BP 138/62
[2018-05-23 08:10] VITALS: BP 138/62
[2018-05-23] MEDS: INSULIN DETEMIR 100 UNIT/ML PEN SQ SCH (09:14)
[2018-05-23] MEDS: PAROXETINE HCL 20 MG TAB PO SCH (09:14)
[2018-05-23] MEDS: LACTOBACILLUS ACIDOPHILUS CAPSULE PO SCH (09:14)
[2018-05-23] MEDS: INSULIN LISPRO 100 UNIT/1 ML 3ML VIAL SQ SCH (09:14)
[2018-05-23] MEDS: NIFEDIPINE CR 30 MG TAB PO SCH (09:14)
[2018-05-23] MEDS: CLONAZEPAM 0.5 MG TAB PO SCH (09:14)
--- NOTE | 2018-05-23 09:30 | NUR ---
PORTABLE 02 AND CONCENTRATOR DELIVERED TO PT'S ROOM LAST NIGHT PLAN DC HOME TODAY AFTER DR PARK ROUNDS
--- NOTE | 2018-05-23 11:15 | Discharge Summary ---
PRIMARY CARE DOCTOR: Richi Nelson MD, with [facility]. FINAL DIAGNOSIS: Pulmonary edema. SECONDARY DIAGNOSES 1. Possible aspiration pneumonia. 2. Hyponatremia, mild, stable, asymptomatic. 3. Hypertension, stable. 4. End-stage renal disease due to diabetes. 5. Uncontrolled diabetes due to steroids. CORPORATE BOND TRADER: Dr. Jiménez, rough rounder machine. PROCEDURES/STUDIES PERFORMED 1. V/Q scan was low probability for PE. 2. Bilateral lower extremity venous Doppler was negative for DVT. 3. Chest CT without contrast. HISTORY: Per H and P. HOSPITAL COURSE: The patient was admitted. Initially, the patient was on daily dialysis to remove extra fluid for her pulmonary edema. The patient improved. Empirically the patient got some steroids . We took out more than 10 liters of fluid during this hospitalization. Empirically, the patient was given a course of IV antibiotic as well. The patient was still hypoxic; therefore, pulmonary input was sought. Workup did not reveal any venous thrombotic embolism. CT did suggest some aspiration. I advised the patient to take her time when drinking and also no straws. The patient will go home on home oxygen for chronic respiratory failure. The patient did not have any recurrence of C. diff colitis during this hospitalization. The patient was seen and examined today. It took 32 minutes total to discharge this patient. I have updated her at the bedside. A printout of the chest CT was given as well to the patient to give it to her primary care doctor. CONDITION ON DISCHARGE: Improved. DISCHARGE MEDICATIONS: Please see medication reconciliation form. ABDULAZIZ PARK M.D. Job#: [id number] cc:RICHI NELSON MD
[2018-05-23 12:00] VITALS: BP 146/80
--- NOTE | 2018-05-23 12:00 | NUR ---
Spoke with Dr. Valdes at 1100 and states that pt is ok to discharge home, he has spoken to Dr. Jiménez and he has cleared her as well. Pt is to follow up with PCP and student services dean in one week. Pt is to resume outpatient dialysis on saturday. Discharge instructions explained to patient and spouse. Both verbalized understanding of discharge instructions.
== END 2018-05-23 12:05 | disposition home or self-care (01) | DRG 291 ==
LOC: ER 08:55 → ERHOLD 13:56 → MED/SURG 15:44 → OBSVTOIN 05-16 13:51
PROVIDERS: ADMIT Internal Medicine; ATTEND Internal Medicine
PROC: 5A1D70Z Performance of Urinary Filtration, Intermittent, Less than 6 Hours Per Day (ICD-10-PCS; 2018-05-15)
PROC: 5A1D70Z Performance of Urinary Filtration, Intermittent, Less than 6 Hours Per Day (ICD-10-PCS; 2018-05-16)
PROC: 5A1D70Z Performance of Urinary Filtration, Intermittent, Less than 6 Hours Per Day (ICD-10-PCS; 2018-05-17)
PROC: 5A1D70Z Performance of Urinary Filtration, Intermittent, Less than 6 Hours Per Day (ICD-10-PCS; 2018-05-19)
PROC: 5A1D70Z Performance of Urinary Filtration, Intermittent, Less than 6 Hours Per Day (ICD-10-PCS; 2018-05-20)
PROC: 5A1D70Z Performance of Urinary Filtration, Intermittent, Less than 6 Hours Per Day (ICD-10-PCS; principal; 2018-05-22)
DX: I13.2 Hypertensive heart and chronic kidney disease with heart failure and with stage 5 chronic kidney disease, or end stage renal disease (principal); I50.21 Acute systolic (congestive) heart failure; N18.6 End stage renal disease; J18.9 Pneumonia, unspecified organism; J44.0 Chronic obstructive pulmonary disease with (acute) lower respiratory infection; J44.1 Chronic obstructive pulmonary disease with (acute) exacerbation; E87.1 Hypo-osmolality and hyponatremia; J20.9 Acute bronchitis, unspecified; E11.22 Type 2 diabetes mellitus with diabetic chronic kidney disease; E78.00 Pure hypercholesterolemia, unspecified; Z91.041 Radiographic dye allergy status; Z82.49 Family history of ischemic heart disease and other diseases of the circulatory system; Z99.2 Dependence on renal dialysis; E78.5 Hyperlipidemia, unspecified; G47.33 Obstructive sleep apnea (adult) (pediatric); E66.9 Obesity, unspecified; F41.9 Anxiety disorder, unspecified; R53.81 Other malaise; R09.02 Hypoxemia; E87.5 Hyperkalemia; E11.65 Type 2 diabetes mellitus with hyperglycemia; T38.0X5A Adverse effect of glucocorticoids and synthetic analogues, initial encounter; Z68.34 Body mass index [BMI] 34.0-34.9, adult
CPT/HCPCS: 36415; 71045; 71046; 71250; 78582; 80048; 80053; 81001; 82550; 82553; 82948; 83605; 83615; 83735; 83880; 84443; 84484; 85025; 85610; 85730; 86039; 86200; 86431; 86704; 86705; 86706; 86707; 87040; 87086; 87186; 87340; 87350; 87400; 90962; 93005; 93970; 94640; 99284; A9540; A9558; G0378; J0456; J0692; J1644; J2920; J2930; J3370; J7030; J7040

== ENCOUNTER 2020-10-18 01:36 | Inpatient (IN) | payer OTHER, MEDICARE ==
[~2020-10-18] VITALS: Ht 160 cm; Wt 83.0 kg
[2020-10-18] VITALS (20 sets, daily range): BP systolic 79–156; BP diastolic 36–62
[~2020-10-18 01:36] MED LIST changes: +ASPIR 8181 MG; +CALCIUM ACETAT667 M1; +SEROQUEL25 MG PO
[2020-10-18 02:01] LABS: BASOPHILS % 0.5 % (0.0-1.0); EOSINOPHILS # (AUTO) 0.1 (0.0-0.4); EOSINOPHILS % 0.9 % (0.0-6.0); HEMATOCRIT 34.5 % (34.2-44.1); HEMOGLOBIN 10.2 g/dL (12.0-16.0); LYMPHOCYTES # (AUTO) 0.8 (1.0-3.2); LYMPHOCYTES % 12.6 % (18.0-39.1); MEAN CORPUSCULAR HEMOGLOBIN 29.1 pg (28-32); MEAN CORPUSCULAR HGB CONC 29.6 g/dL (31-35); MEAN CORPUSCULAR VOLUME 98.6 fL (81-99); MONOCYTES # (AUTO) 0.5 (0.2-0.8); NEUTROPHILS % 78.1 % (38.7-80.0); PLATELET COUNT 141 x10e3/uL (140-360); RED CELL DISTRIBUTION WIDTH 14.6 % (11.7-14.4)
[2020-10-18] MEDS ORDERED: SODIUM CHLORIDE 0.9% 500ML 500 ML IV ONE (02:15)
[2020-10-18] MEDS ORDERED: SODIUM BICARBONATE 8.4% INJ 50 ML SYR IV STA (02:34)
[2020-10-18] MEDS ORDERED: ALBUTEROL SULF 0.083% NEB SOLN 3 ML NEB NEB STA (02:34)
[2020-10-18] MEDS ORDERED: DEXTROSE 50% SYRINGE 50 ML IV STA (02:34)
[2020-10-18 02:43] LABS: ALBUMIN 3.5 g/dL (3.5-5.0); ALBUMIN/GLOBULIN RATIO 1.3 (0.8-2.0); ANION GAP 25.7 mmol/L (8-16); CALCIUM 7.1 mg/dL (8.4-10.2); CREATININE, SERUM 9.03 mg/dL (0.57-1.11); POTASSIUM 6.7 mmol/L (3.5-5.1)
[2020-10-18] MEDS ORDERED: CALCIUM GLUCONATE 10% INJ 13.95 MEQ in SODIUM CHLORIDE 0.9% 100 ML 100 ML IV ONE (02:45)
[2020-10-18] MEDS ORDERED: SOD POLYSTYRENE SULFONATE SUSP 15 GM/60 ML BTL PO ONE (02:45)
[2020-10-18] MEDS ORDERED: INSULIN REGULAR, HUMAN 100 UNIT/1 ML 3ML VIAL IV ONE (02:45)
[2020-10-18] MEDS ORDERED: DEXTROSE 50% SYRINGE 50 ML IV ONE (02:52)
[2020-10-18] MEDS ORDERED: INSULIN REGULAR, HUMAN 100 UNIT/1 ML 3ML VIAL ONE (02:52)
[2020-10-18] MEDS ORDERED: CALCIUM GLUCONATE 10% INJ 0.465 MEQ/ML VIAL ONE (03:18)
[2020-10-18] MEDS ORDERED: SODIUM CHLORIDE 0.9% 100 ML ONE (03:19)
[2020-10-18] MEDS ORDERED: MIDODRINE 2.5 MG TAB PO ONE (03:30)
[2020-10-18] MEDS ORDERED: DEXTROSE 50% SYRINGE 50 ML IV PRN ×2 (03:45→12:45)
[2020-10-18] MEDS ORDERED: SODIUM CHLORIDE FLUSH 10 ML SYR INJ PRN (03:45)
[2020-10-18] MEDS ORDERED: SODIUM CHLORIDE 0.9% 1000ML 2,000 ML ONE (06:37)
[2020-10-18 06:41] LABS: BASOPHILS % 0.3 % (0.0-1.0); EOSINOPHILS % 0.3 % (0.0-6.0); HEMATOCRIT 35.4 % (34.2-44.1); HEMOGLOBIN 10.3 g/dL (12.0-16.0); LYMPHOCYTES # (AUTO) 1.1 (1.0-3.2); MEAN CORPUSCULAR HEMOGLOBIN 29.4 pg (28-32); MEAN CORPUSCULAR HGB CONC 29.1 g/dL (31-35); MEAN CORPUSCULAR VOLUME 101.1 fL (81-99); MONOCYTES # (AUTO) 0.6 (0.2-0.8); MONOCYTES % 7.2 % (4.4-11.3); NEUTROPHILS # (AUTO) 6.9 (2.1-6.9); NEUTROPHILS % 78.8 % (38.7-80.0); PLATELET COUNT 144 x10e3/uL (140-360); RED CELL DISTRIBUTION WIDTH 14.5 % (11.7-14.4)
[2020-10-18 07:01] LABS: ANION GAP 22.6 mmol/L (8-16); CALCIUM 7.7 mg/dL (8.4-10.2); CREATININE, SERUM 9.35 mg/dL (0.57-1.11); POTASSIUM 5.6 mmol/L (3.5-5.1)
[2020-10-18 07:11] LABS: MAGNESIUM 1.9 MG/DL (1.3-2.1); PHOSPHORUS 7.5 MG/DL (2.3-4.7)
[2020-10-18] MEDS ORDERED: INSULIN REGULAR, HUMAN 100 UNIT/1 ML 3ML VIAL SQ SCH (07:30)
[2020-10-18] MEDS ORDERED: RENAGEL800 MG PO (09:53)
[2020-10-18] MEDS ORDERED: PROTONIX20 MG PO (09:53)
[2020-10-18] MEDS ORDERED: NEURONTIN300 MG PO ×2 (09:53)
[2020-10-18] MEDS ORDERED: PAROXETINE HCL30 MG (09:53)
[2020-10-18] MEDS ORDERED: NOVOLOG100 UNIT/1 SC (09:53)
[2020-10-18] MEDS ORDERED: LEVEMIR FL100 UNIT/1 SC (09:53)
[2020-10-18] MEDS ORDERED: CRESTOR10 MG PO (09:53)
[2020-10-18] MEDS ORDERED: ETOMIDATE 2 MG/ML 10 ML INJ IV ONE (13:08)
[2020-10-18] MEDS ORDERED: VECURONIUM BROMIDE FOR INJ 20 MG VIAL ONE (13:08)
[2020-10-18] MEDS ORDERED: WATER STERILE 10 ML VIAL ONE (13:08)
[2020-10-18] MEDS ORDERED: MIDAZOLAM HCL 2 MG/2 ML VIAL ONE ×2 (13:08→16:34)
[2020-10-18] MEDS ORDERED: HYDRALAZINE HCL 20 MG/ML VIAL IV PRN (13:45)
[2020-10-18] MEDS ORDERED: ONDANSETRON HCL INJ 2MG/ML 2ML 2 MG/ML VIAL IV PRN (13:45)
[2020-10-18] MEDS ORDERED: ACETAMINOPHEN 325 MG TAB PO PRN (13:45)
[2020-10-18 13:57] LABS: BASOPHILS % 0.4 % (0.0-1.0); EOSINOPHILS % 0.2 % (0.0-6.0); HEMATOCRIT 35.3 % (34.2-44.1); HEMOGLOBIN 10.4 g/dL (12.0-16.0); LYMPHOCYTES # (AUTO) 0.6 (1.0-3.2); LYMPHOCYTES % 5.8 % (18.0-39.1); MEAN CORPUSCULAR HEMOGLOBIN 29.9 pg (28-32); MEAN CORPUSCULAR HGB CONC 29.5 g/dL (31-35); MEAN CORPUSCULAR VOLUME 101.4 fL (81-99); MONOCYTES # (AUTO) 0.8 (0.2-0.8); MONOCYTES % 7.2 % (4.4-11.3); NEUTROPHILS # (AUTO) 8.8 (2.1-6.9); NEUTROPHILS % 85.1 % (38.7-80.0); PLATELET COUNT 140 x10e3/uL (140-360); RED BLOOD COUNT 3.48 x10e6/uL (3.6-5.1); RED CELL DISTRIBUTION WIDTH 14.6 % (11.7-14.4)
[2020-10-18 14:11] LABS: ANION GAP 22.5 mmol/L (8-16); CALCIUM 7.4 mg/dL (8.4-10.2); CREATININE, SERUM 6.93 mg/dL (0.57-1.11)
[2020-10-18 14:16] LABS: POTASSIUM 6.5 mmol/L (3.5-5.1)
[2020-10-18 14:23] LABS: ABG PH 7.21 (7.35-7.45)
[2020-10-18 14:24] LABS: ABG HCO3 31 mmol/L (22-26); ABG PCO2 76 mmHg (35-45); ABG PO2 94 mmHg (80-105); ABG TCO2 33
[2020-10-18] MEDS ORDERED: SENSIPAR30 MG PO (15:16)
[2020-10-18] MEDS ORDERED: MYSOLINE50 MG PO (15:16)
[2020-10-18] MEDS ORDERED: MIDODRINE HCL5 MG PO (15:16)
[2020-10-18] MEDS ORDERED: CALCIUM GLUCONATE 10% INJ 4.65 MEQ in SODIUM CHLORIDE 0.9% 50ML 50 ML IV ONE (15:30)
[2020-10-18] MEDS ORDERED: MIDODRINE 2.5 MG TAB PO PRN (15:30)
[2020-10-18] MEDS ORDERED: ATROPINE SULFATE 0.1 MG/ML 10ML SYR ONE (15:42)
[2020-10-18] MEDS: MIDODRINE HCL 5 MG TABLET PO SCH (15:57)
[2020-10-18] MEDS ORDERED: NOREPINEPHRINE 8 MG/D5W 250 ML 250 ML ONE (16:03)
[2020-10-18] MEDS ORDERED: PROPOFOL IV EMULSION 50 ML IV ONE ×2 (16:15→18:39)
[2020-10-18] MEDS: INSULIN REGULAR, HUMAN 100 UNIT/1 ML 3ML VIAL SQ SCH ×2 (16:30→22:51)
[2020-10-18] MEDS: SEVELAMER CARBONATE 800 MG TAB PO SCH (17:00)
[2020-10-18] MEDS ORDERED: ALBUMIN 25% 12.5GM 0.25 GM/ML BTL IV PRN (17:00)
[2020-10-18] MEDS ORDERED: SODIUM CHLORIDE 0.9% 1000ML 2,000 ML IV PRN (17:00)
[2020-10-18] MEDS ORDERED: GABAPENTIN 300 MG CAP PO SCH (17:00)
[2020-10-18] MEDS ORDERED: SODIUM CHLORIDE 0.9% 250ML 500 ML IV PRN (17:00)
[2020-10-18 18:07] LABS: ABG PCO2 48 mmHg (35-45); ABG PH 7.37 (7.35-7.45); ABG PO2 147 mmHg (80-105)
[2020-10-18 18:08] LABS: ABG HCO3 28 mmol/L (22-26); ABG TCO2 30
[2020-10-18] MEDS ORDERED: NOREPINEPHRINE INJ 4MG/4ML 8 MG in DEXTROSE 5% 250ML 250 ML IV PRN (18:45)
[2020-10-18] MEDS ORDERED: PROPOFOL IV EMULSION 10MG/ML 100 ML IV PRN (18:45)
[2020-10-18] MEDS: NOREPINEPHRINE 8 MG/D5W 250 ML 250 ML IV SCH (20:06)
[2020-10-18] MEDS: SIMVASTATIN 20 MG TAB PO SCH (20:07)
[2020-10-18] MEDS: PROPOFOL IV EMULSION 50 ML IV PRN ×2 (21:00→23:27)
[2020-10-18] MEDS: HEPARIN SOD (PORCINE) 5,000 UNIT/ML VIAL SC SCH (22:51)
[2020-10-18] MEDS: INSULIN GLARGINE 100 UNITS/ML VIAL SQ SCH (22:52)
[2020-10-19] VITALS (30 sets, daily range): BP systolic 92–153; BP diastolic 34–98
[2020-10-19] MEDS: PROPOFOL IV EMULSION 50 ML IV PRN ×3 (02:54→08:45)
[2020-10-19 04:29] LABS: BASOPHILS % 0.3 % (0.0-1.0); EOSINOPHILS # (AUTO) 0.1 (0.0-0.4); EOSINOPHILS % 0.7 % (0.0-6.0); HEMATOCRIT 30.3 % (34.2-44.1); HEMOGLOBIN 9.4 g/dL (12.0-16.0); LYMPHOCYTES # (AUTO) 0.8 (1.0-3.2); LYMPHOCYTES % 10.9 % (18.0-39.1); MEAN CORPUSCULAR HEMOGLOBIN 30.1 pg (28-32); MEAN CORPUSCULAR VOLUME 97.1 fL (81-99); MONOCYTES # (AUTO) 0.5 (0.2-0.8); MONOCYTES % 7.6 % (4.4-11.3); NEUTROPHILS # (AUTO) 5.6 (2.1-6.9); NEUTROPHILS % 80.1 % (38.7-80.0); PLATELET COUNT 155 x10e3/uL (140-360); RED BLOOD COUNT 3.12 x10e6/uL (3.6-5.1); RED CELL DISTRIBUTION WIDTH 14.4 % (11.7-14.4)
[2020-10-19 04:47] LABS: ALBUMIN 3.1 g/dL (3.5-5.0); ALBUMIN/GLOBULIN RATIO 1.2 (0.8-2.0); ANION GAP 14.7 mmol/L (8-16); CALCIUM 7.9 mg/dL (8.4-10.2); CREATININE, SERUM 3.86 mg/dL (0.57-1.11); POTASSIUM 3.7 mmol/L (3.5-5.1)
[2020-10-19 07:46] LABS: ABG HCO3 32 mmol/L (22-26); ABG PCO2 43 mmHg (35-45); ABG PH 7.48 (7.35-7.45); ABG PO2 113 mmHg (80-105); ABG TCO2 33
[2020-10-19] MEDS: INSULIN REGULAR, HUMAN 100 UNIT/1 ML 3ML VIAL SQ SCH ×4 (07:56→22:00)
[2020-10-19] MEDS: MIDODRINE HCL 5 MG TABLET PO SCH ×3 (08:00→16:00)
[2020-10-19] MEDS: SEVELAMER CARBONATE 800 MG TAB PO SCH ×2 (08:00→16:54)
[2020-10-19] MEDS: HEPARIN SOD (PORCINE) 5,000 UNIT/ML VIAL SC SCH ×2 (09:00→21:00)
[2020-10-19] MEDS ORDERED: SIMVASTATIN 40 MG TAB PO SCH (09:00)
[2020-10-19] MEDS: PAROXETINE HCL 20 MG TAB PO SCH (11:51)
[2020-10-19] MEDS: PANTOPRAZOLE SOD 40 MG TABEC PO SCH (11:51)
[2020-10-19] MEDS: ASPIRIN 81 MG CHEW TAB PO SCH (11:51)
[2020-10-19] MEDS: NOREPINEPHRINE 8 MG/D5W 250 ML 250 ML IV SCH (14:35)
[2020-10-19] MEDS ORDERED: CEFTRIAXONE 1 GM in SODIUM CHLORIDE 0.9% 50ML 50 ML IV SCH (15:15)
[2020-10-19] MEDS: ALPRAZOLAM 0.25 MG TAB PO PRN (15:16)
[2020-10-19] MEDS: INSULIN GLARGINE 100 UNITS/ML VIAL SQ SCH (22:00)
[2020-10-19] MEDS: SIMVASTATIN 20 MG TAB PO SCH (22:08)
[2020-10-20] VITALS (10 sets, daily range): BP systolic 105–141; BP diastolic 41–73
[2020-10-20 04:29] LABS: BASOPHILS % 0.1 % (0.0-1.0); EOSINOPHILS # (AUTO) 0.1 (0.0-0.4); EOSINOPHILS % 0.9 % (0.0-6.0); HEMOGLOBIN 9.2 g/dL (12.0-16.0); LYMPHOCYTES % 13.1 % (18.0-39.1); MEAN CORPUSCULAR HEMOGLOBIN 30.3 pg (28-32); MEAN CORPUSCULAR HGB CONC 30.7 g/dL (31-35); MEAN CORPUSCULAR VOLUME 98.7 fL (81-99); MONOCYTES # (AUTO) 0.5 (0.2-0.8); MONOCYTES % 6.9 % (4.4-11.3); NEUTROPHILS # (AUTO) 6.1 (2.1-6.9); NEUTROPHILS % 78.6 % (38.7-80.0); PLATELET COUNT 114 x10e3/uL (140-360); RED BLOOD COUNT 3.04 x10e6/uL (3.6-5.1); RED CELL DISTRIBUTION WIDTH 14.7 % (11.7-14.4)
[2020-10-20 04:42] LABS: INR 0.97; PROTHROMBIN TIME 13.5 seconds (11.9-14.5)
[2020-10-20 04:43] LABS: PARTIAL THROMBOPLASTIN TIME 35.5 seconds (23.8-35.5)
[2020-10-20 04:50] LABS: ALBUMIN 2.9 g/dL (3.5-5.0); ANION GAP 15.5 mmol/L (8-16); CALCIUM 7.7 mg/dL (8.4-10.2); CREATININE, SERUM 6.21 mg/dL (0.57-1.11); POTASSIUM 3.5 mmol/L (3.5-5.1)
[2020-10-20] MEDS: INSULIN REGULAR, HUMAN 100 UNIT/1 ML 3ML VIAL SQ SCH ×4 (07:51→21:00)
[2020-10-20] MEDS: PAROXETINE HCL 20 MG TAB PO SCH (08:29)
[2020-10-20] MEDS: ASPIRIN 81 MG CHEW TAB PO SCH (08:29)
[2020-10-20] MEDS: SEVELAMER CARBONATE 800 MG TAB PO SCH ×2 (08:29→17:46)
[2020-10-20] MEDS: MIDODRINE HCL 5 MG TABLET PO SCH ×3 (08:29→15:30)
[2020-10-20] MEDS: PANTOPRAZOLE SOD 40 MG TABEC PO SCH (08:29)
[2020-10-20] MEDS: ALPRAZOLAM 0.25 MG TAB PO PRN (08:34)
[2020-10-20] MEDS: HEPARIN SOD (PORCINE) 5,000 UNIT/ML VIAL SC SCH ×2 (08:34→21:00)
[2020-10-20] MEDS ORDERED: CLONAZEPAM 0.5 MG TAB PO PRN (09:30)
[2020-10-20] MEDS: ALBUTEROL SULF 0.083% NEB SOLN 3 ML NEB NEB SCH ×2 (13:23→19:25)
[2020-10-20] MEDS: CEFTRIAXONE 1 GM in SODIUM CHLORIDE 0.9% 50ML 50 ML IV SCH (17:46)
[2020-10-20] MEDS: INSULIN GLARGINE 100 UNITS/ML VIAL SQ SCH (21:00)
[2020-10-20] MEDS: SIMVASTATIN 20 MG TAB PO SCH (21:26)
[2020-10-21] VITALS (10 sets, daily range): BP systolic 113–168; BP diastolic 55–73
[2020-10-21] MEDS: ALBUTEROL SULF 0.083% NEB SOLN 3 ML NEB NEB SCH ×4 (00:05→19:30)
[2020-10-21] MEDS: SEVELAMER CARBONATE 800 MG TAB PO SCH ×2 (07:55→16:59)
[2020-10-21] MEDS: ASPIRIN 81 MG CHEW TAB PO SCH (07:55)
[2020-10-21] MEDS: PAROXETINE HCL 20 MG TAB PO SCH (07:56)
[2020-10-21] MEDS: PANTOPRAZOLE SOD 40 MG TABEC PO SCH (07:57)
[2020-10-21] MEDS: MIDODRINE HCL 5 MG TABLET PO SCH ×3 (07:57→14:10)
[2020-10-21] MEDS: HEPARIN SOD (PORCINE) 5,000 UNIT/ML VIAL SC SCH ×2 (09:47→21:00)
[2020-10-21] MEDS: INSULIN REGULAR, HUMAN 100 UNIT/1 ML 3ML VIAL SQ SCH ×2 (09:47→11:36)
[2020-10-21 15:21] LABS: FREE T4 (FREE THYROXINE) 0.76 ng/dL (0.8-1.8); THYROID STIMULATING HORMONE 6.505 uIU/mL (0.350-4.940)
[2020-10-21] MEDS: BENZONATATE 100 MG CAP PO SCH ×2 (16:32→21:00)
[2020-10-21] MEDS ORDERED: SODIUM CHLORIDE 0.9% 250ML 250 ML ONE (16:57)
[2020-10-21] MEDS: CEFTRIAXONE 1 GM in SODIUM CHLORIDE 0.9% 50ML 50 ML IV SCH (16:59)
[2020-10-21] MEDS: AMMONIUM LACTATE 12% LOTION 225GM BTL TOP SCH (16:59)
[2020-10-21] MEDS: INSULIN LISPRO 100 UNIT/1 ML 3ML VIAL SQ SCH ×3 (17:37→20:32)
[2020-10-21] MEDS: SIMVASTATIN 20 MG TAB PO SCH (21:00)
[2020-10-21] MEDS ORDERED: INSULIN GLARGINE 100 UNITS/ML VIAL SQ SCH (21:00)
[2020-10-21] MEDS: QUETIAPINE FUMARATE 25 MG TAB PO SCH (21:00)
[2020-10-21] MEDS: GABAPENTIN 100 MG CAP PO SCH (21:00)
[2020-10-22] VITALS: BP 140/58
[2020-10-22] MEDS: ALBUTEROL SULF 0.083% NEB SOLN 3 ML NEB NEB SCH ×3 (01:10→13:20)
[2020-10-22 04:00] VITALS: BP 143/57
[2020-10-22 06:02] LABS: BASOPHILS % 0.2 % (0.0-1.0); EOSINOPHILS # (AUTO) 0.1 (0.0-0.4); EOSINOPHILS % 1.4 % (0.0-6.0); HEMATOCRIT 29.7 % (34.2-44.1); HEMOGLOBIN 8.9 g/dL (12.0-16.0); LYMPHOCYTES # (AUTO) 0.9 (1.0-3.2); LYMPHOCYTES % 17.3 % (18.0-39.1); MEAN CORPUSCULAR HEMOGLOBIN 29.6 pg (28-32); MEAN CORPUSCULAR VOLUME 98.7 fL (81-99); MONOCYTES # (AUTO) 0.4 (0.2-0.8); MONOCYTES % 7.7 % (4.4-11.3); NEUTROPHILS # (AUTO) 3.6 (2.1-6.9); NEUTROPHILS % 73.2 % (38.7-80.0); PLATELET COUNT 120 x10e3/uL (140-360); RED BLOOD COUNT 3.01 x10e6/uL (3.6-5.1); RED CELL DISTRIBUTION WIDTH 14.9 % (11.7-14.4)
[2020-10-22 06:15] LABS: ANION GAP 19.9 mmol/L (8-16); CALCIUM 7.5 mg/dL (8.4-10.2); CREATININE, SERUM 6.45 mg/dL (0.57-1.11); POTASSIUM 3.9 mmol/L (3.5-5.1)
[2020-10-22] MEDS: INSULIN LISPRO 100 UNIT/1 ML 3ML VIAL SQ SCH ×6 (07:30→20:15)
[2020-10-22] MEDS: MIDODRINE HCL 5 MG TABLET PO SCH ×3 (07:51→16:00)
[2020-10-22 08:07] VITALS: BP 125/56
[2020-10-22 08:23] VITALS: BP 125/77
[2020-10-22] MEDS: PANTOPRAZOLE SOD 40 MG TABEC PO SCH (10:10)
[2020-10-22] MEDS: PAROXETINE HCL 20 MG TAB PO SCH (10:10)
[2020-10-22] MEDS: BENZONATATE 100 MG CAP PO SCH ×3 (10:10→17:00)
[2020-10-22] MEDS: ASPIRIN 81 MG CHEW TAB PO SCH (10:10)
[2020-10-22] MEDS: SEVELAMER CARBONATE 800 MG TAB PO SCH ×2 (10:10→17:00)
[2020-10-22] MEDS: HEPARIN SOD (PORCINE) 5,000 UNIT/ML VIAL SC SCH ×2 (10:11→20:15)
[2020-10-22] MEDS: AMMONIUM LACTATE 12% LOTION 225GM BTL TOP SCH ×2 (10:13→17:43)
[2020-10-22] MEDS ORDERED: CLONAZEPAM0.5 MG PO (12:49)
[2020-10-22] MEDS ORDERED: GABAPENTIN100 MG PO (12:49)
[2020-10-22] MEDS ORDERED: TESSALON PERLE100 MG PO (12:49)
[2020-10-22] MEDS ORDERED: SEROQUEL25 MG PO (12:49)
[2020-10-22] MEDS ORDERED: MIDODRINE HCL5 MG PO (12:49)
[2020-10-22 13:23] VITALS: BP 141/68
[2020-10-22] MEDS ORDERED: INSULIN LISPRO 100 UNIT/1 ML 3ML VIAL SQ SCH (16:30)
[2020-10-22] MEDS: CEFTRIAXONE 1 GM in SODIUM CHLORIDE 0.9% 50ML 50 ML IV SCH (17:42)
[2020-10-22] MEDS: QUETIAPINE FUMARATE 25 MG TAB PO SCH (20:14)
[2020-10-22] MEDS: SIMVASTATIN 20 MG TAB PO SCH (20:14)
[2020-10-22] MEDS: GABAPENTIN 100 MG CAP PO SCH (20:14)
[2020-10-22] MEDS ORDERED: INSULIN GLARGINE 100 UNITS/ML VIAL SQ SCH (21:00)
== END 2020-10-22 20:15 | disposition home or self-care (01) | DRG 917 ==
LOC: ER 02:00 → ICU 05:14 → MED/SURG2 10-20 11:46
PROVIDERS: ADMIT Internal Medicine; ATTEND Internal Medicine
PROC: 5A1935Z Respiratory Ventilation, Less than 24 Consecutive Hours (ICD-10-PCS; principal; 2020-10-18)
PROC: 0BH18EZ Insertion of Endotracheal Airway into Trachea, Via Natural or Artificial Opening Endoscopic (ICD-10-PCS; 2020-10-18)
PROC: 5A1D70Z Performance of Urinary Filtration, Intermittent, Less than 6 Hours Per Day (ICD-10-PCS; 2020-10-18)
PROC: 3E043XZ Introduction of Vasopressor into Central Vein, Percutaneous Approach (ICD-10-PCS; 2020-10-18)
PROC: 02HV33Z Insertion of Infusion Device into Superior Vena Cava, Percutaneous Approach (ICD-10-PCS; 2020-10-18)
PROC: B548ZZA Ultrasonography of Superior Vena Cava, Guidance (ICD-10-PCS; 2020-10-18)
PROC: 5A1D70Z Performance of Urinary Filtration, Intermittent, Less than 6 Hours Per Day (ICD-10-PCS; 2020-10-20)
PROC: 5A1D70Z Performance of Urinary Filtration, Intermittent, Less than 6 Hours Per Day (ICD-10-PCS; 2020-10-22)
DX: T42.6X1A Poisoning by other antiepileptic and sedative-hypnotic drugs, accidental (unintentional), initial encounter (principal); G93.41 Metabolic encephalopathy; N18.6 End stage renal disease; J96.02 Acute respiratory failure with hypercapnia; I12.0 Hypertensive chronic kidney disease with stage 5 chronic kidney disease or end stage renal disease; N25.81 Secondary hyperparathyroidism of renal origin; E87.2 Acidosis; E87.5 Hyperkalemia; E11.22 Type 2 diabetes mellitus with diabetic chronic kidney disease; Z99.2 Dependence on renal dialysis; Z91.041 Radiographic dye allergy status; Z20.822 Contact with and (suspected) exposure to COVID-19; E78.00 Pure hypercholesterolemia, unspecified; D64.9 Anemia, unspecified; E11.42 Type 2 diabetes mellitus with diabetic polyneuropathy; W01.0XXA Fall on same level from slipping, tripping and stumbling without subsequent striking against object, initial encounter; Y92.012 Bathroom of single-family (private) house as the place of occurrence of the external cause; G47.33 Obstructive sleep apnea (adult) (pediatric); F41.9 Anxiety disorder, unspecified; Z79.82 Long term (current) use of aspirin; Z79.4 Long term (current) use of insulin
CPT/HCPCS: 31500; 36415; 36600; 70450; 71045; 80048; 80053; 82550; 82553; 82805; 82948; 83036; 83605; 83735; 84100; 84439; 84443; 84484; 85025; 85610; 85730; 86677; 86704; 87040; 87340; 93005; 94002; 94003; 94640; 94660; 96361; 96372; 99285; J0610; J0696; J1644; J1815; J1817; J2250; J7030; J7040; J7050; J7799; U0002

== ENCOUNTER 2021-04-18 14:52 | Inpatient (IN) | payer MEDICARE, OTHER ==
[~2021-04-18] VITALS: Ht 162.6 cm; Wt 86.6 kg
[~2021-04-18 14:52] MED LIST changes: +CRESTOR10 MG PO; +GABAPENTIN100 MG PO; +LEVEMIR FL100 UNIT/1 SC; +MIDODRINE HCL5 MG PO; +MYSOLINE50 MG PO; +NEURONTIN300 MG PO; +NOVOLOG100 UNIT/1 SC; +PAROXETINE HCL30 MG; +PROTONIX20 MG PO; +RENAGEL800 MG PO; +SENSIPAR30 MG PO; +TESSALON PERLE100 MG PO
[2021-04-18] MEDS ORDERED: ASPIRIN 81 MG CHEW TAB PO ONE (17:15)
[2021-04-18] MEDS ORDERED: SODIUM CHLORIDE FLUSH 10 ML SYR INJ PRN (17:15)
[2021-04-18] MEDS ORDERED: ONDANSETRON HCL INJ 2MG/ML 2ML 2 MG/ML VIAL IV PRN (17:15)
[2021-04-18] MEDS ORDERED: DEXTROSE 50% SYRINGE 50 ML IV PRN (17:30)
[2021-04-18] MEDS ORDERED: ACETAMINOPHEN 325 MG TAB PO PRN (18:00)
[2021-04-18 20:20] LABS: CREATINE KINASE MB 3.6 ng/mL (0-5.0)
[2021-04-18] MEDS: INSULIN LISPRO 100 UNIT/1 ML 3ML VIAL SQ SCH (21:00)
[2021-04-18] MEDS ORDERED: GABAPENTIN 100 MG CAP PO SCH (21:00)
[2021-04-18] MEDS: SIMVASTATIN 20 MG TAB PO SCH (21:20)
[2021-04-18 21:41] VITALS: BP 156/63
[2021-04-18 21:50] VITALS: BP 156/63
[2021-04-18] MEDS: CLONAZEPAM 0.5 MG TAB PO PRN (21:52)
[2021-04-19] VITALS (8 sets, daily range): BP systolic 140–170; BP diastolic 59–88
[2021-04-19 03:09] LABS: CREATINE KINASE MB 1.9 ng/mL (0-5.0)
[2021-04-19 07:19] LABS: BASOPHILS % 0.5 % (0.0-1.0); EOSINOPHILS # (AUTO) 0.1 (0.0-0.4); HEMATOCRIT 34.9 % (34.2-44.1); LYMPHOCYTES % 17.6 % (18.0-39.1); MEAN CORPUSCULAR HEMOGLOBIN 27.7 pg (28-32); MEAN CORPUSCULAR HGB CONC 28.7 g/dL (31-35); MEAN CORPUSCULAR VOLUME 96.7 fL (81-99); MONOCYTES # (AUTO) 0.5 (0.2-0.8); MONOCYTES % 8.7 % (4.4-11.3); NEUTROPHILS # (AUTO) 4.2 (2.1-6.9); NEUTROPHILS % 71.7 % (38.7-80.0); PLATELET COUNT 140 x10e3/uL (140-360); RED BLOOD COUNT 3.61 x10e6/uL (3.6-5.1); RED CELL DISTRIBUTION WIDTH 15.1 % (11.7-14.4)
[2021-04-19] MEDS: INSULIN LISPRO 100 UNIT/1 ML 3ML VIAL SQ SCH ×4 (07:30→20:43)
[2021-04-19 07:41] LABS: ANION GAP 15.2 mmol/L (8-16); CALCIUM 8.6 mg/dL (8.4-10.2); CREATININE, SERUM 5.15 mg/dL (0.57-1.11); POTASSIUM 4.2 mmol/L (3.5-5.1)
[2021-04-19] MEDS: SEVELAMER CARBONATE 800 MG TAB PO SCH ×2 (08:30→17:00)
[2021-04-19] MEDS: CINACALCET 30 MG TAB PO SCH (09:20)
[2021-04-19] MEDS: ASPIRIN 81 MG CHEW TAB PO SCH (09:20)
[2021-04-19] MEDS ORDERED: SODIUM CHLORIDE 0.9% 1000ML 2,000 ML IV PRN (15:15)
[2021-04-19] MEDS ORDERED: SODIUM CHLORIDE 0.9% 1000ML 2,000 ML ONE (15:29)
[2021-04-19] MEDS ORDERED: GABAPENTIN 100 MG CAP PO SCH (21:00)
[2021-04-19] MEDS: SIMVASTATIN 20 MG TAB PO SCH (21:00)
[2021-04-19] MEDS: HEPARIN SOD (PORCINE) 5,000 UNIT/ML VIAL SC SCH (21:00)
[2021-04-20] VITALS (9 sets, daily range): BP systolic 103–173; BP diastolic 56–70
[2021-04-20] MEDS ORDERED: BENZONATATE 100 MG CAP PO PRN (06:30)
[2021-04-20] MEDS: CLONIDINE HCL 0.1 MG TAB PO PRN (06:42)
[2021-04-20] MEDS: INSULIN LISPRO 100 UNIT/1 ML 3ML VIAL SQ SCH ×4 (07:30→21:00)
[2021-04-20] MEDS: HEPARIN SOD (PORCINE) 5,000 UNIT/ML VIAL SC SCH ×2 (09:00→21:15)
[2021-04-20] MEDS: ASPIRIN 81 MG CHEW TAB PO SCH (09:30)
[2021-04-20] MEDS: SEVELAMER CARBONATE 800 MG TAB PO SCH ×2 (09:30→16:59)
[2021-04-20] MEDS: CINACALCET 30 MG TAB PO SCH (09:30)
[2021-04-20] MEDS ORDERED: INSULIN GLARGINE 100 UNITS/ML VIAL SQ SCH (21:00)
[2021-04-20] MEDS: CLONAZEPAM 0.5 MG TAB PO PRN (21:15)
[2021-04-20] MEDS: SIMVASTATIN 20 MG TAB PO SCH (21:15)
[2021-04-21] MEDS: CLONIDINE HCL 0.1 MG TAB PO PRN (00:30)
[2021-04-21 05:11] VITALS: BP 149/56
[2021-04-21 05:32] LABS: BASOPHILS % 0.3 % (0.0-1.0); EOSINOPHILS # (AUTO) 0.2 (0.0-0.4); EOSINOPHILS % 3.1 % (0.0-6.0); HEMATOCRIT 36.9 % (34.2-44.1); HEMOGLOBIN 10.5 g/dL (12.0-16.0); LYMPHOCYTES # (AUTO) 1.2 (1.0-3.2); MEAN CORPUSCULAR HEMOGLOBIN 28.2 pg (28-32); MEAN CORPUSCULAR HGB CONC 28.5 g/dL (31-35); MEAN CORPUSCULAR VOLUME 98.9 fL (81-99); MONOCYTES # (AUTO) 0.5 (0.2-0.8); MONOCYTES % 8.8 % (4.4-11.3); NEUTROPHILS # (AUTO) 3.9 (2.1-6.9); NEUTROPHILS % 66.6 % (38.7-80.0); PLATELET COUNT 159 x10e3/uL (140-360); RED BLOOD COUNT 3.73 x10e6/uL (3.6-5.1)
[2021-04-21 05:44] LABS: ANION GAP 14.1 mmol/L (8-16); CALCIUM 8.2 mg/dL (8.4-10.2); CREATININE, SERUM 5.5 mg/dL (0.57-1.11); POTASSIUM 4.1 mmol/L (3.5-5.1)
[2021-04-21] MEDS: INSULIN LISPRO 100 UNIT/1 ML 3ML VIAL SQ SCH ×2 (07:30→11:30)
[2021-04-21 08:00] VITALS: BP 142/52
[2021-04-21] MEDS: SEVELAMER CARBONATE 800 MG TAB PO SCH (08:00)
[2021-04-21 09:00] VITALS: BP 142/52
[2021-04-21] MEDS: HEPARIN SOD (PORCINE) 5,000 UNIT/ML VIAL SC SCH (09:00)
[2021-04-21] MEDS: ASPIRIN 81 MG CHEW TAB PO SCH (09:00)
[2021-04-21] MEDS: CINACALCET 30 MG TAB PO SCH (09:00)
[2021-04-21 12:00] VITALS: BP 158/60
== END 2021-04-21 15:15 | disposition home or self-care (01) | DRG 947 ==
LOC: FSED 15:08 → INTOOBSV 17:16 → ERHOLD 17:16 → MED/SURG3 18:57 → OBSVTOIN 04-20 09:05
PROVIDERS: ADMIT Internal Medicine; ATTEND Internal Medicine
PROC: 5A1D70Z Performance of Urinary Filtration, Intermittent, Less than 6 Hours Per Day (ICD-10-PCS; principal; 2021-04-19)
DX: R41.82 Altered mental status, unspecified (principal); N18.6 End stage renal disease; I12.0 Hypertensive chronic kidney disease with stage 5 chronic kidney disease or end stage renal disease; E11.22 Type 2 diabetes mellitus with diabetic chronic kidney disease; Z99.2 Dependence on renal dialysis; Z79.899 Other long term (current) drug therapy; E78.00 Pure hypercholesterolemia, unspecified; E11.40 Type 2 diabetes mellitus with diabetic neuropathy, unspecified; M19.90 Unspecified osteoarthritis, unspecified site; R25.1 Tremor, unspecified; F41.9 Anxiety disorder, unspecified; Z99.81 Dependence on supplemental oxygen; F32.A Depression, unspecified; G47.30 Sleep apnea, unspecified; T42.6X5A Adverse effect of other antiepileptic and sedative-hypnotic drugs, initial encounter
CPT/HCPCS: 36415; 70450; 70551; 71250; 80048; 80053; 81003; 82550; 82553; 82948; 84484; 85025; 86704; 86706; 87340; 90962; 93005; 94799; 97139; 99251; 99284; G0378; J1644; J1815; J7030; U0002

== ENCOUNTER 2021-04-28 20:57 | Emergency (ER) | payer MEDICARE, OTHER ==
[~2021-04-28] VITALS: Ht 162.6 cm; Wt 86.6 kg
[2021-04-28] MEDS ORDERED: CIPROFLOXACIN 500 MG TAB PO STA (21:46)
[2021-04-28] MEDS ORDERED: FLUCONAZOLE 100 MG TAB PO STA (21:46)
[2021-04-28] MEDS ORDERED: CIPROFLOXACIN500 MG PO (21:48)
== END 2021-04-28 22:55 | disposition home or self-care (01) ==
LOC: ER 21:48
DX: R30.0 Dysuria (principal); N76.0 Acute vaginitis; I10 Essential (primary) hypertension; E11.9 Type 2 diabetes mellitus without complications; N18.9 Chronic kidney disease, unspecified; E78.5 Hyperlipidemia, unspecified
CPT/HCPCS: 99283

== ENCOUNTER 2021-05-01 11:18 | Emergency (ER) | payer MEDICARE, OTHER ==
[~2021-05-01] VITALS: Ht 162.6 cm; Wt 86.6 kg
[~2021-05-01 11:18] MED LIST changes: +CIPROFLOXACIN500 MG PO
[2021-05-01 11:53] LABS: BASOPHILS % 0.2 % (0.0-1.0); EOSINOPHILS # (AUTO) 0.2 (0.0-0.4); EOSINOPHILS % 4.1 % (0.0-6.0); HEMATOCRIT 38.7 % (34.2-44.1); HEMOGLOBIN 11.7 g/dL (12.0-16.0); LYMPHOCYTES # (AUTO) 0.9 (1.0-3.2); LYMPHOCYTES % 18.5 % (18.0-39.1); MEAN CORPUSCULAR HEMOGLOBIN 27.8 pg (28-32); MEAN CORPUSCULAR HGB CONC 30.2 g/dL (31-35); MEAN CORPUSCULAR VOLUME 91.9 fL (81-99); MONOCYTES # (AUTO) 0.4 (0.2-0.8); MONOCYTES % 7.5 % (4.4-11.3); NEUTROPHILS # (AUTO) 3.5 (2.1-6.9); NEUTROPHILS % 69.5 % (38.7-80.0); PLATELET COUNT 165 x10e3/uL (140-360); RED BLOOD COUNT 4.21 x10e6/uL (3.6-5.1); RED CELL DISTRIBUTION WIDTH 14.7 % (11.7-14.4)
[2021-05-01 12:11] LABS: POTASSIUM 4.2 mmol/L (3.5-5.1)
[2021-05-01 12:12] LABS: ALBUMIN 3.7 g/dL (3.5-5.0); ALBUMIN/GLOBULIN RATIO 1.2 (0.8-2.0); ANION GAP 18.2 mmol/L (8-16); CALCIUM 9.4 mg/dL (8.4-10.2); CREATININE, SERUM 6.66 mg/dL (0.57-1.11)
[2021-05-01] MEDS ORDERED: DIFLUCAN100 MG PO (12:29)
[2021-05-01] MEDS ORDERED: MONISTAT 745 GM VG (12:30)
[2021-05-01] MEDS ORDERED: FLUCONAZOLE 100 MG TAB PO ONE (12:30)
== END 2021-05-01 13:31 | disposition home or self-care (01) ==
LOC: ER 11:25
DX: B37.2 Candidiasis of skin and nail (principal); B37.3 Candidiasis of vulva and vagina; I12.0 Hypertensive chronic kidney disease with stage 5 chronic kidney disease or end stage renal disease; E11.22 Type 2 diabetes mellitus with diabetic chronic kidney disease; N18.6 End stage renal disease; Z99.2 Dependence on renal dialysis; E78.5 Hyperlipidemia, unspecified; F41.9 Anxiety disorder, unspecified
CPT/HCPCS: 36415; 80053; 85025; 87210; 87491; 87591; 99283

== ENCOUNTER 2022-07-13 11:45 | Emergency (ER) | payer MEDICARE, OTHER ==
[~2022-07-13] VITALS: Ht 61 cm; Wt 78.2 kg
[~2022-07-13 11:45] MED LIST changes: +DIFLUCAN100 MG PO; +MONISTAT 745 GM VG
[2022-07-13] MEDS ORDERED: ALBUTEROL/IPRATROPIUM 3 ML NEB NEB ONE (14:00)
[2022-07-13] MEDS ORDERED: ALBUTEROL2.5 MG/3 M INH (14:11)
[2022-07-13] MEDS ORDERED: CEFDINIR300 MG PO (14:12)
[2022-07-13] MEDS ORDERED: CEFTRIAXONE 1 GM VIAL ONE (14:30)
[2022-07-13] MEDS ORDERED: ALBUTEROL/IPRATROPIUM 3 ML NEB ONE (14:30)
[2022-07-13] MEDS ORDERED: SODIUM CHLORIDE 0.9% 100 ML ONE (14:30)
[2022-07-13 14:51] VITALS: BP 154/72
== END 2022-07-13 14:55 | disposition home or self-care (01) ==
LOC: FSED 11:54
DX: R05.9 Cough, unspecified (principal); J20.9 Acute bronchitis, unspecified; I12.0 Hypertensive chronic kidney disease with stage 5 chronic kidney disease or end stage renal disease; E11.22 Type 2 diabetes mellitus with diabetic chronic kidney disease; E11.65 Type 2 diabetes mellitus with hyperglycemia; N18.6 End stage renal disease; Z99.2 Dependence on renal dialysis; E78.5 Hyperlipidemia, unspecified; G47.30 Sleep apnea, unspecified; F41.9 Anxiety disorder, unspecified; Z99.81 Dependence on supplemental oxygen; Z20.822 Contact with and (suspected) exposure to COVID-19; R94.31 Abnormal electrocardiogram [ECG] [EKG]
CPT/HCPCS: 71046; 80053; 82553; 83518; 83880; 84484; 85025; 87400; 93005; 99284; J0696; J7050; U0002

== ENCOUNTER 2022-07-22 14:30 | Inpatient (IN) | payer MEDICARE ==
[~2022-07-22] VITALS: Ht 160 cm; Wt 76.7 kg
[~2022-07-22 14:30] MED LIST changes: +ALBUTEROL2.5 MG/3 M INH; +CEFDINIR300 MG PO
[2022-07-22] MEDS ORDERED: METHYLPREDNISOLONE SOD SUCC 125 MG/2ML VIAL IV STA (15:08)
[2022-07-22] MEDS ORDERED: ALBUTEROL/IPRATROPIUM 3 ML NEB NEB ONE (15:15)
[2022-07-22 15:19] LABS: BASOPHILS % 0.4 % (0.0-1.0); EOSINOPHILS # (AUTO) 0.2 (0.0-0.4); EOSINOPHILS % 3.8 % (0.0-6.0); HEMATOCRIT 37.4 % (34.2-44.1); HEMOGLOBIN 11.3 g/dL (12.0-16.0); LYMPHOCYTES # (AUTO) 1.1 (1.0-3.2); LYMPHOCYTES % 24.9 % (18.0-39.1); MEAN CORPUSCULAR HEMOGLOBIN 30.5 pg (28-32); MEAN CORPUSCULAR HGB CONC 30.2 g/dL (31-35); MEAN CORPUSCULAR VOLUME 101.1 fL (81-99); MONOCYTES # (AUTO) 0.4 (0.2-0.8); MONOCYTES % 8.7 % (4.4-11.3); NEUTROPHILS # (AUTO) 2.8 (2.1-6.9); NEUTROPHILS % 61.8 % (38.7-80.0); PLATELET COUNT 156 x10e3/uL (140-360); RED CELL DISTRIBUTION WIDTH 16.5 % (11.7-14.4)
[2022-07-22 15:38] LABS: INR 1.05; PROTHROMBIN TIME 13.9 seconds (11.9-14.5)
[2022-07-22 15:39] LABS: PARTIAL THROMBOPLASTIN TIME 35.3 seconds (23.8-35.5)
[2022-07-22 15:43] LABS: ALBUMIN 3.6 g/dL (3.5-5.0); ALBUMIN/GLOBULIN RATIO 1.1 (0.8-2.0); CALCIUM 9.9 mg/dL (8.4-10.2); CREATININE, SERUM 5.04 mg/dL (0.57-1.11); MAGNESIUM 2.5 MG/DL (1.3-2.1)
[2022-07-22 15:50] LABS: CREATINE KINASE MB 3.3 ng/mL (0-5.0)
[2022-07-22] MEDS ORDERED: ONDANSETRON HCL INJ 2MG/ML 2ML 2 MG/ML VIAL IV PRN (17:00)
[2022-07-22 19:19] LABS: CREATINE KINASE MB 4.2 ng/mL (0-5.0)
[2022-07-22 19:40] VITALS: BP 149/86
[2022-07-22 20:00] VITALS: BP 149/86
[2022-07-23] VITALS (8 sets, daily range): BP systolic 134–167; BP diastolic 59–84
[2022-07-23] MEDS ORDERED: ALBUTEROL/IPRATROPIUM 3 ML NEB NEB PRN (00:45)
[2022-07-23] MEDS ORDERED: ALBUTEROL SULF 0.083% NEB SOLN 3 ML NEB ONE ×2 (01:11→10:14)
[2022-07-23] MEDS ORDERED: IPRATROPIUM BROMIDE 0.02% 2.5 ML NEB ONE ×2 (01:12→10:13)
[2022-07-23] MEDS: BENZONATATE 100 MG CAP PO PRN ×3 (01:21→17:10)
[2022-07-23 05:56] LABS: BASOPHILS % 0.2 % (0.0-1.0); HEMOGLOBIN 10.3 g/dL (12.0-16.0); LYMPHOCYTES # (AUTO) 0.7 (1.0-3.2); LYMPHOCYTES % 10.4 % (18.0-39.1); MEAN CORPUSCULAR HEMOGLOBIN 30.4 pg (28-32); MEAN CORPUSCULAR HGB CONC 30.3 g/dL (31-35); MEAN CORPUSCULAR VOLUME 100.3 fL (81-99); MONOCYTES # (AUTO) 0.4 (0.2-0.8); MONOCYTES % 6.6 % (4.4-11.3); NEUTROPHILS # (AUTO) 5.2 (2.1-6.9); NEUTROPHILS % 81.7 % (38.7-80.0); PLATELET COUNT 169 x10e3/uL (140-360); RED BLOOD COUNT 3.39 x10e6/uL (3.6-5.1); RED CELL DISTRIBUTION WIDTH 16.6 % (11.7-14.4)
[2022-07-23 06:45] LABS: ALBUMIN 3.2 g/dL (3.5-5.0); ALBUMIN/GLOBULIN RATIO 1.1 (0.8-2.0); ANION GAP 20.7 mmol/L (8-16); CALCIUM 9.5 mg/dL (8.4-10.2); CHOL/HDL RATIO 2.6 (3.0-3.6); CREATININE, SERUM 6.24 mg/dL (0.57-1.11); POTASSIUM 5.7 mmol/L (3.5-5.1)
[2022-07-23 07:34] LABS: CREATINE KINASE MB 4.6 ng/mL (0-5.0)
[2022-07-23] MEDS ORDERED: DEXTROSE 50% SYRINGE 50 ML IV PRN (08:00)
[2022-07-23] MEDS ORDERED: QUETIAPINE FUMA25 MG PO ×3 (08:44→09:04)
[2022-07-23] MEDS ORDERED: TOPIRAMATE25 MG PO ×2 (08:44→09:04)
[2022-07-23] MEDS ORDERED: PRIMIDONE1 GM (08:44)
[2022-07-23] MEDS ORDERED: BUSPIRONE HCL5 MG PO (08:44)
[2022-07-23] MEDS ORDERED: AMLODIPINE BESYL5 MG PO (08:44)
[2022-07-23] MEDS ORDERED: AMIODARONE HCL200 MG PO (08:44)
[2022-07-23] MEDS ORDERED: CINACALCET HCL30 MG PO (08:44)
[2022-07-23] MEDS: ASPIRIN 81 MG ENTERIC COATED PO SCH (08:49)
[2022-07-23] MEDS ORDERED: FISH OIL 1,001000 M1 (08:49)
[2022-07-23] MEDS ORDERED: VITAMIN D325 MCG PO (08:49)
[2022-07-23] MEDS ORDERED: BUSPIRONE HCL10 MG PO (09:04)
[2022-07-23] MEDS ORDERED: CLONAZEPAM0.5 MG PO (09:04)
[2022-07-23] MEDS ORDERED: PAXIL10 MG PO ×2 (09:04)
[2022-07-23] MEDS ORDERED: MYSOLINE50 MG PO (09:04)
[2022-07-23] MEDS ORDERED: MIDODRINE HCL5 MG PO (09:06)
[2022-07-23] MEDS ORDERED: SODIUM CHLORIDE 0.9% 1000ML 2,000 ML ONE (09:18)
[2022-07-23] MEDS ORDERED: LIDOCAINE/PRILOCAINE 2.5-2.5% KIT TOP STA (09:44)
[2022-07-23] MEDS ORDERED: ALBUTEROL/IPRATROPIUM 3 ML NEB NEB STA (09:52)
[2022-07-23] MEDS ORDERED: ALBUTEROL SULF 0.083% NEB SOLN 3 ML NEB NEB PRN (10:15)
[2022-07-23] MEDS ORDERED: IPRATROPIUM BROMIDE 0.02% 2.5 ML NEB NEB PRN (10:15)
[2022-07-23] MEDS ORDERED: ALBUTEROL SULF 0.083% NEB SOLN 3 ML NEB NEB ONE (10:30)
[2022-07-23] MEDS ORDERED: METHYLPREDNISOLONE SOD SUCC 125 MG/2ML VIAL IV ONE (10:30)
[2022-07-23] MEDS ORDERED: IPRATROPIUM BROMIDE 0.02% 2.5 ML NEB NEB ONE (10:30)
[2022-07-23] MEDS ORDERED: ALBUTEROL SULF 0.083% NEB SOLN 3 ML NEB INH PRN (10:45)
[2022-07-23] MEDS ORDERED: ACETAMINOPHEN 325 MG TAB PO PRN (10:45)
[2022-07-23] MEDS ORDERED: ALBUTEROL/IPRATROPIUM 3 ML NEB NEB SCH (11:00)
[2022-07-23] MEDS: IPRATROPIUM BROMIDE 0.02% 2.5 ML NEB NEB SCH ×4 (11:30→23:15)
[2022-07-23] MEDS: ALBUTEROL SULF 0.083% NEB SOLN 3 ML NEB NEB SCH ×4 (11:30→23:15)
[2022-07-23] MEDS ORDERED: INSULIN LISPRO 100 UNIT/1 ML 3ML VIAL SQ SCH (11:30)
[2022-07-23] MEDS ORDERED: AZITHROMYCIN 250 MG TAB PO ONE (11:45)
[2022-07-23] MEDS: TOPIRAMATE 25 MG TAB PO SCH ×2 (11:58→22:28)
[2022-07-23] MEDS: BUSPIRONE HCL 5 MG TAB PO SCH (11:58)
[2022-07-23] MEDS: PAROXETINE HCL 20 MG TAB PO SCH ×2 (11:59→21:00)
[2022-07-23] MEDS: PRIMIDONE 50 MG TAB PO SCH (11:59)
[2022-07-23] MEDS: CINACALCET 30 MG TAB PO SCH (11:59)
[2022-07-23] MEDS: INSULIN LISPRO 100 UNIT/1 ML 3ML VIAL SQ SCH ×3 (12:02→22:00)
[2022-07-23] MEDS ORDERED: SODIUM CHLORIDE 0.9% 1000ML 2,000 ML IV PRN (16:00)
[2022-07-23] MEDS: SEVELAMER CARBONATE 800 MG TAB PO SCH (17:10)
[2022-07-23] MEDS: CEPACOL SORE THROAT LOZENGES PO PRN (17:10)
[2022-07-23 19:17] LABS: CREATINE KINASE MB 6.4 ng/mL (0-5.0)
[2022-07-23] MEDS: BUDESONIDE 0.5MG/2 ML NEB INH SCH (19:20)
[2022-07-23] MEDS: SIMVASTATIN 20 MG TAB PO SCH (21:00)
[2022-07-23] MEDS: CLONAZEPAM 0.5 MG TAB PO SCH (21:00)
[2022-07-23] MEDS ORDERED: FLUCONAZOLE 100 MG TAB PO ONE (21:00)
[2022-07-23] MEDS: INSULIN GLARGINE 100 UNITS/ML VIAL SQ SCH (21:00)
[2022-07-23] MEDS ORDERED: INSULIN DETEMIR 20 UNIT SC SCH (21:00)
[2022-07-23] MEDS: HEPARIN SOD (PORCINE) 5,000 UNIT/ML VIAL SC SCH (22:00)
[2022-07-23] MEDS: METHYLPREDNISOLONE SOD SUCC 40 MG/ML VIAL 1ML IV SCH (22:24)
[2022-07-23] MEDS: QUETIAPINE FUMARATE 25 MG TAB PO SCH (22:25)
[2022-07-23] MEDS: BUSPIRONE HCL 10 MG TABLET PO SCH (22:25)
[2022-07-23] MEDS: AMIODARONE HCL 200 MG TAB PO SCH (22:26)
[2022-07-24] VITALS (8 sets, daily range): BP systolic 139–168; BP diastolic 65–93
[2022-07-24] MEDS: IPRATROPIUM BROMIDE 0.02% 2.5 ML NEB NEB SCH ×6 (03:23→22:00)
[2022-07-24] MEDS: ALBUTEROL SULF 0.083% NEB SOLN 3 ML NEB NEB SCH ×6 (03:23→22:00)
[2022-07-24 05:26] LABS: BASOPHILS % 0.1 % (0.0-1.0); HEMATOCRIT 34.4 % (34.2-44.1); HEMOGLOBIN 10.1 g/dL (12.0-16.0); LYMPHOCYTES # (AUTO) 0.4 (1.0-3.2); LYMPHOCYTES % 5.1 % (18.0-39.1); MEAN CORPUSCULAR HEMOGLOBIN 30.1 pg (28-32); MEAN CORPUSCULAR HGB CONC 29.4 g/dL (31-35); MEAN CORPUSCULAR VOLUME 102.7 fL (81-99); MONOCYTES # (AUTO) 0.4 (0.2-0.8); NEUTROPHILS # (AUTO) 7.8 (2.1-6.9); NEUTROPHILS % 90.1 % (38.7-80.0); PLATELET COUNT 166 x10e3/uL (140-360); RED BLOOD COUNT 3.35 x10e6/uL (3.6-5.1)
[2022-07-24 05:53] LABS: ANION GAP 19.2 mmol/L (8-16); CALCIUM 9.3 mg/dL (8.4-10.2); CREATININE, SERUM 4.47 mg/dL (0.57-1.11); POTASSIUM 5.2 mmol/L (3.5-5.1)
[2022-07-24] MEDS: BENZONATATE 100 MG CAP PO PRN ×2 (06:58→22:03)
[2022-07-24] MEDS: BUDESONIDE 0.5MG/2 ML NEB INH SCH ×2 (07:00→18:32)
[2022-07-24] MEDS: QUETIAPINE FUMARATE 25 MG TAB PO SCH ×2 (07:30→22:04)
[2022-07-24] MEDS: SEVELAMER CARBONATE 800 MG TAB PO SCH ×2 (08:00→16:51)
[2022-07-24] MEDS: METHYLPREDNISOLONE SOD SUCC 40 MG/ML VIAL 1ML IV SCH ×2 (09:00→22:03)
[2022-07-24] MEDS: PAROXETINE HCL 20 MG TAB PO SCH ×2 (09:00→21:00)
[2022-07-24] MEDS: TOPIRAMATE 25 MG TAB PO SCH ×2 (09:00→22:03)
[2022-07-24] MEDS: ASPIRIN 81 MG ENTERIC COATED PO SCH (09:00)
[2022-07-24] MEDS: AMLODIPINE BESYLATE 5 MG TAB PO SCH (09:00)
[2022-07-24] MEDS: AZITHROMYCIN 250 MG TAB PO SCH (09:00)
[2022-07-24] MEDS: INSULIN LISPRO 100 UNIT/1 ML 3ML VIAL SQ SCH ×4 (09:19→22:00)
[2022-07-24] MEDS: PRIMIDONE 50 MG TAB PO SCH (11:30)
[2022-07-24] MEDS: NYSTATIN 15 GM POWDER UD BTL TOP SCH (11:35)
[2022-07-24] MEDS: BUSPIRONE HCL 5 MG TAB PO SCH (11:36)
[2022-07-24] MEDS: HEPARIN SOD (PORCINE) 5,000 UNIT/ML VIAL SC SCH ×2 (12:04→22:00)
[2022-07-24] MEDS ORDERED: ONDANSETRON HCL 4 MG ORAL DISINTEGRATING TAB PO PRN (14:15)
[2022-07-24] MEDS: CEPACOL SORE THROAT LOZENGES PO PRN (16:59)
[2022-07-24] MEDS: GUAIFENESIN/CODEINE 5 ML LIQD PO PRN (16:59)
[2022-07-24] MEDS: SIMVASTATIN 20 MG TAB PO SCH (21:00)
[2022-07-24] MEDS: AMIODARONE HCL 200 MG TAB PO SCH (21:00)
[2022-07-24] MEDS: INSULIN GLARGINE 100 UNITS/ML VIAL SQ SCH (21:00)
[2022-07-24] MEDS: CLONAZEPAM 0.5 MG TAB PO SCH (21:00)
[2022-07-24] MEDS: BUSPIRONE HCL 10 MG TABLET PO SCH (22:04)
[2022-07-25] VITALS (8 sets, daily range): BP systolic 130–160; BP diastolic 56–71
[2022-07-25] MEDS: BENZONATATE 100 MG CAP PO PRN ×2 (05:43→15:29)
[2022-07-25] MEDS: CEPACOL SORE THROAT LOZENGES PO PRN ×2 (05:45→21:59)
[2022-07-25 05:47] LABS: BASOPHILS # (AUTO) 0.1 (0.0-0.1); BASOPHILS % 0.6 % (0.0-1.0); EOSINOPHILS % 0.1 % (0.0-6.0); HEMATOCRIT 38.2 % (34.2-44.1); LYMPHOCYTES # (AUTO) 0.7 (1.0-3.2); LYMPHOCYTES % 7.1 % (18.0-39.1); MEAN CORPUSCULAR HEMOGLOBIN 30.5 pg (28-32); MEAN CORPUSCULAR HGB CONC 28.8 g/dL (31-35); MEAN CORPUSCULAR VOLUME 105.8 fL (81-99); MONOCYTES # (AUTO) 0.4 (0.2-0.8); MONOCYTES % 3.7 % (4.4-11.3); NEUTROPHILS # (AUTO) 8.5 (2.1-6.9); NEUTROPHILS % 87.8 % (38.7-80.0); PLATELET COUNT 201 x10e3/uL (140-360); RED BLOOD COUNT 3.61 x10e6/uL (3.6-5.1); RED CELL DISTRIBUTION WIDTH 17.1 % (11.7-14.4)
[2022-07-25 06:52] LABS: ALBUMIN 3.6 g/dL (3.5-5.0); ALBUMIN/GLOBULIN RATIO 1.2 (0.8-2.0); ANION GAP 18.9 mmol/L (8-16); CALCIUM 9.2 mg/dL (8.4-10.2); CREATININE, SERUM 3.84 mg/dL (0.57-1.11); POTASSIUM 4.9 mmol/L (3.5-5.1)
[2022-07-25] MEDS: IPRATROPIUM BROMIDE 0.02% 2.5 ML NEB NEB SCH ×5 (07:03→22:00)
[2022-07-25] MEDS: ALBUTEROL SULF 0.083% NEB SOLN 3 ML NEB NEB SCH ×4 (07:03→20:05)
[2022-07-25] MEDS: BUDESONIDE 0.5MG/2 ML NEB INH SCH ×2 (07:03→20:05)
[2022-07-25 07:18] LABS: THYROID STIMULATING HORMONE 1.62 uIU/mL (0.350-4.940)
[2022-07-25] MEDS: AZITHROMYCIN 250 MG TAB PO SCH ×2 (09:00→17:20)
[2022-07-25] MEDS: HEPARIN SOD (PORCINE) 5,000 UNIT/ML VIAL SC SCH ×2 (09:33→21:46)
[2022-07-25] MEDS: SEVELAMER CARBONATE 800 MG TAB PO SCH ×2 (09:35→17:17)
[2022-07-25] MEDS: ASPIRIN 81 MG ENTERIC COATED PO SCH (09:35)
[2022-07-25] MEDS: PAROXETINE HCL 20 MG TAB PO SCH ×2 (09:35→21:00)
[2022-07-25] MEDS: NYSTATIN 15 GM POWDER UD BTL TOP SCH (09:36)
[2022-07-25] MEDS: AMLODIPINE BESYLATE 5 MG TAB PO SCH (09:36)
[2022-07-25] MEDS: TOPIRAMATE 25 MG TAB PO SCH ×2 (09:36→21:32)
[2022-07-25] MEDS: METHYLPREDNISOLONE SOD SUCC 40 MG/ML VIAL 1ML IV SCH ×2 (09:36→21:37)
[2022-07-25] MEDS: QUETIAPINE FUMARATE 25 MG TAB PO SCH ×2 (09:36→21:32)
[2022-07-25] MEDS: INSULIN LISPRO 100 UNIT/1 ML 3ML VIAL SQ SCH ×4 (09:57→21:46)
[2022-07-25] MEDS: CINACALCET 30 MG TAB PO SCH (12:40)
[2022-07-25] MEDS: PRIMIDONE 50 MG TAB PO SCH (12:40)
[2022-07-25] MEDS: BUSPIRONE HCL 5 MG TAB PO SCH (12:40)
[2022-07-25] MEDS: GUAIFENESIN/CODEINE 5 ML LIQD PO PRN ×2 (15:30→21:59)
[2022-07-25] MEDS: INSULIN GLARGINE 100 UNITS/ML VIAL SQ SCH (21:00)
[2022-07-25] MEDS: CLONAZEPAM 0.5 MG TAB PO SCH (21:00)
[2022-07-25] MEDS: CRESTOR 10MG PO SCH (21:00)
[2022-07-25] MEDS: AMIODARONE HCL 200 MG TAB PO SCH (21:32)
[2022-07-25] MEDS: BUSPIRONE HCL 10 MG TABLET PO SCH (21:32)
[2022-07-26] VITALS (7 sets, daily range): BP systolic 122–153; BP diastolic 58–81
[2022-07-26] MEDS: QUETIAPINE FUMARATE 25 MG TAB PO SCH ×2 (04:38→22:09)
[2022-07-26] MEDS: BENZONATATE 100 MG CAP PO PRN ×3 (04:45→22:09)
[2022-07-26] MEDS: GUAIFENESIN/CODEINE 5 ML LIQD PO PRN ×3 (04:46→22:12)
[2022-07-26] MEDS: IPRATROPIUM BROMIDE 0.02% 2.5 ML NEB NEB SCH ×5 (07:00→23:25)
[2022-07-26] MEDS: BUDESONIDE 0.5MG/2 ML NEB INH SCH ×2 (07:00→19:15)
[2022-07-26] MEDS: ALBUTEROL SULF 0.083% NEB SOLN 3 ML NEB NEB SCH ×5 (07:00→23:25)
[2022-07-26] MEDS: NYSTATIN 15 GM POWDER UD BTL TOP SCH (07:30)
[2022-07-26] MEDS: INSULIN LISPRO 100 UNIT/1 ML 3ML VIAL SQ SCH ×4 (07:30→22:22)
[2022-07-26] MEDS: PAROXETINE HCL 20 MG TAB PO SCH ×2 (09:00→21:00)
[2022-07-26] MEDS: AMLODIPINE BESYLATE 5 MG TAB PO SCH (09:00)
[2022-07-26] MEDS: METHYLPREDNISOLONE SOD SUCC 40 MG/ML VIAL 1ML IV SCH ×2 (10:51→22:12)
[2022-07-26] MEDS: AZITHROMYCIN 250 MG TAB PO SCH (10:51)
[2022-07-26] MEDS: SEVELAMER CARBONATE 800 MG TAB PO SCH ×2 (10:51→16:43)
[2022-07-26] MEDS: TOPIRAMATE 25 MG TAB PO SCH ×2 (10:51→22:08)
[2022-07-26] MEDS: POLYETHYLENE GLYCOL 3350 17 GM PACK PO SCH (10:51)
[2022-07-26] MEDS: HEPARIN SOD (PORCINE) 5,000 UNIT/ML VIAL SC SCH ×2 (10:52→22:22)
[2022-07-26] MEDS: ASPIRIN 81 MG ENTERIC COATED PO SCH (10:53)
[2022-07-26] MEDS: PRIMIDONE 50 MG TAB PO SCH (11:30)
[2022-07-26] MEDS: BUSPIRONE HCL 5 MG TAB PO SCH (13:48)
[2022-07-26] MEDS: ACETYLCYSTEINE 200 MG/ML 4ML VIAL INH SCH ×3 (15:10→23:25)
[2022-07-26] MEDS: FAMOTIDINE 20 MG TAB PO SCH (16:43)
[2022-07-26] MEDS: INSULIN GLARGINE 100 UNITS/ML VIAL SQ SCH (21:00)
[2022-07-26] MEDS: CLONAZEPAM 0.5 MG TAB PO SCH (21:00)
[2022-07-26] MEDS: CRESTOR 10MG PO SCH (21:00)
[2022-07-26] MEDS: BUSPIRONE HCL 10 MG TABLET PO SCH (22:08)
[2022-07-26] MEDS: AMIODARONE HCL 200 MG TAB PO SCH (22:09)
[2022-07-27] VITALS (7 sets, daily range): BP systolic 126–164; BP diastolic 63–96
[2022-07-27] MEDS: IPRATROPIUM BROMIDE 0.02% 2.5 ML NEB NEB SCH ×5 (07:00→23:30)
[2022-07-27] MEDS: ALBUTEROL SULF 0.083% NEB SOLN 3 ML NEB NEB SCH ×5 (07:00→23:30)
[2022-07-27] MEDS: ACETYLCYSTEINE 200 MG/ML 4ML VIAL INH SCH ×4 (07:00→23:30)
[2022-07-27] MEDS: BUDESONIDE 0.5MG/2 ML NEB INH SCH ×2 (07:00→19:30)
[2022-07-27] MEDS: INSULIN LISPRO 100 UNIT/1 ML 3ML VIAL SQ SCH ×4 (07:30→23:20)
[2022-07-27] MEDS: HEPARIN SOD (PORCINE) 5,000 UNIT/ML VIAL SC SCH ×2 (09:00→23:19)
[2022-07-27] MEDS: AMLODIPINE BESYLATE 5 MG TAB PO SCH (09:09)
[2022-07-27] MEDS: METHYLPREDNISOLONE SOD SUCC 40 MG/ML VIAL 1ML IV SCH ×2 (09:09→20:51)
[2022-07-27] MEDS: ASPIRIN 81 MG ENTERIC COATED PO SCH (09:09)
[2022-07-27] MEDS: POLYETHYLENE GLYCOL 3350 17 GM PACK PO SCH (09:09)
[2022-07-27] MEDS: PAROXETINE HCL 20 MG TAB PO SCH ×2 (09:10→20:50)
[2022-07-27] MEDS: AZITHROMYCIN 250 MG TAB PO SCH (09:10)
[2022-07-27] MEDS: TOPIRAMATE 25 MG TAB PO SCH ×2 (09:10→20:49)
[2022-07-27] MEDS: SEVELAMER CARBONATE 800 MG TAB PO SCH ×2 (09:10→16:09)
[2022-07-27] MEDS: QUETIAPINE FUMARATE 25 MG TAB PO SCH ×2 (09:10→20:50)
[2022-07-27] MEDS: FAMOTIDINE 20 MG TAB PO SCH ×2 (09:11→16:10)
[2022-07-27] MEDS: PANTOPRAZOLE SOD 40 MG TABEC PO SCH (09:11)
[2022-07-27] MEDS: NYSTATIN 15 GM POWDER UD BTL TOP SCH (09:13)
[2022-07-27] MEDS: CINACALCET 30 MG TAB PO SCH (11:46)
[2022-07-27] MEDS: PRIMIDONE 50 MG TAB PO SCH (11:46)
[2022-07-27] MEDS: BUSPIRONE HCL 5 MG TAB PO SCH (11:46)
[2022-07-27] MEDS: BENZONATATE 100 MG CAP PO PRN ×2 (16:14→23:14)
[2022-07-27] MEDS: CLONAZEPAM 0.5 MG TAB PO SCH (20:49)
[2022-07-27] MEDS: BUSPIRONE HCL 10 MG TABLET PO SCH (20:49)
[2022-07-27] MEDS: CRESTOR 10MG PO SCH (20:49)
[2022-07-27] MEDS: AMIODARONE HCL 200 MG TAB PO SCH (20:50)
[2022-07-27] MEDS: GUAIFENESIN/CODEINE 5 ML LIQD PO PRN (23:14)
[2022-07-27] MEDS: INSULIN GLARGINE 100 UNITS/ML VIAL SQ SCH (23:19)
[2022-07-28] VITALS: BP 166/68
[2022-07-28 04:00] VITALS: BP 152/85
[2022-07-28] MEDS: BUDESONIDE 0.5MG/2 ML NEB INH SCH ×2 (06:00→20:05)
[2022-07-28] MEDS: IPRATROPIUM BROMIDE 0.02% 2.5 ML NEB NEB SCH ×5 (06:00→22:00)
[2022-07-28] MEDS: ALBUTEROL SULF 0.083% NEB SOLN 3 ML NEB NEB SCH ×5 (06:00→22:00)
[2022-07-28] MEDS: ACETYLCYSTEINE 200 MG/ML 4ML VIAL INH SCH ×2 (06:34→14:53)
[2022-07-28 06:42] LABS: BASOPHILS # (AUTO) 0.1 (0.0-0.1); BASOPHILS % 0.5 % (0.0-1.0); HEMATOCRIT 38.1 % (34.2-44.1); HEMOGLOBIN 11.5 g/dL (12.0-16.0); LYMPHOCYTES # (AUTO) 0.7 (1.0-3.2); LYMPHOCYTES % 6.3 % (18.0-39.1); MEAN CORPUSCULAR HEMOGLOBIN 31.3 pg (28-32); MEAN CORPUSCULAR HGB CONC 30.2 g/dL (31-35); MEAN CORPUSCULAR VOLUME 103.8 fL (81-99); MONOCYTES # (AUTO) 0.4 (0.2-0.8); MONOCYTES % 3.5 % (4.4-11.3); PLATELET COUNT 171 x10e3/uL (140-360); RED BLOOD COUNT 3.67 x10e6/uL (3.6-5.1); RED CELL DISTRIBUTION WIDTH 17.8 % (11.7-14.4)
[2022-07-28 07:10] LABS: ANION GAP 23.5 mmol/L (8-16); CALCIUM 8.4 mg/dL (8.4-10.2); CREATININE, SERUM 5.98 mg/dL (0.57-1.11)
[2022-07-28] MEDS: INSULIN LISPRO 100 UNIT/1 ML 3ML VIAL SQ SCH ×4 (07:30→21:12)
[2022-07-28 07:39] LABS: POTASSIUM 7.5 mmol/L (3.5-5.1)
[2022-07-28 08:06] VITALS: BP 149/73
[2022-07-28] MEDS: SEVELAMER CARBONATE 800 MG TAB PO SCH ×2 (08:42→16:40)
[2022-07-28] MEDS: POLYETHYLENE GLYCOL 3350 17 GM PACK PO SCH (08:42)
[2022-07-28] MEDS: AZITHROMYCIN 250 MG TAB PO SCH (08:43)
[2022-07-28] MEDS: PANTOPRAZOLE SOD 40 MG TABEC PO SCH (08:43)
[2022-07-28] MEDS: TOPIRAMATE 25 MG TAB PO SCH ×2 (08:43→20:52)
[2022-07-28] MEDS: METHYLPREDNISOLONE SOD SUCC 40 MG/ML VIAL 1ML IV SCH (08:43)
[2022-07-28] MEDS: ASPIRIN 81 MG ENTERIC COATED PO SCH (08:43)
[2022-07-28] MEDS: QUETIAPINE FUMARATE 25 MG TAB PO SCH ×2 (08:44→20:52)
[2022-07-28] MEDS: PAROXETINE HCL 20 MG TAB PO SCH ×2 (08:44→20:52)
[2022-07-28] MEDS: FAMOTIDINE 20 MG TAB PO SCH ×2 (08:44→16:40)
[2022-07-28 08:50] VITALS: BP 149/73
[2022-07-28] MEDS: AMLODIPINE BESYLATE 5 MG TAB PO SCH (09:00)
[2022-07-28] MEDS: HEPARIN SOD (PORCINE) 5,000 UNIT/ML VIAL SC SCH ×2 (09:00→21:12)
[2022-07-28] MEDS: NYSTATIN 15 GM POWDER UD BTL TOP SCH (09:00)
[2022-07-28] MEDS: PRIMIDONE 50 MG TAB PO SCH (11:30)
[2022-07-28 11:32] VITALS: BP 127/71
[2022-07-28] MEDS: BUSPIRONE HCL 5 MG TAB PO SCH (12:00)
[2022-07-28 20:00] VITALS: BP 143/76
[2022-07-28] MEDS: AMIODARONE HCL 200 MG TAB PO SCH (20:51)
[2022-07-28] MEDS: BENZONATATE 100 MG CAP PO PRN (20:51)
[2022-07-28] MEDS: BUSPIRONE HCL 10 MG TABLET PO SCH (20:52)
[2022-07-28] MEDS: CLONAZEPAM 0.5 MG TAB PO SCH (20:52)
[2022-07-28] MEDS: CRESTOR 10MG PO SCH (20:52)
[2022-07-28] MEDS: INSULIN GLARGINE 100 UNITS/ML VIAL SQ SCH (21:13)
[2022-07-28] MEDS: GUAIFENESIN 600MG/DEXTROMETHORPHAN 30MG TABSR PO PRN (23:31)
[2022-07-29] VITALS (8 sets, daily range): BP systolic 117–139; BP diastolic 53–87
[2022-07-29] MEDS: ACETYLCYSTEINE 200 MG/ML 4ML VIAL INH SCH ×6 (01:00→22:50)
[2022-07-29] MEDS: IPRATROPIUM BROMIDE 0.02% 2.5 ML NEB NEB SCH ×5 (06:00→22:50)
[2022-07-29] MEDS: ALBUTEROL SULF 0.083% NEB SOLN 3 ML NEB NEB SCH ×5 (06:00→22:50)
[2022-07-29] MEDS: BUDESONIDE 0.5MG/2 ML NEB INH SCH ×2 (06:00→19:40)
[2022-07-29 06:16] LABS: BASOPHILS % 0.2 % (0.0-1.0); EOSINOPHILS % 0.4 % (0.0-6.0); HEMATOCRIT 34.8 % (34.2-44.1); HEMOGLOBIN 10.1 g/dL (12.0-16.0); LYMPHOCYTES # (AUTO) 1.2 (1.0-3.2); MEAN CORPUSCULAR HEMOGLOBIN 31.3 pg (28-32); MEAN CORPUSCULAR VOLUME 107.7 fL (81-99); MONOCYTES # (AUTO) 1.2 (0.2-0.8); MONOCYTES % 12.2 % (4.4-11.3); NEUTROPHILS # (AUTO) 7.1 (2.1-6.9); NEUTROPHILS % 73.4 % (38.7-80.0); PLATELET COUNT 159 x10e3/uL (140-360); RED BLOOD COUNT 3.23 x10e6/uL (3.6-5.1); RED CELL DISTRIBUTION WIDTH 18.6 % (11.7-14.4)
[2022-07-29 06:33] LABS: ANION GAP 16.2 mmol/L (8-16); CALCIUM 8.4 mg/dL (8.4-10.2); CREATININE, SERUM 4.5 mg/dL (0.57-1.11); POTASSIUM 5.2 mmol/L (3.5-5.1)
[2022-07-29] MEDS: INSULIN LISPRO 100 UNIT/1 ML 3ML VIAL SQ SCH ×4 (07:30→21:27)
[2022-07-29] MEDS: METHYLPREDNISOLONE SOD SUCC 40 MG/ML VIAL 1ML IV SCH (08:05)
[2022-07-29] MEDS: POLYETHYLENE GLYCOL 3350 17 GM PACK PO SCH (08:05)
[2022-07-29] MEDS: SEVELAMER CARBONATE 800 MG TAB PO SCH ×2 (08:06→16:33)
[2022-07-29] MEDS: TOPIRAMATE 25 MG TAB PO SCH ×2 (08:06→21:09)
[2022-07-29] MEDS: ASPIRIN 81 MG ENTERIC COATED PO SCH (08:07)
[2022-07-29] MEDS: QUETIAPINE FUMARATE 25 MG TAB PO SCH ×2 (08:07→21:10)
[2022-07-29] MEDS: PAROXETINE HCL 20 MG TAB PO SCH ×2 (08:07→21:09)
[2022-07-29] MEDS: PANTOPRAZOLE SOD 40 MG TABEC PO SCH (08:07)
[2022-07-29] MEDS: FAMOTIDINE 20 MG TAB PO SCH ×2 (08:08→16:33)
[2022-07-29] MEDS: AZITHROMYCIN 250 MG TAB PO SCH (08:08)
[2022-07-29] MEDS: NYSTATIN 15 GM POWDER UD BTL TOP SCH (08:09)
[2022-07-29] MEDS: AMLODIPINE BESYLATE 5 MG TAB PO SCH (08:09)
[2022-07-29] MEDS: HEPARIN SOD (PORCINE) 5,000 UNIT/ML VIAL SC SCH ×2 (09:00→21:24)
[2022-07-29] MEDS: BUSPIRONE HCL 5 MG TAB PO SCH (12:03)
[2022-07-29] MEDS: PRIMIDONE 50 MG TAB PO SCH (12:03)
[2022-07-29] MEDS: BENZONATATE 100 MG CAP PO PRN (18:32)
[2022-07-29] MEDS: CRESTOR 10MG PO SCH (21:08)
[2022-07-29] MEDS: GUAIFENESIN 600MG/DEXTROMETHORPHAN 30MG TABSR PO PRN (21:08)
[2022-07-29] MEDS: AMIODARONE HCL 200 MG TAB PO SCH (21:08)
[2022-07-29] MEDS: CLONAZEPAM 0.5 MG TAB PO SCH (21:09)
[2022-07-29] MEDS: BUSPIRONE HCL 10 MG TABLET PO SCH (21:10)
[2022-07-29] MEDS: INSULIN GLARGINE 100 UNITS/ML VIAL SQ SCH (21:28)
[2022-07-30] VITALS (9 sets, daily range): BP systolic 125–152; BP diastolic 56–80
[2022-07-30] MEDS: BENZONATATE 100 MG CAP PO PRN (02:21)
[2022-07-30] MEDS: CEPACOL SORE THROAT LOZENGES PO PRN (02:27)
[2022-07-30 05:57] LABS: BASOPHILS % 0.3 % (0.0-1.0); EOSINOPHILS # (AUTO) 0.1 (0.0-0.4); EOSINOPHILS % 1.4 % (0.0-6.0); HEMATOCRIT 31.9 % (34.2-44.1); HEMOGLOBIN 9.5 g/dL (12.0-16.0); LYMPHOCYTES # (AUTO) 1.1 (1.0-3.2); LYMPHOCYTES % 15.4 % (18.0-39.1); MEAN CORPUSCULAR HEMOGLOBIN 31.4 pg (28-32); MEAN CORPUSCULAR HGB CONC 29.8 g/dL (31-35); MEAN CORPUSCULAR VOLUME 105.3 fL (81-99); MONOCYTES # (AUTO) 0.8 (0.2-0.8); MONOCYTES % 10.4 % (4.4-11.3); NEUTROPHILS # (AUTO) 5.3 (2.1-6.9); NEUTROPHILS % 71.3 % (38.7-80.0); PLATELET COUNT 149 x10e3/uL (140-360); RED BLOOD COUNT 3.03 x10e6/uL (3.6-5.1); RED CELL DISTRIBUTION WIDTH 19.3 % (11.7-14.4)
[2022-07-30] MEDS: ALBUTEROL SULF 0.083% NEB SOLN 3 ML NEB NEB SCH ×5 (06:00→22:30)
[2022-07-30] MEDS: IPRATROPIUM BROMIDE 0.02% 2.5 ML NEB NEB SCH ×5 (06:00→22:30)
[2022-07-30] MEDS: BUDESONIDE 0.5MG/2 ML NEB INH SCH ×2 (06:00→19:38)
[2022-07-30] MEDS: ACETYLCYSTEINE 200 MG/ML 4ML VIAL INH SCH ×3 (06:13→19:38)
[2022-07-30 06:17] LABS: ANION GAP 20.8 mmol/L (8-16); CALCIUM 7.9 mg/dL (8.4-10.2); CREATININE, SERUM 6.23 mg/dL (0.57-1.11); POTASSIUM 5.8 mmol/L (3.5-5.1)
[2022-07-30] MEDS: INSULIN LISPRO 100 UNIT/1 ML 3ML VIAL SQ SCH ×4 (07:46→20:49)
[2022-07-30] MEDS: METHYLPREDNISOLONE SOD SUCC 40 MG/ML VIAL 1ML IV SCH (08:05)
[2022-07-30] MEDS: AZITHROMYCIN 250 MG TAB PO SCH (08:08)
[2022-07-30] MEDS: SEVELAMER CARBONATE 800 MG TAB PO SCH ×2 (08:08→17:19)
[2022-07-30] MEDS: QUETIAPINE FUMARATE 25 MG TAB PO SCH ×2 (08:08→20:34)
[2022-07-30] MEDS: TOPIRAMATE 25 MG TAB PO SCH ×2 (08:09→20:33)
[2022-07-30] MEDS: ASPIRIN 81 MG ENTERIC COATED PO SCH (08:09)
[2022-07-30] MEDS: PAROXETINE HCL 20 MG TAB PO SCH ×2 (08:09→20:34)
[2022-07-30] MEDS: FAMOTIDINE 20 MG TAB PO SCH ×2 (08:09→17:19)
[2022-07-30] MEDS: PANTOPRAZOLE SOD 40 MG TABEC PO SCH (08:09)
[2022-07-30] MEDS: NYSTATIN 15 GM POWDER UD BTL TOP SCH (08:10)
[2022-07-30] MEDS: AMLODIPINE BESYLATE 5 MG TAB PO SCH (08:10)
[2022-07-30] MEDS: POLYETHYLENE GLYCOL 3350 17 GM PACK PO SCH (08:10)
[2022-07-30] MEDS: HEPARIN SOD (PORCINE) 5,000 UNIT/ML VIAL SC SCH (08:16)
[2022-07-30] MEDS: BENZONATATE 100 MG CAP PO SCH ×3 (10:01→20:33)
[2022-07-30] MEDS: PRIMIDONE 50 MG TAB PO SCH (12:00)
[2022-07-30] MEDS: BUSPIRONE HCL 5 MG TAB PO SCH (12:00)
[2022-07-30] MEDS: LORATADINE 10 MG TAB PO SCH (12:04)
[2022-07-30] MEDS: FLUTICASONE PROPIONATE NASAL SPRAY NS SCH (12:04)
[2022-07-30] MEDS: CINACALCET 30 MG TAB PO SCH (12:04)
[2022-07-30] MEDS ORDERED: LIDOCAINE HCL 5% OINMENT 35.44 GM TUBE TP PRN (18:45)
[2022-07-30] MEDS: BUSPIRONE HCL 10 MG TABLET PO SCH (20:34)
[2022-07-30] MEDS: CRESTOR 10MG PO SCH (20:34)
[2022-07-30] MEDS: AMIODARONE HCL 200 MG TAB PO SCH (20:35)
[2022-07-30] MEDS: INSULIN GLARGINE 100 UNITS/ML VIAL SQ SCH (20:47)
[2022-07-31] MEDS: ACETYLCYSTEINE 200 MG/ML 4ML VIAL INH SCH ×3 (01:00→13:00)
[2022-07-31 05:41] VITALS: BP 131/56
[2022-07-31] MEDS: BUDESONIDE 0.5MG/2 ML NEB INH SCH (07:00)
[2022-07-31] MEDS: IPRATROPIUM BROMIDE 0.02% 2.5 ML NEB NEB SCH ×3 (07:00→14:40)
[2022-07-31] MEDS: ALBUTEROL SULF 0.083% NEB SOLN 3 ML NEB NEB SCH ×3 (07:00→14:40)
[2022-07-31] MEDS: INSULIN LISPRO 100 UNIT/1 ML 3ML VIAL SQ SCH ×3 (07:30→16:30)
[2022-07-31 08:40] VITALS: BP 142/53
[2022-07-31] MEDS: SEVELAMER CARBONATE 800 MG TAB PO SCH ×2 (08:52→18:15)
[2022-07-31] MEDS: TOPIRAMATE 25 MG TAB PO SCH (08:52)
[2022-07-31] MEDS: QUETIAPINE FUMARATE 25 MG TAB PO SCH (08:52)
[2022-07-31] MEDS: BENZONATATE 100 MG CAP PO SCH ×2 (08:52→14:29)
[2022-07-31] MEDS: AZITHROMYCIN 250 MG TAB PO SCH ×2 (08:53→09:00)
[2022-07-31] MEDS: ASPIRIN 81 MG ENTERIC COATED PO SCH (08:53)
[2022-07-31] MEDS: PAROXETINE HCL 20 MG TAB PO SCH (08:53)
[2022-07-31] MEDS: LORATADINE 10 MG TAB PO SCH (08:53)
[2022-07-31] MEDS: PANTOPRAZOLE SOD 40 MG TABEC PO SCH (08:53)
[2022-07-31] MEDS: METHYLPREDNISOLONE SOD SUCC 40 MG/ML VIAL 1ML IV SCH (08:54)
[2022-07-31] MEDS: POLYETHYLENE GLYCOL 3350 17 GM PACK PO SCH (08:54)
[2022-07-31] MEDS: FLUTICASONE PROPIONATE NASAL SPRAY NS SCH (08:54)
[2022-07-31] MEDS: AMLODIPINE BESYLATE 5 MG TAB PO SCH (08:55)
[2022-07-31] MEDS ORDERED: FAMOTIDINE 20 MG TAB PO SCH (09:00)
[2022-07-31 09:25] VITALS: BP 142/53
[2022-07-31 11:35] VITALS: BP 152/65
[2022-07-31] MEDS: PRIMIDONE 50 MG TAB PO SCH (11:36)
[2022-07-31] MEDS: BUSPIRONE HCL 5 MG TAB PO SCH (11:36)
[2022-07-31] MEDS ORDERED: PREDNISONE20 MG PO (16:13)
== END 2022-07-31 18:39 | disposition home or self-care (01) | DRG 190 ==
LOC: ER 14:53 → ERHOLD 16:56 → MED/SURG2 22:16 → OBSVTOIN 07-24 08:00
PROVIDERS: ADMIT Internal Medicine; ATTEND Internal Medicine
PROC: 5A1D70Z Performance of Urinary Filtration, Intermittent, Less than 6 Hours Per Day (ICD-10-PCS; principal; 2022-07-23)
DX: J44.9 Chronic obstructive pulmonary disease, unspecified (principal); N18.6 End stage renal disease; J45.901 Unspecified asthma with (acute) exacerbation; I13.2 Hypertensive heart and chronic kidney disease with heart failure and with stage 5 chronic kidney disease, or end stage renal disease; N25.81 Secondary hyperparathyroidism of renal origin; I12.0 Hypertensive chronic kidney disease with stage 5 chronic kidney disease or end stage renal disease; E11.22 Type 2 diabetes mellitus with diabetic chronic kidney disease; Z99.2 Dependence on renal dialysis; Z79.4 Long term (current) use of insulin; E03.9 Hypothyroidism, unspecified; E11.40 Type 2 diabetes mellitus with diabetic neuropathy, unspecified; M06.9 Rheumatoid arthritis, unspecified; E78.00 Pure hypercholesterolemia, unspecified; E78.5 Hyperlipidemia, unspecified; E11.69 Type 2 diabetes mellitus with other specified complication; R05.3 Chronic cough; D63.1 Anemia in chronic kidney disease; E66.09 Other obesity due to excess calories; Z68.29 Body mass index [BMI] 29.0-29.9, adult; G47.33 Obstructive sleep apnea (adult) (pediatric); I50.9 Heart failure, unspecified; E87.5 Hyperkalemia; I48.0 Paroxysmal atrial fibrillation; Z79.01 Long term (current) use of anticoagulants; Z20.822 Contact with and (suspected) exposure to COVID-19
CPT/HCPCS: 36415; 71045; 71046; 71250; 80048; 80053; 80061; 82550; 82553; 82948; 83735; 83880; 84443; 84484; 85025; 85610; 85730; 86706; 87070; 87205; 87340; 90962; 93005; 93306; 94060; 94640; 94799; 96372; 99252; 99284; G0378; J1644; J1815; J2920; J2930; J7030

== ENCOUNTER 2022-08-14 05:28 | Inpatient (IN) | payer MEDICARE ==
[~2022-08-14] VITALS: Ht 160 cm; Wt 76.7 kg
[~2022-08-14 05:28] MED LIST changes: +AMIODARONE HCL200 MG PO; +AMLODIPINE BESYL5 MG PO; +BUSPIRONE HCL10 MG PO; +CINACALCET HCL30 MG PO; +FISH OIL 1,001000 M1; +PAXIL10 MG PO; +PREDNISONE20 MG PO; +PRIMIDONE1 GM; +QUETIAPINE FUMA25 MG PO; +TOPIRAMATE25 MG PO; +VITAMIN D325 MCG PO
[2022-08-14] MEDS ORDERED: SODIUM CHLORIDE 0.9% 1000ML 1,000 ML IV STA (05:44)
[2022-08-14] MEDS ORDERED: ONDANSETRON HCL INJ 2MG/ML 2ML 2 MG/ML VIAL IV STA (05:54)
[2022-08-14 05:58] LABS: BASOPHILS % 0.3 % (0.0-1.0); EOSINOPHILS # (AUTO) 0.1 (0.0-0.4); EOSINOPHILS % 0.5 % (0.0-6.0); HEMATOCRIT 39.9 % (34.2-44.1); HEMOGLOBIN 12.4 g/dL (12.0-16.0); LYMPHOCYTES # (AUTO) 0.1 (1.0-3.2); LYMPHOCYTES % 1.2 % (18.0-39.1); MEAN CORPUSCULAR HEMOGLOBIN 31.7 pg (28-32); MEAN CORPUSCULAR HGB CONC 31.1 g/dL (31-35); MONOCYTES # (AUTO) 0.4 (0.2-0.8); MONOCYTES % 3.6 % (4.4-11.3); NEUTROPHILS # (AUTO) 10.7 (2.1-6.9); PLATELET COUNT 148 x10e3/uL (140-360); RED BLOOD COUNT 3.91 x10e6/uL (3.6-5.1)
[2022-08-14 06:20] LABS: ALBUMIN 3.7 g/dL (3.5-5.0); ALBUMIN/GLOBULIN RATIO 1.4 (0.8-2.0); ANION GAP 29.1 mmol/L (8-16); CALCIUM 8.8 mg/dL (8.4-10.2); CREATININE, SERUM 8.13 mg/dL (0.57-1.11)
[2022-08-14 06:22] LABS: POTASSIUM 6.1 mmol/L (3.5-5.1)
[2022-08-14 06:26] LABS: CREATINE KINASE MB 4.8 ng/mL (0-5.0)
[2022-08-14] MEDS ORDERED: PIPERACILLIN/TAZOBACTAM SOD 2.25 GM VIAL ONE (06:51)
[2022-08-14] MEDS ORDERED: DEXTROSE 50% SYRINGE 50 ML IV PRN (08:00)
[2022-08-14] MEDS ORDERED: ONDANSETRON HCL INJ 2MG/ML 2ML 2 MG/ML VIAL IV PRN (08:00)
[2022-08-14] MEDS ORDERED: ALBUTEROL SULF 0.083% NEB SOLN 3 ML NEB INH PRN ×2 (08:45→09:30)
[2022-08-14] MEDS ORDERED: ASPIRIN 81 MG CHEW TAB PO SCH (09:30)
[2022-08-14] MEDS ORDERED: PAROXETINE HCL 20 MG TAB PO SCH (09:30)
[2022-08-14] MEDS ORDERED: TOPIRAMATE 25 MG TAB PO SCH (09:30)
[2022-08-14] MEDS: AMLODIPINE BESYLATE 5 MG TAB PO SCH (09:30)
[2022-08-14 10:30] VITALS: BP 116/65
[2022-08-14] MEDS: INSULIN LISPRO 100 UNIT/1 ML 3ML VIAL SQ SCH ×3 (11:30→22:40)
[2022-08-14 12:00] VITALS: BP 116/65
[2022-08-14] MEDS ORDERED: ACETAMINOPHEN 325 MG TAB PO PRN (16:15)
[2022-08-14] MEDS: VANCOMYCIN HCL 125 MG CAPSULE PO SCH ×2 (16:51→21:16)
[2022-08-14] MEDS: BUSPIRONE HCL 5 MG TAB PO SCH (16:51)
[2022-08-14] MEDS: ASPIRIN 81 MG CHEW TAB PO SCH (16:51)
[2022-08-14] MEDS: CHOLESTYRAMINE 4 GM PACKET PO SCH (16:52)
[2022-08-14] MEDS ORDERED: SEVELAMER CARBONATE 800 MG TAB PO SCH (17:00)
[2022-08-14 20:00] VITALS: BP 138/57
[2022-08-14] MEDS: CRESTOR 10MG PO SCH (20:22)
[2022-08-14] MEDS: AMIODARONE HCL 200 MG TAB PO SCH (20:23)
[2022-08-14] MEDS: CLONAZEPAM 0.5 MG TAB PO SCH (20:24)
[2022-08-14] MEDS: PAROXETINE HCL PO SCH (21:00)
[2022-08-14] MEDS ORDERED: SIMVASTATIN 40 MG TAB PO SCH (21:00)
[2022-08-14] MEDS: INSULIN GLARGINE 100 UNITS/ML VIAL SQ SCH (22:39)
[2022-08-15] VITALS (7 sets, daily range): BP systolic 139–182; BP diastolic 62–75
[2022-08-15] MEDS: VANCOMYCIN HCL 125 MG CAPSULE PO SCH ×3 (05:03→22:32)
[2022-08-15 06:59] LABS: CREATINE KINASE MB 2.6 ng/mL (0-5.0)
[2022-08-15 07:16] LABS: BASOPHILS % 0.3 % (0.0-1.0); EOSINOPHILS # (AUTO) 0.1 (0.0-0.4); EOSINOPHILS % 1.7 % (0.0-6.0); HEMATOCRIT 37.3 % (34.2-44.1); HEMOGLOBIN 11.1 g/dL (12.0-16.0); LYMPHOCYTES # (AUTO) 0.4 (1.0-3.2); LYMPHOCYTES % 10.3 % (18.0-39.1); MEAN CORPUSCULAR HEMOGLOBIN 31.6 pg (28-32); MEAN CORPUSCULAR HGB CONC 29.8 g/dL (31-35); MEAN CORPUSCULAR VOLUME 106.3 fL (81-99); MONOCYTES # (AUTO) 0.5 (0.2-0.8); MONOCYTES % 13.2 % (4.4-11.3); NEUTROPHILS # (AUTO) 2.6 (2.1-6.9); NEUTROPHILS % 74.2 % (38.7-80.0); RED BLOOD COUNT 3.51 x10e6/uL (3.6-5.1); RED CELL DISTRIBUTION WIDTH 19.1 % (11.7-14.4)
[2022-08-15 07:18] LABS: PLATELET COUNT 100 x10e3/uL (140-360)
[2022-08-15] MEDS: INSULIN LISPRO 100 UNIT/1 ML 3ML VIAL SQ SCH ×4 (07:30→21:51)
[2022-08-15] MEDS: BUSPIRONE HCL 5 MG TAB PO SCH (08:45)
[2022-08-15] MEDS: QUETIAPINE FUMARATE 25 MG TAB PO SCH (08:45)
[2022-08-15] MEDS: ASPIRIN 81 MG CHEW TAB PO SCH (08:46)
[2022-08-15] MEDS: AMLODIPINE BESYLATE 5 MG TAB PO SCH (08:54)
[2022-08-15] MEDS: CHOLESTYRAMINE 4 GM PACKET PO SCH ×2 (08:54→17:05)
[2022-08-15] MEDS: PAROXETINE HCL PO SCH ×2 (08:54→21:00)
[2022-08-15 09:24] LABS: ALBUMIN 3.5 g/dL (3.5-5.0); ALBUMIN/GLOBULIN RATIO 1.2 (0.8-2.0); CALCIUM 8.8 mg/dL (8.4-10.2); CREATININE, SERUM 5.32 mg/dL (0.57-1.11)
[2022-08-15] MEDS ORDERED: CINACALCET 30 MG TAB PO SCH (12:00)
[2022-08-15 12:08] LABS: CREATINE KINASE MB 2.8 ng/mL (0-5.0)
[2022-08-15] MEDS: LOPERAMIDE HCL 2 MG CAP PO PRN ×2 (12:14→17:05)
[2022-08-15] MEDS: METRONIDAZOLE 500 MG TAB PO SCH ×2 (14:44→22:31)
[2022-08-15] MEDS: AMIODARONE HCL 200 MG TAB PO SCH (21:38)
[2022-08-15] MEDS: CRESTOR 10MG PO SCH (21:40)
[2022-08-15] MEDS: CLONAZEPAM 0.5 MG TAB PO SCH (21:42)
[2022-08-15] MEDS: INSULIN GLARGINE 100 UNITS/ML VIAL SQ SCH (21:52)
[2022-08-16 00:35] VITALS: BP 183/74
[2022-08-16] MEDS ORDERED: CLONIDINE HCL 0.1 MG TAB PO PRN (00:45)
[2022-08-16 05:00] VITALS: BP 163/76
[2022-08-16] MEDS: METRONIDAZOLE 500 MG TAB PO SCH (05:33)
[2022-08-16] MEDS: VANCOMYCIN HCL 125 MG CAPSULE PO SCH ×2 (05:34→15:51)
[2022-08-16 06:21] LABS: BASOPHILS % 0.5 % (0.0-1.0); EOSINOPHILS # (AUTO) 0.1 (0.0-0.4); EOSINOPHILS % 3.4 % (0.0-6.0); HEMATOCRIT 35.2 % (34.2-44.1); HEMOGLOBIN 10.3 g/dL (12.0-16.0); LYMPHOCYTES # (AUTO) 0.8 (1.0-3.2); LYMPHOCYTES % 21.7 % (18.0-39.1); MEAN CORPUSCULAR HEMOGLOBIN 31.2 pg (28-32); MEAN CORPUSCULAR HGB CONC 29.3 g/dL (31-35); MEAN CORPUSCULAR VOLUME 106.7 fL (81-99); MONOCYTES # (AUTO) 0.7 (0.2-0.8); MONOCYTES % 17.6 % (4.4-11.3); NEUTROPHILS # (AUTO) 2.2 (2.1-6.9); NEUTROPHILS % 56.5 % (38.7-80.0); PLATELET COUNT 90 x10e3/uL (140-360); RED CELL DISTRIBUTION WIDTH 18.4 % (11.7-14.4)
[2022-08-16 06:50] LABS: CALCIUM 8.2 mg/dL (8.4-10.2); CREATININE, SERUM 6.99 mg/dL (0.57-1.11)
[2022-08-16 08:47] VITALS: BP 168/82
[2022-08-16] MEDS: AMLODIPINE BESYLATE 5 MG TAB PO SCH (09:00)
[2022-08-16] MEDS: QUETIAPINE FUMARATE 25 MG TAB PO SCH (09:09)
[2022-08-16] MEDS: CHOLESTYRAMINE 4 GM PACKET PO SCH (09:09)
[2022-08-16] MEDS: PAROXETINE HCL PO SCH (09:10)
[2022-08-16] MEDS: INSULIN LISPRO 100 UNIT/1 ML 3ML VIAL SQ SCH ×2 (09:10→12:49)
[2022-08-16] MEDS: LOPERAMIDE HCL 2 MG CAP PO PRN (09:13)
[2022-08-16 09:19] VITALS: BP 168/82
[2022-08-16] MEDS ORDERED: SODIUM CHLORIDE 0.9% 1000ML 2,000 ML ONE (09:37)
[2022-08-16] MEDS ORDERED: VANCOMYCIN HCL125 MG PO (10:05)
[2022-08-16] MEDS ORDERED: ONDANSETRON HCL 4 MG ORAL DISINTEGRATING TAB PO PRN (10:45)
[2022-08-16 12:23] VITALS: BP 177/79
[2022-08-16] MEDS: BUSPIRONE HCL 5 MG TAB PO SCH (12:48)
[2022-08-16] MEDS: ASPIRIN 81 MG CHEW TAB PO SCH (12:48)
== END 2022-08-16 18:30 | disposition home or self-care (01) | DRG 640 ==
LOC: ER 05:46 → ERHOLD 08:11 → MED/SURG3 10:50
PROVIDERS: ADMIT Internal Medicine; ATTEND Internal Medicine
DX: E87.5 Hyperkalemia (principal); N18.6 End stage renal disease; I12.0 Hypertensive chronic kidney disease with stage 5 chronic kidney disease or end stage renal disease; R19.7 Diarrhea, unspecified; R11.2 Nausea with vomiting, unspecified; E11.22 Type 2 diabetes mellitus with diabetic chronic kidney disease; Z99.2 Dependence on renal dialysis; Z79.4 Long term (current) use of insulin; F41.9 Anxiety disorder, unspecified; M06.9 Rheumatoid arthritis, unspecified; E78.00 Pure hypercholesterolemia, unspecified; E11.40 Type 2 diabetes mellitus with diabetic neuropathy, unspecified; I48.0 Paroxysmal atrial fibrillation; Z79.01 Long term (current) use of anticoagulants; Z91.041 Radiographic dye allergy status
CPT/HCPCS: 36415; 71045; 74176; 80048; 80053; 82550; 82553; 82948; 83605; 83690; 83880; 84484; 85025; 86704; 86706; 87040; 87324; 87340; 87449; 93005; 94799; 99284; J1815; J2405; J2543; J7030

== ENCOUNTER 2022-09-04 15:21 | Inpatient (IN) | payer MEDICARE ==
[~2022-09-04] VITALS: Ht 160 cm; Wt 76.7 kg
[~2022-09-04 15:21] MED LIST changes: +VANCOMYCIN HCL125 MG PO
[2022-09-04] MEDS ORDERED: SODIUM CHLORIDE 0.9% 1000ML 1,000 ML IV SCH (16:00)
[2022-09-04 16:21] LABS: EOSINOPHILS % 0.8 % (0.0-6.0); HEMOGLOBIN 9.5 g/dL (12.0-16.0); LYMPHOCYTES # (AUTO) 0.4 (1.0-3.2); LYMPHOCYTES % 10.3 % (18.0-39.1); MEAN CORPUSCULAR HEMOGLOBIN 30.4 pg (28-32); MEAN CORPUSCULAR HGB CONC 30.6 g/dL (31-35); MEAN CORPUSCULAR VOLUME 99.4 fL (81-99); MONOCYTES # (AUTO) 0.3 (0.2-0.8); MONOCYTES % 7.9 % (4.4-11.3); NEUTROPHILS % 80.7 % (38.7-80.0); PLATELET COUNT 103 x10e3/uL (140-360); RED BLOOD COUNT 3.12 x10e6/uL (3.6-5.1); RED CELL DISTRIBUTION WIDTH 17.3 % (11.7-14.4)
[2022-09-04 16:41] LABS: ALBUMIN 3.2 g/dL (3.5-5.0); ALBUMIN/GLOBULIN RATIO 0.9 (0.8-2.0); ANION GAP 19.6 mmol/L (8-16); CALCIUM 8.7 mg/dL (8.4-10.2); CREATININE, SERUM 3.43 mg/dL (0.57-1.11); POTASSIUM 4.6 mmol/L (3.5-5.1)
[2022-09-04] MEDS ORDERED: Vancomycin IV 1 GM in SODIUM CHLORIDE 0.9% 250ML 250 ML IV ONE (17:30)
[2022-09-04 20:00] VITALS: BP 138/68
[2022-09-04 22:05] VITALS: BP 138/68
[2022-09-04 22:06] VITALS: BP 138/68
[2022-09-04 22:37] VITALS: BP 138/68
[2022-09-04 22:52] LABS: % IRON SATURATION 9 % (15-50); IRON 18 ug/dL (50-170); TOTAL IRON BINDING CAPACITY 209 ug/dL (261-478); TRANSFERRIN 149 mg/dL (180-382)
[2022-09-04] MEDS ORDERED: DIPHENOXYLATE/ATROPINE TAB PO STA (23:24)
[2022-09-04] MEDS ORDERED: DICYCLOMINE HCL 10 MG CAP PO STA (23:25)
[2022-09-04] MEDS: DICYCLOMINE HCL 20 MG TAB PO SCH (23:50)
[2022-09-04] MEDS ORDERED: [UNRECOGNIZED DRUG - OTHER] (23:51)
[2022-09-05] VITALS (8 sets, daily range): BP systolic 143–176; BP diastolic 59–84
[2022-09-05 06:07] LABS: EOSINOPHILS % 1.4 % (0.0-6.0); HEMATOCRIT 28.1 % (34.2-44.1); HEMOGLOBIN 8.3 g/dL (12.0-16.0); LYMPHOCYTES # (AUTO) 0.7 (1.0-3.2); MEAN CORPUSCULAR HEMOGLOBIN 30.2 pg (28-32); MEAN CORPUSCULAR HGB CONC 29.5 g/dL (31-35); MEAN CORPUSCULAR VOLUME 102.2 fL (81-99); MONOCYTES # (AUTO) 0.4 (0.2-0.8); NEUTROPHILS # (AUTO) 1.7 (2.1-6.9); NEUTROPHILS % 60.2 % (38.7-80.0); PLATELET COUNT 84 x10e3/uL (140-360); RED BLOOD COUNT 2.75 x10e6/uL (3.6-5.1); RED CELL DISTRIBUTION WIDTH 17.6 % (11.7-14.4)
[2022-09-05 06:25] LABS: INR 0.98; PROTHROMBIN TIME 13.5 seconds (11.9-14.5)
[2022-09-05 06:40] LABS: ANION GAP 19.3 mmol/L (8-16); CREATININE, SERUM 4.36 mg/dL (0.57-1.11); POTASSIUM 5.3 mmol/L (3.5-5.1)
[2022-09-05] MEDS: DICYCLOMINE HCL 20 MG TAB PO SCH ×4 (08:16→20:49)
[2022-09-05] MEDS ORDERED: ONDANSETRON HCL INJ 2MG/ML 2ML 2 MG/ML VIAL IV PRN (11:00)
[2022-09-05] MEDS: BUSPIRONE HCL 5 MG TAB PO SCH (12:01)
[2022-09-05] MEDS: ASPIRIN 81 MG CHEW TAB PO SCH (12:01)
[2022-09-05] MEDS: CINACALCET 30 MG TAB PO SCH (12:01)
[2022-09-05] MEDS: PAROXETINE HCL PO SCH ×2 (12:02→20:51)
[2022-09-05] MEDS: TOPIRAMATE 25 MG TAB PO SCH ×2 (12:02→20:48)
[2022-09-05] MEDS: AMLODIPINE BESYLATE 5 MG TAB PO SCH (12:02)
[2022-09-05] MEDS: IRON SUCROSE 100 MG in SODIUM CHLORIDE 0.9% 100 ML IV SCH (13:42)
[2022-09-05] MEDS ORDERED: SODIUM CHLORIDE 0.9% 250ML 250 ML ONE (13:45)
[2022-09-05] MEDS: VANCOMYCIN HCL 125 MG CAPSULE PO SCH ×2 (15:11→22:45)
[2022-09-05 15:30] LABS: WBC,FECAL (FECAL LACTOFERRIN) NEGATIVE (NEGATIVE)
[2022-09-05] MEDS ORDERED: NIRMATRELVIR/RITONAVIR 1 EACH BOX PO SCH (16:00)
[2022-09-05] MEDS: SEVELAMER CARBONATE 800 MG TAB PO SCH (16:38)
[2022-09-05] MEDS: DEXAMETHASONE 4 MG TAB PO SCH (16:38)
[2022-09-05] MEDS: AMIODARONE HCL 200 MG TAB PO SCH (20:48)
[2022-09-05] MEDS: CLONAZEPAM 0.5 MG TAB PO SCH (20:48)
[2022-09-05] MEDS: CRESTOR 10MG PO SCH (20:48)
[2022-09-05] MEDS: QUETIAPINE FUMARATE 25 MG TAB PO SCH (20:49)
[2022-09-05] MEDS ORDERED: HEPARIN SOD (PORCINE) 5,000 UNIT/ML VIAL SC SCH (21:00)
[2022-09-05] MEDS ORDERED: SIMVASTATIN 40 MG TAB PO SCH (21:00)
[2022-09-05] MEDS: INSULIN GLARGINE 100 UNITS/ML VIAL SQ SCH (21:01)
[2022-09-06] VITALS (8 sets, daily range): BP systolic 121–162; BP diastolic 53–78
[2022-09-06] MEDS: VANCOMYCIN HCL 125 MG CAPSULE PO SCH ×3 (05:34→21:11)
[2022-09-06] MEDS: TOPIRAMATE 25 MG TAB PO SCH ×2 (08:10→21:11)
[2022-09-06] MEDS: LORATADINE 10 MG TAB PO SCH (08:10)
[2022-09-06] MEDS: SEVELAMER CARBONATE 800 MG TAB PO SCH ×2 (08:10→16:48)
[2022-09-06] MEDS: DEXAMETHASONE 4 MG TAB PO SCH (08:10)
[2022-09-06] MEDS: ASPIRIN 81 MG CHEW TAB PO SCH (08:10)
[2022-09-06] MEDS: BENZONATATE 100 MG CAP PO SCH ×3 (08:10→21:11)
[2022-09-06] MEDS: QUETIAPINE FUMARATE 25 MG TAB PO SCH ×2 (08:10→21:11)
[2022-09-06] MEDS: DICYCLOMINE HCL 20 MG TAB PO SCH ×4 (08:11→21:11)
[2022-09-06] MEDS: PAROXETINE HCL PO SCH ×2 (08:11→21:11)
[2022-09-06] MEDS: AMLODIPINE BESYLATE 5 MG TAB PO SCH (08:11)
[2022-09-06] MEDS: FLUTICASONE PROPIONATE NASAL SPRAY NS SCH ×2 (08:11→16:48)
[2022-09-06] MEDS: CYANOCOBALAMIN INJ 1,000 MCG/ML VIAL IM SCH (08:11)
[2022-09-06] MEDS: BUSPIRONE HCL 5 MG TAB PO SCH (12:08)
[2022-09-06] MEDS: IRON SUCROSE 100 MG in SODIUM CHLORIDE 0.9% 100 ML IV SCH (13:15)
[2022-09-06] MEDS: ACETAMINOPHEN 325 MG TAB PO PRN (13:59)
[2022-09-06] MEDS ORDERED: SODIUM CHLORIDE 0.9% 1000ML 1,000 ML ONE (15:11)
[2022-09-06] MEDS: AMIODARONE HCL 200 MG TAB PO SCH (21:11)
[2022-09-06] MEDS: CLONAZEPAM 0.5 MG TAB PO SCH (21:11)
[2022-09-06] MEDS: CRESTOR 10MG PO SCH (21:11)
[2022-09-06] MEDS: INSULIN GLARGINE 100 UNITS/ML VIAL SQ SCH (21:11)
[2022-09-06] MEDS ORDERED: DICYCLOMINE HCL 20 MG TAB PO STA (23:44)
[2022-09-06] MEDS ORDERED: CHOLESTYRAMINE 4 GM PACKET PO STA (23:48)
[2022-09-07] VITALS (8 sets, daily range): BP systolic 140–153; BP diastolic 49–66
[2022-09-07] MEDS: ACETAMINOPHEN 325 MG TAB PO PRN (01:37)
[2022-09-07] MEDS: VANCOMYCIN HCL 125 MG CAPSULE PO SCH ×3 (05:33→20:25)
[2022-09-07 06:16] LABS: BASOPHILS % 0.2 % (0.0-1.0); EOSINOPHILS % 0.7 % (0.0-6.0); HEMATOCRIT 26.8 % (34.2-44.1); LYMPHOCYTES # (AUTO) 0.5 (1.0-3.2); LYMPHOCYTES % 9.5 % (18.0-39.1); MEAN CORPUSCULAR HEMOGLOBIN 30.7 pg (28-32); MEAN CORPUSCULAR HGB CONC 29.9 g/dL (31-35); MEAN CORPUSCULAR VOLUME 102.7 fL (81-99); MONOCYTES # (AUTO) 0.5 (0.2-0.8); MONOCYTES % 9.3 % (4.4-11.3); NEUTROPHILS # (AUTO) 4.6 (2.1-6.9); NEUTROPHILS % 79.8 % (38.7-80.0); PLATELET COUNT 141 x10e3/uL (140-360); RED BLOOD COUNT 2.61 x10e6/uL (3.6-5.1); RED CELL DISTRIBUTION WIDTH 16.7 % (11.7-14.4)
[2022-09-07 06:53] LABS: ALBUMIN 2.6 g/dL (3.5-5.0); ALBUMIN/GLOBULIN RATIO 0.8 (0.8-2.0); ANION GAP 16.6 mmol/L (8-16); CALCIUM 8.7 mg/dL (8.4-10.2); CREATININE, SERUM 4.19 mg/dL (0.57-1.11); POTASSIUM 4.6 mmol/L (3.5-5.1)
[2022-09-07] MEDS: CYANOCOBALAMIN INJ 1,000 MCG/ML VIAL IM SCH (08:19)
[2022-09-07] MEDS: CHOLESTYRAMINE 4 GM PACKET PO SCH ×2 (08:19→16:29)
[2022-09-07] MEDS: AMLODIPINE BESYLATE 5 MG TAB PO SCH (08:20)
[2022-09-07] MEDS: LORATADINE 10 MG TAB PO SCH (08:20)
[2022-09-07] MEDS: SEVELAMER CARBONATE 800 MG TAB PO SCH ×2 (08:20→16:29)
[2022-09-07] MEDS: DICYCLOMINE HCL 20 MG TAB PO SCH ×4 (08:20→20:22)
[2022-09-07] MEDS: DEXAMETHASONE 4 MG TAB PO SCH (08:20)
[2022-09-07] MEDS: TOPIRAMATE 25 MG TAB PO SCH ×2 (08:20→20:22)
[2022-09-07] MEDS: PAROXETINE HCL PO SCH ×2 (08:21→20:27)
[2022-09-07] MEDS: ASPIRIN 81 MG CHEW TAB PO SCH (08:21)
[2022-09-07] MEDS: QUETIAPINE FUMARATE 25 MG TAB PO SCH ×2 (08:21→16:29)
[2022-09-07] MEDS: BENZONATATE 100 MG CAP PO SCH ×3 (08:21→20:22)
[2022-09-07] MEDS: FLUTICASONE PROPIONATE NASAL SPRAY NS SCH ×2 (09:00→16:29)
[2022-09-07] MEDS: BUSPIRONE HCL 5 MG TAB PO SCH (12:08)
[2022-09-07] MEDS: CINACALCET 30 MG TAB PO SCH (12:08)
[2022-09-07] MEDS: IRON SUCROSE 100 MG in SODIUM CHLORIDE 0.9% 100 ML IV SCH (13:00)
[2022-09-07] MEDS: CLONAZEPAM 0.5 MG TAB PO SCH (20:21)
[2022-09-07] MEDS: CRESTOR 10MG PO SCH (20:23)
[2022-09-07] MEDS: AMIODARONE HCL 200 MG TAB PO SCH (20:24)
[2022-09-07] MEDS: INSULIN GLARGINE 100 UNITS/ML VIAL SQ SCH (20:32)
[2022-09-08] VITALS (8 sets, daily range): BP systolic 103–158; BP diastolic 28–75
[2022-09-08] MEDS ORDERED: DIPHENOXYLATE/ATROPINE TAB PO ONE (00:30)
[2022-09-08] MEDS: VANCOMYCIN HCL 125 MG CAPSULE PO SCH ×3 (05:17→21:07)
[2022-09-08] MEDS: DICYCLOMINE HCL 20 MG TAB PO SCH ×4 (08:57→21:09)
[2022-09-08] MEDS: CYANOCOBALAMIN INJ 1,000 MCG/ML VIAL IM SCH (08:57)
[2022-09-08] MEDS: DEXAMETHASONE 4 MG TAB PO SCH (08:57)
[2022-09-08] MEDS: ASPIRIN 81 MG CHEW TAB PO SCH (08:57)
[2022-09-08] MEDS: DIPHENOXYLATE/ATROPINE TAB PO SCH ×2 (08:57→16:54)
[2022-09-08] MEDS: TOPIRAMATE 25 MG TAB PO SCH ×2 (08:57→21:09)
[2022-09-08] MEDS: SEVELAMER CARBONATE 800 MG TAB PO SCH ×2 (08:58→16:54)
[2022-09-08] MEDS: BENZONATATE 100 MG CAP PO SCH ×3 (08:58→21:09)
[2022-09-08] MEDS: QUETIAPINE FUMARATE 25 MG TAB PO SCH ×2 (08:58→21:09)
[2022-09-08] MEDS: LORATADINE 10 MG TAB PO SCH (08:59)
[2022-09-08] MEDS: PAROXETINE HCL PO SCH ×2 (08:59→21:17)
[2022-09-08] MEDS: IRON-VITAMIN-MINERAL CAPSULE PO SCH ×2 (08:59→16:55)
[2022-09-08] MEDS: AMLODIPINE BESYLATE 5 MG TAB PO SCH (09:00)
[2022-09-08] MEDS ORDERED: CHOLESTYRAMINE 4 GM PACKET PO SCH (09:00)
[2022-09-08] MEDS: FLUTICASONE PROPIONATE NASAL SPRAY NS SCH ×2 (09:00→16:55)
[2022-09-08] MEDS ORDERED: ALBUMIN 25% 12.5GM 0.25 GM/ML BTL IV PRN (11:00)
[2022-09-08] MEDS ORDERED: MIDODRINE HCL 5 MG TABLET PO PRN (11:15)
[2022-09-08] MEDS: BUSPIRONE HCL 5 MG TAB PO SCH (12:00)
[2022-09-08] MEDS: GUAIFENESIN/DEXTROMETHORPHAN LIQD 5 ML UDC NG PRN (21:07)
[2022-09-08] MEDS: CLONAZEPAM 0.5 MG TAB PO SCH (21:08)
[2022-09-08] MEDS: CRESTOR 10MG PO SCH (21:08)
[2022-09-08] MEDS: AMIODARONE HCL 200 MG TAB PO SCH (21:09)
[2022-09-08] MEDS: INSULIN GLARGINE 100 UNITS/ML VIAL SQ SCH (21:17)
[2022-09-08] MEDS ORDERED: DIPHENOXYLATE/ATROPINE TAB PO STA (23:44)
[2022-09-09] VITALS (8 sets, daily range): BP systolic 120–168; BP diastolic 50–57
[2022-09-09] MEDS: ALBUTEROL SULF 0.083% NEB SOLN 3 ML NEB INH PRN (00:17)
[2022-09-09] MEDS: VANCOMYCIN HCL 125 MG CAPSULE PO SCH ×3 (04:27→20:37)
[2022-09-09] MEDS: GUAIFENESIN/DEXTROMETHORPHAN LIQD 5 ML UDC NG PRN (04:32)
[2022-09-09] MEDS: DIPHENOXYLATE/ATROPINE TAB PO SCH ×3 (08:59→20:37)
[2022-09-09] MEDS: DEXAMETHASONE 4 MG TAB PO SCH (08:59)
[2022-09-09] MEDS: TOPIRAMATE 25 MG TAB PO SCH ×2 (08:59→20:37)
[2022-09-09] MEDS: BENZONATATE 100 MG CAP PO SCH ×3 (08:59→20:37)
[2022-09-09] MEDS: ASPIRIN 81 MG CHEW TAB PO SCH (08:59)
[2022-09-09] MEDS: CYANOCOBALAMIN INJ 1,000 MCG/ML VIAL IM SCH (08:59)
[2022-09-09] MEDS: IRON-VITAMIN-MINERAL CAPSULE PO SCH ×2 (09:00→16:03)
[2022-09-09] MEDS: AMLODIPINE BESYLATE 5 MG TAB PO SCH (09:00)
[2022-09-09] MEDS: QUETIAPINE FUMARATE 25 MG TAB PO SCH ×2 (09:00→20:37)
[2022-09-09] MEDS: SEVELAMER CARBONATE 800 MG TAB PO SCH ×2 (09:00→16:03)
[2022-09-09] MEDS: DICYCLOMINE HCL 20 MG TAB PO SCH ×4 (09:00→20:37)
[2022-09-09] MEDS: FLUTICASONE PROPIONATE NASAL SPRAY NS SCH ×2 (09:00→17:00)
[2022-09-09] MEDS: LORATADINE 10 MG TAB PO SCH (09:00)
[2022-09-09] MEDS: PAROXETINE HCL PO SCH ×2 (09:00→20:47)
[2022-09-09] MEDS: BUSPIRONE HCL 5 MG TAB PO SCH (11:55)
[2022-09-09] MEDS: IPRATROPIUM BROMIDE 0.02% 2.5 ML NEB NEB SCH ×2 (17:05→19:10)
[2022-09-09] MEDS: ALBUTEROL SULF 0.083% NEB SOLN 3 ML NEB NEB SCH ×2 (17:05→19:10)
[2022-09-09] MEDS: CRESTOR 10MG PO SCH (20:37)
[2022-09-09] MEDS: AMIODARONE HCL 200 MG TAB PO SCH (20:37)
[2022-09-09] MEDS: CLONAZEPAM 0.5 MG TAB PO SCH (20:37)
[2022-09-09] MEDS: INSULIN GLARGINE 100 UNITS/ML VIAL SQ SCH (20:51)
[2022-09-10] VITALS: BP 144/59
[2022-09-10] MEDS: IPRATROPIUM BROMIDE 0.02% 2.5 ML NEB NEB SCH ×5 (00:05→23:40)
[2022-09-10] MEDS: ALBUTEROL SULF 0.083% NEB SOLN 3 ML NEB NEB SCH ×5 (00:05→23:40)
[2022-09-10] MEDS: GUAIFENESIN/DEXTROMETHORPHAN LIQD 5 ML UDC NG PRN ×2 (00:37→02:46)
[2022-09-10] MEDS: BENZONATATE 100 MG CAP PO SCH ×3 (02:41→21:41)
[2022-09-10 04:00] VITALS: BP 131/57
[2022-09-10] MEDS: VANCOMYCIN HCL 125 MG CAPSULE PO SCH ×3 (05:09→21:41)
[2022-09-10 08:28] VITALS: BP 182/54
[2022-09-10] MEDS: IRON-VITAMIN-MINERAL CAPSULE PO SCH ×2 (09:11→16:37)
[2022-09-10] MEDS: AMLODIPINE BESYLATE 5 MG TAB PO SCH (09:11)
[2022-09-10] MEDS: DIPHENOXYLATE/ATROPINE TAB PO SCH ×3 (09:11→21:40)
[2022-09-10] MEDS: PAROXETINE HCL PO SCH ×2 (09:11→21:45)
[2022-09-10] MEDS: DEXAMETHASONE 4 MG TAB PO SCH (09:11)
[2022-09-10] MEDS: ASPIRIN 81 MG CHEW TAB PO SCH (09:12)
[2022-09-10] MEDS: DICYCLOMINE HCL 20 MG TAB PO SCH ×4 (09:12→21:40)
[2022-09-10] MEDS: SEVELAMER CARBONATE 800 MG TAB PO SCH ×2 (09:12→16:36)
[2022-09-10] MEDS: TOPIRAMATE 25 MG TAB PO SCH ×2 (09:12→21:40)
[2022-09-10] MEDS: LORATADINE 10 MG TAB PO SCH (09:12)
[2022-09-10] MEDS: QUETIAPINE FUMARATE 25 MG TAB PO SCH ×2 (09:12→21:45)
[2022-09-10] MEDS: FLUTICASONE PROPIONATE NASAL SPRAY NS SCH ×2 (09:13→16:42)
[2022-09-10] MEDS: CYANOCOBALAMIN INJ 1,000 MCG/ML VIAL IM SCH (09:13)
[2022-09-10 09:38] VITALS: BP 182/54
[2022-09-10] MEDS: BUSPIRONE HCL 5 MG TAB PO SCH (12:06)
[2022-09-10] MEDS: CINACALCET 30 MG TAB PO SCH (12:06)
[2022-09-10] MEDS ORDERED: DEXTROSE 50% SYRINGE 50 ML IV PRN (12:15)
[2022-09-10] MEDS ORDERED: CLONIDINE HCL 0.1 MG TAB PO PRN (12:15)
[2022-09-10 12:28] VITALS: BP 173/54
[2022-09-10] MEDS: INSULIN REGULAR, HUMAN 100 UNIT/1 ML SQ SCH ×2 (16:38→21:37)
[2022-09-10 20:00] VITALS: BP 145/66
[2022-09-10] MEDS: INSULIN GLARGINE 100 UNITS/ML VIAL SQ SCH (21:38)
[2022-09-10] MEDS: LACTOBACILLUS ACIDOPHILUS CAPSULE PO SCH (21:40)
[2022-09-10] MEDS: CRESTOR 10MG PO SCH (21:41)
[2022-09-10] MEDS: AMIODARONE HCL 200 MG TAB PO SCH (21:45)
[2022-09-10] MEDS: CLONAZEPAM 0.5 MG TAB PO SCH (21:45)
[2022-09-11] MEDS: DIPHENOXYLATE/ATROPINE TAB PO SCH ×5 (00:17→21:47)
[2022-09-11] MEDS: VANCOMYCIN HCL 125 MG CAPSULE PO SCH ×3 (05:52→21:48)
[2022-09-11] MEDS: IPRATROPIUM BROMIDE 0.02% 2.5 ML NEB NEB SCH ×3 (06:30→18:55)
[2022-09-11] MEDS: ALBUTEROL SULF 0.083% NEB SOLN 3 ML NEB NEB SCH ×3 (06:30→18:55)
[2022-09-11 06:45] LABS: BASOPHILS % 0.2 % (0.0-1.0); HEMATOCRIT 24.6 % (34.2-44.1); HEMOGLOBIN 7.4 g/dL (12.0-16.0); LYMPHOCYTES # (AUTO) 0.5 (1.0-3.2); LYMPHOCYTES % 7.6 % (18.0-39.1); MEAN CORPUSCULAR HEMOGLOBIN 29.8 pg (28-32); MEAN CORPUSCULAR HGB CONC 30.1 g/dL (31-35); MEAN CORPUSCULAR VOLUME 99.2 fL (81-99); MONOCYTES # (AUTO) 0.4 (0.2-0.8); MONOCYTES % 5.9 % (4.4-11.3); NEUTROPHILS # (AUTO) 5.6 (2.1-6.9); NEUTROPHILS % 84.5 % (38.7-80.0); PLATELET COUNT 227 x10e3/uL (140-360); RED BLOOD COUNT 2.48 x10e6/uL (3.6-5.1); RED CELL DISTRIBUTION WIDTH 16.6 % (11.7-14.4)
[2022-09-11 07:18] LABS: ALBUMIN 3.1 g/dL (3.5-5.0); ANION GAP 20.5 mmol/L (8-16); CALCIUM 8.6 mg/dL (8.4-10.2); CREATININE, SERUM 7.51 mg/dL (0.57-1.11); POTASSIUM 5.5 mmol/L (3.5-5.1)
[2022-09-11] MEDS: INSULIN REGULAR, HUMAN 100 UNIT/1 ML SQ SCH ×4 (07:30→21:46)
[2022-09-11] MEDS: SEVELAMER CARBONATE 800 MG TAB PO SCH ×2 (08:00→18:49)
[2022-09-11 08:18] VITALS: BP 166/84
[2022-09-11 08:32] VITALS: BP 166/84
[2022-09-11] MEDS ORDERED: SODIUM CHLORIDE 0.9% 1000ML 2,000 ML IV PRN (08:45)
[2022-09-11] MEDS ORDERED: SODIUM CHLORIDE 0.9% 250ML 250 ML IV ONE (08:45)
[2022-09-11] MEDS: DICYCLOMINE HCL 20 MG TAB PO SCH ×4 (09:00→21:47)
[2022-09-11] MEDS: GUAIFENESIN/CODEINE 5 ML LIQD PO PRN (10:16)
[2022-09-11] MEDS: FLUTICASONE PROPIONATE NASAL SPRAY NS SCH ×2 (10:18→18:49)
[2022-09-11 12:00] VITALS: BP 130/86
[2022-09-11] MEDS: BENZONATATE 100 MG CAP PO SCH ×3 (15:00→21:47)
[2022-09-11] MEDS: LACTOBACILLUS ACIDOPHILUS CAPSULE PO SCH ×2 (15:00→21:47)
[2022-09-11] MEDS: IRON-VITAMIN-MINERAL CAPSULE PO SCH ×2 (15:01→18:49)
[2022-09-11] MEDS: TOPIRAMATE 25 MG TAB PO SCH ×2 (15:01→21:47)
[2022-09-11] MEDS: AMLODIPINE BESYLATE 5 MG TAB PO SCH (15:02)
[2022-09-11] MEDS: LORATADINE 10 MG TAB PO SCH (15:02)
[2022-09-11] MEDS: ASPIRIN 81 MG CHEW TAB PO SCH (15:02)
[2022-09-11] MEDS: DEXAMETHASONE 4 MG TAB PO SCH (15:02)
[2022-09-11] MEDS: CYANOCOBALAMIN INJ 1,000 MCG/ML VIAL IM SCH (15:03)
[2022-09-11] MEDS: QUETIAPINE FUMARATE 25 MG TAB PO SCH ×2 (15:03→21:48)
[2022-09-11] MEDS: PAROXETINE HCL PO SCH ×2 (15:05→21:47)
[2022-09-11] MEDS: BUSPIRONE HCL 5 MG TAB PO SCH (15:14)
[2022-09-11 16:07] VITALS: BP 159/58
[2022-09-11] MEDS: BUDESONIDE/FORMOTEROL 160/4.5MCG INHALER INH SCH (18:55)
[2022-09-11 20:00] VITALS: BP 146/62
[2022-09-11 21:31] VITALS: BP 146/57
[2022-09-11] MEDS: CLONAZEPAM 0.5 MG TAB PO SCH (21:47)
[2022-09-11] MEDS: AMIODARONE HCL 200 MG TAB PO SCH (21:47)
[2022-09-11] MEDS: CRESTOR 10MG PO SCH (21:47)
[2022-09-11] MEDS: INSULIN GLARGINE 100 UNITS/ML VIAL SQ SCH (21:48)
[2022-09-12] MEDS ORDERED: CODEINE SULFATE 15 MG TAB PO PRN ×3 (00:30)
[2022-09-12] MEDS ORDERED: CODEINE SULFATE 15 MG TAB PO ONE ×2 (00:30→00:45)
[2022-09-12] MEDS: IPRATROPIUM BROMIDE 0.02% 2.5 ML NEB NEB SCH ×4 (01:00→19:02)
[2022-09-12] MEDS: ALBUTEROL SULF 0.083% NEB SOLN 3 ML NEB NEB SCH ×4 (01:00→19:02)
[2022-09-12] MEDS ORDERED: HYDROCODONE/APAP 10MG-325MG TAB PO PRN (01:15)
[2022-09-12] MEDS: VANCOMYCIN HCL 125 MG CAPSULE PO SCH ×4 (06:04→21:19)
[2022-09-12] MEDS: BUDESONIDE/FORMOTEROL 160/4.5MCG INHALER INH SCH ×2 (06:47→19:17)
[2022-09-12 08:34] VITALS: BP 145/60
[2022-09-12 08:48] VITALS: BP 145/60
[2022-09-12] MEDS: QUETIAPINE FUMARATE 25 MG TAB PO SCH ×2 (09:05→21:19)
[2022-09-12] MEDS: DEXAMETHASONE 4 MG TAB PO SCH (09:05)
[2022-09-12] MEDS: CYANOCOBALAMIN INJ 1,000 MCG/ML VIAL IM SCH (09:07)
[2022-09-12] MEDS: INSULIN REGULAR, HUMAN 100 UNIT/1 ML SQ SCH ×4 (09:07→21:30)
[2022-09-12] MEDS: SEVELAMER CARBONATE 800 MG TAB PO SCH ×2 (09:07→16:53)
[2022-09-12] MEDS: FLUTICASONE PROPIONATE NASAL SPRAY NS SCH ×2 (09:08→16:53)
[2022-09-12] MEDS: PAROXETINE HCL PO SCH ×2 (09:08→21:00)
[2022-09-12] MEDS: DICYCLOMINE HCL 20 MG TAB PO SCH ×4 (09:08→21:18)
[2022-09-12] MEDS: LORATADINE 10 MG TAB PO SCH (09:08)
[2022-09-12] MEDS: ASPIRIN 81 MG CHEW TAB PO SCH (09:08)
[2022-09-12] MEDS: IRON-VITAMIN-MINERAL CAPSULE PO SCH ×2 (09:08→16:53)
[2022-09-12] MEDS: DIPHENOXYLATE/ATROPINE TAB PO SCH ×4 (09:09→21:19)
[2022-09-12] MEDS: LACTOBACILLUS ACIDOPHILUS CAPSULE PO SCH ×3 (09:09→21:19)
[2022-09-12] MEDS: TOPIRAMATE 25 MG TAB PO SCH ×2 (09:09→21:19)
[2022-09-12] MEDS: AMLODIPINE BESYLATE 5 MG TAB PO SCH (09:09)
[2022-09-12] MEDS: BENZONATATE 100 MG CAP PO SCH ×3 (09:14→21:19)
[2022-09-12] MEDS: CODEINE SULFATE 30 MG TAB PO PRN ×3 (11:52→23:35)
[2022-09-12 11:58] VITALS: BP 146/65
[2022-09-12] MEDS: CINACALCET 30 MG TAB PO SCH (13:56)
[2022-09-12] MEDS: BUSPIRONE HCL 5 MG TAB PO SCH (13:56)
[2022-09-12 16:39] VITALS: BP 166/75
[2022-09-12 20:59] VITALS: BP 139/60
[2022-09-12 21:00] VITALS: BP 139/60
[2022-09-12] MEDS: AMIODARONE HCL 200 MG TAB PO SCH (21:18)
[2022-09-12] MEDS: CRESTOR 10MG PO SCH (21:18)
[2022-09-12] MEDS: INSULIN GLARGINE 100 UNITS/ML VIAL SQ SCH (21:30)
[2022-09-13] VITALS (8 sets, daily range): BP systolic 133–168; BP diastolic 52–85
[2022-09-13] MEDS: IPRATROPIUM BROMIDE 0.02% 2.5 ML NEB NEB SCH ×4 (01:00→19:25)
[2022-09-13] MEDS: ALBUTEROL SULF 0.083% NEB SOLN 3 ML NEB NEB SCH ×4 (01:00→19:25)
[2022-09-13 06:22] LABS: BASOPHILS % 0.1 % (0.0-1.0); HEMATOCRIT 27.6 % (34.2-44.1); HEMOGLOBIN 8.7 g/dL (12.0-16.0); LYMPHOCYTES # (AUTO) 0.5 (1.0-3.2); LYMPHOCYTES % 6.3 % (18.0-39.1); MEAN CORPUSCULAR HEMOGLOBIN 30.4 pg (28-32); MEAN CORPUSCULAR HGB CONC 31.5 g/dL (31-35); MEAN CORPUSCULAR VOLUME 96.5 fL (81-99); MONOCYTES # (AUTO) 0.5 (0.2-0.8); MONOCYTES % 7.5 % (4.4-11.3); NEUTROPHILS # (AUTO) 5.9 (2.1-6.9); NEUTROPHILS % 83.1 % (38.7-80.0); PLATELET COUNT 235 x10e3/uL (140-360); RED BLOOD COUNT 2.86 x10e6/uL (3.6-5.1); RED CELL DISTRIBUTION WIDTH 16.7 % (11.7-14.4)
[2022-09-13 06:38] LABS: ANION GAP 19.6 mmol/L (8-16); CALCIUM 8.2 mg/dL (8.4-10.2); CREATININE, SERUM 6.59 mg/dL (0.57-1.11); POTASSIUM 5.6 mmol/L (3.5-5.1)
[2022-09-13] MEDS: BUDESONIDE/FORMOTEROL 160/4.5MCG INHALER INH SCH ×2 (06:45→19:25)
[2022-09-13] MEDS: QUETIAPINE FUMARATE 25 MG TAB PO SCH ×2 (08:55→21:21)
[2022-09-13] MEDS: DEXAMETHASONE 4 MG TAB PO SCH (08:56)
[2022-09-13] MEDS: SEVELAMER CARBONATE 800 MG TAB PO SCH ×2 (08:57→17:00)
[2022-09-13] MEDS: INSULIN REGULAR, HUMAN 100 UNIT/1 ML SQ SCH ×4 (08:57→21:45)
[2022-09-13] MEDS: CYANOCOBALAMIN INJ 1,000 MCG/ML VIAL IM SCH (08:57)
[2022-09-13] MEDS: FLUTICASONE PROPIONATE NASAL SPRAY NS SCH ×2 (08:59→17:01)
[2022-09-13] MEDS: LORATADINE 10 MG TAB PO SCH (08:59)
[2022-09-13] MEDS: DICYCLOMINE HCL 20 MG TAB PO SCH ×4 (08:59→21:21)
[2022-09-13] MEDS: ASPIRIN 81 MG CHEW TAB PO SCH (08:59)
[2022-09-13] MEDS: BENZONATATE 100 MG CAP PO SCH ×3 (09:00→21:20)
[2022-09-13] MEDS: DIPHENOXYLATE/ATROPINE TAB PO SCH ×4 (09:00→21:21)
[2022-09-13] MEDS: IRON-VITAMIN-MINERAL CAPSULE PO SCH ×2 (09:00→17:00)
[2022-09-13] MEDS: LACTOBACILLUS ACIDOPHILUS CAPSULE PO SCH ×3 (09:00→21:20)
[2022-09-13] MEDS: TOPIRAMATE 25 MG TAB PO SCH ×2 (09:00→21:21)
[2022-09-13] MEDS: AMLODIPINE BESYLATE 5 MG TAB PO SCH (09:00)
[2022-09-13] MEDS: PAROXETINE HCL PO SCH ×2 (09:00→21:00)
[2022-09-13] MEDS: GUAIFENESIN/CODEINE 5 ML LIQD PO PRN (10:12)
[2022-09-13] MEDS: ACETYLCYSTEINE 200 MG/ML 4ML VIAL INH SCH ×2 (11:51→19:25)
[2022-09-13] MEDS: VANCOMYCIN HCL 125 MG CAPSULE PO SCH ×2 (13:56→21:21)
[2022-09-13] MEDS: CODEINE SULFATE 30 MG TAB PO PRN ×2 (13:56→21:20)
[2022-09-13] MEDS: BUSPIRONE HCL 5 MG TAB PO SCH (13:57)
[2022-09-13] MEDS: CRESTOR 10MG PO SCH (21:20)
[2022-09-13] MEDS: AMIODARONE HCL 200 MG TAB PO SCH (21:21)
[2022-09-13] MEDS: INSULIN GLARGINE 100 UNITS/ML VIAL SQ SCH (21:45)
[2022-09-14] VITALS (8 sets, daily range): BP systolic 131–149; BP diastolic 54–64
[2022-09-14] MEDS: ALBUTEROL SULF 0.083% NEB SOLN 3 ML NEB NEB SCH ×4 (01:00→19:40)
[2022-09-14] MEDS: IPRATROPIUM BROMIDE 0.02% 2.5 ML NEB NEB SCH ×4 (01:00→19:40)
[2022-09-14] MEDS: VANCOMYCIN HCL 125 MG CAPSULE PO SCH ×3 (05:22→21:20)
[2022-09-14] MEDS: BUDESONIDE/FORMOTEROL 160/4.5MCG INHALER INH SCH ×2 (06:57→19:40)
[2022-09-14] MEDS: ACETYLCYSTEINE 200 MG/ML 4ML VIAL INH SCH ×2 (06:57→19:40)
[2022-09-14] MEDS: SEVELAMER CARBONATE 800 MG TAB PO SCH ×2 (08:20→17:03)
[2022-09-14] MEDS: ASPIRIN 81 MG CHEW TAB PO SCH (08:20)
[2022-09-14] MEDS: AMLODIPINE BESYLATE 5 MG TAB PO SCH (08:20)
[2022-09-14] MEDS: BENZONATATE 100 MG CAP PO SCH ×3 (08:20→21:20)
[2022-09-14] MEDS: DIPHENOXYLATE/ATROPINE TAB PO SCH ×4 (08:20→21:19)
[2022-09-14] MEDS: DICYCLOMINE HCL 20 MG TAB PO SCH ×4 (08:20→21:18)
[2022-09-14] MEDS: QUETIAPINE FUMARATE 25 MG TAB PO SCH ×2 (08:21→21:20)
[2022-09-14] MEDS: CYANOCOBALAMIN INJ 1,000 MCG/ML VIAL IM SCH (08:21)
[2022-09-14] MEDS: LACTOBACILLUS ACIDOPHILUS CAPSULE PO SCH ×3 (08:21→21:18)
[2022-09-14] MEDS: TOPIRAMATE 25 MG TAB PO SCH ×2 (08:21→21:18)
[2022-09-14] MEDS: IRON-VITAMIN-MINERAL CAPSULE PO SCH ×2 (08:21→17:03)
[2022-09-14] MEDS: FLUTICASONE PROPIONATE NASAL SPRAY NS SCH ×2 (08:21→17:03)
[2022-09-14] MEDS: LORATADINE 10 MG TAB PO SCH (08:21)
[2022-09-14] MEDS: PAROXETINE HCL PO SCH ×2 (08:21→21:25)
[2022-09-14] MEDS: DEXAMETHASONE 4 MG TAB PO SCH (08:21)
[2022-09-14] MEDS: INSULIN REGULAR, HUMAN 100 UNIT/1 ML SQ SCH ×4 (08:24→22:14)
[2022-09-14] MEDS: CINACALCET 30 MG TAB PO SCH (12:48)
[2022-09-14] MEDS: BUSPIRONE HCL 5 MG TAB PO SCH (12:48)
[2022-09-14] MEDS: CRESTOR 10MG PO SCH (21:18)
[2022-09-14] MEDS: AMIODARONE HCL 200 MG TAB PO SCH (21:19)
[2022-09-14] MEDS: INSULIN GLARGINE 100 UNITS/ML VIAL SQ SCH (22:15)
[2022-09-15] VITALS (7 sets, daily range): BP systolic 119–159; BP diastolic 41–74
[2022-09-15] MEDS: ALBUTEROL SULF 0.083% NEB SOLN 3 ML NEB NEB SCH (01:00)
[2022-09-15] MEDS: IPRATROPIUM BROMIDE 0.02% 2.5 ML NEB NEB SCH (01:00)
[2022-09-15 04:56] LABS: BASOPHILS % 0.2 % (0.0-1.0); HEMATOCRIT 26.4 % (34.2-44.1); HEMOGLOBIN 8.2 g/dL (12.0-16.0); LYMPHOCYTES # (AUTO) 0.8 (1.0-3.2); LYMPHOCYTES % 8.3 % (18.0-39.1); MEAN CORPUSCULAR HEMOGLOBIN 30.6 pg (28-32); MEAN CORPUSCULAR HGB CONC 31.1 g/dL (31-35); MEAN CORPUSCULAR VOLUME 98.5 fL (81-99); MONOCYTES # (AUTO) 0.9 (0.2-0.8); MONOCYTES % 9.7 % (4.4-11.3); NEUTROPHILS # (AUTO) 7.1 (2.1-6.9); NEUTROPHILS % 77.1 % (38.7-80.0); PLATELET COUNT 211 x10e3/uL (140-360); RED BLOOD COUNT 2.68 x10e6/uL (3.6-5.1); RED CELL DISTRIBUTION WIDTH 16.2 % (11.7-14.4)
[2022-09-15 05:16] LABS: ANION GAP 19.4 mmol/L (8-16); CALCIUM 8.4 mg/dL (8.4-10.2); CREATININE, SERUM 5.76 mg/dL (0.57-1.11); POTASSIUM 5.4 mmol/L (3.5-5.1)
[2022-09-15] MEDS: GUAIFENESIN/CODEINE 5 ML LIQD PO PRN (05:30)
[2022-09-15] MEDS: VANCOMYCIN HCL 125 MG CAPSULE PO SCH (05:30)
[2022-09-15] MEDS: INSULIN REGULAR, HUMAN 100 UNIT/1 ML SQ SCH (07:30)
[2022-09-15] MEDS: AMLODIPINE BESYLATE 5 MG TAB PO SCH (08:32)
[2022-09-15] MEDS: SEVELAMER CARBONATE 800 MG TAB PO SCH ×2 (08:34→16:45)
[2022-09-15] MEDS: DICYCLOMINE HCL 20 MG TAB PO SCH (08:34)
[2022-09-15] MEDS: DIPHENOXYLATE/ATROPINE TAB PO SCH ×4 (08:35→20:17)
[2022-09-15] MEDS: QUETIAPINE FUMARATE 25 MG TAB PO SCH ×2 (08:35→20:16)
[2022-09-15] MEDS: LACTOBACILLUS ACIDOPHILUS CAPSULE PO SCH ×3 (08:35→20:17)
[2022-09-15] MEDS: TOPIRAMATE 25 MG TAB PO SCH ×2 (08:35→20:17)
[2022-09-15] MEDS: DEXAMETHASONE 4 MG TAB PO SCH (08:36)
[2022-09-15] MEDS: BENZONATATE 100 MG CAP PO SCH ×3 (08:36→20:16)
[2022-09-15] MEDS: LORATADINE 10 MG TAB PO SCH ×2 (08:36→16:45)
[2022-09-15] MEDS: IRON-VITAMIN-MINERAL CAPSULE PO SCH (08:36)
[2022-09-15] MEDS: ASPIRIN 81 MG CHEW TAB PO SCH (08:36)
[2022-09-15] MEDS: PAROXETINE HCL PO SCH ×2 (08:37→20:19)
[2022-09-15] MEDS: CYANOCOBALAMIN INJ 1,000 MCG/ML VIAL IM SCH (08:37)
[2022-09-15] MEDS: FLUTICASONE PROPIONATE NASAL SPRAY NS SCH ×2 (08:42→16:45)
[2022-09-15] MEDS ORDERED: SODIUM CHLORIDE 0.9% 1000ML 1,000 ML ONE (09:39)
[2022-09-15] MEDS: IPRATROPIUM BROMIDE 0.02% 2.5 ML NEB NEB PRN ×2 (11:08→18:55)
[2022-09-15] MEDS: ALBUTEROL SULF 0.083% NEB SOLN 3 ML NEB INH PRN ×2 (11:08→18:55)
[2022-09-15] MEDS: BUDESONIDE/FORMOTEROL 160/4.5MCG INHALER INH SCH ×2 (11:08→18:55)
[2022-09-15] MEDS: ACETYLCYSTEINE 200 MG/ML 4ML VIAL INH SCH ×2 (11:08→18:55)
[2022-09-15] MEDS ORDERED: ALBUTEROL SULF 0.083% NEB SOLN 3 ML NEB NEB PRN (11:15)
[2022-09-15] MEDS: INSULIN LISPRO 100 UNIT/1 ML 3ML VIAL SQ SCH ×3 (11:30→21:38)
[2022-09-15] MEDS: BUSPIRONE HCL 5 MG TAB PO SCH (12:11)
[2022-09-15] MEDS ORDERED: EPOETIN ALFA-EPBX 10,000 UNIT/ML VIAL SC SCH (18:00)
[2022-09-15] MEDS: CRESTOR 10MG PO SCH (20:17)
[2022-09-15] MEDS: AMIODARONE HCL 200 MG TAB PO SCH (20:19)
[2022-09-15] MEDS: INSULIN GLARGINE 100 UNITS/ML VIAL SQ SCH (21:37)
[2022-09-16] VITALS (7 sets, daily range): BP systolic 113–143; BP diastolic 46–61
[2022-09-16] MEDS: CODEINE SULFATE 30 MG TAB PO PRN ×4 (00:04→16:55)
[2022-09-16] MEDS: IPRATROPIUM BROMIDE 0.02% 2.5 ML NEB NEB PRN ×3 (07:03→19:35)
[2022-09-16] MEDS: BUDESONIDE/FORMOTEROL 160/4.5MCG INHALER INH SCH ×2 (07:03→19:35)
[2022-09-16] MEDS: ACETYLCYSTEINE 200 MG/ML 4ML VIAL INH SCH ×2 (07:03→19:35)
[2022-09-16] MEDS: PAROXETINE HCL PO SCH ×2 (09:00→21:26)
[2022-09-16] MEDS: LORATADINE 10 MG TAB PO SCH ×2 (09:00→09:53)
[2022-09-16] MEDS: FLUTICASONE PROPIONATE NASAL SPRAY NS SCH ×2 (09:00→16:50)
[2022-09-16] MEDS: BENZONATATE 100 MG CAP PO SCH ×3 (09:53→21:25)
[2022-09-16] MEDS: DIPHENOXYLATE/ATROPINE TAB PO SCH ×4 (09:53→21:26)
[2022-09-16] MEDS: LACTOBACILLUS ACIDOPHILUS CAPSULE PO SCH ×3 (09:53→21:25)
[2022-09-16] MEDS: QUETIAPINE FUMARATE 25 MG TAB PO SCH ×2 (09:53→21:25)
[2022-09-16] MEDS: AMLODIPINE BESYLATE 5 MG TAB PO SCH (09:54)
[2022-09-16] MEDS: TOPIRAMATE 25 MG TAB PO SCH ×2 (09:55→21:25)
[2022-09-16] MEDS: ASPIRIN 81 MG CHEW TAB PO SCH (09:55)
[2022-09-16] MEDS: SEVELAMER CARBONATE 800 MG TAB PO SCH ×2 (09:55→16:55)
[2022-09-16] MEDS: INSULIN LISPRO 100 UNIT/1 ML 3ML VIAL SQ SCH ×4 (10:26→21:00)
[2022-09-16] MEDS: BUSPIRONE HCL 5 MG TAB PO SCH (12:51)
[2022-09-16] MEDS: ALBUTEROL SULF 0.083% NEB SOLN 3 ML NEB INH PRN ×2 (13:04→19:35)
[2022-09-16] MEDS: AMIODARONE HCL 200 MG TAB PO SCH (21:26)
[2022-09-16] MEDS: CRESTOR 10MG PO SCH (21:26)
[2022-09-16] MEDS: INSULIN GLARGINE 100 UNITS/ML VIAL SQ SCH (21:41)
[2022-09-17] VITALS: BP 129/50
[2022-09-17 04:00] VITALS: BP 106/44
[2022-09-17 05:09] LABS: BASOPHILS % 0.3 % (0.0-1.0); EOSINOPHILS # (AUTO) 0.1 (0.0-0.4); EOSINOPHILS % 1.2 % (0.0-6.0); HEMATOCRIT 26.3 % (34.2-44.1); LYMPHOCYTES # (AUTO) 1.3 (1.0-3.2); LYMPHOCYTES % 11.4 % (18.0-39.1); MEAN CORPUSCULAR HEMOGLOBIN 30.5 pg (28-32); MEAN CORPUSCULAR HGB CONC 30.4 g/dL (31-35); MEAN CORPUSCULAR VOLUME 100.4 fL (81-99); MONOCYTES # (AUTO) 1.2 (0.2-0.8); NEUTROPHILS # (AUTO) 8.6 (2.1-6.9); NEUTROPHILS % 75.4 % (38.7-80.0); PLATELET COUNT 192 x10e3/uL (140-360); RED BLOOD COUNT 2.62 x10e6/uL (3.6-5.1); RED CELL DISTRIBUTION WIDTH 16.8 % (11.7-14.4)
[2022-09-17 05:51] LABS: ANION GAP 16.8 mmol/L (8-16); CALCIUM 8.1 mg/dL (8.4-10.2); CREATININE, SERUM 5.2 mg/dL (0.57-1.11); POTASSIUM 4.8 mmol/L (3.5-5.1)
[2022-09-17] MEDS: ACETYLCYSTEINE 200 MG/ML 4ML VIAL INH SCH (06:30)
[2022-09-17] MEDS: BUDESONIDE/FORMOTEROL 160/4.5MCG INHALER INH SCH (06:40)
[2022-09-17] MEDS: INSULIN LISPRO 100 UNIT/1 ML 3ML VIAL SQ SCH ×2 (07:30→12:47)
[2022-09-17 07:46] VITALS: BP 123/47
[2022-09-17 08:54] VITALS: BP 123/47
[2022-09-17] MEDS: LORATADINE 10 MG TAB PO SCH ×2 (09:00→09:50)
[2022-09-17] MEDS: AMLODIPINE BESYLATE 5 MG TAB PO SCH (09:49)
[2022-09-17] MEDS: BENZONATATE 100 MG CAP PO SCH (09:49)
[2022-09-17] MEDS: SEVELAMER CARBONATE 800 MG TAB PO SCH (09:49)
[2022-09-17] MEDS: TOPIRAMATE 25 MG TAB PO SCH (09:49)
[2022-09-17] MEDS: DIPHENOXYLATE/ATROPINE TAB PO SCH ×2 (09:49→12:52)
[2022-09-17] MEDS: QUETIAPINE FUMARATE 25 MG TAB PO SCH (09:49)
[2022-09-17] MEDS: LACTOBACILLUS ACIDOPHILUS CAPSULE PO SCH (09:49)
[2022-09-17] MEDS: ASPIRIN 81 MG CHEW TAB PO SCH (09:49)
[2022-09-17] MEDS: PAROXETINE HCL PO SCH (09:52)
[2022-09-17] MEDS: FLUTICASONE PROPIONATE NASAL SPRAY NS SCH (09:52)
[2022-09-17] MEDS ORDERED: LORATADINE10 MG PO (11:06)
[2022-09-17] MEDS ORDERED: FLONASE ALLERG9.9 ML INH (11:06)
[2022-09-17] MEDS ORDERED: BENZONATATE100 MG PO (11:09)
[2022-09-17 11:25] VITALS: BP 137/83
[2022-09-17] MEDS: CINACALCET 30 MG TAB PO SCH (12:51)
[2022-09-17] MEDS: BUSPIRONE HCL 5 MG TAB PO SCH (12:52)
[2022-09-17] MEDS ORDERED: ONDANSETRON HCL 4 MG ORAL DISINTEGRATING TAB PO PRN (13:15)
[2022-09-17] MEDS ORDERED: FLUTICASONE PROPIONATE NASAL SPRAY NS SCH (17:00)
== END 2022-09-17 13:26 | disposition home or self-care (01) | DRG 177 ==
LOC: ER 15:29 → ERHOLD 16:58 → MED/SURG2 20:25 → OBSVTOIN 09-06 12:15
PROVIDERS: ADMIT Internal Medicine; ATTEND Internal Medicine
PROC: 8E0ZXY6 Isolation (ICD-10-PCS; principal; 2022-09-06)
PROC: 5A1D70Z Performance of Urinary Filtration, Intermittent, Less than 6 Hours Per Day (ICD-10-PCS; 2022-09-06)
PROC: 30233N1 Transfusion of Nonautologous Red Blood Cells into Peripheral Vein, Percutaneous Approach (ICD-10-PCS; 2022-09-11)
DX: U07.1 COVID-19 (principal); J96.01 Acute respiratory failure with hypoxia; N18.6 End stage renal disease; I13.2 Hypertensive heart and chronic kidney disease with heart failure and with stage 5 chronic kidney disease, or end stage renal disease; I50.22 Chronic systolic (congestive) heart failure; I48.20 Chronic atrial fibrillation, unspecified; K52.9 Noninfective gastroenteritis and colitis, unspecified; E11.22 Type 2 diabetes mellitus with diabetic chronic kidney disease; D50.0 Iron deficiency anemia secondary to blood loss (chronic); E78.00 Pure hypercholesterolemia, unspecified; M06.9 Rheumatoid arthritis, unspecified; F41.9 Anxiety disorder, unspecified; E03.9 Hypothyroidism, unspecified; D69.6 Thrombocytopenia, unspecified; G47.33 Obstructive sleep apnea (adult) (pediatric); E11.42 Type 2 diabetes mellitus with diabetic polyneuropathy; E66.01 Morbid (severe) obesity due to excess calories; E21.3 Hyperparathyroidism, unspecified; E87.5 Hyperkalemia; Z99.2 Dependence on renal dialysis; Z79.82 Long term (current) use of aspirin; Z79.4 Long term (current) use of insulin; Z99.81 Dependence on supplemental oxygen
CPT/HCPCS: 36415; 70220; 71045; 71046; 71250; 80048; 80053; 82270; 82607; 82746; 82948; 83540; 83605; 83630; 84132; 84443; 84466; 85025; 85045; 85610; 86850; 86900; 86920; 87040; 87045; 87177; 87324; 87449; 94799; 96372; 99252; 99284; G0378; J0696; J1644; J1756; J1815; J3420; J7030; J7050; P9016

== ENCOUNTER 2022-11-14 16:22 | Emergency (ER) | payer MEDICARE ==
[~2022-11-14] VITALS: Ht 312.4 cm; Wt 76.7 kg
[~2022-11-14 16:22] MED LIST changes: +BENZONATATE100 MG PO; +FLONASE ALLERG9.9 ML INH; +LORATADINE10 MG PO; +[UNRECOGNIZED DRUG - OTHER]
[2022-11-14] MEDS ORDERED: ONDANSETRON HCL INJ 2MG/ML 2ML 2 MG/ML VIAL IV STA (17:04)
[2022-11-14] MEDS ORDERED: Morphine 2mg Syringe 2 MG/ML SYR IV STA (17:04)
[2022-11-14 17:14] LABS: BASOPHILS % 0.4 % (0.0-1.0); EOSINOPHILS # (AUTO) 0.1 (0.0-0.4); EOSINOPHILS % 1.1 % (0.0-6.0); HEMATOCRIT 35.7 % (34.2-44.1); HEMOGLOBIN 10.8 g/dL (12.0-16.0); LYMPHOCYTES # (AUTO) 1.2 (1.0-3.2); MEAN CORPUSCULAR HEMOGLOBIN 30.3 pg (28-32); MEAN CORPUSCULAR HGB CONC 30.3 g/dL (31-35); MEAN CORPUSCULAR VOLUME 100.3 fL (81-99); MONOCYTES # (AUTO) 0.9 (0.2-0.8); MONOCYTES % 10.4 % (4.4-11.3); NEUTROPHILS # (AUTO) 5.9 (2.1-6.9); NEUTROPHILS % 72.6 % (38.7-80.0); PLATELET COUNT 162 x10e3/uL (140-360); RED BLOOD COUNT 3.56 x10e6/uL (3.6-5.1); RED CELL DISTRIBUTION WIDTH 18.7 % (11.7-14.4)
[2022-11-14 17:28] LABS: ALBUMIN 3.2 g/dL (3.5-5.0); ALBUMIN/GLOBULIN RATIO 0.9 (0.8-2.0); ANION GAP 22.5 mmol/L (8-16); CALCIUM 8.8 mg/dL (8.4-10.2); CREATININE, SERUM 5.61 mg/dL (0.57-1.11)
[2022-11-14 17:32] LABS: POTASSIUM 5.5 mmol/L (3.5-5.1)
[2022-11-14] MEDS ORDERED: DICYCLOMINE HCL10 MG PO (19:15)
[2022-11-14 19:43] VITALS: O2SAT 96
== END 2022-11-14 20:42 | disposition home or self-care (01) ==
LOC: ER 16:58
DX: R10.32 Left lower quadrant pain (principal); I12.0 Hypertensive chronic kidney disease with stage 5 chronic kidney disease or end stage renal disease; E11.22 Type 2 diabetes mellitus with diabetic chronic kidney disease; E11.65 Type 2 diabetes mellitus with hyperglycemia; N18.6 End stage renal disease; Z99.2 Dependence on renal dialysis; R94.31 Abnormal electrocardiogram [ECG] [EKG]
CPT/HCPCS: 36415; 71045; 74176; 80053; 82550; 83690; 84484; 85025; 93005; 99284; J2270; J2405

== ENCOUNTER 2023-03-21 03:37 | Inpatient (IN) | payer MEDICARE ==
[2023-03-21] VITALS (13 sets, daily range): BP systolic 125–161; BP diastolic 62–91; PULSE 77–129; RESP 16–20; TEMP 97.5–99.1; O2SAT 89–100
[~2023-03-21] VITALS: Ht 160 cm; Wt 76.2 kg
[~2023-03-21 03:37] MED LIST changes: -ASPIR 8181 MG; +ASPIR 8181 MG PO; +DICYCLOMINE HCL10 MG PO
[2023-03-21 04:17] LABS: BASOPHILS % 0.4 % (0.0-1.0); EOSINOPHILS # (AUTO) 0.2 (0.0-0.4); HEMATOCRIT 36.7 % (34.2-44.1); HEMOGLOBIN 11.2 g/dL (12.0-16.0); LYMPHOCYTES # (AUTO) 0.7 (1.0-3.2); LYMPHOCYTES % 12.8 % (18.0-39.1); MEAN CORPUSCULAR HEMOGLOBIN 29.8 pg (28-32); MEAN CORPUSCULAR HGB CONC 30.5 g/dL (31-35); MEAN CORPUSCULAR VOLUME 97.6 fL (81-99); MONOCYTES # (AUTO) 0.8 (0.2-0.8); MONOCYTES % 13.7 % (4.4-11.3); NEUTROPHILS % 69.9 % (38.7-80.0); PLATELET COUNT 101 x10e3/uL (140-360); RED BLOOD COUNT 3.76 x10e6/uL (3.6-5.1); RED CELL DISTRIBUTION WIDTH 16.7 % (11.7-14.4); WHITE BLOOD COUNT 5.69 x10e3/uL (4.8-10.8)
[2023-03-21] MEDS ORDERED: FUROSEMIDE INJ 10 MG/ML 4 ML VIAL IV STA (04:28)
[2023-03-21 04:33] LABS: ALBUMIN 3.7 g/dL (3.5-5.0); ALBUMIN/GLOBULIN RATIO 1.1 (0.8-2.0); CALCIUM 9.7 mg/dL (8.4-10.2); CREATININE, SERUM 5.99 mg/dL (0.57-1.11)
[2023-03-21] MEDS ORDERED: ONDANSETRON HCL INJ 2MG/ML 2ML 2 MG/ML VIAL IV PRN (05:00)
[2023-03-21] MEDS ORDERED: SODIUM CHLORIDE FLUSH 10 ML SYR INJ PRN (05:00)
[2023-03-21] MEDS ORDERED: Morphine 4mg INJECTION 4 MG/ML INJ IV PRN (05:00)
[2023-03-21] MEDS ORDERED: HYDRALAZINE HCL 20 MG/ML VIAL IV STA (05:01)
[2023-03-21] MEDS ORDERED: HYDRALAZINE HCL 20 MG/ML VIAL IV PRN (05:15)
[2023-03-21] MEDS ORDERED: SODIUM CHLORIDE 0.9% 1000ML 2,000 ML IV PRN (09:45)
[2023-03-21] MEDS ORDERED: METHYLPREDNISOLONE SOD SUCC 40 MG/ML VIAL 1ML IV SCH (10:00)
[2023-03-21] MEDS: ALBUTEROL/IPRATROPIUM 3 ML NEB NEB SCH ×4 (10:45→23:00)
[2023-03-21] MEDS ORDERED: ALBUMIN 25% 12.5GM 0.25 GM/ML BTL IV PRN (12:00)
[2023-03-21] MEDS ORDERED: SERTRALINE HCL50 MG PO (12:16)
[2023-03-21] MEDS ORDERED: BUSPIRONE HCL5 MG PO (12:16)
[2023-03-21] MEDS ORDERED: ROSUVASTATIN CAL5 MG PO (12:16)
[2023-03-21] MEDS ORDERED: DEXTROSE 50% SYRINGE 50 ML IV PRN (12:30)
[2023-03-21] MEDS ORDERED: MIDODRINE HCL 5 MG TABLET PO PRN (12:30)
[2023-03-21] MEDS: BENZONATATE 100 MG CAP PO PRN (16:14)
[2023-03-21] MEDS: SEVELAMER CARBONATE 800 MG TAB PO SCH (16:14)
[2023-03-21] MEDS: INSULIN REGULAR, HUMAN 100 UNIT/1 ML SQ SCH ×2 (16:36→21:22)
[2023-03-21] MEDS: METHYLPREDNISOLONE SOD SUCC 40 MG/ML VIAL 1ML IV SCH (17:09)
[2023-03-21] MEDS ORDERED: CLONAZEPAM 0.5 MG TAB PO ONE (18:45)
[2023-03-21] MEDS: SERTRALINE HCL 50 MG TAB PO SCH (21:08)
[2023-03-21] MEDS: CRESTOR 10MG PO SCH (21:08)
[2023-03-21] MEDS: BUSPIRONE HCL 5 MG TAB PO SCH (21:08)
[2023-03-21] MEDS: QUETIAPINE FUMARATE 25 MG TAB PO SCH (21:08)
[2023-03-21] MEDS: TOPIRAMATE 25 MG TAB PO SCH (21:08)
[2023-03-21] MEDS: GUAIFENESIN 600 MG TAB PO PRN (21:09)
[2023-03-22] VITALS (14 sets, daily range): BP systolic 134–167; BP diastolic 52–97; PULSE 71–120; RESP 16–22; TEMP 97.2–99; O2SAT 81–100
[2023-03-22] MEDS: CLONAZEPAM 0.5 MG TAB PO SCH ×3 (02:00→22:20)
[2023-03-22] MEDS: ALBUTEROL/IPRATROPIUM 3 ML NEB NEB SCH ×6 (02:48→23:23)
[2023-03-22] MEDS: GUAIFENESIN 600 MG TAB PO PRN ×3 (03:12→17:27)
[2023-03-22] MEDS: METHYLPREDNISOLONE SOD SUCC 40 MG/ML VIAL 1ML IV SCH ×2 (05:44→17:23)
[2023-03-22] MEDS: BENZONATATE 100 MG CAP PO PRN ×2 (05:45→22:36)
[2023-03-22 06:19] LABS: BASOPHILS % 0.1 % (0.0-1.0); HEMATOCRIT 35.1 % (34.2-44.1); HEMOGLOBIN 10.9 g/dL (12.0-16.0); LYMPHOCYTES # (AUTO) 0.4 (1.0-3.2); MEAN CORPUSCULAR HEMOGLOBIN 30.2 pg (28-32); MEAN CORPUSCULAR HGB CONC 31.1 g/dL (31-35); MEAN CORPUSCULAR VOLUME 97.2 fL (81-99); MONOCYTES # (AUTO) 0.7 (0.2-0.8); MONOCYTES % 9.4 % (4.4-11.3); NEUTROPHILS # (AUTO) 6.5 (2.1-6.9); NEUTROPHILS % 85.2 % (38.7-80.0); PLATELET COUNT 109 x10e3/uL (140-360); RED BLOOD COUNT 3.61 x10e6/uL (3.6-5.1); RED CELL DISTRIBUTION WIDTH 16.5 % (11.7-14.4); WHITE BLOOD COUNT 7.67 x10e3/uL (4.8-10.8)
[2023-03-22 06:31] LABS: ALBUMIN 3.4 g/dL (3.5-5.0); ALBUMIN/GLOBULIN RATIO 1.1 (0.8-2.0); ANION GAP 20.5 mmol/L (8-16); CALCIUM 9.5 mg/dL (8.4-10.2); CREATININE, SERUM 4.24 mg/dL (0.57-1.11); POTASSIUM 4.5 mmol/L (3.5-5.1)
[2023-03-22] MEDS: SEVELAMER CARBONATE 800 MG TAB PO SCH ×3 (08:00→17:24)
[2023-03-22] MEDS: INSULIN REGULAR, HUMAN 100 UNIT/1 ML SQ SCH ×4 (08:30→21:00)
[2023-03-22] MEDS: BUSPIRONE HCL 5 MG TAB PO SCH ×2 (10:04→22:20)
[2023-03-22] MEDS: QUETIAPINE FUMARATE 25 MG TAB PO SCH ×2 (10:05→22:21)
[2023-03-22] MEDS: SERTRALINE HCL 50 MG TAB PO SCH ×2 (10:05→22:20)
[2023-03-22] MEDS: TOPIRAMATE 25 MG TAB PO SCH ×2 (10:07→22:21)
[2023-03-22] MEDS: ASPIRIN 81 MG CHEW TAB PO SCH (10:07)
[2023-03-22] MEDS: AMIODARONE HCL 200 MG TAB PO SCH ×2 (10:24→17:23)
[2023-03-22] MEDS: METOPROLOL TARTRATE 25 MG TAB PO SCH ×3 (10:24→22:22)
[2023-03-22 10:30] LABS: CHOL/HDL RATIO 2.4 (3.0-3.6)
[2023-03-22] MEDS ORDERED: ONDANSETRON HCL 4 MG ORAL DISINTEGRATING TAB PO PRN (10:30)
[2023-03-22 10:44] LABS: THYROID STIMULATING HORMONE 0.633 uIU/mL (0.350-4.940)
[2023-03-22] MEDS ORDERED: CINACALCET 30 MG TAB PO SCH (12:00)
[2023-03-22] MEDS: APIXAB 2.5 MG TABLET PO SCH (17:24)
[2023-03-22] MEDS: INSULIN GLARGINE 100 UNITS/ML VIAL SQ SCH (22:00)
[2023-03-22] MEDS: CRESTOR 10MG PO SCH (22:21)
[2023-03-23] VITALS (12 sets, daily range): BP systolic 108–167; BP diastolic 55–82; PULSE 59–96; RESP 19–21; TEMP 97.5–98.4; O2SAT 93–100
[2023-03-23] MEDS: ALBUTEROL/IPRATROPIUM 3 ML NEB NEB SCH ×6 (03:00→23:00)
[2023-03-23] MEDS: GUAIFENESIN 600 MG TAB PO PRN ×2 (04:54→12:57)
[2023-03-23] MEDS: METHYLPREDNISOLONE SOD SUCC 40 MG/ML VIAL 1ML IV SCH (05:50)
[2023-03-23] MEDS: METOPROLOL TARTRATE 25 MG TAB PO SCH ×3 (05:51→17:37)
[2023-03-23 06:03] LABS: BASOPHILS % 0.3 % (0.0-1.0); HEMATOCRIT 34.6 % (34.2-44.1); HEMOGLOBIN 10.8 g/dL (12.0-16.0); LYMPHOCYTES # (AUTO) 0.6 (1.0-3.2); LYMPHOCYTES % 8.9 % (18.0-39.1); MEAN CORPUSCULAR HEMOGLOBIN 29.8 pg (28-32); MEAN CORPUSCULAR HGB CONC 31.2 g/dL (31-35); MEAN CORPUSCULAR VOLUME 95.6 fL (81-99); MONOCYTES # (AUTO) 0.6 (0.2-0.8); MONOCYTES % 8.9 % (4.4-11.3); NEUTROPHILS # (AUTO) 5.1 (2.1-6.9); NEUTROPHILS % 81.6 % (38.7-80.0); PLATELET COUNT 127 x10e3/uL (140-360); RED BLOOD COUNT 3.62 x10e6/uL (3.6-5.1); RED CELL DISTRIBUTION WIDTH 16.7 % (11.7-14.4); WHITE BLOOD COUNT 6.26 x10e3/uL (4.8-10.8)
[2023-03-23 06:24] LABS: ANION GAP 21.1 mmol/L (8-16); CALCIUM 9.3 mg/dL (8.4-10.2); CREATININE, SERUM 6.22 mg/dL (0.57-1.11)
[2023-03-23 06:36] LABS: POTASSIUM 6.1 mmol/L (3.5-5.1)
[2023-03-23] MEDS: INSULIN REGULAR, HUMAN 100 UNIT/1 ML SQ SCH ×4 (07:30→20:58)
[2023-03-23] MEDS: SEVELAMER CARBONATE 800 MG TAB PO SCH ×3 (09:07→17:33)
[2023-03-23] MEDS: BUSPIRONE HCL 5 MG TAB PO SCH ×2 (09:08→21:01)
[2023-03-23] MEDS: APIXAB 2.5 MG TABLET PO SCH ×2 (09:08→17:33)
[2023-03-23] MEDS: ASPIRIN 81 MG CHEW TAB PO SCH (09:08)
[2023-03-23] MEDS: CLONAZEPAM 0.5 MG TAB PO SCH ×2 (09:08→21:09)
[2023-03-23] MEDS: SERTRALINE HCL 50 MG TAB PO SCH ×2 (09:09→21:02)
[2023-03-23] MEDS: QUETIAPINE FUMARATE 25 MG TAB PO SCH ×2 (09:09→21:01)
[2023-03-23] MEDS: AMIODARONE HCL 200 MG TAB PO SCH ×2 (09:09→17:00)
[2023-03-23] MEDS: TOPIRAMATE 25 MG TAB PO SCH ×2 (09:09→21:01)
[2023-03-23] MEDS: BENZONATATE 100 MG CAP PO PRN ×2 (12:57→21:24)
[2023-03-23] MEDS ORDERED: SODIUM CHLORIDE 0.9% 250ML 500 ML IV PRN (14:00)
[2023-03-23] MEDS ORDERED: MANNITOL 25% 12.5GM/50 ML VIAL IV PRN (14:00)
[2023-03-23] MEDS ORDERED: ALBUMIN 25% 12.5GM 0.25 GM/ML BTL IV PRN (14:00)
[2023-03-23] MEDS: FLUTICASONE PROPIONATE NASAL SPRAY NS SCH (17:36)
[2023-03-23] MEDS: CRESTOR 10MG PO SCH (21:00)
[2023-03-23] MEDS: INSULIN GLARGINE 100 UNITS/ML VIAL SQ SCH (21:12)
[2023-03-24] VITALS (14 sets, daily range): BP systolic 116–153; BP diastolic 42–88; PULSE 55–78; RESP 18–24; TEMP 97.5–98.3; O2SAT 93–100
[2023-03-24] MEDS: METOPROLOL TARTRATE 25 MG TAB PO SCH ×5 (00:21→23:24)
[2023-03-24] MEDS: GUAIFENESIN 600 MG TAB PO PRN (00:28)
[2023-03-24] MEDS: ALBUTEROL/IPRATROPIUM 3 ML NEB NEB SCH ×6 (03:00→23:00)
[2023-03-24] MEDS: INSULIN REGULAR, HUMAN 100 UNIT/1 ML SQ SCH ×4 (07:30→20:31)
[2023-03-24] MEDS: QUETIAPINE FUMARATE 25 MG TAB PO SCH ×2 (08:16→20:34)
[2023-03-24] MEDS: AMIODARONE HCL 200 MG TAB PO SCH ×2 (08:16→16:23)
[2023-03-24] MEDS: TOPIRAMATE 25 MG TAB PO SCH ×2 (08:17→20:34)
[2023-03-24] MEDS: CLONAZEPAM 0.5 MG TAB PO SCH ×2 (08:17→20:35)
[2023-03-24] MEDS: SERTRALINE HCL 50 MG TAB PO SCH ×2 (08:17→20:34)
[2023-03-24] MEDS: LORATADINE 10 MG TAB PO SCH (08:17)
[2023-03-24] MEDS: ASPIRIN 81 MG CHEW TAB PO SCH (08:17)
[2023-03-24] MEDS: BUSPIRONE HCL 5 MG TAB PO SCH ×2 (08:17→20:34)
[2023-03-24] MEDS: SEVELAMER CARBONATE 800 MG TAB PO SCH ×3 (08:17→16:23)
[2023-03-24] MEDS: APIXAB 2.5 MG TABLET PO SCH ×2 (08:17→16:23)
[2023-03-24] MEDS: METHYLPREDNISOLONE SOD SUCC 40 MG/ML VIAL 1ML IV SCH (08:18)
[2023-03-24] MEDS: FLUTICASONE PROPIONATE NASAL SPRAY NS SCH ×2 (08:24→16:25)
[2023-03-24] MEDS: BENZONATATE 100 MG CAP PO PRN ×2 (08:27→20:45)
[2023-03-24] MEDS ORDERED: ELIQUIS2.5 MG PO (17:02)
[2023-03-24] MEDS ORDERED: ZITHROMAX250 MG PO (17:02)
[2023-03-24] MEDS ORDERED: AMIODARONE HCL200 MG PO (17:02)
[2023-03-24] MEDS ORDERED: PREDNISONE10 MG PO (17:02)
[2023-03-24] MEDS ORDERED: BENZONATATE100 MG PO (17:02)
[2023-03-24] MEDS ORDERED: LORATADINE10 MG PO (17:02)
[2023-03-24] MEDS ORDERED: Albuterol/Ipratropium Nebulize NEB (17:02)
[2023-03-24] MEDS: INSULIN GLARGINE 100 UNITS/ML VIAL SQ SCH (20:32)
[2023-03-24] MEDS: CRESTOR 10MG PO SCH (23:24)
[2023-03-25 04:41] VITALS: BP 133/54; PULSE 53; RESP 18; TEMP 97.5; O2SAT 98
[2023-03-25] MEDS: BENZONATATE 100 MG CAP PO PRN (05:16)
[2023-03-25] MEDS: METOPROLOL TARTRATE 25 MG TAB PO SCH (05:19)
[2023-03-25 06:55] LABS: BASOPHILS % 0.3 % (0.0-1.0); EOSINOPHILS % 0.1 % (0.0-6.0); HEMATOCRIT 37.3 % (34.2-44.1); HEMOGLOBIN 11.5 g/dL (12.0-16.0); LYMPHOCYTES # (AUTO) 0.9 (1.0-3.2); LYMPHOCYTES % 8.4 % (18.0-39.1); MEAN CORPUSCULAR HEMOGLOBIN 29.6 pg (28-32); MEAN CORPUSCULAR HGB CONC 30.8 g/dL (31-35); MEAN CORPUSCULAR VOLUME 95.9 fL (81-99); MONOCYTES % 9.2 % (4.4-11.3); NEUTROPHILS # (AUTO) 9.2 (2.1-6.9); NEUTROPHILS % 81.7 % (38.7-80.0); PLATELET COUNT 154 x10e3/uL (140-360); RED BLOOD COUNT 3.89 x10e6/uL (3.6-5.1); RED CELL DISTRIBUTION WIDTH 16.7 % (11.7-14.4); WHITE BLOOD COUNT 11.19 x10e3/uL (4.8-10.8)
[2023-03-25 07:10] LABS: ANION GAP 23.1 mmol/L (8-16); CALCIUM 9.8 mg/dL (8.4-10.2); CREATININE, SERUM 5.77 mg/dL (0.57-1.11); POTASSIUM 5.1 mmol/L (3.5-5.1)
[2023-03-25 07:28] VITALS: PULSE 85; RESP 22; O2SAT 97
[2023-03-25] MEDS: ALBUTEROL/IPRATROPIUM 3 ML NEB NEB SCH (07:29)
[2023-03-25] MEDS: INSULIN REGULAR, HUMAN 100 UNIT/1 ML SQ SCH (07:30)
[2023-03-25 07:56] VITALS: BP 137/70; PULSE 53; RESP 20; TEMP 98.4; O2SAT 97
[2023-03-25 08:23] VITALS: BP 137/70; PULSE 53; RESP 20; TEMP 98.4; O2SAT 94
[2023-03-25] MEDS ORDERED: AMIODARONE HCL 200 MG TAB PO SCH (09:00)
[2023-03-25] MEDS: SEVELAMER CARBONATE 800 MG TAB PO SCH (09:02)
[2023-03-25] MEDS: APIXAB 2.5 MG TABLET PO SCH (09:02)
[2023-03-25] MEDS: LORATADINE 10 MG TAB PO SCH (09:02)
[2023-03-25] MEDS: FLUTICASONE PROPIONATE NASAL SPRAY NS SCH (09:02)
[2023-03-25] MEDS: METHYLPREDNISOLONE SOD SUCC 40 MG/ML VIAL 1ML IV SCH (09:02)
[2023-03-25] MEDS: TOPIRAMATE 25 MG TAB PO SCH (09:03)
[2023-03-25] MEDS: SERTRALINE HCL 50 MG TAB PO SCH (09:03)
[2023-03-25] MEDS: CLONAZEPAM 0.5 MG TAB PO SCH (09:03)
[2023-03-25] MEDS: BUSPIRONE HCL 5 MG TAB PO SCH (09:03)
[2023-03-25] MEDS: QUETIAPINE FUMARATE 25 MG TAB PO SCH (09:03)
[2023-03-25] MEDS: ASPIRIN 81 MG CHEW TAB PO SCH (09:03)
[2023-03-25 10:13] VITALS: PULSE 82; RESP 22; O2SAT 95
[2023-03-25] MEDS ORDERED: METOPROLOL TARTRATE 25 MG TAB PO SCH (17:00)
== END 2023-03-25 10:27 | disposition home or self-care (01) | DRG 193 ==
LOC: ER 03:44 → ERHOLD 04:51 → MED/SURG3 05:29
PROVIDERS: ADMIT Internal Medicine; ATTEND Internal Medicine
PROC: 5A1D70Z Performance of Urinary Filtration, Intermittent, Less than 6 Hours Per Day (ICD-10-PCS; principal; 2023-03-21)
DX: J18.0 Bronchopneumonia, unspecified organism (principal); I50.33 Acute on chronic diastolic (congestive) heart failure; N18.6 End stage renal disease; I13.2 Hypertensive heart and chronic kidney disease with heart failure and with stage 5 chronic kidney disease, or end stage renal disease; J06.9 Acute upper respiratory infection, unspecified; K21.9 Gastro-esophageal reflux disease without esophagitis; E11.22 Type 2 diabetes mellitus with diabetic chronic kidney disease; Z99.2 Dependence on renal dialysis; E78.00 Pure hypercholesterolemia, unspecified; E03.9 Hypothyroidism, unspecified; M06.9 Rheumatoid arthritis, unspecified; F41.9 Anxiety disorder, unspecified; F32.A Depression, unspecified; J30.9 Allergic rhinitis, unspecified; F45.8 Other somatoform disorders; E11.21 Type 2 diabetes mellitus with diabetic nephropathy; I48.0 Paroxysmal atrial fibrillation; R53.81 Other malaise; E87.5 Hyperkalemia; E11.40 Type 2 diabetes mellitus with diabetic neuropathy, unspecified; Z79.82 Long term (current) use of aspirin; Z79.899 Other long term (current) drug therapy; Z79.890 Hormone replacement therapy; Z91.041 Radiographic dye allergy status; Z79.4 Long term (current) use of insulin; Z20.822 Contact with and (suspected) exposure to COVID-19
CPT/HCPCS: 36415; 71045; 71250; 80048; 80053; 80061; 82550; 82948; 83518; 83690; 83880; 84443; 84484; 85025; 86706; 87070; 87340; 93005; 93306; 94640; 94799; 99284; J0696; J1940; J2920; J7030; U0002

== ENCOUNTER 2024-01-26 03:13 | Emergency (ER) | payer MEDICARE ==
[~2024-01-26] VITALS: Ht 160 cm; Wt 75.7 kg
[~2024-01-26 03:13] MED LIST changes: +Albuterol/Ipratropium Nebulize NEB; +ELIQUIS2.5 MG PO; +HYDRALAZINE HCL25 MG PO; +MINOCYCLINE HCL50 MG PO; +OMEPRAZOLE40 MG PO; +PREDNISONE10 MG PO; +ROSUVASTATIN CAL5 MG PO; +SERTRALINE HCL50 MG PO; +ZITHROMAX250 MG PO
[2024-01-26 03:25] VITALS: TEMP 98.3
[2024-01-26 04:10] VITALS: PULSE 60; RESP 20
[2024-01-26 04:42] VITALS: BP 160/55; O2SAT 97
== END 2024-01-26 04:44 | disposition home or self-care (01) ==
LOC: ER 03:17
DX: T82.838A Hemorrhage due to vascular prosthetic devices, implants and grafts, initial encounter (principal); I12.0 Hypertensive chronic kidney disease with stage 5 chronic kidney disease or end stage renal disease; E11.22 Type 2 diabetes mellitus with diabetic chronic kidney disease; N18.6 End stage renal disease; Z99.2 Dependence on renal dialysis; I48.91 Unspecified atrial fibrillation; F32.A Depression, unspecified; F41.9 Anxiety disorder, unspecified
CPT/HCPCS: 99283

== ENCOUNTER 2024-01-26 09:22 | Emergency (ER) | payer MEDICARE ==
[~2024-01-26] VITALS: Ht 160 cm; Wt 76.7 kg
[2024-01-26 09:35] VITALS: PULSE 62; RESP 18; TEMP 98.2; O2SAT 100
[2024-01-26 09:47] LABS: BASOPHILS % 0.4 % (0.0-1.0); EOSINOPHILS # (AUTO) 0.1 (0.0-0.4); EOSINOPHILS % 2.3 % (0.0-6.0); HEMOGLOBIN 10.7 g/dL (12.0-16.0); LYMPHOCYTES # (AUTO) 1.1 (1.0-3.2); LYMPHOCYTES % 22.9 % (18.0-39.1); MEAN CORPUSCULAR HGB CONC 30.6 g/dL (31-35); MONOCYTES # (AUTO) 0.4 (0.2-0.8); MONOCYTES % 9.3 % (4.4-11.3); NEUTROPHILS # (AUTO) 3.1 (2.1-6.9); NEUTROPHILS % 64.9 % (38.7-80.0); PLATELET COUNT 116 x10e3/uL (140-360); RED BLOOD COUNT 3.57 x10e6/uL (3.6-5.1); RED CELL DISTRIBUTION WIDTH 14.9 % (11.7-14.4); WHITE BLOOD COUNT 4.71 x10e3/uL (4.8-10.8)
[2024-01-26 10:38] LABS: ALBUMIN 3.5 g/dL (3.5-5.0); ALBUMIN/GLOBULIN RATIO 1.2 (0.8-2.0); ANION GAP 17.8 mmol/L (8-16); BILIRUBIN,TOTAL 0.5 mg/dL (0.2-1.2); CALCIUM 9.7 mg/dL (8.4-10.2); CREATININE, SERUM 3.79 mg/dL (0.57-1.11); POTASSIUM 4.8 mmol/L (3.5-5.1); TOTAL PROTEIN 6.4 g/dL (6.5-8.1)
[2024-01-26 11:03] LABS: INR 1.08; PROTHROMBIN TIME 14.6 seconds (11.9-14.5)
[2024-01-26 11:04] LABS: PARTIAL THROMBOPLASTIN TIME 35.1 seconds (23.8-35.5)
== END 2024-01-26 11:35 | disposition home or self-care (01) ==
LOC: ER 09:28
DX: T82.838A Hemorrhage due to vascular prosthetic devices, implants and grafts, initial encounter (principal); I12.0 Hypertensive chronic kidney disease with stage 5 chronic kidney disease or end stage renal disease; E11.22 Type 2 diabetes mellitus with diabetic chronic kidney disease; E11.649 Type 2 diabetes mellitus with hypoglycemia without coma; N18.6 End stage renal disease; Z99.2 Dependence on renal dialysis; E11.40 Type 2 diabetes mellitus with diabetic neuropathy, unspecified; Z95.810 Presence of automatic (implantable) cardiac defibrillator; F41.9 Anxiety disorder, unspecified
CPT/HCPCS: 36415; 80053; 85025; 85610; 85730; 99284

== ENCOUNTER 2024-02-03 16:14 | Emergency (ER) | payer MEDICARE ==
[~2024-02-03] VITALS: Ht 160 cm; Wt 76.7 kg
[2024-02-03 16:40] VITALS: PULSE 68; RESP 16; TEMP 98.5; O2SAT 100
[2024-02-03] MEDS ORDERED: AMOX TR-K CLV1 EAC2 PO (17:12)
[2024-02-03] MEDS ORDERED: SINGULAIR10 MG PO (17:13)
== END 2024-02-03 17:23 | disposition home or self-care (01) ==
LOC: ER 16:34
DX: R05.9 Cough, unspecified (principal); I12.0 Hypertensive chronic kidney disease with stage 5 chronic kidney disease or end stage renal disease; E11.22 Type 2 diabetes mellitus with diabetic chronic kidney disease; N18.6 End stage renal disease; Z99.2 Dependence on renal dialysis; E11.40 Type 2 diabetes mellitus with diabetic neuropathy, unspecified; I48.91 Unspecified atrial fibrillation; F41.9 Anxiety disorder, unspecified; F32.A Depression, unspecified; Z95.810 Presence of automatic (implantable) cardiac defibrillator
CPT/HCPCS: 71046; 99283

== ENCOUNTER 2024-02-15 18:13 | Inpatient (IN) | payer MEDICARE ==
[~2024-02-15] VITALS: Ht 160 cm; Wt 75.3 kg
[~2024-02-15 18:13] MED LIST changes: +AMOX TR-K CLV1 EAC2 PO; +SINGULAIR10 MG PO
[2024-02-15] MEDS: ONDANSETRON HCL INJ 2MG/ML 2ML 2 MG/ML VIAL IV STA ×2 (19:29→19:33)
[2024-02-15] MEDS: Morphine 4mg INJECTION 4 MG/ML INJ IV STA ×2 (19:30→19:33)
[2024-02-15] MEDS: SODIUM CHLORIDE 0.9% 1000ML 1,000 ML IV STA ×2 (19:30→23:49)
[2024-02-15 19:33] LABS: BASOPHILS # (AUTO) 0.1 (0.0-0.1); BASOPHILS % 0.2 % (0.0-1.0); EOSINOPHILS # (AUTO) 0.1 (0.0-0.4); EOSINOPHILS % 0.3 % (0.0-6.0); HEMATOCRIT 30.9 % (34.2-44.1); HEMOGLOBIN 9.1 g/dL (12.0-16.0); LYMPHOCYTES # (AUTO) 0.5 (1.0-3.2); LYMPHOCYTES % 1.4 % (18.0-39.1); MEAN CORPUSCULAR HEMOGLOBIN 30.4 pg (28-32); MEAN CORPUSCULAR HGB CONC 29.4 g/dL (31-35); MEAN CORPUSCULAR VOLUME 103.3 fL (81-99); MONOCYTES # (AUTO) 1.8 (0.2-0.8); MONOCYTES % 4.9 % (4.4-11.3); NEUTROPHILS # (AUTO) 33.3 (2.1-6.9); NEUTROPHILS % 91.2 % (38.7-80.0); PLATELET COUNT 202 x10e3/uL (140-360); RED BLOOD COUNT 2.99 x10e6/uL (3.6-5.1); RED CELL DISTRIBUTION WIDTH 14.8 % (11.7-14.4); WHITE BLOOD COUNT 36.46 x10e3/uL (4.8-10.8)
[2024-02-15 19:51] LABS: ALANINE AMINOTRANSFERASE 6 IU/L (0-55); ALBUMIN 2.7 g/dL (3.5-5.0); ALBUMIN/GLOBULIN RATIO 0.8 (0.8-2.0); ALKALINE PHOSPHATASE 85 IU/L (40-150); ANION GAP 14.3 mmol/L (8-16); BILIRUBIN,TOTAL 0.4 mg/dL (0.2-1.2); BLOOD UREA NITROGEN 7 mg/dL (7-26); BUN/CREATININE RATIO 3 (6-25); CALCIUM 9.8 mg/dL (8.4-10.2); CARBON DIOXIDE 32 mmol/L (22-29); CHLORIDE 95 mmol/L (98-107); CREATINE KINASE 13 IU/L (29-168); CREATININE, SERUM 2.05 mg/dL (0.57-1.11); EST GLOMERULAR FILTRATION RATE 23 ML/MIN (>=60); POTASSIUM 3.3 mmol/L (3.5-5.1); SODIUM 138 mmol/L (136-145); TOTAL PROTEIN 5.9 g/dL (6.5-8.1)
[2024-02-15 19:52] LABS: GLUCOSE 29 mg/dL (74-118); LIPASE < 4 U/L (8-78)
[2024-02-15 19:57] LABS: TROPONIN I 0.118 ng/mL (0-0.300)
[2024-02-15] MEDS ORDERED: DEXTROSE 50% SYRINGE 50 ML IV ONE ×2 (19:59→23:13)
[2024-02-15] MEDS: DEXTROSE 50% SYRINGE 50 ML IV STA ×2 (20:11→23:09)
[2024-02-15] MEDS ORDERED: ONDANSETRON HCL INJ 2MG/ML 2ML 2 MG/ML VIAL IV PRN (20:45)
[2024-02-15] MEDS ORDERED: Morphine 4mg INJECTION 4 MG/ML INJ IV PRN (20:45)
[2024-02-15 21:00] VITALS: PULSE 71; RESP 24; O2SAT 98
[2024-02-15] MEDS: Vancomycin IV 1 GM in SODIUM CHLORIDE 0.9% 250ML 250 ML IV STA (21:11)
[2024-02-15 21:33] LABS: ABG PH 7.25 (7.35-7.45)
[2024-02-15 21:34] LABS: ABG HCO3 33 mmol/L (22-26); ABG PCO2 75 mmHg (35-45); ABG PO2 145 mmHg (80-105); ABG TCO2 35
[2024-02-15] MEDS ORDERED: SODIUM CHLORIDE 0.9% 1000ML 1,000 ML ONE (23:46)
[2024-02-15] MEDS ORDERED: NOREPINEPHRINE 8 MG/D5W 250 ML 250 ML ONE (23:46)
[2024-02-15] MEDS: NOREPINEPHRINE 8 MG/D5W 250 ML 250 ML IV SCH (23:50)
[2024-02-16] VITALS (45 sets, daily range): BP systolic 120–161; BP diastolic 36–110; PULSE 60–72; RESP 0–31; TEMP 98.1–99.4; O2SAT 89–100
[2024-02-16] MEDS ORDERED: DEXTROSE 50% SYRINGE 50 ML IV PRN ×3 (03:00→12:15)
[2024-02-16 03:32] LABS: TROPONIN I 0.109 ng/mL (0-0.300)
[2024-02-16 05:45] LABS: BASOPHILS % 0.1 % (0.0-1.0); HEMATOCRIT 32.1 % (34.2-44.1); HEMOGLOBIN 9.2 g/dL (12.0-16.0); LYMPHOCYTES % 2.1 % (18.0-39.1); MEAN CORPUSCULAR HEMOGLOBIN 30.6 pg (28-32); MEAN CORPUSCULAR HGB CONC 28.7 g/dL (31-35); MEAN CORPUSCULAR VOLUME 106.6 fL (81-99); MONOCYTES # (AUTO) 2.9 (0.2-0.8); MONOCYTES % 5.8 % (4.4-11.3); NEUTROPHILS # (AUTO) 43.8 (2.1-6.9); NEUTROPHILS % 88.8 % (38.7-80.0); PLATELET COUNT 297 x10e3/uL (140-360); RED BLOOD COUNT 3.01 x10e6/uL (3.6-5.1); RED CELL DISTRIBUTION WIDTH 14.8 % (11.7-14.4)
[2024-02-16 05:48] LABS: WHITE BLOOD COUNT 49.31 x10e3/uL (4.8-10.8)
[2024-02-16 06:01] LABS: ALBUMIN 2.5 g/dL (3.5-5.0); ALBUMIN/GLOBULIN RATIO 0.8 (0.8-2.0); ALKALINE PHOSPHATASE 98 IU/L (40-150); ANION GAP 11.9 mmol/L (8-16); BILIRUBIN,TOTAL 0.4 mg/dL (0.2-1.2); BLOOD UREA NITROGEN 8 mg/dL (7-26); BUN/CREATININE RATIO 3 (6-25); CALCIUM 9.7 mg/dL (8.4-10.2); CARBON DIOXIDE 30 mmol/L (22-29); CHLORIDE 97 mmol/L (98-107); CREATININE, SERUM 2.57 mg/dL (0.57-1.11); EST GLOMERULAR FILTRATION RATE 18 ML/MIN (>=60); GLUCOSE 159 mg/dL (74-118); SODIUM 136 mmol/L (136-145); TOTAL PROTEIN 5.6 g/dL (6.5-8.1)
[2024-02-16 06:02] LABS: ALANINE AMINOTRANSFERASE < 6 IU/L (0-55); POTASSIUM 2.9 mmol/L (3.5-5.1)
[2024-02-16 06:15] LABS: CREATINE KINASE < 7 IU/L (29-168)
[2024-02-16 06:18] LABS: TROPONIN I 0.106 ng/mL (0-0.300)
[2024-02-16 06:56] LABS: INR 1.29; PROTHROMBIN TIME 16.7 seconds (11.9-14.5)
[2024-02-16] MEDS: VANCOMYCIN 250MG/5ML ORAL SOLN PO SCH (08:00)
[2024-02-16 08:01] LABS: ABG HCO3 29 mmol/L (22-26); ABG PCO2 58 mmHg (35-45); ABG PH 7.32 (7.35-7.45); ABG PO2 134 mmHg (80-105); ABG TCO2 32
[2024-02-16] MEDS: APIXABAN 2.5 MG TABLET PO SCH (08:15)
[2024-02-16] MEDS: POTASSIUM CHLORIDE 20MEQ/100ML 100 ML IV ONE (08:16)
[2024-02-16] MEDS: SODIUM CHLORIDE 0.9% 500ML 500 ML IV ONE (08:17)
[2024-02-16 08:20] LABS: HYPOCHROMASIA SLIGHT; MONOCYTES % (MANUAL) 3 % (3.4-9.0); NEUTROPHILS % (MANUAL) 97 % (40-74); PLATELET ESTIMATE ADEQUATE; PLATELET MORPHOLOGY COMMENT NORMAL; RBC MORPHOLOGY COMMENT ABNORMAL; SPHEROCYTES FEW
[2024-02-16] MEDS: POTASSIUM CHLORIDE 20MEQ/100ML 100 ML IV SCH (09:41)
[2024-02-16] MEDS: METRONIDAZOLE 500MG/NS 100ML 100 ML IV SCH (11:29)
[2024-02-16] MEDS: INSULIN REGULAR, HUMAN 100 UNIT/1 ML SQ SCH (11:30)
[2024-02-16] MEDS ORDERED: ALBUTEROL/IPRATROPIUM 3 ML NEB NEB PRN (12:15)
[2024-02-16] MEDS ORDERED: HYDRALAZINE HCL 20 MG/ML VIAL IV PRN (12:15)
[2024-02-16] MEDS ORDERED: POTASSIUM CHLORIDE 20 MEQ TAB CR PO PRN (12:15)
[2024-02-16] MEDS ORDERED: DOCUSATE SODIUM 100 MG CAP PO PRN (12:15)
[2024-02-16] MEDS ORDERED: DIPHENHYDRAMINE HCL 25 MG CAP PO PRN (12:15)
[2024-02-16] MEDS ORDERED: LIDOCAINE 4% PATCH TP PRN (12:15)
[2024-02-16] MEDS ORDERED: SIMETHICONE 80 MG CHEW PO PRN (12:15)
[2024-02-16] MEDS: VANCOMYCIN HCL 125 MG CAPSULE PO SCH (12:45)
[2024-02-16 15:45] LABS: CREATINE KINASE < 7 IU/L (29-168)
[2024-02-16 15:47] LABS: TROPONIN I 0.107 ng/mL (0-0.300)
[2024-02-16] MEDS ORDERED: ENOXAPARIN SOD INJ 40 MG/0.4 ML SYR SC SCH (17:00)
[2024-02-16] MEDS: CHOLESTYRAMINE 4 GM PACKET PO SCH (17:10)
[2024-02-16] MEDS: LACTOBACILLUS ACIDOPHILUS CAPSULE PO SCH (17:10)
[2024-02-16] MEDS ORDERED: INSULIN GLARGINE 100 UNITS/ML VIAL SC SCH (21:00)
[2024-02-17] VITALS (52 sets, daily range): BP systolic 102–135; BP diastolic 37–106; PULSE 59–68; RESP 12–23; TEMP 97.8–99.3; O2SAT 93–100
[2024-02-17 06:50] LABS: BASOPHILS % 0.2 % (0.0-1.0); EOSINOPHILS % 0.2 % (0.0-6.0); HEMATOCRIT 30.6 % (34.2-44.1); HEMOGLOBIN 8.5 g/dL (12.0-16.0); LYMPHOCYTES # (AUTO) 0.8 (1.0-3.2); LYMPHOCYTES % 3.5 % (18.0-39.1); MEAN CORPUSCULAR HGB CONC 27.8 g/dL (31-35); MEAN CORPUSCULAR VOLUME 108.1 fL (81-99); MONOCYTES # (AUTO) 1.3 (0.2-0.8); MONOCYTES % 5.6 % (4.4-11.3); NEUTROPHILS # (AUTO) 20.5 (2.1-6.9); PLATELET COUNT 178 x10e3/uL (140-360); RED BLOOD COUNT 2.83 x10e6/uL (3.6-5.1); RED CELL DISTRIBUTION WIDTH 14.5 % (11.7-14.4); WHITE BLOOD COUNT 22.98 x10e3/uL (4.8-10.8)
[2024-02-17 07:12] LABS: ALBUMIN 2.1 g/dL (3.5-5.0); ALBUMIN/GLOBULIN RATIO 0.8 (0.8-2.0); ALKALINE PHOSPHATASE 89 IU/L (40-150); ANION GAP 11.8 mmol/L (8-16); BILIRUBIN,TOTAL 0.3 mg/dL (0.2-1.2); BLOOD UREA NITROGEN 17 mg/dL (7-26); BUN/CREATININE RATIO 5 (6-25); CARBON DIOXIDE 27 mmol/L (22-29); CHLORIDE 103 mmol/L (98-107); CREATININE, SERUM 3.65 mg/dL (0.57-1.11); EST GLOMERULAR FILTRATION RATE 12 ML/MIN (>=60); GLUCOSE 108 mg/dL (74-118); POTASSIUM 3.8 mmol/L (3.5-5.1); SODIUM 138 mmol/L (136-145); TOTAL PROTEIN 4.9 g/dL (6.5-8.1)
[2024-02-17 07:13] LABS: ALANINE AMINOTRANSFERASE < 6 IU/L (0-55)
[2024-02-17] MEDS: PANTOPRAZOLE SOD 40 MG TABEC PO SCH (07:30)
[2024-02-17] MEDS: SODIUM CHLORIDE 0.9% 500ML 500 ML IV ONE (08:29)
[2024-02-17 10:34] LABS: LYMPHOCYTES % (MANUAL) 4 % (19-48); MONOCYTES % (MANUAL) 1 % (3.4-9.0); NEUTROPHILS % (MANUAL) 95 % (40-74); OVALOCYTES FEW; PLATELET ESTIMATE ADEQUATE; PLATELET MORPHOLOGY COMMENT NORMAL
[2024-02-17] MEDS: HYDROCODONE/APAP 5MG-325MG TAB PO PRN (11:48)
[2024-02-17] MEDS: MIDODRINE HCL 5 MG TABLET PO SCH (11:48)
[2024-02-17 18:33] LABS: BODY FLUID APPEARANCE SL.CLOUDY; BODY FLUID COLOR YELLOW; BODY FLUID TYPE PLEURAL; RBC,BODY FLUID 6000 cells/uL; WBC,BODY FLUID 215 cells/uL
[2024-02-17 20:03] LABS: LYMPHOCYTES,BODY FLUID 43 %; MONO/MACROPHG,BODY FLUID 29 %; NEUTROPHILS,BODY FLUID 23 %; TOTAL CELLS COUNTED (DIFF) 100
[2024-02-17 20:04] LABS: OTHER CELLS,BODY FLUID 5 %
[2024-02-17] MEDS ORDERED: AMIODARONE HCL200 MG PO (22:46)
[2024-02-18] VITALS (36 sets, daily range): BP systolic 96–164; BP diastolic 34–69; PULSE 59–69; RESP 12–20; TEMP 97.9–98.5; O2SAT 86–100
[2024-02-18 07:06] LABS: BASOPHILS % 0.2 % (0.0-1.0); EOSINOPHILS # (AUTO) 0.1 (0.0-0.4); EOSINOPHILS % 0.5 % (0.0-6.0); HEMATOCRIT 29.8 % (34.2-44.1); HEMOGLOBIN 8.3 g/dL (12.0-16.0); LYMPHOCYTES # (AUTO) 0.9 (1.0-3.2); LYMPHOCYTES % 5.7 % (18.0-39.1); MEAN CORPUSCULAR HGB CONC 27.9 g/dL (31-35); MEAN CORPUSCULAR VOLUME 107.6 fL (81-99); MONOCYTES % 5.9 % (4.4-11.3); NEUTROPHILS # (AUTO) 14.1 (2.1-6.9); NEUTROPHILS % 87.1 % (38.7-80.0); PLATELET COUNT 179 x10e3/uL (140-360); RED BLOOD COUNT 2.77 x10e6/uL (3.6-5.1); RED CELL DISTRIBUTION WIDTH 14.9 % (11.7-14.4); WHITE BLOOD COUNT 16.24 x10e3/uL (4.8-10.8)
[2024-02-18 07:34] LABS: ALBUMIN/GLOBULIN RATIO 0.7 (0.8-2.0); ALKALINE PHOSPHATASE 101 IU/L (40-150); ANION GAP 13.6 mmol/L (8-16); BILIRUBIN,TOTAL 0.3 mg/dL (0.2-1.2); BLOOD UREA NITROGEN 28 mg/dL (7-26); BUN/CREATININE RATIO 6 (6-25); CALCIUM 8.8 mg/dL (8.4-10.2); CARBON DIOXIDE 24 mmol/L (22-29); CHLORIDE 105 mmol/L (98-107); CREATININE, SERUM 4.65 mg/dL (0.57-1.11); EST GLOMERULAR FILTRATION RATE 9 ML/MIN (>=60); GLUCOSE 120 mg/dL (74-118); POTASSIUM 3.6 mmol/L (3.5-5.1); SODIUM 139 mmol/L (136-145); TOTAL PROTEIN 4.9 g/dL (6.5-8.1)
[2024-02-18 07:38] LABS: ALANINE AMINOTRANSFERASE < 6 IU/L (0-55)
[2024-02-18] MEDS ORDERED: SODIUM CHLORIDE 0.9% 1000ML 2,000 ML IV PRN (12:45)
[2024-02-18] MEDS: QUETIAPINE FUMARATE 25 MG TAB PO SCH (14:42)
[2024-02-18] MEDS: CLONAZEPAM 0.5 MG TAB PO SCH (14:46)
[2024-02-19] VITALS (10 sets, daily range): BP systolic 129–164; BP diastolic 35–52; PULSE 61–67; RESP 16–20; TEMP 97.6–98.6; O2SAT 92–100
[2024-02-19 03:10] LABS: HEPATITIS B CORE AB TOTAL Negative (Negative)
[2024-02-19 06:30] LABS: BASOPHILS # (AUTO) 0.1 (0.0-0.1); BASOPHILS % 0.7 % (0.0-1.0); EOSINOPHILS # (AUTO) 0.1 (0.0-0.4); EOSINOPHILS % 0.9 % (0.0-6.0); HEMATOCRIT 30.7 % (34.2-44.1); HEMOGLOBIN 8.7 g/dL (12.0-16.0); LYMPHOCYTES # (AUTO) 0.8 (1.0-3.2); MEAN CORPUSCULAR HEMOGLOBIN 30.5 pg (28-32); MEAN CORPUSCULAR HGB CONC 28.3 g/dL (31-35); MEAN CORPUSCULAR VOLUME 107.7 fL (81-99); MONOCYTES # (AUTO) 0.7 (0.2-0.8); MONOCYTES % 9.1 % (4.4-11.3); NEUTROPHILS # (AUTO) 6.3 (2.1-6.9); NEUTROPHILS % 78.6 % (38.7-80.0); PLATELET COUNT 159 x10e3/uL (140-360); RED BLOOD COUNT 2.85 x10e6/uL (3.6-5.1); RED CELL DISTRIBUTION WIDTH 15.2 % (11.7-14.4); WHITE BLOOD COUNT 8.03 x10e3/uL (4.8-10.8)
[2024-02-19 06:48] LABS: ANION GAP 12.7 mmol/L (8-16); CALCIUM 9.1 mg/dL (8.4-10.2); CREATININE, SERUM 2.88 mg/dL (0.57-1.11); POTASSIUM 3.7 mmol/L (3.5-5.1)
[2024-02-20] VITALS (10 sets, daily range): BP systolic 128–165; BP diastolic 42–66; PULSE 62–82; RESP 16–20; TEMP 97.5–98.8; O2SAT 92–99
[2024-02-20 06:07] LABS: BASOPHILS % 0.4 % (0.0-1.0); EOSINOPHILS # (AUTO) 0.1 (0.0-0.4); EOSINOPHILS % 1.7 % (0.0-6.0); HEMOGLOBIN 8.3 g/dL (12.0-16.0); LYMPHOCYTES # (AUTO) 0.9 (1.0-3.2); LYMPHOCYTES % 16.6 % (18.0-39.1); MEAN CORPUSCULAR HEMOGLOBIN 30.2 pg (28-32); MEAN CORPUSCULAR HGB CONC 27.7 g/dL (31-35); MEAN CORPUSCULAR VOLUME 109.1 fL (81-99); MONOCYTES # (AUTO) 0.5 (0.2-0.8); MONOCYTES % 10.4 % (4.4-11.3); NEUTROPHILS # (AUTO) 3.6 (2.1-6.9); NEUTROPHILS % 68.8 % (38.7-80.0); PLATELET COUNT 146 x10e3/uL (140-360); RED BLOOD COUNT 2.75 x10e6/uL (3.6-5.1); RED CELL DISTRIBUTION WIDTH 14.9 % (11.7-14.4); WHITE BLOOD COUNT 5.17 x10e3/uL (4.8-10.8)
[2024-02-20 06:19] LABS: ANION GAP 11.6 mmol/L (8-16); CALCIUM 9.3 mg/dL (8.4-10.2); CREATININE, SERUM 4.13 mg/dL (0.57-1.11); POTASSIUM 3.6 mmol/L (3.5-5.1)
[2024-02-20] MEDS ORDERED: LIDOCAINE HCL 5% OINMENT 35.44 GM TUBE TP PRN (08:00)
[2024-02-21] VITALS (9 sets, daily range): BP systolic 134–166; BP diastolic 41–52; PULSE 60–75; RESP 17–22; TEMP 97.3–98.2; O2SAT 94–100
[2024-02-21 06:03] LABS: BASOPHILS # (AUTO) 0.1 (0.0-0.1); EOSINOPHILS # (AUTO) 0.1 (0.0-0.4); EOSINOPHILS % 1.8 % (0.0-6.0); HEMATOCRIT 30.5 % (34.2-44.1); HEMOGLOBIN 8.7 g/dL (12.0-16.0); LYMPHOCYTES # (AUTO) 0.8 (1.0-3.2); LYMPHOCYTES % 16.6 % (18.0-39.1); MEAN CORPUSCULAR HEMOGLOBIN 30.5 pg (28-32); MEAN CORPUSCULAR HGB CONC 28.5 g/dL (31-35); MONOCYTES # (AUTO) 0.7 (0.2-0.8); MONOCYTES % 13.7 % (4.4-11.3); NEUTROPHILS # (AUTO) 3.1 (2.1-6.9); NEUTROPHILS % 62.3 % (38.7-80.0); PLATELET COUNT 159 x10e3/uL (140-360); RED BLOOD COUNT 2.85 x10e6/uL (3.6-5.1); RED CELL DISTRIBUTION WIDTH 15.3 % (11.7-14.4); WHITE BLOOD COUNT 4.95 x10e3/uL (4.8-10.8)
[2024-02-21 06:54] LABS: ANION GAP 9.5 mmol/L (8-16); CREATININE, SERUM 2.7 mg/dL (0.57-1.11); POTASSIUM 3.5 mmol/L (3.5-5.1)
[2024-02-21] MEDS: BUSPIRONE HCL 5 MG TAB PO SCH (16:29)
[2024-02-22] VITALS (10 sets, daily range): BP systolic 118–159; BP diastolic 44–54; PULSE 62–81; RESP 18–22; TEMP 97.4–98.1; O2SAT 96–100
[2024-02-22] MEDS: MELATONIN 5 MG TABLET PO PRN (00:11)
[2024-02-22] MEDS: BENZONATATE 100 MG CAP PO PRN (02:19)
[2024-02-22 20:45] LABS: HEPATITIS B SURFACE AG (P) Negative (Negative)
[2024-02-23] VITALS (11 sets, daily range): BP systolic 143–167; BP diastolic 44–61; PULSE 63–83; RESP 16–24; TEMP 97.6–99.6; O2SAT 94–100
[2024-02-24] VITALS (7 sets, daily range): BP systolic 131–157; BP diastolic 40–56; PULSE 59–81; RESP 16–20; TEMP 97.3–98.2; O2SAT 89–100
[2024-02-24] MEDS: ALBUMIN 25% 12.5GM 50ML 50 ML IV ONE ×2 (07:22→07:23)
[2024-02-24 08:26] LABS: BASOPHILS % 0.3 % (0.0-1.0); EOSINOPHILS % 1.1 % (0.0-6.0); HEMATOCRIT 31.6 % (34.2-44.1); HEMOGLOBIN 8.8 g/dL (12.0-16.0); LYMPHOCYTES # (AUTO) 0.7 (1.0-3.2); LYMPHOCYTES % 18.8 % (18.0-39.1); MEAN CORPUSCULAR HEMOGLOBIN 30.9 pg (28-32); MEAN CORPUSCULAR HGB CONC 27.8 g/dL (31-35); MEAN CORPUSCULAR VOLUME 110.9 fL (81-99); MONOCYTES # (AUTO) 0.5 (0.2-0.8); MONOCYTES % 13.4 % (4.4-11.3); NEUTROPHILS # (AUTO) 2.2 (2.1-6.9); NEUTROPHILS % 62.7 % (38.7-80.0); PLATELET COUNT 104 x10e3/uL (140-360); RED BLOOD COUNT 2.85 x10e6/uL (3.6-5.1); WHITE BLOOD COUNT 3.52 x10e3/uL (4.8-10.8)
[2024-02-24 09:41] LABS: ANION GAP 11.6 mmol/L (8-16); CALCIUM 10.2 mg/dL (8.4-10.2); CREATININE, SERUM 4.01 mg/dL (0.57-1.11); POTASSIUM 4.6 mmol/L (3.5-5.1)
[2024-02-24 09:52] LABS: TOTAL PROTEIN,BODY FLUID 2.3 g/dL
[2024-02-24] MEDS ORDERED: ELIQUIS2.5 MG PO (13:06)
[2024-02-24] MEDS: ACETAMINOPHEN 325 MG TAB PO PRN (13:19)
[2024-02-25] VITALS (7 sets, daily range): BP systolic 118–158; BP diastolic 43–62; PULSE 59–78; RESP 16–20; TEMP 97.5–98.3; O2SAT 95–100
[2024-02-25] MEDS ORDERED: BUSPIRONE HCL 5 MG TAB PO PRN (12:15)
[2024-02-25] MEDS ORDERED: CLONAZEPAM 0.5 MG TAB PO PRN (15:00)
[2024-02-25] MEDS ORDERED: ALBUMIN 25% 12.5GM 50ML 50 ML IV ONE (16:56)
[2024-02-25] MEDS ORDERED: ALBUMIN 25% 12.5GM 0.25 GM/ML BTL IV PRN (17:00)
[2024-02-25] MEDS: BUSPIRONE HCL 5 MG TAB PO SCH (20:02)
== END 2024-02-25 22:32 | disposition home health service (06) | DRG 871 ==
LOC: ER 18:19 → ERHOLD 20:36 → ICU 02-16 12:58 → MED/SURG3 02-19 07:40 → MED/SURG2 02-21 15:45
PROVIDERS: ADMIT Internal Medicine; ATTEND Internal Medicine
PROC: 4A133R1 Monitoring of Arterial Saturation, Peripheral, Percutaneous Approach (ICD-10-PCS; principal; 2024-02-15)
PROC: 3E0333Z Introduction of Anti-inflammatory into Peripheral Vein, Percutaneous Approach (ICD-10-PCS; 2024-02-15)
PROC: 06HY33Z Insertion of Infusion Device into Lower Vein, Percutaneous Approach (ICD-10-PCS; 2024-02-15)
PROC: 5A09357 Assistance with Respiratory Ventilation, Less than 24 Consecutive Hours, Continuous Positive Airway Pressure (ICD-10-PCS; 2024-02-15)
PROC: 3E033XZ Introduction of Vasopressor into Peripheral Vein, Percutaneous Approach (ICD-10-PCS; 2024-02-15)
PROC: 0W9B3ZZ Drainage of Left Pleural Cavity, Percutaneous Approach (ICD-10-PCS; 2024-02-17)
PROC: 5A1D70Z Performance of Urinary Filtration, Intermittent, Less than 6 Hours Per Day (ICD-10-PCS; 2024-02-18)
DX: A41.4 Sepsis due to anaerobes (principal); J18.9 Pneumonia, unspecified organism; J96.22 Acute and chronic respiratory failure with hypercapnia; R57.1 Hypovolemic shock; J96.21 Acute and chronic respiratory failure with hypoxia; E11.22 Type 2 diabetes mellitus with diabetic chronic kidney disease; I12.0 Hypertensive chronic kidney disease with stage 5 chronic kidney disease or end stage renal disease; N18.6 End stage renal disease; J90 Pleural effusion, not elsewhere classified; A04.72 Enterocolitis due to Clostridium difficile, not specified as recurrent; E87.29 Other acidosis; K57.92 Diverticulitis of intestine, part unspecified, without perforation or abscess without bleeding; Z99.2 Dependence on renal dialysis; E11.42 Type 2 diabetes mellitus with diabetic polyneuropathy; E11.649 Type 2 diabetes mellitus with hypoglycemia without coma; N28.9 Disorder of kidney and ureter, unspecified; I48.91 Unspecified atrial fibrillation; E86.0 Dehydration; R53.81 Other malaise; E03.9 Hypothyroidism, unspecified; K80.20 Calculus of gallbladder without cholecystitis without obstruction; M06.9 Rheumatoid arthritis, unspecified; F41.9 Anxiety disorder, unspecified; F32.A Depression, unspecified; E66.9 Obesity, unspecified; Z68.29 Body mass index [BMI] 29.0-29.9, adult; Z79.4 Long term (current) use of insulin; Z79.01 Long term (current) use of anticoagulants; Z79.52 Long term (current) use of systemic steroids; Z95.810 Presence of automatic (implantable) cardiac defibrillator; Z90.710 Acquired absence of both cervix and uterus; Z91.041 Radiographic dye allergy status
CPT/HCPCS: 32555; 36415; 36600; 70450; 71045; 71250; 74176; 74470; 76705; 80048; 80053; 82550; 82805; 82948; 83615; 83690; 84157; 84484; 85025; 85610; 86704; 86705; 86706; 87040; 87045; 87070; 87205; 87324; 87340; 87449; 88112; 88305; 89051; 93005; 93306; 94660; 94799; 96372; 99252; 99285; C1729; J0692; J2270; J2405; J2543; J3480; J7030; J7040; J7050; J7799

== ENCOUNTER 2024-02-27 16:48 | Emergency (ER) | payer MEDICARE ==
[~2024-02-27] VITALS: Ht 160 cm; Wt 75.3 kg
[2024-02-27 17:11] VITALS: TEMP 98.1
[2024-02-27 17:27] LABS: BASOPHILS % 0.4 % (0.0-1.0); EOSINOPHILS % 0.8 % (0.0-6.0); HEMATOCRIT 30.6 % (34.2-44.1); HEMOGLOBIN 8.9 g/dL (12.0-16.0); LYMPHOCYTES # (AUTO) 0.5 (1.0-3.2); LYMPHOCYTES % 9.2 % (18.0-39.1); MEAN CORPUSCULAR HEMOGLOBIN 31.1 pg (28-32); MEAN CORPUSCULAR HGB CONC 29.1 g/dL (31-35); MONOCYTES # (AUTO) 0.3 (0.2-0.8); MONOCYTES % 6.1 % (4.4-11.3); NEUTROPHILS # (AUTO) 4.1 (2.1-6.9); NEUTROPHILS % 82.9 % (38.7-80.0); PLATELET COUNT 109 x10e3/uL (140-360); RED BLOOD COUNT 2.86 x10e6/uL (3.6-5.1); RED CELL DISTRIBUTION WIDTH 15.1 % (11.7-14.4)
[2024-02-27 17:35] LABS: INR 1.28; PROTHROMBIN TIME 16.6 seconds (11.9-14.5)
[2024-02-27 17:36] LABS: PARTIAL THROMBOPLASTIN TIME 42.2 seconds (23.8-35.5)
[2024-02-27 17:42] LABS: ALBUMIN 3.4 g/dL (3.5-5.0); ALBUMIN/GLOBULIN RATIO 1.2 (0.8-2.0); ANION GAP 13.5 mmol/L (8-16); BILIRUBIN,TOTAL 0.5 mg/dL (0.2-1.2); CALCIUM 9.6 mg/dL (8.4-10.2); CREATININE, SERUM 2.03 mg/dL (0.57-1.11); POTASSIUM 3.5 mmol/L (3.5-5.1); TOTAL PROTEIN 6.2 g/dL (6.5-8.1)
[2024-02-27] MEDS: ONDANSETRON HCL INJ 2MG/ML 2ML 2 MG/ML VIAL IV ONE (17:42)
[2024-02-27 17:48] LABS: TROPONIN I 0.071 ng/mL (0-0.300)
[2024-02-27 18:58] VITALS: PULSE 71; RESP 15
[2024-02-27 20:49] VITALS: BP 150/47; PULSE 71; RESP 15; TEMP 98.1; O2SAT 99
== END 2024-02-27 20:20 | disposition home or self-care (01) ==
LOC: ER 16:54
DX: R19.7 Diarrhea, unspecified (principal); I12.0 Hypertensive chronic kidney disease with stage 5 chronic kidney disease or end stage renal disease; E11.22 Type 2 diabetes mellitus with diabetic chronic kidney disease; E11.65 Type 2 diabetes mellitus with hyperglycemia; N18.6 End stage renal disease; Z99.2 Dependence on renal dialysis; E11.40 Type 2 diabetes mellitus with diabetic neuropathy, unspecified; I50.9 Heart failure, unspecified; I48.91 Unspecified atrial fibrillation; R94.31 Abnormal electrocardiogram [ECG] [EKG]; Z87.442 Personal history of urinary calculi
CPT/HCPCS: 36415; 70450; 71045; 74176; 80053; 82550; 82948; 83690; 83735; 84484; 85025; 85610; 85730; 93005; 99284; J2405

== ENCOUNTER 2024-03-12 07:12 | Emergency (ER) | payer MEDICARE ==
[~2024-03-12] VITALS: Ht 160 cm; Wt 75.3 kg
[2024-03-12 07:13] VITALS: TEMP 98.4
[2024-03-12 07:45] LABS: BASOPHILS % 0.3 % (0.0-1.0); EOSINOPHILS # (AUTO) 0.1 (0.0-0.4); EOSINOPHILS % 3.3 % (0.0-6.0); HEMATOCRIT 28.1 % (34.2-44.1); LYMPHOCYTES # (AUTO) 0.7 (1.0-3.2); LYMPHOCYTES % 19.9 % (18.0-39.1); MEAN CORPUSCULAR HEMOGLOBIN 30.7 pg (28-32); MEAN CORPUSCULAR HGB CONC 28.5 g/dL (31-35); MEAN CORPUSCULAR VOLUME 107.7 fL (81-99); MONOCYTES # (AUTO) 0.4 (0.2-0.8); NEUTROPHILS # (AUTO) 2.4 (2.1-6.9); NEUTROPHILS % 65.2 % (38.7-80.0); RED BLOOD COUNT 2.61 x10e6/uL (3.6-5.1); RED CELL DISTRIBUTION WIDTH 16.3 % (11.7-14.4); WHITE BLOOD COUNT 3.62 x10e3/uL (4.8-10.8)
[2024-03-12 07:55] LABS: PLATELET COUNT 83 x10e3/uL (140-360)
[2024-03-12 08:14] LABS: ANION GAP 10.1 mmol/L (8-16); POTASSIUM 5.1 mmol/L (3.0-5.1)
[2024-03-12 08:15] LABS: CALCIUM 9.7 mg/dL (8.0-10.3); CREATININE, SERUM 3.4 mg/dL (0.6-1.2)
[2024-03-12 08:17] LABS: ALBUMIN 3.1 g/dL (3.3-5.5); ALBUMIN/GLOBULIN RATIO 1.1 (0.8-2.0); BILIRUBIN,TOTAL 0.5 mg/dL (0.2-1.6); TOTAL PROTEIN 5.8 g/dL (6.4-8.1)
[2024-03-12 11:58] VITALS: PULSE 60; RESP 18; O2SAT 95
== END 2024-03-12 12:51 | disposition home or self-care (01) ==
LOC: ER 07:18
DX: R06.02 Shortness of breath (principal); I12.0 Hypertensive chronic kidney disease with stage 5 chronic kidney disease or end stage renal disease; E11.22 Type 2 diabetes mellitus with diabetic chronic kidney disease; E11.65 Type 2 diabetes mellitus with hyperglycemia; N18.6 End stage renal disease; Z99.2 Dependence on renal dialysis; E11.40 Type 2 diabetes mellitus with diabetic neuropathy, unspecified; Z99.81 Dependence on supplemental oxygen; I50.9 Heart failure, unspecified; I48.91 Unspecified atrial fibrillation; R94.31 Abnormal electrocardiogram [ECG] [EKG]; Z87.442 Personal history of urinary calculi
CPT/HCPCS: 36415; 71045; 80053; 85025; 93005; 99284

== ENCOUNTER 2024-03-26 22:42 | Emergency (ER) | payer MEDICARE ==
[~2024-03-26] VITALS: Ht 160 cm; Wt 75.3 kg
[2024-03-26 22:59] VITALS: RESP 16; TEMP 98.7
[2024-03-27 02:30] VITALS: PULSE 61
[2024-03-27 03:54] VITALS: BP 118/82; O2SAT 94
== END 2024-03-27 03:25 | disposition home or self-care (01) ==
LOC: ER 22:58
DX: Z04.3 Encounter for examination and observation following other accident (principal); W06.XXXA Fall from bed, initial encounter; I12.0 Hypertensive chronic kidney disease with stage 5 chronic kidney disease or end stage renal disease; E11.22 Type 2 diabetes mellitus with diabetic chronic kidney disease; N18.6 End stage renal disease; F03.90 Unspecified dementia, unspecified severity, without behavioral disturbance, psychotic disturbance, mood disturbance, and anxiety; E11.40 Type 2 diabetes mellitus with diabetic neuropathy, unspecified; Z87.442 Personal history of urinary calculi
CPT/HCPCS: 70450; 71045; 72131; 72170; 99283